=== PATIENT | female | born 1965 | race Caucasian/White ===

== ENCOUNTER → 2021-09-08 | Outpatient (CLI) | payer OTHER, SELFPAY ==
--- NOTE | 2021-09-08 07:23 | BI_ITS ---
MAMMOGRAPHY - BILATERAL SCREENING REASON FOR EXAM: Female, 55 years old. Routine annual screening examination. PERTINENT HISTORY: Non-contributory. TECHNIQUE: Digital bilateral breast loretta (3D mammographic acquisition) in the CC and MLO projections. 2-D mediolateral oblique (MLO) and craniocaudad (CC) views of both breasts were obtained. CAD: Full Field Digital Mammography with Computer Added Detection was performed. COMPARISON: No comparison mammograms available at this time. If any prior films become available, an addendum to this report can be generated. FINDINGS: Breast Composition: There are scattered areas of fibroglandular density. There are no dominant masses or suspicious calcifications. No other significant abnormalities are identified. BI/SCRN MAMM (CAD)W/LORETTA BILAT IMPRESSION: Negative screening mammogram. Yearly followup mammogram recommended. (A) ASSESSMENT CATEGORY: BIRADS Category 1: Negative. A letter regarding these results will be sent to the patient by the facility within 30 days. Approximately 10% of breast cancers are not detected by mammography. A normal mammogram should not delay biopsy of a clinically suspicious abnormality. [id number] Electronically Signed: Bowen Andrews MD at 15:48 EDT ,
== END | disposition home or self-care (01) ==
LOC: OPBI 07:21
PROVIDERS: PCP Internal Medicine; Referring Provider Obstetrics & Gynecology; Visit Provider Obstetrics & Gynecology
DX: Z12.31 Encounter for screening mammogram for malignant neoplasm of breast (principal)
CPT/HCPCS: 77063; 77067

== ENCOUNTER → 2021-09-19 | Outpatient (CLI) | payer OTHER, SELFPAY ==
[2021-09-19 08:16] LABS: Absolute Lymphocyte Count 2.22 X10^3/uL (0.83-4.51); Absolute Neutrophil Count 3.6 X10^3/uL (2.0-7.7); Basophil# 0.06 X10^3/uL; Basophil% 0.9 % (0-1); Eosinophil# 0.19 X10^3/uL; Eosinophils% 2.8 % (0-5); Hematocrit 43.1 % (37-47); Hemoglobin 14.1 g/dL (12.0-15.0); Lymphocyte # 2.22 X10^3/ul (0.83-4.51); Lymphocyte % 33.3 % (19-41); Mean Corp Hgb Conc 32.7 g/dL (32-36); Mean Corpuscular Hgb 30.1 pg (27.0-32.0); Mean Corpuscular Volume 91.9 fL (81-99); Mean Platelet Vol. 10.4 fl (6.2-12.0); Monocyte# 0.61 X10^3/uL; Monocyte% 9.1 % (0-10); NRBC Flagged by Analyzer 0 % (0-5); Neutrophil # 3.56 X10^3/uL (2.7-7.7); Neutrophil % 53.5 % (47-70); Platelet Count 174 K/mm3 (150-450); RBC Distribution Width CV 13.3 % (11.6-14.6); RBC Distribution Width SD 44.9 fl (35.1-43.9); Red Blood Count 4.69 M/mm3 (4.2-5.4); White Blood Count 6.7 K/mm3 (4.4-11.0)
[2021-09-25 20:07] LABS: Alternaria tenuis <0.10 kU/L (Class 0); Ash, White <0.10 kU/L (Class 0); Aspergillus fumigatus <0.10 kU/L (Class 0); Aspirgillus flavus Negative (Neg:<1:1); Aspirgillus fumigatus Negative (Neg:<1:1); Aspirgillus niger Negative (Neg:<1:1); Bermuda Grass <0.10 kU/L (Class 0); Birch <0.10 kU/L (Class 0); Black Walnut <0.10 kU/L (Class 0); Cat Hair / Dander,Stand <0.10 kU/L (Class 0); Cedar, Mountain <0.10 kU/L (Class 0); Cladosporium herbarum <0.10 kU/L (Class 0); Cockroach, American <0.10 kU/L (Class 0); Cottonwood <0.10 kU/L (Class 0); Cytoplasmic Ab (C-ANCA) <1:20 titer (Neg:<1:20); D farinae Mite <0.10 kU/L (Class 0); D pteronyssinus <0.10 kU/L (Class 0); Dog Epithelia <0.10 kU/L (Class 0); Elm, American White <0.10 kU/L (Class 0); Immunoglobulin E 318 IU/mL (6-495); Maple/Box Elder <0.10 kU/L (Class 0); Mulberry, White <0.10 kU/L (Class 0); Oak, White <0.10 kU/L (Class 0); Pecan <0.10 kU/L (Class 0); Penicillium Notatum <0.10 kU/L (Class 0); Pigweed, Rough <0.10 kU/L (Class 0); Ragweed, Short/Common <0.10 kU/L (Class 0); Russian Thistle <0.10 kU/L (Class 0); Sheep Sorrel <0.10 kU/L (Class 0); Sycamore, American <0.10 kU/L (Class 0); Timothy Grass <0.10 kU/L (Class 0)
[2021-09-26 13:26] LABS: Mouse Urine <0.10 kU/L (Class 0)
[2021-09-26 13:27] LABS: Immunoglobulin E 312 IU/mL (6-495); Perinuclear Ab (P-ANCA) <1:20 titer (Neg:<1:20)
== END | disposition home or self-care (01) ==
PROVIDERS: PCP Internal Medicine; Referring Provider Internal Medicine Critical Care Medicine; Visit Provider Internal Medicine Critical Care Medicine
DX: J45.909 Unspecified asthma, uncomplicated (principal)
CPT/HCPCS: 36415; 82785; 85025; 86003; 86256; 86606

== ENCOUNTER → 2021-09-23 | Outpatient (CLI) | payer OTHER, SELFPAY ==
--- NOTE | 2021-09-23 12:23 | PFT ---
INTRODUCTION: The patient is a 55-year-old female that presents for pulmonary function studies secondary to a diagnosis of asthma. Respiratory therapy reported good patient effort. Bronchodilators were used during testing. INTERPRETATION: Forced expiration spirometry demonstrates the presence of a fully reversible moderate large airways obstructive ventilatory defect with significant bronchodilator response. Spirograms are of good quality and plateau normally. Body plethysmography was performed and revealed lung volumes to be within normal limits. Diffusing capacity by single breath CO is also within normal limits. IMPRESSION: Fully reversible moderate large airways obstructive ventilatory impairment with significant bronchodilator response noted.
== END | disposition home or self-care (01) ==
LOC: PSN 09:15
PROVIDERS: PCP Internal Medicine; Referring Provider Internal Medicine Critical Care Medicine; Visit Provider Internal Medicine Critical Care Medicine
DX: J45.909 Unspecified asthma, uncomplicated (principal)
CPT/HCPCS: 94060; 94726; 94729

== ENCOUNTER 2021-10-06 09:04 | Emergency (ER) | payer OTHER, SELFPAY ==
[2021-10-06 09:05] VITALS: BP 127/80; PULSE 61; RESP 15; TEMP 36; O2SAT 95; BMI 20.9
--- NOTE | 2021-10-06 09:10 | EDS_ITS ---
HPI <PAM Maciel - Last Filed: 10/06/21 09:51> History of Present Illness Chief Complaint: Upper Extremity Injury Narrative Narrative: 55-year-old female with history of asthma, SMT, presents to the emergency department after mechanical fall this morning. Patient states that her foot got stuck, she fell to the right striking her right upper extremity. Patient has pain to the shoulder, humeral area. Patient states that she did try to work however the pain was too great so she is here for evaluation. Patient is currently not on any blood thinners, patient denies any head or neck injury. [facility] <PAM Maciel - Last Filed: 10/06/21 09:51> [facility] Medical History (Updated 10/06/21 @ 09:50 by PAM Maciel) Right patella fracture Home Medications fluticasone 500 mcg-salmeterol 50 mcg/dose blistr powdr for inhalation 1 inh INHALATION BID 08/25/21 [History Last Taken Unknown] metoprolol succinate 25 mg tablet,extended release 24 hr 25 mg PO DAILY 08/25/21 [History Last Taken Unknown] montelukast 10 mg tablet 10 mg PO DAILY 08/25/21 [History Last Taken Unknown] oxybutynin chloride 5 mg tablet 5 mg PO QHS PRN #30 tab 08/25/21 [Rx Last Taken Unknown] pregabalin 200 mg capsule 200 mg PO BID 08/25/21 [History Last Taken Unknown] cholecalciferol (vitamin D3) 50 mcg (2,000 unit) capsule 50 mcg PO DAILY 09/15/21 [History Last Taken Unknown] epinephrine 0.3 mg/0.3 mL injection, auto-injector 0.3 mg IM ONCE #2 ea 09/15/21 [Rx Last Taken Unknown] fluticasone propionate 50 mcg/actuation nasal spray,suspension 2 spray INTRANASAL DAILY 09/15/21 [History Last Taken Unknown] mjxkwmnf-rota-uousw acid 80 mcg-herbal no.293 66.7 mg chewable tablet 1 tab PO DAILY 09/15/21 [History Last Taken Unknown] omalizumab 150 mg subcutaneous solution 375 mg SUBCUT Q2W 09/15/21 [History Last Taken Unknown] Allergy/AdvReac Type Severity Reaction Status Date / Time egg Allergy Other Verified 10/06/21 09:50 Family History (Updated 08/25/21 @ 09:26 by Rosina Mccall) Grandmother Throat cancer Mother Hypertension Surgical History (Updated 08/25/21 @ 09:25 by Rosina Mccall) S/P cholecystectomy S/P hysterectomy S/P right knee surgery S/P sinus surgery Social History (Updated 08/25/21 @ 09:29 by Rosina Mccall) Smoking Status: Former smoker alcohol intake: current details: occasionally substance use type: does not use caffeine: Yes what type of physical activity do you participate in: none seatbelt use: always do you feel safe at home: Yes additional social history: - Luis Patient works in [employer] at [employer] <PAM Maciel - Last Filed: 10/06/21 09:51> ROS ED ROS Narrative Constitutional: Negative for fever, chills, weight loss, weakness Eyes: Negative for vision loss, vision change, double vision ENT: Negative for any sore throat, ear pain, congestion Cardiovascular: Negative for any chest pain, tightness, palpitations, racing heartbeat Respiratory: Negative for any cough, sputum production, hemoptysis, shortness of breath, shortness of breath on exertion, orthopnea Gastrointestinal: Negative for any abdominal pain, nausea, vomiting, diarrhea, constipation, blood in stool, blood in vomit : Negative for any urinary frequency, incontinence, dysuria, retention, blood in urine Muscle skeletal: Negative for any muscle joint pain, stiffness, myalgias, arthralgias, neck pain, back pain. Positive for right shoulder, right upper arm pain Neurological: Negative for any headache, dizziness, syncope, numbness or tingling Skin: Negative for any rashes, lumps, itching, abrasions, lacerations Psychiatric: Negative for any depression, anxiety, stress, suicidal ideation, homicidal ideation Hematologic: Negative for any easy bruising, excessive bruising, easy bleeding Allergies: Negative for any eczema, hives, rash EXAM <PAM Maciel - Last Filed: 10/06/21 09:51> Physical Exam Narrative Exam Narrative: Vital signs reviewed. 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 Patient is a +2 radial pulse. Patient does have pain to the medial humerus as well as the right anterior shoulder joint. Negative for any cracking. Patient does have pain with any movement. Neuro: Cranial nerves II through XII intact, no focal neurological deficits. Skin: Clean dry and intact with no rash, purpura, petechiae, vesicles or pustules. Backslash flank: No CVA tenderness, no midline spinal tenderness, no deformity. Psych: Normal mood and affect. No SI, HI or acute psychosis. Const Vital Signs: 10/06/21 09:05 Temperature 96.8 F L Temperature Source Temporal Pulse Rate 61 Respiratory Rate 15 Blood Pressure 127/80 H Blood Pressure Mean 95 Pulse Ox 95 Oxygen Delivery Method Room Air Positive well nourished and well developed General Appearance ED: well developed [facility] <PAM Maciel - Last Filed: 10/06/21 09:51> [facility] Narrative Medical decision making narrative: Patient appears well, patient appears nontoxic, vital signs are stable. Patient presents to the emergency department with right shoulder, right arm pain after mechanical fall today. Patient's physical examination was consistent with muscle skeletal pain, I did receive x- rays of the right shoulder, right humerus, these were negative for any acute osseous abnormality. Patient was given an IM dose of Toradol, patient will return to work, and instructed to return for any worsening symptoms. Patient educated on range of motion exercise as well as to ice and heat. Patient stable for discharge <Dr. Brayden Anderson DO - Last Filed: 10/06/21 10:12> [facility] Narrative Medical decision making narrative: 55-year-old female seen and assessed by nurse practitioner. I did individually examined the patient and take a history. Patient had a mechanical fall with pain to the right shoulder. This does appear to be in the right humeral region. There is no obvious deformity on exam. Patient neurovascularly intact. X-rays of the right shoulder and right humerus on my interpretation show no acute fracture or subluxation. Patient initially took ibuprofen 200 mg prior to coming to the ER. She states she still having some pain and she was given a shot of Toradol. She request to go back to work. Patient counseled on ice, rest, alternate Tylenol ibuprofen for pain. Patient discharged home in stable condition. Impression: 1. Mechanical fall 2. Right shoulder contusion 3. Right arm contusion Lab Data Attestation: I reviewed the patient's lab results. Discharge Plan Triage Chief Complaint: Upper Extremity Injury ED Midlevel Provider: Akil Oshea ED Provider: Brayden Anderson Dx/Rx/DC Orders Clinical Impression: Acute shoulder pain Instructions: ED Arthralgia, ED Shoulder Sprain, ED RICE Prescriptions: No Action pregabalin [Lyrica] 200 mg capsule 200 mg PO BID RF: 0 fluticasone propion-salmeterol [Advair Diskus] 500-50 mcg/dose blister with device 1 inh inhalation BID RF: 0 montelukast [Singulair] 10 mg tablet 10 mg PO DAILY RF: 0 metoprolol succinate 25 mg tablet extended release 24 hr 25 mg PO DAILY RF: 0 oxybutynin chloride 5 mg tablet 5 mg PO QHS PRN (Reason: bladder spasms) Qty: 30 RF: 5 fluticasone propionate 50 mcg/actuation spray,suspension 2 spray intranasal DAILY RF: 0 Xolair 150 mg recon soln 375 mg subcut Q2W RF: 0 Alive Premium Women's 80 mcg- 66.7 mg tablet,chewable 1 tab PO DAILY RF: 0 cholecalciferol (vitamin D3) 50 mcg (2,000 unit) capsule 50 mcg PO DAILY RF: 0 epinephrine [EpiPen] 0.3 mg/0.3 mL auto-injector 0.3 mg IM ONCE Qty: 2 RF: 3 Primary Care Provider: Daiana Romo Referrals: Daiana Romo DO [Primary Care Provider] - Print Language: Mozambican Disposition Disposition: Home, Self Care
--- NOTE | 2021-10-06 09:14 | RAD_ITS ---
STUDY: X-RAY - RIGHT SHOULDER REASON FOR EXAM: Female, 55 years old. Fall TECHNIQUE: 4 view(s) of the shoulder. COMPARISON: None. FINDINGS: Normal glenohumeral articulation. Normal acromioclavicular joint. Normal acromion. Normal humeral head and visualized proximal humerus. The soft tissue structures are unremarkable. Normal visualized pulmonary apex. RAD/Shoulder min 2 Views IMPRESSION: Normal x-ray examination of the shoulder. Electronically Signed: Bowen Andrews MD at 9:43 EDT ,
--- NOTE | 2021-10-06 09:20 | RAD_ITS ---
STUDY: X-RAY - RIGHT HUMERUS REASON FOR EXAM: Female, 55 years old. Fall TECHNIQUE: 3 view(s) of the humerus. COMPARISON: None. FINDINGS: Normal visualized humerus. There is no demonstrated fracture or osseous destructive process. There is no demonstrated soft tissue abnormality. RAD/Humerus min 2 Views IMPRESSION: Normal x-ray examination of the humerus. Electronically Signed: Bowen Andrews MD at 9:42 EDT ,
[2021-10-06] MEDS: Ketorolac 15 MG/ML Vial IM (09:46)
== END 2021-10-06 10:14 | disposition home or self-care (01) ==
PROVIDERS: Emergency Provider Student in an Organized Health Care Education/Training Program; PCP Internal Medicine; Visit Provider Student in an Organized Health Care Education/Training Program
DX: S40.011A Contusion of right shoulder, initial encounter (principal); W01.10XA Fall on same level from slipping, tripping and stumbling with subsequent striking against unspecified object, initial encounter; Z87.891 Personal history of nicotine dependence
CPT/HCPCS: 73030; 73060; 96372; 99282

== ENCOUNTER → 2021-10-20 | Outpatient (CLI) | payer OTHER, SELFPAY ==
[2021-10-21 16:42] LABS: Giardia Lamblia, Stool EIA Negative (Negative)
== END | disposition home or self-care (01) ==
LOC: LABSPEC 08:13
PROVIDERS: PCP Internal Medicine; Referring Provider Internal Medicine; Visit Provider Internal Medicine
DX: R19.7 Diarrhea, unspecified (principal)
CPT/HCPCS: 83630; 87329; 87493; 87506

== ENCOUNTER → 2021-10-27 | Outpatient (CLI) | payer OTHER, SELFPAY | END | disposition home or self-care (01) | LOC: LABSPEC 09:04 | PROVIDERS: PCP Internal Medicine; Referring Provider Nurse Practitioner Acute Care; Visit Provider Nurse Practitioner Acute Care | DX: J45.909 Unspecified asthma, uncomplicated (principal) | CPT/HCPCS: 87070; 87077; 87205 ==

== ENCOUNTER 2021-10-28 20:50 | Emergency (ER) | payer OTHER, SELFPAY ==
[2021-10-28 20:51] VITALS: BP 120/73; PULSE 88; RESP 15; TEMP 36; O2SAT 98; BMI 20.9
--- NOTE | 2021-10-28 21:02 | EX.ED.VIS.EY ---
HPI History of Present Illness Chief Complaint: Eye Problem Informant: patient Onset/Context/Timing Location: Right Eye Onset: Today Context: Gradual Onset Narrative Narrative: Patient presents secondary to discharge from right eye. She was recently seen by pulmonary office was noted to have chest congestion. Sputum culture was sent. When the patient developed URI symptoms she was started on Augmentin. Today she is noted right eye irritation and redness with thick drainage. [facility] Medical History Aortic aneurysm Asthma CMT (Zgykvpc-Dwkgw-Zibvu disease) Right patella fracture Home Medications fluticasone 500 mcg-salmeterol 50 mcg/dose blistr powdr for inhalation 1 inh INHALATION BID 08/25/21 [History Last Taken Unknown] metoprolol succinate 25 mg tablet,extended release 24 hr 25 mg PO DAILY 08/25/21 [History Last Taken Unknown] montelukast 10 mg tablet 10 mg PO DAILY 08/25/21 [History Last Taken Unknown] pregabalin 200 mg capsule 200 mg PO BID 08/25/21 [History Last Taken Unknown] cholecalciferol (vitamin D3) 50 mcg (2,000 unit) capsule 50 mcg PO DAILY 09/15/21 [History Last Taken Unknown] epinephrine 0.3 mg/0.3 mL injection, auto-injector 0.3 mg IM ONCE #2 ea 09/15/21 [Rx Last Taken Unknown] fluticasone propionate 50 mcg/actuation nasal spray,suspension 2 spray INTRANASAL DAILY 09/15/21 [History Last Taken Unknown] qpjktpbc-kwsj-zubnd acid 80 mcg-herbal no.293 66.7 mg chewable tablet 1 tab PO DAILY 09/15/21 [History Last Taken Unknown] omalizumab 150 mg subcutaneous solution 375 mg SUBCUT Q2W 09/15/21 [History Last Taken Unknown] oxybutynin chloride 5 mg tablet 5 mg PO QHS PRN #90 tab 10/12/21 [Rx Last Taken Unknown] amoxicillin 875 mg-potassium clavulanate 125 mg tablet 1 tab PO BID #10 tab 10/28/21 [Rx Last Taken Unknown] Allergy/AdvReac Type Severity Reaction Status Date / Time egg Allergy Other Verified 10/28/21 20:53 Family History Grandmother Throat cancer Mother Hypertension Surgical History S/P cholecystectomy S/P hysterectomy S/P right knee surgery S/P sinus surgery Social History Smoking Status: Former smoker alcohol intake: current details: occasionally substance use type: does not use caffeine: Yes what type of physical activity do you participate in: none seatbelt use: always do you feel safe at home: Yes additional social history: - Luis Patient works in [employer] at [employer] ROS ROS ED Constitutional Constitutional ED: Denies chills or fever(s) Eyes Eyes: Reports other Details: Discharge from right ; Denies change in vision ENT ENT ED: Denies sore throat Cardiovascular Cardiovascular: Denies chest pain Respiratory/Chest Respiratory/Chest: Reports cough, dyspnea and sputum Gastrointestinal Gastrointestinal: Denies abdominal pain, nausea or vomiting Genitourinary Genitourinary ED: Denies dysuria Musculoskeletal Musculoskeletal: Denies back pain or neck pain Integumentary Denies rash Neurologic Neurologic: Denies headache(s) or weakness Allergic/Immunologic Allergic/Immunologic ED: Denies urticaria EXAM Physical Exam Const Vital Signs: 10/28/21 20:51 Temperature 96.8 F L Temperature Source Temporal Pulse Rate 88 Respiratory Rate 15 Blood Pressure 120/73 Blood Pressure Mean 88 Pulse Ox 98 Oxygen Delivery Method Room Air Positive well nourished and well developed General Appearance ED: well developed HEENT atraumatic Eyes Eyes Narrative: Conjunctival injection of the right eye. Thick white to yellow-colored discharge noted. Mild periorbital edema. Extraocular movements fully intact without difficulty. Neck supple Resp normal respiratory effort and clear to auscultation bilaterally Cardio regular rate and regular rhythm GI non-tender Palpation: soft Extremity normal to inspection Neuro oriented x3 Sensorium / Orientation: alert Skin Lesions: no lesions Rashes: no rashes MDM MDM MDM Narrative Medical decision making narrative: Patient has evidence of conjunctivitis. I did discuss with the patient this could be viral or bacterial. She will be treated with gentamicin drops. Return instructions provided. She will continue the Augmentin previously prescribed. Discharge Plan Triage Chief Complaint: Eye Problem ED Provider: Zuleika Cancino Dx/Rx/DC Orders Clinical Impression: Conjunctivitis Instructions: ED Conjunctivitis, Nonspecific Prescriptions: No Action pregabalin [Lyrica] 200 mg capsule 200 mg PO BID RF: 0 fluticasone propion-salmeterol [Advair Diskus] 500-50 mcg/dose blister with device 1 inh inhalation BID RF: 0 montelukast [Singulair] 10 mg tablet 10 mg PO DAILY RF: 0 metoprolol succinate 25 mg tablet extended release 24 hr 25 mg PO DAILY RF: 0 fluticasone propionate 50 mcg/actuation spray,suspension 2 spray intranasal DAILY RF: 0 Xolair 150 mg recon soln 375 mg subcut Q2W RF: 0 Alive Premium Women's 80 mcg- 66.7 mg tablet,chewable 1 tab PO DAILY RF: 0 cholecalciferol (vitamin D3) 50 mcg (2,000 unit) capsule 50 mcg PO DAILY RF: 0 epinephrine [EpiPen] 0.3 mg/0.3 mL auto-injector 0.3 mg IM ONCE Qty: 2 RF: 3 oxybutynin chloride 5 mg tablet 5 mg PO QHS PRN (Reason: bladder spasms) Qty: 90 RF: 4 amoxicillin-pot clavulanate 875-125 mg tablet 1 tab PO BID Qty: 10 RF: 0 Primary Care Provider: Daiana Romo Referrals: Daiana Romo DO [Primary Care Provider] - 1-2 Weeks Activity Restrictions/Additional Instructions: Gentamicin eyedrops-1 drop to right eye 4 times daily until symptoms are resolved for 24 hours. Disposition Disposition: Home, Self Care Discharge Date/Time: 10/28/21 21:11
[2021-10-28] MEDS: Gentamicin Sulfate 1 OPTH.BTL 2 DRP RIGHT EYE (21:07)
== END 2021-10-28 21:11 | disposition home or self-care (01) ==
LOC: ED 21:04
PROVIDERS: Emergency Provider Emergency Medicine; PCP Internal Medicine; Visit Provider Emergency Medicine
DX: H10.9 Unspecified conjunctivitis (principal); J45.909 Unspecified asthma, uncomplicated; Z87.891 Personal history of nicotine dependence
CPT/HCPCS: 99282

== ENCOUNTER → 2021-12-08 | Outpatient (CLI) | payer OTHER, SELFPAY ==
--- NOTE | 2021-12-08 17:32 | CT_ITS ---
EXAM: CT ANGIOGRAPHY CHEST WITHOUT AND WITH INTRAVENOUS CONTRAST CLINICAL INDICATION: thoracic aortic aneurysm TECHNIQUE: Helically acquired angiography images were obtained of the chest without and with intravenous contrast. This CT exam was performed using one or more of the following dose reduction techniques: automated exposure control, adjustment of the mA and/or kV according to patient size, and/or use of iterative reconstruction technique. This report was created using [employer] report generation technology. MIP reconstructed images were created and reviewed. CONTRAST: IV 100mL [id number] COMPARISON: None. FINDINGS: PULMONARY ARTERIES: Unremarkable. Normal in caliber. No evidence of pulmonary embolism. AORTA: The ascending aorta measures 3.8 cm in AP diameter. Normal in caliber. No evidence of dissection. GREAT VESSELS OF AORTIC ARCH: Unremarkable. Normal in caliber. No evidence of dissection. LUNGS AND PLEURAL SPACES: Unremarkable. No mass. No consolidation or edema. No pleural effusion or thickening. No pneumothorax. HEART: Unremarkable. Heart size is normal. No pericardial effusion. No signs of right heart strain, ratio of right ventricle to left ventricle measures less than 1. MEDIASTINUM: Unremarkable. No mediastinal or hilar adenopathy. Esophagus is unremarkable. No hiatal hernia. THYROID: Unremarkable. No thyroid lesions. BONES/JOINTS: Unremarkable. No suspicious lytic or blastic abnormality. LIVER: There is a low-density lesion in the left lobe of the liver which may represent a cyst. CT/CTA Chest W/WO Contrast IMPRESSION: Minimal ectasia ascending aorta measuring 3.8 cm. There is no aneurysm or dissection. No other abnormalities are identified. Electronically Signed: Henrry Orlando MD at 3:09 EDT ,
== END | disposition home or self-care (01) ==
LOC: CT 17:30
PROVIDERS: PCP Internal Medicine; Visit Provider Internal Medicine Cardiovascular Disease
DX: I35.1 Nonrheumatic aortic (valve) insufficiency (principal); I71.6 Thoracoabdominal aortic aneurysm, without rupture; Z82.79 Family history of other congenital malformations, deformations and chromosomal abnormalities
CPT/HCPCS: 71275; Q9967

== ENCOUNTER 2021-12-20 07:30 | Outpatient (RCR) | payer OTHER, SELFPAY ==
--- NOTE | 2021-11-09 15:01 | HP.PTEVAL_ITS ---
Patient's Visit Information BRIONNA LANDIN is a 55 year old F referred to Physical Therapy by Dr. Arden Hoover MD with a diagnosis of Muscle weakness. Date of Evaluation: 11/09/21 Physical Therapist: CINDY Dillard - Visit Plan Frequency: 2x /Week Duration: 2 Months Plan: 2X/ week for 6 weeks for core stability, LE strength (including hips and knees), vestibular inputs while strengthening to help with balance, core strength with HEP a few weeks into PT to be able to strengthen at home in addition to 2X/ week here in the clinic - Subjective Pt gets SOB with talkig. Pt has Charcot Marzena Tooth. Pt has been noticing the last year more weakness than normal. Her weakness would come in waves and then go away. Now she is noticing weakness from her hips down and sometimes it could get pretty severe. She saw a Neurologist and he said he thought it was more of a back issue. She has never been able to stand without pain but within a couple of seconds if standing upright she is in pain starting in legs, back etc. If she is moving then she ok. She can not go long distances either. The CMT has been slow progressing. She moved 8 years ago and had mental and physical stress and felt the downhill from there. She wears B AFO's. She notices weakness on steps. After doing house work she has pain in back, hips and legs. Years ago they did an EMG and does not know the results but it resulted with CMT. - Pain Back pain Pain Intensity (Out of 10): 0 B hip pain Pain Intensity (Out of 10): 0 Lower leg pain Pain Intensity (Out of 10): 4 - Objective Gait: walks with increase veering and decreased heel to toe gait pattern. Core weakness present with resisted hip flexion and needed UE support. L knee ext 22.5 and R knee ext 22.8. L knee flex 7.5 and R knee flex 10.8. L hip flex 10.8 and R 10.5. B hip abd 4-/5. CATSIB: 97/120. Sit to stand with no arms 4/5. no back pain but made legs weak - Balance/Special Test Scores CATSIB Score (Max score 120 seconds): 97 Lower Extremity Functional Score: 27 - Goals Goal 1:: I HEP Goal Time Frame: 6-8 Weeks Goal 2:: Increase CATSIB to 105/120 to decrease fall risk Goal Time Frame: 6-8 Weeks Goal 3:: Increase B hip flex and knee flex strength (At time of the eval: L knee flex 7.5 and R knee flex 10.8. L hip flex 10.8 and R 10.5). Goal Time Frame: 6-8 Weeks Goal 4:: Decrease back and hip pain by 50% with standing in one place still. Goal Time Frame: 6-8 Weeks Goal 5:: Be able to get up and down the camper stairs with more ease. Goal Time Frame: 6-8 Weeks - Rehabilitation Potential Rehabilitation Potential: Good - Anticipated Interventions Patient/Client Instruction: Educate patient on: Condition, Plan of Care For the Purpose of:: To decrease pain, To improve nutrient delivery to tissue, To improve muscle performance and motor function, To improve ability to perform ADL's, To increase tolerance to activity/condition/position, To improve performance and independence with ADL's, To decrease level of supervision to perform tasks, To improve ability of physical actions for home/co mmunity/work/leisure, To improve gait and locomotor functions, To improve endurance, To improve balance, To improve safety with gait Therapeutic Exercise to Include: Strength training, Endurance training, Balance training, Postural training, Gait and locomotor training, Neuromotor development, Active ROM, Dynamic Lumbar Stabilization, Scapular Strength/Stabilization For the Purpose of:: To decrease pain, To increase ROM, To improve nutrient delivery to tissue, To improve muscle performance and motor function, To improve ability to perform ADL's, To increase tolerance to activity/condition/position, To improve performance and independence with ADL's, To decrease level of supervision to perform tasks, To improve ability of physical actions for home/community/work/leisure, To improve gait and locomotor functions, To improve health of tissue, To decrease soft tissue restriction, To increase flexibility/ROM, To improve endurance, To improve balance, To improve safety with gait Functional Training to Include: Gait training For the Purpose of:: To improve gait and locomotor functions, To improve safety with gait Manual Therapy Techniques to Include: Passive ROM For the Purpose of:: To increase ROM, To increase flexibility/ROM Thank you for the opportunity to evaluate your patient. For Medicare and Medicare HMO plans, please review the plan of care and approve it. It will need to be FAXED BACK to us at [phone] for Medicare purposes. For Medicare only, by signing this I certify the plan of care. Please let me know if there are questions or concerns regarding this plan of care. Physician Signatu re: Date:
== END 2021-12-20 19:00 | disposition home or self-care (01) ==
LOC: PT 07:30
PROVIDERS: PCP Internal Medicine; Referring Provider Psychiatry & Neurology Neurology; Visit Provider Psychiatry & Neurology Neurology
DX: M62.81 Muscle weakness (generalized) (principal)
CPT/HCPCS: 97110; 97161

== ENCOUNTER → 2022-01-05 | Outpatient (CLI) | payer OTHER, SELFPAY ==
--- NOTE | 2022-01-05 16:54 | MRI_ITS ---
EXAM: MR LUMBAR SPINE WITHOUT INTRAVENOUS CONTRAST CLINICAL INDICATION: MUSCLE WEAKNESS TECHNIQUE: Multiplanar and multisequence MR images of the lumbar spine without intravenous contrast. This report was created using [employer] report Vringo technology. COMPARISON: None. FINDINGS: VERTEBRAE: Heterogeneous marrow signal within the vertebral bodies suggestive of fatty replacement. SPINAL CORD: Normal. Normal position and signal intensity of the conus medullaris. SACRUM/COCCYX: Expansion of the sacral spinal canal secondary to dural ectasia. SOFT TISSUES: Normal. DISCS/SPINAL CANAL/NEURAL FORAMINA: L1-L2: Normal. Normal disc height and morphology. Normal spinal canal and lateral recesses. Normal neuroforamina. L2-L3: Normal. Normal disc height and morphology. Normal spinal canal and lateral recesses. Normal neuroforamina. L3-L4: Normal. Normal disc height and morphology. Normal spinal canal and lateral recesses. Normal neuroforamina. L4-L5: Normal. Normal disc height and morphology. Normal spinal canal and lateral recesses. Normal neuroforamina. L5-S1: Decreased T2 signal intensity of the intervertebral disc related to desiccation. Mild posterior disc space narrowing and disc protrusion noted without significant impingement on the spinal canal. Vertebral body hypertrophy and facet arthropathy result in mild narrowing of the neural foramina. MRI/Spine Lumbar (Routine) IMPRESSION: 1. Normal conus medullaris and cauda equina. 2. L5-S1 disc degeneration and facet arthropathy results in mild to moderate narrowing of the neural foramina. 3. 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 Electronically Signed: Curtis Hough MD at 9:05 EDT ,
--- NOTE | 2022-01-05 16:54 | MRI_ITS ---
EXAM: MR CERVICAL SPINE WITHOUT INTRAVENOUS CONTRAST CLINICAL INDICATION: MUSCLE WEAKNESS TECHNIQUE: Multiplanar and multisequence MR images of the cervical spine without intravenous contrast were performed. This report was created using [employer] report [employer] technology. COMPARISON: None. FINDINGS: VERTEBRAE: Normal. Normal vertebral bodies and posterior elements. Normal alignment. Normal craniocervical junction and cervicothoracic junction. No spondylolisthesis. There is preservation of the normal cervical lordosis. SPINAL CORD: Unremarkable in signal and morphology. SOFT TISSUES: Normal. No prevertebral soft tissue swelling. LYMPH NODES: Multiple small cervical lymph nodes noted throughout the neck 3 reactive change. DISCS/SPINAL CANAL/NEURAL FORAMINA: C2-C3: Disc space narrowing without disc protrusion. Normal spinal canal. Normal neuroforamina. C3-C4: Disc space narrowing without disc protrusion. Normal spinal canal. Mild narrowing of the right neural foramen related to uncinate joint hypertrophy. C4-C5: Moderate disc space narrowing. Mild central disc protrusion causing narrowing of the left lateral recess and left neural foramen no significant spinal stenosis. C5-C6: Normal. Normal disc height and morphology. Normal spinal canal. Normal neuroforamina. C6-C7: Normal. Normal disc height and morphology. Normal spinal canal. Normal neuroforamina. C7-T1: Normal. Normal disc height and morphology. Normal spinal canal. Normal neuroforamina. MRI/Spine Cervical (Routine) IMPRESSION: Mild spondylosis. Narrowing of the left C4-5 lateral recess and neural foramen related to disc protrusion. Mild narrowing of the right C3-4 neural foramen secondary to uncinate joint hypertrophy. Normal cervical cord. Electronically Signed: Curtis Hough MD at 7:40 EDT ,
== END | disposition home or self-care (01) ==
LOC: MRI 16:51
PROVIDERS: PCP Internal Medicine; Visit Provider Psychiatry & Neurology Neurology
DX: M62.81 Muscle weakness (generalized) (principal)
CPT/HCPCS: 72141; 72148

== ENCOUNTER → 2022-01-11 | Outpatient (CLI) | payer OTHER, SELFPAY ==
--- NOTE | 2022-01-11 07:52 | AAVD_ITS ---
Reason For Study: Thoracic aortic aneurysm Aorta Measurements Aorta Doppler Measurements Proximal aorta measures1.59 x 1.56cm. in cross- Peak systolic flow velocities within the proximal sectional axis. aorta measure 53.7 cm/sec. Proximal aorta measures1.58cm. in longitudinal Peak systolic flow velocities within the mid aorta axis. measure 80.6 cm/sec. Mid aorta measures1.11 x 1.11cm. in cross- Peak systolic flow velocities within the distal sectional axis. aorta measure 73.2 cm/sec. Mid aorta measures1.11cm. in longitudinal axis. Distal aorta measures1.13 x 1.15cm. in cross- sectional axis. Distal aorta measures1.13cm. in longitudinal axis. Left Iliac Artery Left iliac artery measures 0.81 x 0.80 cm. in the cross-sectional axis. Left iliac artery measures 0.78 cm. in the longitudinal axis. Peak systolic velocity in the left iliac artery measures 84.2 cm/sec. Right Iliac Artery Right iliac artery measures 0.77 x 0.78 cm. in the cross-sectional axis. Right iliac artery measures 0.75 cm. in the longitudinal axis. Peak systolic velocity in the right iliac artery measures 89.1 cm/sec. Procedure Aorta IVC Iliac vasculature or bypass grafts 10699. Exam performed in department. VL/Abd Aortic/IVC Duplex scan Interpretation Summary Maximal aortic diameter proximally at 1.59 x 1.56 cm in diameter which is jazz l. Normal aortic flow velocities. Normal left common iliac 0.81 x 0.8 cm with normal flow velocity Normal right common iliac 0.77 x 0.87 cm diameter with normal flow velocity Ordering Physician: Akil Reagan Referring Physician: Daiana Romo Performed By: Dorota Llanos RVT
--- NOTE | 2022-01-11 07:52 | ECHOD_ITS ---
Reason For Study: Murmur Procedure This was a 2D Doppler, Color Flow transthoracic echocardiogram. The exam was of adequate technical quality. Exam performed in department. Left Ventricle Normal LV size. Left ventricular systolic function is normal. The estimated ejection fraction is 65 %. No evidence for diastolic dysfunction. No regional wall motion abnormalities noted. Right Ventricle Normal RV size. Normal systolic function. Atria Normal left atrium. Normal right atrium. No doppler evidence for ASD. Mitral Valve There is no mitral annular calcification. Normal mitral valve. Mild (1+) mitral valve insufficiency. Tricuspid Valve Normal tricuspid valve. Trivial tricuspid valve insufficiency. Unable to estimate RV systolic pressure due to insufficient tricuspid regurgitant envelope. Aortic Valve Trisinus/trileaflet aortic valve. Normal aortic valve. Trivial aortic valve insufficiency. Pulmonic Valve The pulmonic valve is not well visualized. Trivial pulmonic valve insufficiency. Great Vessels Mildly dilated aortic root. Pericardium/Pleural No pericardial effusion. MMode/2D Measurements & Calculations LVIDd: 4.6 cm IVSd: 0.85 cm LVOT diam: 2.0 cm LVIDs: 3.2 cm LVPWd: 0.99 cm LVOT area: 3.1 cm2 RVDd: 3.2 cm FS: 29.0 % Ao root diam: 4.1 cm LAV(MOD-bp): 53.1 ml LA A4 area: 18.3 cm2 LA dimension: 3.5 cm LAV(MOD-bp) Indexed: 27.8 ml/m2 LAV(MOD-sp2): 47.2 ml LAV(MOD-sp4): 45.9 ml RA A4 area: 18.1 cm2 Time Measurements MV dec time: 0.21 sec Doppler Measurements & Calculations MV E max rajesh: 65.1 cm/sec Lat Peak E' Rajesh: 12.7 cm/sec Med Peak E' Rajesh: 10.6 cm/sec MV A max rajesh: 48.0 cm/sec E/E' lat: 5.1 E/E' med: 6.1 MV E/A: 1.4 MV V2 max: 62.7 cm/sec MV P1/2t max rajesh: 62.7 cm/sec Ao V2 max: 137.7 cm/sec MV max P.6 mmHg MV P1/2t: 68.7 msec Ao max P.6 mmHg MV V2 mean: 32.0 cm/sec MV dec slope: 267.5 cm/sec2 Ao V2 mean: 93.9 cm/sec MV mean P.51 mmHg Ao mean P.0 mmHg MV V2 VTI: 24.1 cm MVA(P1/2t): 3.2 cm2 Ao V2 VTI: 32.4 cm MVA(VTI): 3.7 cm2 LLUVIA(I,D): 2.8 cm2 LLUVIA(V,D): 3.0 cm2 AI max rajesh: 458.3 cm/sec LV V1 max: 134.4 cm/sec SV(LVOT): 89.7 ml AI max P.1 mmHg LV V1 max P.2 mmHg LV V1 mean P.8 mmHg AI dec slope: 137.5 cm/sec2 LV V1 mean: 91.3 cm/sec AI P1/2t: 976.1 msec LV V1 VTI: 29.2 cm PA V2 max: 78.7 cm/sec ECHO/Echo Complete Interpretation Summary Left ventricular systolic function is normal. The estimated ejection fraction is 65 %. Mild (1+) mitral valve insufficiency. Trivial tricuspid valve insufficiency. Trivial aortic valve insufficiency. Trivial pulmonic valve insufficiency. Mildly dilated aortic root. Unable to estimate RV systolic pressure due to insufficient tricuspid regurgita nt envelope. No evidence for diastolic dysfunction. Ordering Physician: Akil Reagan Referring Physician: Akil Reagan Performed By: Victor Hugo Crowell RCS
== END | disposition home or self-care (01) ==
LOC: CVS 07:52
PROVIDERS: PCP Internal Medicine; Referring Provider Internal Medicine Cardiovascular Disease; Visit Provider Internal Medicine Cardiovascular Disease
DX: I71.6 Thoracoabdominal aortic aneurysm, without rupture (principal); R01.1 Cardiac murmur, unspecified; I35.1 Nonrheumatic aortic (valve) insufficiency; Z82.79 Family history of other congenital malformations, deformations and chromosomal abnormalities
CPT/HCPCS: 93306; 93978

== ENCOUNTER → 2022-01-25 | Outpatient (CLI) | payer OTHER, SELFPAY ==
--- NOTE | 2022-01-25 14:52 | NEURO ---
NCS and/or EMG Patient Report Ordering Doctor: Arden Hoover DATE OF SERVICE: 01/25/22 Sandie presents for electrodiagnostic testing of the lower limbs. She has a history of Charcot Marzena Tooth, diagnosed in 2002. She has noticed increased weakness in legs and increased lower back pain Electrodiagnostic Findings: Left peroneal motor response could not be obtained. Right peroneal motor response demonstrates prolonged distal latency with reduced amplitude and reduced conduction velocity. Left tibial motor response could not be obtained. Right tibial motor response demonstrates prolonged distal latency with reduced amplitude and reduced conduction velocity. Sural latency is noted bilaterally. Normal superficial peroneal response bilaterally. Needle EMG testing demonstrates motor unit action potentials of increased amplitude and duration bilaterally in the anterior tibialis, peroneus longus and gastrocnemius. Decreased recruitment pattern noted in these muscles as well. Response in the vastus medialis and external hamstrings bilaterally. No denervation noted in the lumbosacral paraspinals. Electrodiagnostic impression: This is an abnormal study in the lower limbs 1. Electrodiagnostic findings are suggestive of polyneuropathy, consistent with Saensoc-Ssnpq-Knayy, with evidence of demyelination. 2. No electrodiagnostic evidence for lumbosacral radiculopathy.
== END | disposition home or self-care (01) ==
LOC: PSN 08:39
PROVIDERS: PCP Internal Medicine; Referring Provider Psychiatry & Neurology Neurology; Visit Provider Psychiatry & Neurology Neurology
DX: G62.81 Critical illness polyneuropathy (principal)
CPT/HCPCS: 95886; 95911

== ENCOUNTER → 2022-03-13 | Outpatient (CLI) | payer OTHER, SELFPAY ==
[2022-03-13 08:59] LABS: CPK Total, Creatine Kinase 116 U/L (26-192); T4 Free Direct 1.01 ng/dL (0.76-1.46)
[2022-03-13 09:45] LABS: Vitamin B12 567 pg/mL (211-911); Vitamin D,25 Hydroxy 61.2 ng/mL
[2022-03-15 11:41] LABS: Aldolase 6.1 U/L (3.3-10.3)
[2022-03-21 17:50] LABS: Methylmalonic Acid Bld 113 nmol/L (0-378)
== END | disposition home or self-care (01) ==
PROVIDERS: PCP Internal Medicine; Referring Provider Psychiatry & Neurology Neurology; Visit Provider Psychiatry & Neurology Neurology
DX: M62.81 Muscle weakness (generalized) (principal)
CPT/HCPCS: 36415; 82085; 82306; 82550; 82607; 82746; 83921; 84439; 84443

== ENCOUNTER → 2022-04-26 | Outpatient (CLI) | payer OTHER, SELFPAY ==
--- NOTE | 2022-04-26 09:40 | LES_PTH ---
PATIENT: BRIONNA LANDIN [facility] U#:[id number] AGE/SX: 56/F ROOM: RE04/26/[address]: Dr. Cristian Watt MD : 1965 BED: DIS: 04/26/2022 SPEC #: [id number] RECD: 04/26/22 11:19 STATUS: JOSE LUIS REFouzia #: [id number] JONATHAN: 04/26/22 09:[address]: Cristian Watt DEPT: SURGICAL PATHOLOGY RECD BY: Humaira Barrera ENTERED: 04/26/22 14:51 SP TYPE: Lesion OTHR DR: Dr. Daiana Romo, DO Tissues: Skin of back, NOS Procedures: Surgery Specimen Level III HEADER OPERATION: Excision of lesion on back PRE-OP DIAGNOSIS: Back lesion TISSUE SUBMITTED: Back lipoma MICROSCOPIC DIAGNOSIS Soft tissue lesion of back, excision: Mature adipose tissue consistent with lipoma. AM:she 04/27/2022 MICROSCOPIC DESCRIPTION Slides are reviewed. GROSS DESCRIPTION Received in fixative is one container labeled with the patient's name and designated lipoma of back. The specimen consists of an ovoid piece of luu-yellow lobulated adipose tissue measuring 5 x 3 x 0.6 cm. The external surface is inked. Sections reveal yellow adipose cut surfaces without areas of hemorrhage, necrosis or cystic degeneration. Ore Fielder sections are submitted in two cassettes. / SJ:rg 04/26/2022 TC:1 CPT: 49601
== END | disposition home or self-care (01) ==
PROVIDERS: PCP Internal Medicine; Visit Provider Surgery
DX: D17.1 Benign lipomatous neoplasm of skin and subcutaneous tissue of trunk (principal)
CPT/HCPCS: 88304; 88305

== ENCOUNTER 2022-05-18 11:00 | Outpatient (RCR) | payer OTHER, SELFPAY ==
--- NOTE | 2022-04-19 12:18 | HP.PTEVAL ---
Patient's Visit Information BRIONNA LANDIN is a 56 year old F referred to Physical Therapy by Dr. Jojo Keen MD with a diagnosis of OVERACTIVE BLADDER, URGE INCONTINENCE AND PROLAPSE. Date of Evaluation: 04/19/22 Physical Therapist: Rebecca Galvez, PT, Cert MDT - Visit Plan Frequency: 1x/Week Duration: 8-12 WKS Plan: MANUAL PF THERAPY FOR STRENGTHENING, LENGTHENING/RELAXATION AND ENDURANCE TRAINING WHEN OK'D BY PATIENT AND CLEARED OF INFECTION BY DR. DUE TO BURNING. URINARY RETENTION AND FREQUENCY EDUCATION. HEALTHY BLADDER HABBIT EDUCATION. TRAINING IN STRENGTH AND COORDINATION OF PELVIC FLOOR MUSCULATURE WITH HIP AND CORE (TRANSVERSE ABDOMINUS) MUSCULATURE. POSTURE CORRECTION/STRENGTHENING. CORE STRENGTHENING. TANI LE ROM, STRETCHING AND STRENGTHENING. TRAINING IN ABDOMINAL CAVITY PRESSURE MGMT WITH ADL'S. - Subjective Work/Leisure: WORKING FOR [employer] IN [employer] 24 HRS A WK. Present symptoms: PATIENTS CHIEF COMPLAINT IS NIGHT TIME URINE LEAKAGE. STATES SHE DOESN'T NOTICE IT SO MUCH DURING THE DAY. RARE LEAKING DURING THE DAY. STATES SHE HAD BULGING IN THE VAGINAL AREA BEFORE HER BLADDER SUSPENSION THEN IT WENT AWAY BUT CAME BACK. STATES SHE THINKS TRYING TO PUSH EXTRA URINE OUT AT THE END HAS WEAKEND THINGS. PATIENT REPORTS RECENT BLADDER TESTING SHOWED NORMAL EMPTYING. ALSO HAVING BURNING AFTER INTERCOURSE SOMETIMES (STATES SHE HAS NOT DISCUSSED THIS WITH DR. KEEN). PATIENT DENIES PELVIC PAIN OTHER THAN THE BURNING DESCRIBED. IS HAVING R LBP AND HAS A HISTORY OF LBP. Present since: ABOUT A YEAR. Pain Scale: R LBP: WORST 5/10, LEAST 0/10. Currently: 0/10. Is it getting better, worse or staying the same: BACK AND INCONTINENCE SX'S ARE STAYING THE SAME. Commenced as a result of: LBP STARTED DUE TO A BEND AND A TWIST ABOUT 4 YEARS AGO. Worse: BACK PAIN IS WORSE IN SITTING AND BETTER LYING FLAT. Disturbed sleep: YES. Previous history/Previous treatment: CHIROPRACTIC, ULTRASOUND, ACCUPUNCTURE, AND HANNA'S WITH PAIN MGMT BUT DID NOT HELP LBP AND NO LONGER IN PAIN MGMT. NO BACK SURGERY. HAS HAD PHYSICAL THERAPY IN THE PAIN FOR HER BACK AND MORE RECENTLY PT HERE AT WHICH SEEMED TO HELP HER ENDURANCE BUT NOT REALLY HER STRENGTH. HAS NOT HAD PT FOR HER PF IN THE PAST. Treatment this episode: STARTED MEDICATION FOR INCONTINENCE 04/03/22 - HAS DECREASED OVER-ACTIVE BLADDER SX'S A LOT. SHE REPORTS THE MEDICATION HAS ALSO HELPED HER NIGHT TIME INCONTINENCE TO SOME DEGREE. Coughing/sneezing/straining: POSITIVE FOR STRESS INCONTINENCE SOMETIMES. Gait: ABNORMAL DUE TO NEUROLOGICAL DISORDER BUT NOT USING ANY ASSISTIVE DEVICES. DOES TAKE A STOOL WITH HER DUE TO NOT BEING ABLE TO STAND FOR MUCH OF ANY LENGTH OF TIME DUE TO BACK AND LEG PAIN. Bowel or Bladder Dysfunction: NO BOWEL INCONTINENCE. SEE BLADDER DYSFUNCTION DISCRIPTIONS ABOVE. Unexplained weight loss: NO. Imaging: LUMBAR MRI JAN 2022: IMPRESSION: 1. Normal conus medullaris and cauda equina. 2. L5-S1 disc degeneration and facet arthropathy results in mild to. moderate narrowing of the neural foramina. 3. 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 Electronically Signed: Curtis Hough MD. at 9:05 EDT. PMH/Recent major surgery: CHARCOT NBA TOOTH DISEASE - NEUROMUSCULAR, ASTHMA, THORACIC aneurysm/ENLARGED AORTIC ROOT. HYSTERECTOMY AND BLADDER SUSPENTION 2005. R PATELLA FX 2009 - ORIF. 2010 - SINUS SURGERY. GALLBLADDER REMOVAL 2015. 2019 UMBILICAL HERNIA REPAIR. - Objective Sitting/Standing Posture: POOR. FH. RSH'S. DECREASED LORDOSIS. NO RELEVENT LATERAL SHIFT. Active Correction of posture: INCREASES LBP. Other Observations: BROUGHT CHAIR CUSION AND STATES SHE CAN NOT SIT WITHOUT IT. PATIENT AMBULATES INDEP'LY INTO PT WITHOUT ANY ASSISTIVE DEVICES LURCHING FROM SIDE TO SIDE. SHE REQUESTED TO LIE DOWN VS SIT DURING SUBJECTIVE PORTION OF EXAM DUE TO BACK PAIN. PATIENT IS WEARING TANI AFO'S. Sensory deficit: TANI LE DECREASED LIGHT TOUCH SENSATION BUT SYMMETRICAL AND MORE DECREASED FROM THE KNEES DOWN AND IN RIGHT FOOT. ROM deficit: TIGHT TANI HIPS ALL PLANES EXCEPT FLEXION. PATIENT DENIED PAIN WITH TESTING EXCEPT AT THE END OF THE AVAILABLE RANGE INTO IR TANI. DECREASED TANI ANKLE ROM R > L. Motor deficit: TANI AFO'S. R ANKLE DORSI 2-/5, L 2+/5. HIPS 4-/5, KNEE'S 4-/5. Lumbar mvmt loss: flex - NIL. ext - NT. R SG - MICHELLE. L SG - MICHELLE. Core strength: POOR. Palpation: PALPABLE TANI PARASPINAL MUSCLE SPASMS. PATIENT IS CURRENTLY HAVING BURNING AND HAS NOT TOLD HER DOCTOR ABOUT IT YET AND HAS NOT HAD A PELVIC EXAM BY HER DOCTOR SO WE ARE HOLDING OFF ON INTERNAL PELVIC EXAM TODAY. PATIENT AGREEABLE. PATIENT COMMUNICATES A GOOD UNDERSTANDING OF HOW TO CONTRACT PELVIC FLOOR AND REPORTS WEAKNESS. FUNCTIONAL SCREEN: Incontinence Impact Questionnaire Score: 2. Urogenital Distress Inventory Score: 12 - Goals Goal 1:: PATIENT WILL SUCCESSFULLY DELAY VOIDING FOR 20 MINUTES OR MORE WHEN URGENCY OCCURS Goal Time Frame: 4-6 Weeks Goal 2:: DECREASE URINARY LEAKAGE AT NIGHT Goal Time Frame: 8-12 Weeks Goal 3:: PATIENT WILL HAVE INCREASED PELVIC FLOOR MUSCLE STRENGTH GRADE TO 5/5 Goal Time Frame: 6-8 Weeks Goal 4:: PATIENT WILL DEMONSTRATE 10 CONSISTENT AND CONSECUTIVE 10 SECOND PELVIC FLOOR MUSCLE CONTRACTIONS TO DEMONSTRATE IMPROVED PELVIC FLOOR ENDURANCE. Goal Time Frame: 8-12 Weeks Goal 5:: DEVELOP HEALTHY FLUID INTAKE HABITS - FLUID INTAKE OF ? BODY WEIGHT IN OUNCES PER DAY WITH 2/3 BEING WATER AND. NORMALIZE VOIDING FREQUENCEY - VOID FREQUENCEY EVERY 3-4 HOURS Goal Time Frame: 6-8 Weeks Goal 6:: PATIENT WILL BE INDEP WITH A HEP/HOME INSTRUCTIONS FOR CONTINUED IMPROVEMENT ONCE FORMAL PHYSICAL THERAPY CONCLUDES. Goal Time Frame: 8-12 Weeks - Anticipated Interventions Patient/Client Instruction: Educate patient on: Condition, Plan of Care, Risk Factors For the Purpose of:: To improve self management Therapeutic Exercise to Include: Strength training, Endurance training, Flexibilty training, Neuromotor development For the Purpose of:: To improve muscle performance and motor function, To increase tolerance to activity/condition/position, To improve ability of physical actions for home/community/work/leisure Manual Therapy Techniques to Include: Soft tissue mobilization For the Purpose of:: To decrease soft tissue restriction Thank you for the opportunity to evaluate your patient. For Medicare and Medicare HMO plans, please review the plan of care and approve it. It will need to be FAXED BACK to us at [phone] for Medicare purposes. For Medicare only, by signing this I certify the plan of care. Please let me know if there are questions or concerns regarding this plan of care. Physician Signature: Date:
--- NOTE | 2022-08-17 11:14 | HP.PT.NRP ---
BRIONNA LANDIN was seen in my office for initial evaluation on 04/19/22. The following Plan of Care was established for this patient: Initial Frequency: 1x/Week Initial Duration: 8-12 WKS Patient/Client Instruction: Educate patient on: Condition, Plan of Care, Risk Factors For the Purpose of:: To improve self management Therapeutic Exercise to Include: Strength training, Endurance training, Flexibilty training, Neuromotor development For the Purpose of:: To improve muscle performance and motor function, To increase tolerance to activity/condition/position, To improve ability of physical actions for home/community/work/leisure Manual Therapy Techniques to Include: Soft tissue mobilization For the Purpose of:: To decrease soft tissue restriction This patient was last seen in our office 05/18/22. Pertinent comments regarding their Physical therapy will appear below: This patient has not returned to Physical Therapy and is appropriate to return to MD for further follow-up as needed. At this point I will be discontinuing this patient from physical therapy. I would be happy to see this patient again in the future if found appropriate by the physician. Thank you! Rebecca Galvez, PT, Cert MDT
== END 2022-05-18 19:00 | disposition home or self-care (01) ==
LOC: PT 11:00
PROVIDERS: PCP Internal Medicine; Referring Provider Urology; Visit Provider Urology
DX: N81.3 Complete uterovaginal prolapse (principal); N32.81 Overactive bladder; A54.9 Gonococcal infection, unspecified
CPT/HCPCS: 97162; 97530

== ENCOUNTER → 2022-09-11 | Outpatient (CLI) | payer OTHER, SELFPAY ==
--- NOTE | 2022-09-11 10:05 | BI_ITS ---
MAMMOGRAPHY - BILATERAL SCREENING REASON FOR EXAM: Female, 56 years old. Routine annual screening examination. PERTINENT HISTORY: Non-contributory. TECHNIQUE: Digital bilateral breast lorteta (3D mammographic acquisition) in the CC and MLO projections. 2-D mediolateral oblique (MLO) and craniocaudad (CC) views of both breasts were obtained. CAD: Full Field Digital Mammography with Computer Added Detection was performed. COMPARISON: Comparison is made with prior study September 08, 2021. FINDINGS: Breast Composition: There are scattered areas of fibroglandular density. There are no dominant masses or suspicious calcifications. Stable small benign-appearing bilateral axillary lymph nodes. No other significant abnormalities are identified. There has been no significant change since the prior study. BI/SCRN MAMM (CAD)W/LORETTA BILAT IMPRESSION: Stable bilateral screening mammogram. Yearly follow-up mammogram recommended. (A) ASSESSMENT CATEGORY: BIRADS Category 2: Benign. A letter regarding these results will be sent to the patient by the facility within 30 days. Approximately 10% of breast cancers are not detected by mammography. A normal mammogram should not delay biopsy of a clinically suspicious abnormality. [id number] Electronically Signed: Bowen Andrews MD at 10:58 EDT ,
== END | disposition home or self-care (01) ==
LOC: OPBI 10:03
PROVIDERS: PCP Internal Medicine; Referring Provider Obstetrics & Gynecology; Visit Provider Obstetrics & Gynecology
DX: Z12.31 Encounter for screening mammogram for malignant neoplasm of breast (principal)
CPT/HCPCS: 77063; 77067

== ENCOUNTER → 2022-09-19 | Outpatient (CLI) | payer OTHER, SELFPAY ==
[2022-09-19 10:38] LABS: Absolute Lymphocyte Count 1.97 X10^3/uL (0.83-4.51); Absolute Neutrophil Count 2.9 X10^3/uL (2.0-7.7); Basophil# 0.05 X10^3/uL; Basophil% 0.9 % (0-1); Eosinophil# 0.21 X10^3/uL; Eosinophils% 3.7 % (0-5); Hematocrit 42.9 % (37-47); Hemoglobin 13.9 g/dL (12.0-15.0); Lymphocyte # 1.97 X10^3/ul (0.83-4.51); Lymphocyte % 34.7 % (19-41); Mean Corp Hgb Conc 32.4 g/dL (32-36); Mean Corpuscular Hgb 29.6 pg (27.0-32.0); Mean Corpuscular Volume 91.5 fL (81-99); Mean Platelet Vol. 10.1 fl (6.2-12.0); Monocyte# 0.55 X10^3/uL; Monocyte% 9.7 % (0-10); NRBC Flagged by Analyzer 0 % (0-5); Neutrophil # 2.89 X10^3/uL (2.7-7.7); Neutrophil % 50.8 % (47-70); Platelet Count 186 K/mm3 (150-450); RBC Distribution Width CV 13.1 % (11.6-14.6); RBC Distribution Width SD 43.8 fl (35.1-43.9); Red Blood Count 4.69 M/mm3 (4.2-5.4); White Blood Count 5.7 K/mm3 (4.4-11.0)
[2022-09-19 11:11] LABS: ALB/GLOB Ratio 0.9 RATIO (0.9-2.4); AST(SGOT) 21 U/L (15-37); Alanine Aminotransfer ALT/SGPT 25 U/L (13-56); Albumin, Serum 3.4 g/dL (3.2-5.0); Alkaline Phosphatase 142 U/L (45-117); Anion Gap 5 (5-15); BUN 25 mg/dL (7-18); BUN/Creat Ratio 32.9 RATIO (10-20); Chloride 111 mmol/L (98-107); Cholesterol 146 mg/dL (200); Creatinine, Serum 0.76 mg/dL (0.55-1.02); EST Glomerular Filtration Rate 83 mL/min (>60); Est Glom Filt Rate - Afr Amer 101 mL/min (>60); Globulin 3.7 g/dL (2.2-4.2); Glucose 86 mg/dL (74-106); High Density Lipoprotein 56 mg/dL; Protein, Total 7.1 g/dL (6.4-8.2); Sodium Level 143 mmol/L (136-145); Triglycerides 26 mg/dL; Very Low Density Lipoprotein 5 mg/dL (5-40)
== END | disposition home or self-care (01) ==
LOC: MTLAB 07:50
PROVIDERS: PCP Internal Medicine; Referring Provider Internal Medicine; Visit Provider Internal Medicine
DX: Z00.00 Encounter for general adult medical examination without abnormal findings (principal); E55.9 Vitamin D deficiency, unspecified
CPT/HCPCS: 36415; 80053; 80061; 82306; 85025

== ENCOUNTER → 2022-10-05 | Outpatient (CLI) | payer OTHER, SELFPAY ==
--- NOTE | 2022-10-05 11:17 | RAD_ITS ---
INDICATION: PAIN EXAMINATION/TECHNIQUE: X-RAY - XR Hips Bilateral with Pelvis when performed; 2 Views COMPARISON: None. FINDINGS: PELVIC BONES: No displaced fracture, destructive or sclerotic lesions. Note that overlapping bowel shadows may however obscure fine detail. Sacroiliac joints are unremarkable. No widening of the pubic symphysis. HIPS: Mild bilateral hip joint space narrowing. No fracture, subluxation or dislocation. SOFT TISSUES: No soft tissue swelling or gas. RAD/Hips B/L min 2 views w/ Pelvis IMPRESSION: Mild osteoarthritis of the hips. Electronically Signed: Robb Ruiz MD, AURA at 18:43 EDT ,
== END | disposition home or self-care (01) ==
LOC: MTRAD 11:15
PROVIDERS: PCP Internal Medicine; Referring Provider Internal Medicine; Visit Provider Internal Medicine
DX: M25.552 Pain in left hip (principal)
CPT/HCPCS: 73521

== ENCOUNTER 2022-12-07 13:30 | Outpatient (RCR) | payer OTHER, SELFPAY ==
--- NOTE | 2022-10-24 16:34 | HP.PTEVAL ---
Patient's Visit Information BRIONNA LANDIN is a 56 year old F referred to Physical Therapy by Dr. Daiana Romo DO with a diagnosis of B hip OA. Date of Evaluation: 10/23/22 Physical Therapist: Jr Carrasquillo DPT - Visit Plan Frequency: 2x /Week Duration: 6 Weeks Plan: Start with 2 visits in aquatic PT with focus on glute medius strengthening, IT band stretching and hip flexor strengthening. Add in core stability as well. She will progress this I on her own after 2 visits of instruction. Progress to land exercises with focus in stretching and glute strengthening. - Subjective Pt. is here today for her initial evaluation with diagnosis of B hip OA. Pt. reports R is worse than L. L hip pain is not as bad right. Pt. reports also having some sciatic symptoms, but this has reduced. Pt. reports last week having increased issues as was not able to tolerate house work either. Pt. goes to the pool and does some light exercise x 2days per week as well as stretching daily. Her routine works mostly on her LEs, but some included her hips and back. Pt. denies N/T in either LE. Pt. reports most of her pain is at her anterior/lateral R hip. Pt. pointed to her TFL/hip flexor region. Pt. has a history CMT resulting in use of AFOs and BLEs. Pt. is hopeful to reduce her R hip pain in order to get back to all reactional activities without limitations. - Pain R lateral hip Pain Intensity (Out of 10): 4 Pain Intensity Range: 1, 8 Comment: last Sunday it was a 7-8/10. - Objective POSTURE: Pt. has slight flexed posture. Pt. has equal wt. shifting between BLEs. PALPATION: Pt. has tenderness at anterior hip, including R hip flexor and TFL. Not much soreness at R greater trochanter. Minimal piriformis pain. NEURO: Pt. has normal sensation in BLEs and decreased DTR of bilateral patella and B achillies. Pt. has difficulty with PF and DF as well. ROM: Pt. has decent ROM of B hips. NO increase in symptoms FABBER or FADDIR motions. Pt. has some tightness with R hip extension and HS R worse than L. Pt. MMT: RLE: knee: ext 5-/5, flexion 4/5; hip: Flexion 4/5 increase NW, abd 4/5 increase NW, EXT: 4/5. LLE: knee: ext 5-/5, flexion 4/5; hip: flexion 4+/5, abd 4+/5, ext 4+/5. Core strength- poor. GAIT: Pt. ambulates with out AD. She does wear AFOs on BLEs. Pt. ambulates with slight increase in contralateral hip drop during R stance phase. Slight difficulty with R push up during preswing. STAIRS: fairly: normal but difficult. - Special Tests R Hip Scour: Negative R Hip MICAH - Intraarticular Pathology: Negative R Hip FADDIR - Labrum: Negative R Hip Trendelenberg - Glut Medius: Positive R Hip Kane - IT Band: Positive - Balance/Special Test Scores Lower Extremity Functional Score: 16 - Goals Goal 1:: LTG: Pt. to be I with HEP for both land and aquatic exercises for her RLE strengthening/stretching. Goal Time Frame: 4-6 Weeks Goal 2:: LTG: Pt. to ambulate unlimited distances without increase in R hip pain. Goal Time Frame: 4-6 Weeks Goal 3:: LTG: Pt. to have increased IT band and hip flexor length to normal as seen in negative kane's and Ramon testing. Goal Time Frame: 4-6 Weeks Goal 4:: LTG: pt. to have increased R glute strength to 55 throughout. Goal Time Frame: 4-6 Weeks - Rehabilitation Potential Physical Therapy Diagnosis: Pt. has signs and symptoms consistent with R hip pain. Her L hip is doing much better at this point in time. Pt. reports pain at anterior/lateral aspect superior to greater trochanter in the TFL range. She is tender to palpation of B TFL and hip flexor in the R side. No groin pain described and no pain with an hip joint provocation. She is tight at her hip flexor and IT band as well as marked glute max/med weakness. Pt .would benefit from PT to address her above limitations progressing back to all recreational activities without limitations. Rehabilitation Potential: Good - Anticipated Interventions Patient/Client Instruction: Educate patient on: Condition, Plan of Care, Risk Factors, Benefits of Fitness Program For the Purpose of:: To improve health and function, To foster healthy habits, To improve decision making, To facilitate caregiver knowledge, To improve self management, To prevent re-injury, To improve ability to perform tasks related to life management Therapeutic Exercise to Include: Strength training, Power training, Flexibilty training, Gait and locomotor training, In an aquatic setting, Passive ROM, Active ROM For the Purpose of:: To decrease pain, To increase ROM, To improve nutrient delivery to tissue, To increase oxygenation perfusion, To improve ability to perform ADL's, To increase flexibility/ROM Thank you for the opportunity to evaluate your patient. For Medicare and Medicare HMO plans, please review the plan of care and approve it. It will need to be FAXED BACK to us at [phone] for Medicare purposes. For Medicare only, by signing this I certify the plan of care. Please let me know if there are questions or concerns regarding this plan of care. Physician Signature: Date:
--- NOTE | 2022-12-08 08:36 | HP.PTDCSUM ---
Discharge Summary D/C summary: It has been my pleasure to treat BRIONNA LANDIN referred by Dr. Daiana Romo DO, with the diagnosis of B hip OA for a total of 7 visit(s). Discharge Date: 12/07/22 Please see the following information for a summary of their discharge status. Subjective Subjective: Pt. reports no issues today. Pt. pleased. No pain currently. Pt. reports being 60% better overall. Pt. reports being compliant and I with all HEP. No pain in hip currently. Pain R lateral hip: Pain Intensity (Out of 10): 0 Overall Improvement % Improvement: 60 Objective Objective/Function: Pt. is overall doing much better. Pt. is going to complete all of her exercises on her own now. Pt. has no pain with palpation of her R hip flexor currently. Pt. is I with HEP for LE strengthening. Pt. is tolerating exercises much better. Pt. educated on attempting manage loading pending on tolerance. Pt. reports understanding. I also encouraged her to increase a walking routine to increase endurance and strength. Pt. consents. I encouraged brionna to continue with working glute strengthening and hip flexor stretching. Pt. consents and is okay with DC from PT this date. Goals Goal 1:: LTG: Pt. to be I with HEP for both land and aquatic exercises for her RLE strengthening/stretching. Goal Progress: Goal Met Goal 2:: LTG: Pt. to ambulate unlimited distances without increase in R hip pain. Goal Progress: Progressing Goal 3:: LTG: Pt. to have increased IT band and hip flexor length to normal as seen in negative kane's and Ramon testing. Goal Progress: Progressing Goal 4:: LTG: pt. to have increased R glute strength to 5/5 throughout. Goal Progress: Progressing Plan Plan: Pt. to be DC from PT this date. D/C Information Discharge Comments: Pt. was treated for her R hip pain. Pt. was treated with hip flexor stretching and glute medius/max strengthening. Pt. is independent her HEP and consents to completing on her own at this point in time. d/c sentence: If there are questions or concerns regarding this patient's physical therapy, please feel free to call me at [phone]. Thank you for the referral of this patient. Sincerely, Jr L Sipos, DPT Balance/Gait/Functional tests Balance/Special Test Scores Lower Extremity Functional Score: 31
== END 2022-12-07 19:00 | disposition home or self-care (01) ==
LOC: PT 13:30
PROVIDERS: PCP Internal Medicine; Referring Provider Internal Medicine; Visit Provider Internal Medicine
DX: M16.0 Bilateral primary osteoarthritis of hip (principal)
CPT/HCPCS: 97110; 97113; 97161

== ENCOUNTER → 2022-12-29 | Outpatient (CLI) | payer OTHER, SELFPAY | END | disposition home or self-care (01) | PROVIDERS: PCP Internal Medicine; Referring Provider Psychiatry & Neurology Neurology; Visit Provider Psychiatry & Neurology Neurology | DX: Q87.40 Marfan syndrome, unspecified (principal) | CPT/HCPCS: 36415 ==

== ENCOUNTER → 2023-04-17 | Outpatient (CLI) | payer OTHER, SELFPAY ==
--- NOTE | 2023-04-17 17:46 | CT_ITS ---
INDICATION: TAA EXAMINATION: CT Chest W/ Contrast Injection TECHNIQUE: Helically acquired images were obtained of the chest following administration of IV contrast. A radiation dose optimization technique was used for this scan. 3D postprocessing images including MIPS were reviewed. IV Contrast dosage and agent: IV 100mL Isovue-370 COMPARISON: 12/08/2021. FINDINGS: Lungs: Scattered subsegmental atelectasis. Mediastinum: The heart is mildly enlarged. No mediastinal, hilar or axillary adenopathy. Mild aortic arch and coronary artery calcifications. Slight increase in size of now 4 cm ascending thoracic aortic aneurysm. No obvious filling defect seen within the visualized pulmonary arteries. Pleura: Unremarkable Bones/Soft tissues: Mild scattered degenerative changes of the visualized spine. Upper abdomen: Scattered hepatic and renal cysts. CT/Chest WITH Contrast IMPRESSION: Slight increase in size of now 4 cm ascending thoracic aortic aneurysm. Electronically Signed: Jer Correa MD at 22:52 EST ,
[2023-04-17 18:17] LABS: CREATININE FINGERSTICK 1.1 mg/dL (0.55-1.02)
== END | disposition home or self-care (01) ==
LOC: CT 17:43
PROVIDERS: PCP Internal Medicine; Visit Provider Physician Assistant Medical
DX: I71.60 Thoracoabdominal aortic aneurysm, without rupture, unspecified (principal); I77.89 Other specified disorders of arteries and arterioles
CPT/HCPCS: 71260; Q9967

== ENCOUNTER → 2023-09-18 | Outpatient (CLI) | payer OTHER, SELFPAY | END | disposition home or self-care (01) | LOC: LABSPEC 15:28 | PROVIDERS: PCP Internal Medicine; Referring Provider Obstetrics & Gynecology; Visit Provider Obstetrics & Gynecology | DX: R32 Unspecified urinary incontinence (principal) | CPT/HCPCS: 87086 ==

== ENCOUNTER → 2023-09-27 | Outpatient (CLI) | payer OTHER, SELFPAY ==
[2023-09-27 09:56] LABS: Absolute Neutrophil Count 3.2 X10^3/uL (2.0-7.7); Basophil# 0.06 X10^3/uL; Basophil% 1.1 % (0-1); Eosinophil# 0.26 X10^3/uL; Eosinophils% 4.6 % (0-5); Hemoglobin 14.1 g/dL (12.0-15.0); Mean Corpuscular Hgb 29.1 pg (27.0-32.0); Mean Corpuscular Volume 90.9 fL (81-99); Mean Platelet Vol. 10.5 fl (6.2-12.0); Monocyte# 0.58 X10^3/uL; Monocyte% 10.2 % (0-10); NRBC Flagged by Analyzer 0 % (0-5); Neutrophil # 3.19 X10^3/uL (2.7-7.7); Neutrophil % 55.7 % (47-70); Platelet Count 178 K/mm3 (150-450); RBC Distribution Width CV 13.5 % (11.6-14.6); RBC Distribution Width SD 45.4 fl (35.1-43.9); Red Blood Count 4.84 M/mm3 (4.2-5.4); White Blood Count 5.7 K/mm3 (4.4-11.0)
[2023-09-27 10:36] LABS: ALB/GLOB Ratio 1.1 RATIO (0.9-2.4); AST(SGOT) 21 U/L (15-37); Alanine Aminotransfer ALT/SGPT 20 U/L (13-56); Albumin, Serum 3.5 g/dL (3.2-5.0); Alkaline Phosphatase 99 U/L (45-117); Anion Gap 4 (5-15); BUN 17 mg/dL (7-18); BUN/Creat Ratio 22.6 RATIO (10-20); Calcium,Total 9.4 mg/dL (8.5-10.1); Chloride 111 mmol/L (98-107); Cholesterol 162 mg/dL (200); Creatinine, Serum 0.75 mg/dL (0.55-1.02); EST Glomerular Filtration Rate 84 mL/min (>60); Est Glom Filt Rate - Afr Amer 102 mL/min (>60); Globulin 3.3 g/dL (2.2-4.2); Glucose 89 mg/dL (74-106); High Density Lipoprotein 64 mg/dL; Potassium 3.8 mmol/L (3.5-5.1); Protein, Total 6.8 g/dL (6.4-8.2); Sodium Level 141 mmol/L (136-145); Triglycerides 42 mg/dL; Very Low Density Lipoprotein 8 mg/dL (5-40)
== END | disposition home or self-care (01) ==
LOC: MTLAB 07:40
PROVIDERS: PCP Internal Medicine; Referring Provider Internal Medicine; Visit Provider Internal Medicine
DX: K21.9 Gastro-esophageal reflux disease without esophagitis (principal); G60.0 Hereditary motor and sensory neuropathy; J45.20 Mild intermittent asthma, uncomplicated; E55.9 Vitamin D deficiency, unspecified
CPT/HCPCS: 36415; 80053; 80061; 82306; 85025

== ENCOUNTER 2023-10-04 12:43 | Emergency (ER) | payer OTHER, SELFPAY ==
[2023-10-04 12:44] VITALS: BP 165/127; PULSE 69; RESP 18; TEMP 37.1; O2SAT 98; BMI 21.4
--- NOTE | 2023-10-04 13:00 | EKG12_ITS ---
Test Reason : SOB Blood Pressure : / mmHG Vent. Rate : 060 BPM Atrial Rate : 060 BPM P-R Int : 164 ms QRS Dur : 094 ms QT Int : 430 ms P-R-T Axes : 046 -16 004 degrees QTc Int : 430 ms Normal sinus rhythm Nonspecific ST abnormality Borderline Confirmed by Xiang James ([id number]), newspaper or periodical editor LOGAN JOHNSTON ([id number]) on 10/08/2023 10:16:57 AM Referred By: Confirmed By:Xiang James
--- NOTE | 2023-10-04 13:03 | CT_ITS ---
STUDY: CTA CHEST REASON FOR EXAM: Female, 57 years old. Dyspnea, h/o aneurysm RADIATION DOSAGE (If Supplied By Facility): CTDIvol = ( 5.92 ) mGy, DLP = ( 227.07 ) mGycm TECHNIQUE: The examination was performed with the intravenous administration of IV 100mL Isovue-370. Post-processing of the angiographic images was performed, with multiplanar reformation and 3D reconstruction. Individualized dose optimization techniques were used for this CT. COMPARISON: Comparison is made with prior study dated December 08, 2021. FINDINGS: Normal enhancement of the main pulmonary artery and right and left pulmonary arteries. Normal enhancement of the bilateral peripheral pulmonary arteries. There is no demonstrated pulmonary embolism. There is aneurysmal dilatation of the ascending aorta. The transverse diameter of the ascending aorta measures 41.1 mm''s. There is no demonstrated aortic dissection. There are calcifications of the coronary arteries. Normal mediastinum. Normal hilar regions. Normal visualized trachea and bronchi. The lungs are well expanded. Mild increased markings at the lung bases suggestive of atelectasis. Normal pleura. Normal chest wall structures. Normal osseous structures. The patient is status post cholecystectomy. Stable 2.5 cm x 3.6 cm cyst in the left lobe of the liver. A 1 cm cyst is seen in the medial aspect of the right lobe of the liver. There is a 1.4 cm cyst in the upper pole of the left kidney. CT/CTA Chest W/WO Contrast IMPRESSION: Minimal dilatation at the root of the ascending thoracic aorta measuring 41.1 mm. No evidence of pulmonary embolus. Hepatic cysts. Left renal cyst. Electronically Signed: Bowen Andrews MD at 14:25 EDT ,
--- NOTE | 2023-10-04 13:04 | NURSING ---
NO OLD EKG
--- NOTE | 2023-10-04 13:06 | EX.ED.DYSGE1 ---
HPI <ZOEY Agosto - Last Filed: 10/04/23 15:20> History of Present Illness Chief Complaint: Shortness of Breath Narrative Narrative: 57-year-old female with past medical history of asthma, thoracic ascending aortic aneurysm presents with shortness of breath. She states over the last 2 weeks she has had left-sided sinus pain and nasal passages feel blocked. She saw her primary care doctor and has been on doxycycline for 3 days. She called their office today to report it was not helping and told him she had developed shortness of breath this morning so they recommended she come into the ED. She states this morning she almonds and developed chest pain she describes as indigestion and feels short of breath. She took Tums and a prescription antacid but it did not help. The indigestion is starting to settle now that she has arrived at the ED. She has a history of thoracic ascending aortic aneurysm and states it increased in size at her last scan in March 2023 and she is scheduled to have a repeat CT scan with the [facility] in 2 weeks. Her sister and niece have Marfan syndrome but the patient tested is inconclusive for this. She denies other cardiac history. She has asthma and allergies and uses Advair, Singulair, Flonase, and recently [id number]-[id number] Sudafed. She is a former smoker. [facility] <ZOEY Agosto - Last Filed: 10/04/23 15:20> [facility] Medical History Aortic aneurysm Asthma CMT (Jvyjjfp-Ewctc-Qdkei disease) Family history of Marfan syndrome GERD (gastroesophageal reflux disease) Right patella fracture Thoracoabdominal aortic aneurysm (TAAA) without rupture Home Medications ?Medication ?Instructions ?Recorded ?Last Taken ?Type pregabalin 200 mg capsule (Lyrica) 200 mg PO BID 08/25/21 Unknown History elugzeqi-njqi-kbphd acid 80 1 tab PO DAILY 09/15/21 Unknown History mcg-herbal no.293 66.7 mg chewable tablet (Alive Premium Women's) ascorbate calcium (vitamin C) 500 500 mg PO DAILY 04/05/22 Unknown History mg tablet pregabalin 100 mg capsule (Lyrica) 100 mg PO DAILY 08/31/22 Unknown History metoprolol succinate 25 mg 25 mg PO DAILY #90 tabs 12/12/22 Unknown Rx tablet,extended release 24 hr montelukast 10 mg tablet 10 mg PO DAILY #90 tabs 12/12/22 Unknown Rx (Singulair) magnesium citrate 100 mg capsule 200 mg PO DAILY Constipation 04/24/23 Unknown History epinephrine 0.3 mg/0.3 mL 0.3 mg (0.3 mL) IM ONCE #2 ea 04/30/23 Unknown Rx injection, auto-injector (EpiPen) omalizumab 150 mg subcutaneous 300 mg subcut Q2W #2 ea 06/08/23 Unknown Rx solution (Xolair) omalizumab 75 mg/0.5 mL 75 mg (0.5 mL) subcut ONCE #0.5 mL 06/08/23 Unknown Rx subcutaneous syringe (Xolair) fluticasone 500 mcg-salmeterol 50 1 inh inhalation BID #3 device 06/14/23 Unknown Rx mcg/dose blistr powdr for inhalation (Advair Diskus) fluticasone propionate 50 2 spray intranasal DAILY PRN nasal 08/06/23 Unknown Rx mcg/actuation nasal congestion #3 ea spray,suspension amoxicillin 875 mg-potassium 1 tab PO BID 10 days #20 tabs 10/04/23 Unknown Rx clavulanate 125 mg tablet Allergy/AdvReac Type Severity Reaction Status Date / Time egg Allergy Headache, Verified 10/04/23 12:43 increased sinus drainage Family History Grandmother Throat cancer Mother Hypertension Sister Marfan syndrome Surgical History History of cholecystectomy History of hysterectomy History of right knee surgery History of sinus surgery History of umbilical hernia repair Social History (Updated 09/18/23 @ 13:25 by Rosina Mccall) Smoking Status: Former smoker alcohol intake: current details: occasionally substance use type: does not use caffeine: Yes what type of physical activity do you participate in: bicycling frequency: 3-4 times per week seatbelt use: always do you feel safe at home: Yes additional social history: - Luis Patient works in Training Advisor at [employer] ROS <ZOEY Agosto - Last Filed: 10/04/23 15:20> ROS ED ROS Narrative Constitutional: Negative for fever, chills, malaise. CVS: Positive for chest discomfort. No palpitations, syncope. Respiratory: Positive for shortness of breath. GI: Negative for abdominal pain, nausea, vomiting, melena, hematochezia. EXAM <ZOEY Agosto - Last Filed: 10/04/23 15:20> Physical Exam Narrative Exam Narrative: CONST: Patient sitting in no acute distress. EYES: Normal inspection. NECK: Normal inspection. RESP: No respiratory distress, CTAB. CVS: Regular rate and rhythm, no murmur, no gallop. ABD: Soft and nontender, no guarding or rebound, nondistended. SKIN: Color normal, no rash, warm, dry, intact. EXTREMITIES: Normal appearance, no pedal edema. NEURO: Alert and answering questions appropriately. PSYCH: Normal affect. Const Vital Signs: 10/04/23 12:43 10/04/23 12:44 10/04/23 13:56 Temperature 98.7 F Temperature Source Temporal Pulse Rate 69 60 Respiratory Rate 18 14 Respiratory Effort Normal Non-Labored Respiratory Depth Normal Respiratory Pattern Normal Blood Pressure 165/127 H 115/86 H Blood Pressure Mean 139 95 Pulse Ox 98 98 Oxygen Delivery Method Room Air Room Air Room Air 10/04/23 15:00 10/04/23 15:43 Temperature 98.4 F Temperature Source Pulse Rate 69 62 Respiratory Rate 14 18 Respiratory Effort Respiratory Depth Respiratory Pattern Blood Pressure 135/80 H 135/80 H Blood Pressure Mean 98 98 Pulse Ox 95 98 Oxygen Delivery Method <Dr. Brayden Anderson DO - Last Filed: 10/04/23 16:14> Physical Exam Const Vital Signs: 10/04/23 12:43 10/04/23 12:44 10/04/23 13:56 Temperature 98.7 F Temperature Source Temporal Pulse Rate 69 60 Respiratory Rate 18 14 Respiratory Effort Normal Non-Labored Respiratory Depth Normal Respiratory Pattern Normal Blood Pressure 165/127 H 115/86 H Blood Pressure Mean 139 95 Pulse Ox 98 98 Oxygen Delivery Method Room Air Room Air Room Air 10/04/23 15:00 10/04/23 15:43 Temperature 98.4 F Temperature Source Pulse Rate 69 62 Respiratory Rate 14 18 Respiratory Effort Respiratory Depth Respiratory Pattern Blood Pressure 135/80 H 135/80 H Blood Pressure Mean 98 98 Pulse Ox 95 98 Oxygen Delivery Method MDM <ZOEY Agosto - Last Filed: 10/04/23 15:20> [facility] Narrative Medical decision making narrative: Patient presents with chest discomfort and shortness of breath that started this morning. She is also had 2 weeks of left sinus pain and has been taking doxycycline x 3 days. She appears well and nontoxic. She was initially hypertensive with otherwise normal vital signs. BP rechecked and is 115/86 and overall her exam is benign. CBC, BMP unremarkable. EKG is sinus rhythm with no acute ischemic changes and serial troponins are stable at 3. Due to her history of thoracic ascending aortic aneurysm and the fact that she is due for repeat scan this month I elected to order a CTA to rule this out as a contributing factor to her symptoms. The thoracic aorta aneurysm is 4.1 cm which is stable from 4 cm six months ago. There is no PE or other acute process. Patient's chest discomfort indigestion has resolved and she is comfortable going home. I recommended follow-up with her PCP and customer relations assistant or to return if symptoms worsen. She was discharged in stable condition. Lab Data Attestation: I reviewed the patient's lab results. Labs: Laboratory Results - last 24 hr 10/04/23 10/04/23 13:22 14:28 WBC 7.5 RBC 4.88 Hgb 14.1 Hct 43.6 MCV 89.3 MCH 28.9 MCHC 32.3 RDW Std Deviation 43.6 RDW Coeff of Gayathri 13.4 Plt Count 183 MPV 10.4 Immature Gran % (Auto) 0.300 Neut % (Auto) 66.6 Lymph % (Auto) 19.0 [place]ffie % (Auto) 8.6 Eos % (Auto) 4.6 Baso % (Auto) 0.9 Absolute Neuts (auto) 5.0 Absolute Lymphs (auto) 1.42 Nucleated RBC % 0 Sodium 136 Potassium 3.8 Chloride 105 Carbon Dioxide 28.0 Anion Gap 3 L BUN 19 H Creatinine 0.63 Estim Creat Clear Calc 110.12 Est GFR (MDRD) Af Amer 125 Est GFR (MDRD) Non-Af 103 BUN/Creatinine Ratio 30.3 H Glucose 83 Calcium 9.4 Troponin I High Sens 3 3 Radiography Diagnostic Testing: Clinical Impression(s) from Imaging Studies Chest CTA 10/04/23 13:03 IMPRESSION: Minimal dilatation at the root of the ascending thoracic aorta measuring 41.1 mm. No evidence of pulmonary embolus. Hepatic cysts. Left renal cyst. Electronically Signed: Bowen Andrews MD at 14:25 EDT , EKG Initial EKG: Attestation: I personally reviewed and interpreted this EKG as follows: Interpretation: Sinus Rhythm and No Acute Injury Pattern Comments: Normal sinus rhythm at [address] changes, no STEMI <Dr. Brayden Anderson, DO - Last Filed: 10/04/23 16:14> [facility] MDM Narrative Medical decision making narrative: Patient presents with chest discomfort and shortness of breath that started this morning. She is also had 2 weeks of left sinus pain and has been taking doxycycline x 3 days. She appears well and nontoxic. She was initially hypertensive with otherwise normal vital signs. BP rechecked and is 115/86 and overall her exam is benign. CBC, BMP unremarkable. EKG is sinus rhythm with no acute ischemic changes and serial troponins are stable at 3. Due to her history of thoracic ascending aortic aneurysm and the fact that she is due for repeat scan this month I elected to order a CTA to rule this out as a contributing factor to her symptoms. The thoracic aorta aneurysm is 4.1 cm which is stable from 4 cm six months ago. There is no PE or other acute process. Patient's chest discomfort indigestion has resolved and she is comfortable going home. I recommended follow-up with her PCP and customer relations assistant or to return if symptoms worsen. She was discharged in stable condition. This patient was seen with a PA/INVOICE CHECKER Individually assessed they patient including history and physical. I have reviewed everything on the chart that is available and agree with the documentation provided by the PA/INVOICE CHECKER including discussion about the assessment, treatment plan, discussion, and return precautions. Patient presenting initially for sinus pain was on doxycycline and and now stating that she is short of breath. She does relate she has a history of asthma and seasonal allergies which have been flaring up. She states that she has been doing nasal saline rinses and taking Flonase as well as Emma. She states her pain is still ongoing and states she has shortness of breath that reportedly chest pain which is worse with inspiration was sent to the ER for evaluation. Cardiac workup was pursued. Lab work was all normal including 2 troponins of both 3. CTA of the chest was performed due to the patient's history of aneurysm and this does not show any acute changes. EKG on my interpretation shows a sinus rhythm at 60 beats per outside ischemic change. After discussion we counseled patient we will switch her antibiotics to Augmentin and discontinue the doxycycline. Patient discharged stable condition. Impression: 1. Chest pain 2. Dyspnea 3. History of aortic aneurysm Lab Data Labs: Laboratory Results - last 24 hr 10/04/23 10/04/23 13:22 14:28 WBC 7.5 RBC 4.88 Hgb 14.1 Hct 43.6 MCV 89.3 MCH 28.9 MCHC 32.3 RDW Std Deviation 43.6 RDW Coeff of Gayathri 13.4 Plt Count 183 MPV 10.4 Immature Gran % (Auto) 0.300 Neut % (Auto) 66.6 Lymph % (Auto) 19.0 Mcduffie % (Auto) 8.6 Eos % (Auto) 4.6 Baso % (Auto) 0.9 Absolute Neuts (auto) 5.0 Absolute Lymphs (auto) 1.42 Nucleated RBC % 0 Sodium 136 Potassium 3.8 Chloride 105 Carbon Dioxide 28.0 Anion Gap 3 L BUN 19 H Creatinine 0.63 Estim Creat Clear Calc 110.12 Est GFR (MDRD) Af Amer 125 Est GFR (MDRD) Non-Af 103 BUN/Creatinine Ratio 30.3 H Glucose 83 Calcium 9.4 Troponin I High Sens 3 3 Radiography Diagnostic Testing: Clinical Impression(s) from Imaging Studies Chest CTA 10/04/23 13:03 IMPRESSION: Minimal dilatation at the root of the ascending thoracic aorta measuring 41.1 mm. No evidence of pulmonary embolus. Hepatic cysts. Left renal cyst. Electronically Signed: Bowen Andrews MD at 14:25 EDT , Discharge Plan Triage Chief Complaint: Shortness of Breath ED Midlevel Provider: Tatyana Morales ED Provider: Brayden Anderson Dx/Rx/DC Orders Clinical Impression: Chest pain, atypical, Acute dyspnea Instructions: ED Chest Pain, Uncertain Cause, ED Dyspnea Prescriptions: New amoxicillin-pot clavulanate 875-125 mg tablet 1 tab PO BID 10 Days Qty: 20 0RF No Action pregabalin [Lyrica] 200 mg capsule 200 mg PO BID Alive Premium Women's 80 mcg- 66.7 mg tablet,chewable 1 tab PO DAILY magnesium citrate 100 mg capsule 200 mg PO DAILY ascorbate calcium (vitamin C) 500 mg tablet 500 mg PO DAILY pregabalin [Lyrica] 100 mg capsule 100 mg PO DAILY montelukast [Singulair] 10 mg tablet 10 mg PO DAILY Qty: 90 3RF metoprolol succinate 25 mg tablet extended release 24 hr 25 mg PO DAILY Qty: 90 3RF epinephrine [EpiPen] 0.3 mg/0.3 mL auto-injector 0.3 mg IM ONCE Qty: 2 3RF Rx Instructions: as a single dose; may repeat once Xolair 150 mg recon soln 300 mg subcut Q2W Qty: 2 12RF Rx Instructions: requires multiple injection sites; do not exceed 150 mg per injection site Xolair 75 mg/0.5 mL syringe 75 mg subcut ONCE Qty: 0.5 12RF fluticasone propion-salmeterol [Advair Diskus] 500-50 mcg/dose blister with device 1 inh inhalation BID Qty: 3 3RF fluticasone propionate 50 mcg/actuation spray,suspension 2 spray intranasal DAILY PRN (Reason: nasal congestion) Qty: 3 3RF Rx Instructions: administer into each nostril Primary Care Provider: Daiana Romo Referrals: Daiana Romo DO [Primary Care Provider] - Activity Restrictions/Additional Instructions: Screening test today ruled out dangerous causes of chest pain or shortness of breath. Your thoracic aortic ascending aneurysm is 4.1 cm. It was 4 cm in March 2023 so it has not significantly changed in size. I recommend following up with your primary care doctor or customer relations assistant if symptoms continue or return to the emergency room if they worsen or change significantly. Print Language: Welsh Disposition Disposition: Home, Self Care Discharge Date/Time: 10/04/23 15:51
[2023-10-04 13:36] LABS: Absolute Lymphocyte Count 1.42 X10^3/uL (0.83-4.51); Basophil# 0.07 X10^3/uL; Basophil% 0.9 % (0-1); Eosinophil# 0.34 X10^3/uL; Eosinophils% 4.6 % (0-5); Hematocrit 43.6 % (37-47); Hemoglobin 14.1 g/dL (12.0-15.0); Lymphocyte # 1.42 X10^3/ul (0.83-4.51); Mean Corp Hgb Conc 32.3 g/dL (32-36); Mean Corpuscular Hgb 28.9 pg (27.0-32.0); Mean Corpuscular Volume 89.3 fL (81-99); Mean Platelet Vol. 10.4 fl (6.2-12.0); Monocyte# 0.64 X10^3/uL; Monocyte% 8.6 % (0-10); NRBC Flagged by Analyzer 0 % (0-5); Neutrophil # 4.98 X10^3/uL (2.7-7.7); Neutrophil % 66.6 % (47-70); Platelet Count 183 K/mm3 (150-450); RBC Distribution Width CV 13.4 % (11.6-14.6); RBC Distribution Width SD 43.6 fl (35.1-43.9); Red Blood Count 4.88 M/mm3 (4.2-5.4); White Blood Count 7.5 K/mm3 (4.4-11.0)
[2023-10-04 13:51] LABS: Anion Gap 3 (5-15); BUN 19 mg/dL (7-18); BUN/Creat Ratio 30.3 RATIO (10-20); Calcium,Total 9.4 mg/dL (8.5-10.1); Chloride 105 mmol/L (98-107); Creatinine, Serum 0.63 mg/dL (0.55-1.02); EST Glomerular Filtration Rate 103 mL/min (>60); Est Glom Filt Rate - Afr Amer 125 mL/min (>60); Estimated Creatinine Clearance 110.12 ml/min; Glucose 83 mg/dL (74-106); Potassium 3.8 mmol/L (3.5-5.1); Sodium Level 136 mmol/L (136-145); Troponin-I HS 3 pg/mL (3.0-54.0)
[2023-10-04 13:56] VITALS: BP 115/86; PULSE 60; RESP 14; O2SAT 98
[2023-10-04 14:51] LABS: Troponin-I HS 3 pg/mL (3.0-54.0)
--- NOTE | 2023-10-04 14:59 | ED.VIS.DYS ---
HPI History of Present Illness Chief Complaint: Shortness of Breath Narrative Narrative: 57-year-old female with past medical history of asthma, thoracic ascending aortic aneurysm presents with shortness of breath. She states over the last 2 weeks she has had left-sided sinus pain and nasal passages feel blocked. She saw her primary care doctor and has been on doxycycline for 3 days. She called their office today to report it was not helping and told him she had developed shortness of breath this morning so they recommended she come into the ED. She states this morning she almonds and developed chest pain she describes as indigestion and feels short of breath. She took Tums and a prescription antacid but it did not help. The indigestion is starting to settle now that she has arrived at the ED. She has a history of thoracic ascending aortic aneurysm and states it increased in size at her last scan in March 2023 and she is scheduled to have a repeat CT scan with the [facility] in 2 weeks. Her sister and niece have Marfan syndrome but the patient tested is inconclusive for this. She denies other cardiac history. She has asthma and allergies and uses Advair, Singulair, Flonase, and recently [id number]-[id number]-hpcnjxh Sudafed. She is a former smoker. [facility] Medical History Aortic aneurysm Asthma CMT (Fxjhukq-Nlxdq-Svbfv disease) Family history of Marfan syndrome GERD (gastroesophageal reflux disease) Right patella fracture Thoracoabdominal aortic aneurysm (TAAA) without rupture Home Medications ?Medication ?Instructions ?Recorded ?Last Taken ?Type pregabalin 200 mg capsule (Lyrica) 200 mg PO BID 08/25/21 Unknown History qjhkpfgh-ojoa-lavmr acid 80 1 tab PO DAILY 09/15/21 Unknown History mcg-herbal no.293 66.7 mg chewable tablet (Alive Premium Women's) ascorbate calcium (vitamin C) 500 500 mg PO DAILY 04/05/22 Unknown History mg tablet pregabalin 100 mg capsule (Lyrica) 100 mg PO DAILY 08/31/22 Unknown History metoprolol succinate 25 mg 25 mg PO DAILY #90 tabs 12/12/22 Unknown Rx tablet,extended release 24 hr montelukast 10 mg tablet 10 mg PO DAILY #90 tabs 12/12/22 Unknown Rx (Singulair) magnesium citrate 100 mg capsule 200 mg PO DAILY Constipation 04/24/23 Unknown History epinephrine 0.3 mg/0.3 mL 0.3 mg (0.3 mL) IM ONCE #2 ea 04/30/23 Unknown Rx injection, auto-injector (EpiPen) omalizumab 150 mg subcutaneous 300 mg subcut Q2W #2 ea 06/08/23 Unknown Rx solution (Xolair) omalizumab 75 mg/0.5 mL 75 mg (0.5 mL) subcut ONCE #0.5 mL 06/08/23 Unknown Rx subcutaneous syringe (Xolair) fluticasone 500 mcg-salmeterol 50 1 inh inhalation BID #3 device 06/14/23 Unknown Rx mcg/dose blistr powdr for inhalation (Advair Diskus) fluticasone propionate 50 2 spray intranasal DAILY PRN nasal 08/06/23 Unknown Rx mcg/actuation nasal congestion #3 ea spray,suspension Allergy/AdvReac Type Severity Reaction Status Date / Time egg Allergy Headache, Verified 10/04/23 12:43 increased sinus drainage Family History Grandmother Throat cancer Mother Hypertension Sister Marfan syndrome Surgical History History of cholecystectomy History of hysterectomy History of right knee surgery History of sinus surgery History of umbilical hernia repair Social History (Updated 09/18/23 @ 13:25 by Rosina Mccall) Smoking Status: Former smoker alcohol intake: current details: occasionally substance use type: does not use caffeine: Yes what type of physical activity do you participate in: bicycling frequency: 3-4 times per week seatbelt use: always do you feel safe at home: Yes additional social history: - Luis 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 She is also had 2 weeks of left sinus pain and has been taking doxycycline x 3 days. She appears well and nontoxic. She was initially hypertensive with otherwise normal vital signs. BP rechecked and is 115/86 and overall her exam is benign. CBC, BMP unremarkable. EKG is sinus rhythm with no acute ischemic changes and serial troponins are stable at 3. Due to her history of thoracic ascending aortic aneurysm and the fact that she is due for repeat scan this month I elected to order a CTA to rule this out as a contributing factor to her symptoms. The thoracic aorta aneurysm is 4.1 cm which is stable from 4 cm six months ago. There is no PE or other acute process. Patient's chest discomfort indigestion has resolved and she is comfortable going home. I recommended follow-up with her PCP and search optimization analyst or to return if symptoms worsen. She was discharged in stable condition. Lab Data Attestation: I reviewed the patient's lab results. Labs: Laboratory Results - last 24 hr 10/04/23 10/04/23 13:22 14:28 WBC 7.5 RBC 4.88 Hgb 14.1 Hct 43.6 MCV 89.3 MCH 28.9 MCHC 32.3 RDW Std Deviation 43.6 RDW Coeff of Gayathri 13.4 Plt Count 183 MPV 10.4 Immature Gran % (Auto) 0.300 Neut % (Auto) 66.6 Lymph % (Auto) 19.0 [place] % (Auto) 8.6 Eos % (Auto) 4.6 Baso % (Auto) 0.9 Absolute Neuts (auto) 5.0 Absolute Lymphs (auto) 1.42 Nucleated RBC % 0 Sodium 136 Potassium 3.8 Chloride 105 Carbon Dioxide 28.0 Anion Gap 3 L BUN 19 H Creatinine 0.63 Estim Creat Clear Calc 110.12 Est GFR (MDRD) Af Amer 125 Est GFR (MDRD) Non-Af 103 BUN/Creatinine Ratio 30.3 H Glucose 83 Calcium 9.4 Troponin I High Sens 3 3 Radiography Diagnostic Testing: Clinical Impression(s) from Imaging Studies Chest CTA 10/04/23 13:03 IMPRESSION: Minimal dilatation at the root of the ascending thoracic aorta measuring 41.1 mm. No evidence of pulmonary embolus. Hepatic cysts. Left renal cyst. Electronically Signed: Bowen Andrews MD at 14:25 EDT , EKG Initial EKG: Attestation: I personally reviewed and interpreted this EKG as follows: Interpretation: Sinus Rhythm and No Acute Injury Pattern Comments: Normal sinus rhythm at [address] abnormality, no acute changes Discharge Plan Triage Chief Complaint: Shortness of Breath ED Midlevel Provider: Tatyana Morales ED Provider: Brayden Anderson Dx/Rx/DC Orders Clinical Impression: Chest pain, atypical, Acute dyspnea Instructions: ED Chest Pain, Uncertain Cause, ED Dyspnea Prescriptions: No Action pregabalin [Lyrica] 200 mg capsule 200 mg PO BID Alive Premium Women's 80 mcg- 66.7 mg tablet,chewable 1 tab PO DAILY magnesium citrate 100 mg capsule 200 mg PO DAILY ascorbate calcium (vitamin C) 500 mg tablet 500 mg PO DAILY pregabalin [Lyrica] 100 mg capsule 100 mg PO DAILY montelukast [Singulair] 10 mg tablet 10 mg PO DAILY Qty: 90 3RF metoprolol succinate 25 mg tablet extended release 24 hr 25 mg PO DAILY Qty: 90 3RF epinephrine [EpiPen] 0.3 mg/0.3 mL auto-injector 0.3 mg IM ONCE Qty: 2 3RF Rx Instructions: as a single dose; may repeat once Xolair 150 mg recon soln 300 mg subcut Q2W Qty: 2 12RF Rx Instructions: requires multiple injection sites; do not exceed 150 mg per injection site Xolair 75 mg/0.5 mL syringe 75 mg subcut ONCE Qty: 0.5 12RF fluticasone propion-salmeterol [Advair Diskus] 500-50 mcg/dose blister with device 1 inh inhalation BID Qty: 3 3RF fluticasone propionate 50 mcg/actuation spray,suspension 2 spray intranasal DAILY PRN (Reason: nasal congestion) Qty: 3 3RF Rx Instructions: administer into each nostril Primary Care Provider: Daiana Romo Referrals: Daiana Romo DO [Primary Care Provider] - Activity Restrictions/Additional Instructions: Screening test today ruled out dangerous causes of chest pain or shortness of breath. Your thoracic aortic ascending aneurysm is 4.1 cm. It was 4 cm in March 2023 so it has not significantly changed in size. I recommend following up with your primary care doctor or search optimization analyst if symptoms continue or return to the emergency room if they worsen or change significantly. Print Language: Maltese Disposition Disposition: Home, Self Care
[2023-10-04 15:00] VITALS: BP 135/80; PULSE 69; RESP 14; O2SAT 95
[2023-10-04] MEDS: Ibuprofen 200 MG Tablet 400 MG PO (15:42)
[2023-10-04 15:43] VITALS: BP 135/80; PULSE 62; RESP 18; TEMP 36.9; O2SAT 98
== END 2023-10-04 15:51 | disposition home or self-care (01) ==
PROVIDERS: Physician Assistant; Emergency Provider Student in an Organized Health Care Education/Training Program; PCP Internal Medicine; Visit Provider Student in an Organized Health Care Education/Training Program
DX: R07.89 Other chest pain (principal); Z87.891 Personal history of nicotine dependence; J34.89 Other specified disorders of nose and nasal sinuses; I77.810 Thoracic aortic ectasia; J45.909 Unspecified asthma, uncomplicated; K21.9 Gastro-esophageal reflux disease without esophagitis; R06.09 Other forms of dyspnea
CPT/HCPCS: 71275; 80048; 84484; 85025; 93005; 99282; Q9967

== ENCOUNTER → 2023-10-18 | Outpatient (CLI) | payer OTHER, SELFPAY ==
--- NOTE | 2023-10-18 11:57 | BI_ITS ---
MAMMOGRAPHY - BILATERAL SCREENING REASON FOR EXAM: Female, 57 years old. Routine annual screening examination. PERTINENT HISTORY: Non-contributory. TECHNIQUE: Digital bilateral breast loretta (3D mammographic acquisition) in the CC and MLO projections. 2-D mediolateral oblique (MLO) and craniocaudad (CC) views of both breasts were obtained. CAD: Full Field Digital Mammography with Computer Added Detection was performed. COMPARISON: Comparison is made with prior study dated September 11, 2022 and September 08, 2021. FINDINGS: Breast Composition: There are scattered areas of fibroglandular density. There are no dominant masses or suspicious calcifications. Stable small benign-appearing bilateral axillary lymph nodes. No other significant abnormalities are identified. There has been no significant change since the prior study. BI/SCRN MAMM (CAD)W/LORETTA BILAT IMPRESSION: Stable bilateral screening mammogram. Yearly follow-up mammogram recommended. (A) ASSESSMENT CATEGORY: BIRADS Category 2: Benign. A letter regarding these results will be sent to the patient by the facility within 30 days. Approximately 10% of breast cancers are not detected by mammography. A normal mammogram should not delay biopsy of a clinically suspicious abnormality. [id number] Electronically Signed: Bowen Andrews MD at 13:15 EDT ,
== END | disposition home or self-care (01) ==
LOC: CT 12:00
PROVIDERS: PCP Internal Medicine; Referring Provider Obstetrics & Gynecology; Visit Provider Obstetrics & Gynecology
DX: Z12.31 Encounter for screening mammogram for malignant neoplasm of breast (principal)
CPT/HCPCS: 77063; 77067

== ENCOUNTER → 2023-11-13 | Outpatient (CLI) | payer OTHER, SELFPAY ==
--- NOTE | 2023-11-13 12:49 | ART_ITS ---
Reason For Study: claudication Procedure A bilateral lower extremity continuous wave Doppler with analog waveform analysis and ankle brachial indexes. Left Segmental Pressures Left brachial= 133mmHg. Left posterior tibial artery = 160mmHg. Left dorsalis pedis artery = 151mmHg. The left dorsalis pedis waveforms are triphasic. The left posterior tibial artery waveforms are triphasic. Right Segmental Pressures Right brachial= 138mmHg. Right posterior tibial artery = 144mmHg. Right dorsalis pedis artery = 152mmHg. The right dorsalis pedis waveforms are triphasic. The right posterior tibial artery waveforms are triphasic. Indices The right ankle brachial index by the dorsalis pedis is 1.1. The right ankle brachial index by the posterior tibial artery is 1.04. The left ankle brachial index by the dorsalis pedis is 1.09. The left ankle brachial index by the posterior tibial artery is 1.16. VL/Ankle Brachial Index Interpretation Summary Triphasic Doppler waveforms are noted at ankle level bilaterally. Pulse-volume recordings appear satisfactory at ankle level bilaterally. Resting ankle-brachial indices are nor mal bilaterally. There is no evidence of significant arterial occlusive disease in the lower ext remities bilaterally. Ordering Physician: Estelita Romo Referring Physician: ESTELITA ROMO DO Performed By: Veto Kruse RVT and Student
--- NOTE | 2023-11-13 12:49 | ADU_ITS ---
Reason For Study: claudication Right Velocities Left Velocities Ext. Iliac Artery, dist = 106.7 cm./sec. Ext Iliac Artery, dist = 142.5 cm./sec. Common Femoral Artery, mid = 89.5 cm./sec. Common Femoral Artery, mid = 71.1 cm./sec. Supf Femoral Artery, prox = 95.7 cm./sec. Supf. Femoral Artery, prox = 105.8 cm./sec. Supf Femoral Artery, mid = 116.7 cm./sec. Supf. Femoral Artery, mid = 100.3 cm./sec. Supf Femoral Artery, dist. = 53.8 cm./sec. Supf. Femoral Artery, dist = 72.4 cm./sec. Profunda Femoral Artery = 50.5 cm./sec. Profunda Femoral Artery = 53.1 cm./sec. Popliteal Artery, mid = 47.0 cm./sec. Popliteal Artery, mid = 53.7 cm./sec. Ant. Tibial Artery, prox = 55.9 cm./sec. Ant.Tibial Artery, prox = 42.4 cm./sec. Ant. Tibial Artery, mid = 53.7 cm./sec. Ant Tibial Artery, mid = 41.5 cm./sec. Ant. Tibial Artery, dist = 69.1 cm./sec. Ant. Tibial Artery, distal = 23.3 cm./sec. Post. Tibial Artery, prox = 54.0 cm./sec. Post. Tibial Artery, prox = 96.6 cm./sec. Post. Tibial Artery, mid = 82.3 cm./sec. Post Tibial Artery, mid = 89.3 cm./sec. Post. Tibial Artery, dist = 54.8 cm./sec. Post Tibial Artery, dist. = 89.3 cm./sec. Peroneal Artery, prox = 48.3 cm./sec. Peroneal Artery, prox = 85.7 cm./sec. Peroneal Artery, mid = 71.3 cm./sec. Peroneal Artery, mid = 96.6 cm./sec. Peroneal Artery,dist = 58.1 cm./sec. Peroneal Artery,dist. = 85.7 cm./sec. Procedure The exam was diagnostic. Exam performed in department. VL/US Art Duplex Bilat Lower Ext Interpretation Summary Duplex ultrasound examination of the lower extremity arteries demonstrates norm al, pulsatile arterial flow at all levels bilaterally, with no evidence of hemodynamically si gnificant arterial stenosis or occlusion. Ordering Physician: Daiana Romo Referring Physician: Daiana Romo Performed By: Veto Kruse RVT and Student
== END | disposition home or self-care (01) ==
PROVIDERS: Psychiatry & Neurology Neurology; PCP Internal Medicine; Referring Provider Internal Medicine; Visit Provider Internal Medicine
DX: R41.89 Other symptoms and signs involving cognitive functions and awareness (principal); I73.9 Peripheral vascular disease, unspecified
CPT/HCPCS: 36415; 93922; 93925

== ENCOUNTER → 2024-09-23 | Outpatient (CLI) | payer OTHER, SELFPAY ==
--- NOTE | 2024-09-23 12:38 | CT_ITS ---
EXAM: CT Chest With Intravenous Contrast CLINICAL INDICATION: TAA TECHNIQUE: Axial computed tomography images of the chest with intravenous contrast. This CT exam was performed using one or more of the following dose reduction techniques: automated exposure control, adjustment of the mA and/or kV according to patient size, and/or use of iterative reconstruction technique. COMPARISON: CT Chest dated 10/04/2023 FINDINGS: LUNGS AND PLEURAL SPACES: Lung emphysema/COPD with right apical scarring. No suspicious pulmonary nodules. No consolidation. No pneumothorax. No significant effusion. HEART: Unremarkable. No cardiomegaly. No significant pericardial effusion. No significant coronary artery calcifications. BONES/JOINTS: Unremarkable. No acute fracture. No dislocation. SOFT TISSUES: Unremarkable. VASCULATURE: The ascending thoracic aorta is ectatic measuring 4.2 cm in maximum diameter. Scattered calcified atherosclerotic disease of aorta. No thoracic aortic aneurysm. LYMPH NODES: Unremarkable. No enlarged lymph nodes. LIVER: Fatty infiltration of the liver. Hepatic cysts. KIDNEYS AND URETERS: Left renal cyst. CT/Chest WITH Contrast IMPRESSION: 1. The ascending thoracic aorta is ectatic measuring 4.2 cm in maximum diamete r. 2. Lung emphysema/COPD with right apical scarring. No suspicious pulmonary no dules. 3. Continue low-dose CT scan of the chest in 12 months is recommended. Reading Location: [id number]
[2024-09-23 15:53] LABS: Absolute Lymphocyte Count 2.31 X10^3/uL (0.83-4.51); Absolute Neutrophil Count 4.9 X10^3/uL (2.0-7.7); Basophil# 0.07 X10^3/uL; Basophil% 0.9 % (0-1); Eosinophil# 0.07 X10^3/uL; Eosinophils% 0.9 % (0-5); Hematocrit 40.8 % (37-47); Hemoglobin 13.5 g/dL (12.0-15.0); Lymphocyte # 2.31 X10^3/ul (0.83-4.51); Lymphocyte % 28.9 % (19-41); Mean Corp Hgb Conc 33.1 g/dL (32-36); Mean Corpuscular Hgb 30.3 pg (27.0-32.0); Mean Corpuscular Volume 91.5 fL (81-99); Mean Platelet Vol. 10.5 fl (6.2-12.0); Monocyte# 0.67 X10^3/uL; Monocyte% 8.4 % (0-10); NRBC Flagged by Analyzer 0 % (0-5); Neutrophil # 4.85 X10^3/uL (2.7-7.7); Neutrophil % 60.8 % (47-70); Platelet Count 161 K/mm3 (150-450); RBC Distribution Width CV 12.9 % (11.6-14.6); RBC Distribution Width SD 43.1 fl (35.1-43.9); Red Blood Count 4.46 M/mm3 (4.2-5.4)
[2024-09-23 17:19] LABS: ALB/GLOB Ratio 1.7 RATIO (0.9-2.4); AST(SGOT) 26 U/L (<=31); Alanine Aminotransfer ALT/SGPT 18 U/L (<=34); Alkaline Phosphatase 88 U/L (35-104); Anion Gap 10 (5-15); BUN 22 mg/dL (4-19); BUN/Creat Ratio 30.6 RATIO (10-20); Calcium,Total 8.9 mg/dL (7.6-11.0); Carbon Dioxide 21.4 mmol/L (21.0-32.0); Chloride 106 mmol/L (98-108); Cholesterol 142 mg/dL (<=200); Creatinine, Serum 0.71 mg/dL (0.70-1.20); EST Glomerular Filtration Rate 98 (>60); Globulin 2.4 g/dL (2.2-4.2); Glucose 84 mg/dL (70-99); High Density Lipoprotein 56 mg/dL; Low Density Lipoprotein Calc. 73 mg/dL; Protein, Total 6.3 g/dL (5.9-8.4); Sodium Level 138 mmol/L (133-145); Triglycerides 63 mg/dL; Very Low Density Lipoprotein 13 mg/dL (5-40); Vitamin D,25 Hydroxy 33.1 ng/mL (30-100); cholesterol:hdl ratio screen 2.52
== END | disposition home or self-care (01) ==
PROVIDERS: PCP Internal Medicine; Referring Provider Physician Assistant Medical; Visit Provider Physician Assistant Medical
DX: J45.50 Severe persistent asthma, uncomplicated (principal); N18.31 Chronic kidney disease, stage 3a; E55.9 Vitamin D deficiency, unspecified; I71.60 Thoracoabdominal aortic aneurysm, without rupture, unspecified; I35.1 Nonrheumatic aortic (valve) insufficiency; Z82.79 Family history of other congenital malformations, deformations and chromosomal abnormalities
CPT/HCPCS: 36415; 71260; 80053; 80061; 82306; 85025; 94060; 94726; 94729; Q9967

== ENCOUNTER → 2024-10-20 | Outpatient (CLI) | payer OTHER, SELFPAY ==
--- NOTE | 2024-10-20 12:47 | BI_ITS ---
EXAM: SCRN MAMM (CAD)W/LORETTA BILAT DATE: 10/20/2024 CLINICAL HISTORY: F, Age 58 y/o , ANNUAL SCREENING BREAST CANCER RISK ASSESSMENT: Has not been calculated. TECHNIQUE: Bilateral screening digital breast tomosynthesis with 2D and 3D images. Computer aided detection. COMPARISON: Prior exam(s) dated 10/18/2023 and 09/11/2022. FINDINGS: TISSUE DENSITY: The breast tissue is composed of scattered area of fibroglandular density. Bilateral Breast Mammographic Findings: There are no suspicious masses, suspicious cluster of microcalcifications, architectural distortion or secondary signs of malignancy identified in either breast. Partially obscured stable isodense masses are seen in both breasts. Benign-appearing round microcalcifications are seen in both breasts. BI/SCRN MAMM (CAD)W/LORETTA BILAT IMPRESSION: OVERALL FINAL ASSESSMENT: BIRADS 2 BENIGN FINDING RECOMMENDATION: Routine annual follow-up in 1 Year A letter with findings and recommendations will be mailed to the patient. Reading Location: [id number]
== END | disposition home or self-care (01) ==
LOC: OPBI 12:46
PROVIDERS: PCP Internal Medicine; Referring Provider Obstetrics & Gynecology; Visit Provider Obstetrics & Gynecology
DX: Z12.31 Encounter for screening mammogram for malignant neoplasm of breast (principal)
CPT/HCPCS: 77063; 77067

== ENCOUNTER → 2024-10-21 | Outpatient (CLI) | payer OTHER, SELFPAY | END | disposition home or self-care (01) | PROVIDERS: PCP Internal Medicine; Referring Provider Internal Medicine Critical Care Medicine; Visit Provider Internal Medicine Critical Care Medicine | DX: J45.50 Severe persistent asthma, uncomplicated (principal) | CPT/HCPCS: 36415; 82785; 86003 ==

== ENCOUNTER → 2024-11-14 | Outpatient (CLI) | payer OTHER, SELFPAY ==
--- NOTE | 2024-11-14 08:46 | AAVD_ITS ---
Reason For Study Reason For Study: TAAA Aorta Measurements Aorta Doppler Measurements Proximal aorta measures2.27 x 2.41cm. in cross-sectional Peak systolic flow velocities within the proximal aorta axis. measure 66.9 cm/sec. Proximal aorta measures2.22cm. in longitudinal axis. Peak systolic flow velocities within the mid aorta measure Mid aorta measures1.82 x 1.67cm. in cross-sectional axis. 47.2 cm/sec. Mid aorta measures1.64cm. in longitudinal axis. Peak systolic flow velocities within the distal aorta Distal aorta measures1.25 x 1.25cm. in cross-sectional axis.measure 81.2 cm/sec. Distal aorta measures1.19cm. in longitudinal axis. Left Iliac Artery Left iliac artery measures 0.92 x 0.86 cm. in the cross-sectional axis. Left iliac artery measures 0.89 cm. in the longitudinal axis. Peak systolic velocity in the left iliac artery measures 71.3 cm/sec. Right Iliac Artery Right iliac artery measures 0.90 x 0.88 cm. in the cross-sectional axis. Right iliac artery measures 0.91 cm. in the longitudinal axis. Peak systolic velocity in the right iliac artery measures 69.1 cm/sec. VL/Abd Aortic/IVC Duplex scan Interpretation Summary Aorta patent, normal caliber Bilateral iliac arteries patent, normal caliber Ordering Physician: Stefani Castillo Referring Physician: Daiana Romo Performed By: Ciara Anthony, YASIR, RVT
--- NOTE | 2024-11-14 08:46 | ECHOD_ITS ---
Reason For Study Reason For Study: TAA Procedure This was a 2D Doppler, Color Flow transthoracic echocardiogram. Exam performed in department. Left Ventricle Normal size and thickness. The LV ejection fraction is 65 %. No evidence for diastolic dysfunction. Right Ventricle Normal right ventricle. Atria The left and right atria are normal. Mitral Valve Mild-Moderate (1-2+) mitral valve insufficiency. Tricuspid Valve Trivial tricuspid valve insufficiency. Normal pulmonary artery pressure. Aortic Valve Trisinus/trileaflet aortic valve. Moderate (2+) aortic valve insufficiency. Pulmonic Valve Mild (1+) pulmonic valve insufficiency. Great Vessels Mildly dilated aortic root. Pericardium/Pleural No pericardial effusion. MMode/2D Measurements & Calculations LVIDd: 4.9 cm IVSd: 0.75 cm Ao root diam: 3.9 cm LVIDs: 3.2 cm LVPWd: 0.89 cm RVDd: 3.3 cm FS: 35.6 % LAV(MOD-bp): 45.1 ml LVAd ap4: 27.4 cm2 SV(MOD-sp4): 55.6 ml LAV(MOD-bp) Indexed: 23.4 ml/m2 LVLd ap4: 7.4 cm SI(MOD-sp4): 28.9 ml/m2 LAV(MOD-sp2): 45.1 ml EDV(MOD-sp4): 84.1 ml LAV(MOD-sp4): 44.5 ml EDV(sp4-el): 85.4 ml LVAs ap4: 14.4 cm2 LVLs ap4: 6.3 cm ESV(MOD-sp4): 28.5 ml ESV(sp4-el): 27.8 ml EF(MOD-sp4): 66.1 % EF(sp4-el): 67.5 % SV(sp4-el): 57.7 ml LA A4 area: 17.3 cm2 LA dimension(2D): 3.3 cm RA A4 area: 15.7 cm2 TAPSE: 2.1 cm Time Measurements MV dec time: 0.21 sec Doppler Measurements & Calculations MV E max rajesh: 63.0 cm/sec Lat Peak E' Rajesh: 11.5 cm/sec Med Peak E' Rajesh: 9.9 cm/sec MV A max rajesh: 50.5 cm/sec E/E' lat: 5.5 E/E' med: 6.4 MV E/A: 1.2 Ao V2 max: 138.5 cm/sec AI max rajesh: 497.1 cm/sec LV V1 max: 114.0 cm/sec Ao max P.7 mmHg AI max P.8 mmHg LV V1 max P.2 mmHg AI dec slope: 201.8 cm/sec2 AI P1/2t: 721.5 msec PA V2 max: 77.8 cm/sec TR max rajesh: 217.1 cm/sec TR max P.8 mmHg ECHO/Echo Complete Interpretation Summary The LV ejection fraction is 65 %. No evidence for diastolic dysfunction. Mild-Moderate (1-2+) mitral valve insufficiency. Moderate (2+) aortic valve insufficiency. Possible small Lambl's excrescence. Mild (1+) pulmonic valve insufficiency. Mildly dilated aortic root. Ordering Physician: Stefani Castillo Referring Physician: ESTELITA GRIMES Performed By: Leida Khoury RDCS
== END | disposition home or self-care (01) ==
LOC: CVS 08:44
PROVIDERS: PCP Internal Medicine; Referring Provider Internal Medicine Cardiovascular Disease; Visit Provider Internal Medicine Cardiovascular Disease
DX: I71.20 Thoracic aortic aneurysm, without rupture, unspecified (principal); I71.60 Thoracoabdominal aortic aneurysm, without rupture, unspecified; I34.0 Nonrheumatic mitral (valve) insufficiency
CPT/HCPCS: 93306; 93978

== ENCOUNTER → 2024-12-11 | Outpatient (CLI) | payer OTHER, SELFPAY ==
--- NOTE | 2024-12-11 14:09 | CT_ITS ---
PROCEDURE: CTA CHEST W/WO CONTRAST 12/11/2024 REASON FOR EXAM: TAA TECHNIQUE: CTA CHEST W/WO CONTRAST Multiplanar Sagittal and Coronal images were obtained. CONTRAST: Isovue 370 VOLUME: 95 mL One or more dose reduction techniques were used (e.g., Automated exposure control, adjustment of the mA and/or kV according to patient size, use of iterative reconstruction technique). RADIATION DOSE SUMMARY: CTDlvol: 18 mGy DLP: 242 mGycm COMPARISON: 09/27/2024 FINDINGS: 1.5 cm right thyroid lobe lesion, recommend thyroid ultrasound to further characterize. Thoracic spine scoliosis and degeneration. Normal esophagus. Normal heart size. No aortic dissection. Mildly tortuous thoracic aorta. Dilated ascending aorta, maximum cross-section 4.1 x 4.1 cm. Previously measured up to 4.2 cm. A few calcified plaque. No pulmonary embolism. No acute chest wall findings. Status post cholecystectomy. Multiple liver hypodensities favoring cysts. No acute upper abdominal findings. Central airways are patent. Under aerated lungs. Mild emphysema. No consolidation, effusion, pneumothorax, or suspicious lung nodule. CT/CTA Chest W/WO Contrast IMPRESSION: Stable dilatation of the ascending aorta. No acute chest findings. Reading Location: [place] [id number]
== END | disposition home or self-care (01) ==
LOC: CT 14:07
PROVIDERS: PCP Internal Medicine; Referring Provider Physician Assistant Medical; Visit Provider Physician Assistant Medical
DX: I71.20 Thoracic aortic aneurysm, without rupture, unspecified (principal)
CPT/HCPCS: 71275; Q9967

== ENCOUNTER → 2024-12-29 | Outpatient (CLI) | payer OTHER, SELFPAY ==
--- NOTE | 2024-12-29 14:02 | US_ITS ---
PROCEDURE: THYROID 12/29/2024 REASON FOR EXAM: NONTOXIC THYROID NODULE TECHNIQUE: THYROID COMPARISON: None FINDINGS: Right thyroid lobe size: 4.2 cm x 1.7 cm 1.5 cm Left thyroid lobe size: 4.5 cm x 1.4 cm x 1 cm Isthmus: 0.1 cm Background parenchymal echotexture is homogeneous. Nodules: . Lobe: Right, Location: Midpole, Size: 2 cm x 1.4 cm x 1.1 cm, Stability: N/A Composition: Mixed cystic and solid (+1) Echogenicity: Hypoechoic (+2) Margin: Smooth (+0) Shape: Wider than tall (+0) Echogenic Foci: None (+0) TI-RADS: 3 . Lobe: Left, Location: Midpole, Size: 0.4 cm x 0.5 cm x 0.3 cm, Stability: N/A Composition: Mixed cystic and solid (+1) Echogenicity: Hypoechoic (+2) Margin: Smooth (+0) Shape: Wider than tall (+0) Echogenic Foci: None (+0) TI-RADS: 3 US/Thyroid IMPRESSION: Dominant complex nodule in the right lobe of the thyroid as described. Biopsy recommended. RECOMMENDATION: Based on most suspicious nodule. Nodule size = largest diameter Only evaluate nodule if =>5 mm. Growth > 20% in 2 dimensions = worsening. Follow up to 4 nodules. Recommend biopsy for no more than 2 nodules. Reading Location: [place] [id number]
--- NOTE | 2024-12-29 14:02 | US_ITS ---
PROCEDURE: THYROID 12/29/2024 REASON FOR EXAM: NONTOXIC THYROID NODULE TECHNIQUE: THYROID COMPARISON: None FINDINGS: Right thyroid lobe size: 4.2 cm x 1.7 cm 1.5 cm Left thyroid lobe size: 4.5 cm x 1.4 cm x 1 cm Isthmus: 0.1 cm Background parenchymal echotexture is homogeneous. Nodules: . Lobe: Right, Location: Midpole, Size: 2 cm x 1.4 cm x 1.1 cm, Stability: N/A Composition: Mixed cystic and solid (+1) Echogenicity: Hypoechoic (+2) Margin: Smooth (+0) Shape: Wider than tall (+0) Echogenic Foci: None (+0) TI-RADS: 3 . Lobe: Left, Location: Midpole, Size: 0.4 cm x 0.5 cm x 0.3 cm, Stability: N/A Composition: Mixed cystic and solid (+1) Echogenicity: Hypoechoic (+2) Margin: Smooth (+0) Shape: Wider than tall (+0) Echogenic Foci: None (+0) TI-RADS: 3 US/Thyroid IMPRESSION: Dominant complex nodule in the right lobe of the thyroid as described. Biopsy recommended. RECOMMENDATION: Based on most suspicious nodule. Nodule size = largest diameter Only evaluate nodule if =>5 mm. Growth > 20% in 2 dimensions = worsening. Follow up to 4 nodules. Recommend biopsy for no more than 2 nodules. Reading Location: [place] [id number]
== END | disposition home or self-care (01) ==
LOC: US 13:58
PROVIDERS: PCP Internal Medicine; Referring Provider Internal Medicine; Visit Provider Internal Medicine
DX: E04.1 Nontoxic single thyroid nodule (principal)
CPT/HCPCS: 76536

== ENCOUNTER 2025-04-11 02:23 | Emergency (ER) | payer OTHER, SELFPAY ==
[2025-04-11 02:25] VITALS: BP 140/100; PULSE 77; RESP 16; TEMP 36.2; O2SAT 97; BMI 21.8
[2025-04-11 03:13] LABS: Hematocrit 42.0 % (37-47); Hemoglobin 13.8 g/dL (12.0-15.0); Immature Granulocytes Count 0.030 X10^3/uL (0.0-0.0); Mean Corp Hgb Conc 32.9 g/dL (32-36); Mean Corpuscular Volume 90.9 fL (81-99); Mean Platelet Vol. 10.3 fl (6.2-12.0); NRBC Flagged by Analyzer 0 % (0-5); Platelet Count 199 K/mm3 (150-450); RBC Distribution Width CV 12.6 % (11.6-14.6); RBC Distribution Width SD 41.5 fl (35.1-43.9); Red Blood Count 4.62 M/mm3 (4.2-5.4); White Blood Count 7.8 K/mm3 (4.4-11.0)
[2025-04-11] MEDS: 0.9% Normal Saline (1000mL) 1,000 ML 999 ML IV (03:20)
[2025-04-11 03:39] LABS: AST(SGOT) 25 U/L (<=31); Alanine Aminotransfer ALT/SGPT 24 U/L (<=34); Albumin, Serum 4.3 g/dL (3.4-4.8); Alkaline Phosphatase 88 U/L (35-104); Anion Gap 12 (5-15); BUN 21 mg/dL (4-19); BUN/Creat Ratio 27.7 RATIO (10-20); Bilirubin, Direct 0.15 mg/dL (0.00-0.30); Calcium,Total 10.0 mg/dL (7.6-11.0); Carbon Dioxide 24.6 mmol/L (21.0-32.0); Chloride 106 mmol/L (98-108); Estimated Creatinine Clearance 93.17 ml/min (50-250); Globulin 2.9 g/dL (2.2-4.2); Glucose 99 mg/dL (70-99); Lipase 15 U/L (13-75); Magnesium 2.2 mg/dL (1.5-2.2); Potassium 3.4 mmol/L (3.3-5.1)
--- OUTSIDE RECORDS SUMMARY | 2025-04-11 03:43 | XMS RPT_ITS | CCD ---
Author Organization [facility] Care Team Providers Care Boat Deckhand Name Role Phone Dr. Zuleika Smyth Attending Provider [phone] Care Physician, No Primary Primary Care Provider Unavailable Dr. Daiana Grimes Referring Provider Care Physician, No Primary Referring Provider Un available Dr. Jacob Coulter Attending Provider [phone] Daiana Grimes Primary Care Provider Dr. Jacob Coulter Referring Provider Dr. Jacob Coulter Other Provider Richardson HEALTH SPECIALIST, HEALTH SPECIALIST-C Emily Attending Provider [phone] Richardson HEALTH SPECIALIST, HEALTH SPECIALIST-C Emily Referring Provider [phone] Dr. Akil Reagan Attending Provider Dr. Pk Kelly Attending Provider [phone] Daiana Grimes Primary Care Provider Dr. Jacob Coulter Attending Provider Care Physician, No Primary Referring Provider Un available Dr. Akil Reagan Referring Provider Dr. Daiana Grimes Primary Care Provider Dr. Daiana Grimes Primary Care Provider Dr. Daiana Grimes Referring Provider Dr. Jacob Coulter Attending Provider Dr. Daiana Grimes Primary Care Provider Dr. Pk Kelly Attending Provider [phone] Akil Reagan Referring Provider Dr. Akil Reagan Attending Provider Dr. Daiana Grimes Referring Provider Dr. Jacob Coulter Attending Provider Dr. Cristian Watt Attending Provider Referred, Self Referring Provider Unavailable Dr. Daiana Grimes Primary Care Provider Dr. Daiana Grimes Primary Care Provider Dr. Daiana Grimes Referring Provider Dr. Cristian Watt Attending Provider Dr. Daiana Girmes Primary Care Provider Dr. Daiana Grimes Referring Provider Dr. Zuleika Smyth Attending Provider ESTHER LAUREANO Primary Care Unavailabl e SANDY MADRID Attending Unavailable Sridevi SUAZO, Esther Jacob Primary Care Provider Dr. Daiana Grimes Primary Care Provider Dr. Daiana Grimes Referring Provider ZOEY Salvador Attending Provider KEARA RICHARDS Attending Unavailable Dr. Daiana Grimes Primary Care Provider Dr. Daiana Grimes Referring Provider Dr. Zuleika Smyth Attending Provider Daiana Grimes DO Primary Care Provider SELF Referring Unavailable DAIANA GRIMES Primary Care Unavailable EVELYN HU Referring Unavailable DAIANA GRIMES Primary Care Unavailable Dr. Daiana Grimes DO Primary Care Provider Sussy Salvador Attending Provider Sussy Salvador Referring Provider Dr. Daiana Grimes DO Referring Provider Fred Heller DO, Dr. Zuleika Attending Provider Jonathan SUAZO, Dr. Ko Attending Provider Fred Heller DO, Dr. To Referring Provider Yfn NATHAN, Dr. James Attending Provider Yfn NATHAN, Dr. James Referring Provider Yfn NATHAN, Dr. James Attending Provider Jonathan SUAZO, Dr. Ko Referring Provider Livia SUAZO, Dr. Og Attending Provider Osmani SUAZO, Dr. Uribe Attending Provider Osmani SUAZO, Dr. Uribe Attending Provider Demetrius NATHAN, Dr. Ahmadi Attending Provider Zuleika Smyth Referring Unavailabl e Zuleika Smyth Attending Unavailabl e Demetrius, Daiana Primary Care Unavailable Vadim Coulterk Referring Unavailable Jacob Coulter Attending Unavailable Demetrius, Daiana Primary Care Unavailable Demetrius, Daiana Referring Unavailable Demetrius, Daiana Attending Unavailable Demetrius, Daiana Primary Care Unavailable Demetrius, Daiana Primary Care Unavailable Sussy Salvador Attending Unavail able Sussy Salvador Referring Unavail able Demetrius, Daiana Referring Unavailable Jacob Coulter Attending Unavailable Demetrius, Daiana Primary Care Unavailable Jonathan, Stefani Referring Unavailable Earle Bhakta Attending Unavailable Demetrius, Daiana Primary Care Unavailable Jacob Coulter Attending Unavailable Sussy Salvador Referring Unavail able Demetrius, Daiana Primary Care Unavailable Jonathan Stefani Attending Unavailable Demetrius, Daiana Primary Care Unavailable Demetrius, Daiana Referring Unavailable Demetrius, Daiana Primary Care Unavailable Sussy Salvador Attending Unavail able Demetrius, Daiana Referring Unavailable Emily Bai NP Attending Unavailable Demetrius, Daiana Primary Care Unavailable Demetrius, Daiana Referring Unavailable VandZuleika Jones Attending Unavailabl e Demetrius, Daiana Primary Care Unavailable Demetrius, Daiana Referring Unavailable Jonathan Stefani Attending Unavailable Demetrius, Daiana Primary Care Unavailable Demetrius, Daiana Primary Care Unavailable Demetrius, Daiaan Referring Unavailable Daiana Grimes Attending Unavailable Daiana Grimes Primary Care Unavailable Sussy Salvador Referring Unavail able Sussy Salvador Attending Unavail able Stefani Castillo Referring Unavailable Stefani Castillo Attending Unavailable Daiana Grimes Primary Care Unavailable ADAM CARSON Attending Unavailable ISRAEL PASTOR Referring UnavailDAIANA Anderson Primary Care Unavailable ISRAEL PASTOR Attending Unavailabl e DAIANA GRIMES L Primary Care Unavailable Allergies Allergy Classification Reported Allergen(s) Allergy Type Date of Onset Reaction(s) Facility (20 sources) egg extract; Translations: [EGG] Drug Allergy 2 Other, Headache, increased sinus drainage [facility] (13 sources) tamsulosin; Translations: [TAMSULOSIN] Drug Allergy 9 Rash [facility]ository (1 source) egg extract Drug Allergy 5 [facility] Repository Medications Current Medications Medication Drug Class(es) Dates Sig (Normalized) Sig (Original) albuterol 0.83 mg/ml inhalation solution (18 sources) beta2-Adrenergic Agonist Start: 02-06-2017 take 2.5 mg by inhalation every four hours as needed albuterol (PROVENTIL) 2.5 mg /3 mL (0.083 %) nebulizer solution Use 3 mL via nebulizer every 4 hours as needed for Wheezing/Shortnes s of Breath. Inhale over 5-15 minutes 360 Vial 3 02/06/2017 Active ALBUTEROL SULFAT E (VENTOLIN INHALATION) Inhale as instructed. Active ALBUTEROL SULFAT E (VENTOLIN INHALATION) Inhale as instructed. 0 Active Comment on above: Inhale as instructed . Use 3 mL via nebuliz er every 4 hours as needed for Wheezing/Shortness of Breath. Inhale over 5-15 minutes ascorbic acid 1000 mg oral tablet (17 sources) Vitamin C Start: 03-25-2024 take 1 g by mouth once daily Ascorbic Acid (Vitamin C) 1,000 mg tablet Active 1 g PO daily March 25, 2024 1:00am take 1 tablet by mouth once emmy y Ascorbic Acid (VITAMIN C) 100 mg tablet Take 100 mg by mouth once daily. Active Comment on above: Take 100 mg by mouth once daily. Estradiol (Imvexxy Starter Pack) 4 mcg insert, dose pack (8 sources) Start: 09-26-2024 Estradiol (Imvexxy Starter Pack) 4 mcg insert, dose pack Active 0 VAGINAL .COMPLEX 18 0 September 26, 2024 12:00am insert 1 - 4 mcg insert vaginally once daily for 2 weeks; then 1 - 4 mcg insert vaginally twice WEEKLY (every 3-4 days/same days each week) vaginal Start: 09-26-2024 Estradiol (Imv exxy Starter Pack) 4 mcg insert, dose pack Active 0 VAGINAL .COMPLEX September 26, 2024 12:00am insert 1 - 4 mcg insert vaginally once daily for 2 weeks; then 1 - 4 mcg insert vaginally twice WEEKLY (every 3-4 days/same days each week) vaginal Fluticasone Propion-Salmeterol (20 sources) Corticosteroid, beta2-Adrenergic Agonist Start: 07-21-2024 Fluticasone Propion-Salmeterol (Advair Diskus) 500-50 mcg/dose blister with device Active 1 NMA INHALATION TWICE A DAY 3 July 21, 2024 1:32pm Start: 07-21-2024 Fluticasone Pr opion-Salmeterol (Advair Diskus) 500-50 mcg/dose blister with device Active 1 NMA INHALATION TWICE A DAY July 21, 2024 1:32pm Start: 06-14-2023 End: 07-21-2024 Fluticasone Propion-Salmeter ol (Advair Diskus) 500-50 mcg/dose blister with device Discontinued 1 NMA INHALATION TWICE A DAY 3 June 14, 2023 11:37am July 21, 2024 1:32pm Start: 06-14-2023 End: 07-21-2024 Fluticasone Propion-Salmeter ol (Advair Diskus) 500-50 mcg/dose blister with device Discontinued 1 NMA INHALATION TWICE A DAY June 14, 2023 11:37am July 21, 2024 1:32pm Start: 06-14-2023 Fluticasone Pr opion-Salmeterol (Advair Diskus) 500-50 mcg/dose blister with device Active 1 INH INHALATION TWICE A DAY June 14, 2023 11:37am Start: 06-13-2023 End: 06-14-2023 Fluticasone Propion-Salmeter ol (Advair Diskus) 500-50 mcg/dose blister with device Discontinued 1 NMA INHALATION TWICE A DAY 1 June 13, 2023 10:30am June 14, 2023 11:37am Start: 06-13-2023 End: 06-14-2023 Fluticasone Propion-Salmeter ol (Advair Diskus) 500-50 mcg/dose blister with device Discontinued 1 NMA INHALATION TWICE A DAY June 13, 2023 10:30am June 14, 2023 11:37am Start: 06-13-2023 End: 06-14-2023 Fluticasone Propion-Salmeter ol (Advair Diskus) 500-50 mcg/dose blister with device Discontinued 1 INH INHALATION TWICE A DAY June 13, 2023 10:30am June 14, 2023 11:37am Start: 02-08-2023 End: 06-13-2023 Fluticasone Propion-Salmeter ol (Advair Diskus) 500-50 mcg/dose blister with device Discontinued 1 NMA INHALATION TWICE A DAY 1 February 08, 2023 2:59pm June 13, 2023 10:30am Start: 02-08-2023 End: 06-13-2023 Fluticasone Propion-Salmeter ol (Advair Diskus) 500-50 mcg/dose blister with device Discontinued 1 NMA INHALATION TWICE A DAY February 08, 2023 2:59pm June 13, 2023 10:30am Start: 02-08-2023 End: 06-13-2023 Fluticasone Propion-Salmeter ol (Advair Diskus) 500-50 mcg/dose blister with device Discontinued 1 INH INHALATION TWICE A DAY February 08, 2023 2:59pm June 13, 2023 10:30am Start: 02-08-2023 Fluticasone Pr opion-Salmeterol (Advair Diskus) 500-50 mcg/dose blister with device Active 1 INH INHALATION TWICE A DAY February 08, 2023 1:59pm Start: 02-08-2023 End: 02-08-2023 Fluticasone Propion-Salmeter ol (Advair Diskus) 500-50 mcg/dose blister with device Discontinued 1 NMA INHALATION TWICE A DAY 1 February 08, 2023 12:12pm February 08, 2023 3:00pm Start: 02-08-2023 End: 02-08-2023 Fluticasone Propion-Salmeter ol (Advair Diskus) 500-50 mcg/dose blister with device Discontinued 1 NMA INHALATION TWICE A DAY February 08, 2023 12:12pm February 08, 2023 3:00pm Start: 02-08-2023 End: 02-08-2023 Fluticasone Propion-Salmeter ol (Advair Diskus) 500-50 mcg/dose blister with device Discontinued 1 INH INHALATION TWICE A DAY February 08, 2023 12:12pm February 08, 2023 3:00pm Start: 02-08-2023 End: 02-08-2023 Fluticasone Propion-Salmeter ol (Advair Diskus) 500-50 mcg/dose blister with device Discontinued 1 INH INHALATION TWICE A DAY February 08, 2023 11:12am February 08, 2023 2:00pm Start: 10-11-2022 End: 02-08-2023 Fluticasone Propion-Salmeter ol (Advair Diskus) 500-50 mcg/dose blister with device Discontinued 1 NMA INHALATION TWICE A DAY 05 25October 11, 2022 10:51am February 08, 2023 12:12pm Start: 10-11-2022 End: 02-08-2023 Fluticasone Propion-Salmeter ol (Advair Diskus) 500-50 mcg/dose blister with device Discontinued 1 NMA INHALATION TWICE A DAY October 11, 2022 10:51am February 08, 2023 12:12pm Start: 10-11-2022 End: 02-08-2023 Fluticasone Propion-Salmeter ol (Advair Diskus) 500-50 mcg/dose blister with device Discontinued 1 INH INHALATION TWICE A DAY October 11, 2022 10:51am February 08, 2023 12:12pm Start: 10-11-2022 End: 02-08-2023 Fluticasone Propion-Salmeter ol (Advair Diskus) 500-50 mcg/dose blister with device Discontinued 1 INH INHALATION TWICE A DAY October 11, 2022 9:51am February 08, 2023 11:12am Start: 10-11-2022 Fluticasone Pr opion-Salmeterol (Advair Diskus) 500-50 mcg/dose blister with device Active 1 INH INHALATION TWICE A DAY October 11, 2022 10:51am Start: 04-17-2022 End: 10-11-2022 Fluticasone Propion-Salmeter ol (Advair Diskus) 500-50 mcg/dose blister with device Discontinued 1 NMA INHALATION TWICE A DAY 05 25April 17, 2022 11:42am October 11, 2022 10:51am Start: 04-17-2022 End: 10-11-2022 Fluticasone Propion-Salmeter ol (Advair Diskus) 500-50 mcg/dose blister with device Discontinued 1 NMA INHALATION TWICE A DAY April 17, 2022 11:42am October 11, 2022 10:51am Start: 04-17-2022 End: 10-11-2022 Fluticasone Propion-Salmeter ol (Advair Diskus) 500-50 mcg/dose blister with device Discontinued 1 INH INHALATION TWICE A DAY April 17, 2022 10:42am October 11, 2022 9:51am Start: 04-17-2022 End: 10-11-2022 Fluticasone Propion-Salmeter ol (Advair Diskus) 500-50 mcg/dose blister with device Discontinued 1 INH INHALATION TWICE A DAY April 17, 2022 11:42am October 11, 2022 10:51am Start: 04-17-2022 Fluticasone Pr opion-Salmeterol (Advair Diskus) 500-50 mcg/dose blister with device Active 1 INH INHALATION TWICE A DAY April 17, 2022 11:42am Start: 04-17-2022 Fluticasone Pr opion-Salmeterol (Advair Diskus) 500-50 mcg/dose blister with device Active 1 INH INHALATION TWICE A DAY April 17, 2022 10:42am Start: 08-25-2021 Fluticasone Pr opion-Salmeterol (Advair Diskus) 500-50 mcg/dose blister with device Active 1 INH INHALATION TWICE A DAY August 25, 2021 9:22am Start: 08-25-2021 End: 04-17-2022 Fluticasone Propion-Salmeter ol (Advair Diskus) 500-50 mcg/dose blister with device Discontinued 1 NMA INHALATION TWICE A DAY August 25, 2021 12:00am April 17, 2022 11:44am Start: 08-25-2021 End: 04-17-2022 Fluticasone Propion-Salmeter ol (Advair Diskus) 500-50 mcg/dose blister with device Discontinued 1 INH INHALATION TWICE A DAY August 25, 2021 12:00am April 17, 2022 11:44am Start: 08-25-2021 End: 04-17-2022 Fluticasone Propion-Salmeter ol (Advair Diskus) 500-50 mcg/dose blister with device Discontinued 1 INH INHALATION TWICE A DAY August 24, 2021 11:00pm April 17, 2022 10:44am Start: 08-25-2021 Fluticasone Pr opion-Salmeterol (Advair Diskus) 500-50 mcg/dose blister with device Active 1 INH INHALATION TWICE A DAY August 25, 2021 12:00am Start: 02-06-2017 take 1 puff(s) by [facility] twice daily fluticasone-salmeterol (ADVAIR DISKUS) 250-50 mcg/dose dsdv Inhale 1 Puff as instructed twice daily. Rinse and gargle mouth with water after each use. 3 Inhaler 3 02/06/2017 Active Comment on above: Inhale 1 Puff as ins tructed twice daily. Rinse and gargle mouth with water after each use. magnesium citrate 200 mg oral tablet (9 sources) Start: 04-24-2023 take 200 mg by mouth once daily Magnesium Citrate Active 200 MG PO DAILY April 24, 2023 1:00am Start: 04-24-2023 End: 09-26-2024 take 2 capsules by mouth once daily Magnesium Citrate 100 mg capsule Discontinued 200 mg PO DAILY April 24, 2023 1:00am September 26, 2024 1:35pm Constipation mometasone furoate 0.05 mg/actuat metered dose nasal spray (9 sources) Corticosteroid Start: 04-29-2012 take 2 spray(s) nasal route once daily mometasone (NASONEX) 50 mcg/actuation nasal spray Use 2 Sprays in each nostril once daily. 1 Bottle 6 04/29/2012 Active Comment on above: Use 2 Sprays in each nostril once daily. Hpprdulh-Ani-Kzc ic Acid-Ljz500 (Alive Premium Women's) 80 mcg- 66.7 mg tablet,chewable (20 sources) Start: 09-15-2021 take 1 tablet by mouth once daily Uvcxwgts-Olc-Aycay Acid-Uyy291 (Alive Premium Women's) 80 mcg- 66.7 mg tablet,chewable Active 1 TABLET PO DAILY September 15, 2021 7:43am Start: 09-15-2021 take 1 tablet by mouth once Mu utpksj-Mop-Abmpt Acid-Dfo065 (Alive Premium Women's) 80 mcg- 66.7 mg tablet,chewable Active TABLET PO September 15, 2021 7:43am Start: 09-15-2021 End: 03-25-2024 take 1 tablet by mouth once daily Lslwxgnt-Vhp-Lpxym Acid-Dxb196 (Alive Premium Women's) 80 mcg- 66.7 mg tablet,chewable Discontinued 1 {tbl} PO DAILY September 15, 2021 12:00am March 25, 2024 12:12pm Start: 09-15-2021 take 1 tablet by angie th once daily Vnbuilnr-Tfw-Tesmn Acid-Rqn704 (Alive Premium Women's) 80 mcg- 66.7 mg tablet,chewable Active 1 TABLET PO DAILY September 14, 2021 11:00pm Start: 09-15-2021 take 1 tablet by angie th once daily Crpbnfrw-Zfq-Cojfp Acid-Nem252 (Alive Premium Women's) 80 mcg- 66.7 mg tablet,chewable Active 1 TABLET PO DAILY September 15, 2021 12:00am mv-mn/folic acid/vit K/herb2 89 (ALIVE ONCE DAILY WOMEN 50 PLUS ORAL) (9 sources) mv-mn/folic acid /vit K/qclg849 (ALIVE ONCE DAILY WOMEN 50 PLUS ORAL) Take by mouth. Active mv-mn/folic acid /vit K/wcmm425 (ALIVE ONCE DAILY WOMEN 50 PLUS ORAL) Take by mouth. 0 Active Comment on above: Take by mouth. nitrofurantoin, macrocrystals 25 mg / nitrofurantoin, monohydrate 75 mg oral capsule (1 source) Nitrofuran Antibacterial Start: 12-10-19 End: 12-17-19 take 1 capsule by mouth twice daily nitrofurantoin monohydrate and macrocrystal (MACROBID) 100 mg capsule Take 1 capsule by mouth twice daily for 7 days. 14 capsule 0 12/09/2022 12/16/2022 Active Comment on above: Take 1 capsule by [facility] twice daily for 7 days. 0.5 ml omalizumab 150 mg/ml prefilled syringe (20 sources) Anti-IgE Start: 03-25-20 24 Omalizumab (Xolair) 75 mg/0.5 mL syringe Active 75 mg SC every 2 weeks March 25, 2024 12:12pm Start: 04-03-2022 End: 03-25-2024 Omalizumab (Xolair) 75 mg/0. 5 mL syringe Discontinued 75 mg SC ONCE 0.5 June 08, 2023 4:18pm March 25, 2024 12:13pm Start: 09-15-2021 End: 06-08-2023 Omalizumab (Xolair) 150 mg r econ soln Discontinued 300 mg SC every 2 weeks 1 June 05, 2022 3:54pm June 08, 2023 4:19pm requires multiple injection sites; do not exceed 150 mg per injection site omalizumab (XOLA IR) 150 mg/mL syringe Inject 375 mg subcutaneously. Active Comment on above: Inject 375 mg subcut aneously. polyethylene glycol 3350 69442 mg powder for oral solution (8 sources) Osmotic Laxative Start: 09-27-19 25 Polyethylene Glycol 3350 (Miralax) 17 gram/dose powder Active 4 g PO ONCE September 26, 2024 12:00am Syringe, Disposable, 3 mL syrg (9 sources) Start: 09-25-19 18 Syringe, Disposable, 3 mL syrg USE DIRECTED 100 Syringe 10 09/24/2017 Active Comment on above: USE DIRECTED 24 hr venlafaxine 75 mg extended release oral capsule (15 sources) Serotonin and Norepinephrine Reuptake Inhibitor Start: 10-02-19 take 1 capsule by mouth once daily Venlafaxine 75 mg capsule,extended release 24hr Active 75 mg PO daily October 01, 2024 12:00am Start: 04-25-2024 End: 10-01-2024 take 1 capsule by mouth once daily Venlafaxine 37.5 mg capsule,extended release 24hr Discontinued 37.5 mg PO daily April 25, 2024 1:00am October 01, 2024 1:00pm vit C/zinc citrate/elderberr y (SAMBUCUS ELDERBERRY ORAL) (9 sources) vit C/zinc citra te/elderberry (SAMBUCUS ELDERBERRY ORAL) Take 2 teaspoonsful by mouth. Active vit C/zinc citra te/elderberry (SAMBUCUS ELDERBERRY ORAL) Take 2 teaspoonsful by mouth. 0 Active Comment on above: Take 2 teaspoonsful by mouth. water 1000 mg/ml injectable solution (9 sources) Start: 06-22-2017 STERILE WATER FOR INJECTION injection USE DIRECTED WITH XOLAIR 10 mL 11 06/22/2017 Active Comment on above: USE DIRECTED WITH XOLAIR Completed/Discontinued Medications Medication Drug Class(es) Dates Sig (Normalized) Sig (Original) amoxicillin 500 mg oral capsule (7 sources) Penicillin-class Antibacterial Start: 02-06-2017 End: 05-02-2024 take 1 capsule by mouth three times daily amoxicillin (POLYMOX, AMOXIL) 500 mg capsule Take 1 capsule by mouth three times daily. 15 capsule 02/06/2017 05/02/2024 Discontinued Comment on above: Take 1 capsule by [facility] three times daily. amoxicillin 875 mg / clavulanate 125 mg oral tablet (20 sources) Penicillin-class Antibacterial Start: 10-04-2023 End: 03-25-2024 Amoxicillin-Pot Clavulanate 875-125 mg tablet Discontinued 1 {tbl} PO TWICE A DAY 20 October 04, 2023 12:00am March 25, 2024 12:10pm Start: 10-28-2021 End: 12-01-2021 Amoxicillin-Pot Clavulanate 875-125 mg tablet Discontinued 1 {tbl} PO TWICE A DAY October 28, 2021 12:00am December 01, 2021 3:56pm Start: 10-28-2021 End: 12-01-2021 take 1 tablet by mouth twice daily Amoxicillin-Pot Clavulanate Discontinued 1 TABLET PO TWICE A DAY October 28, 2021 12:00am December 01, 2021 3:56pm Ascorbic Acid-Elderberry Fru it (Airborne (Elderberry)) 100-50 mg tablet,chewable (17 sources) Start: 04-05-2022 End: 03-21-2023 Ascorbic Acid-Elderberry Fru it (Airborne (Elderberry)) 100-50 mg tablet,chewable Discontinued 1 {tbl} PO DAILY April 05, 2022 1:00am March 21, 2023 11:41am Start: 04-05-2022 End: 03-21-2023 take 1 tablet by mouth once daily Ascorbic Acid-Elderberry Fruit (Airborne (Elderberry)) 100-50 mg tablet,chewable Discontinued 1 TABLET PO DAILY April 05, 2022 1:00am March 21, 2023 11:41am Start: 04-05-2022 End: 03-21-2023 take 1 tablet by mouth once daily Ascorbic Acid-Elderberry Fruit (Airborne (Elderberry)) 100-50 mg tablet,chewable Discontinued 1 TABLET PO DAILY April 05, 2022 12:00am March 21, 2023 10:41am Start: 04-05-2022 take 1 tablet by angie th once daily Ascorbic Acid-Elderberry Fruit (Airborne (Elderberry)) 100-50 mg tablet,chewable Active 1 TABLET PO DAILY April 05, 2022 1:00am Start: 04-05-2022 take 1 tablet by angie th once daily Ascorbic Acid-Elderberry Fruit (Airborne (Elderberry)) 100-50 mg tablet,chewable Active 1 TABLET PO DAILY April 05, 2022 12:00am Baclofen (7 sources) gamma-Aminobutyric Acid-ergic Agonist End: 05-02-2024 BACLOFEN ORAL Take by mouth. 05/02/2024 Discontinued BACLOFEN ORAL Ta ke by mouth. Active BACLOFEN ORAL Ta ke by mouth. 0 Active Comment on above: Take by mouth. calcium ascorbate 500 mg oral tablet (17 sources) Start: 04-05-20 End: 03-25-20 take 1 tablet by mouth once daily Ascorbate Calcium (Vitamin C) 500 mg tablet Discontinued 500 mg PO DAILY April 05, 2022 1:00am March 25, 2024 12:11pm cetirizine hydrochloride 10 mg oral tablet (17 sources) Histamine-1 Receptor Antagonist Start: 04-05-20 End: 09-01-19 take 1 tablet by mouth once daily as needed Cetirizine (Zyrtec) 10 mg tablet Discontinued 10 mg PO DAILY as needed April 05, 2022 1:00am August 31, 2022 2:20pm cholecalciferol 0.05 mg oral capsule (20 sources) Vitamin D Start: 09-16-19 End: 03-21-20 take 1 capsule by mouth once daily Cholecalciferol (Vitamin D3) 50 mcg (2,000 unit) capsule Discontinued 50 ug PO DAILY September 15, 2021 12:00am March 21, 2023 11:41am cholecalciferol (VITAMIN D-3) 5,000 unit tab Take 2,000 Units by mouth once daily. Active Comment on above: Take 2,000 Units by mouth once daily. [id number] 0.3 ml EPINEPHrine 1 mg/ml auto-injector (20 sources) alpha-Adrenergic Agonist, beta-Adrenergic Agonist, Catecholamine Start: 09-15-2021 End: 02-12-2024 Epinephrine (Epipen) 0.3 mg/0.3 mL auto-injector Discontinued 0.3 mg IM ONCE 2 3 April 30, 2023 8:54am February 12, 2024 4:45pm as a single dose; may repeat once 84 hr estradiol 0.02764 mg/hr transdermal system (7 sources) Estrogen End: 05-02-2024 estradiol (VIVELLE) 0.075 mg/24 hr Apply 1 Patch as directed. 05/02/2024 Discontinued Comment on above: Apply 1 Patch as dir ected. fluticasone propionate 0.05 mg/actuat metered dose nasal spray (20 sources) Corticosteroid Start: 09-15-2021 End: 10-21-2024 Fluticasone Propionate 50 mcg/actuation spray,suspension Discontinued 2 NMA INTRANASAL DAILY as needed for nasal congestion 3 3 August 06, 2023 2:20pm October 21, 2024 11:06am administer into each nostril Start: 09-15-2021 End: 08-06-2023 take 1 spray(s) nasal route once daily Fluticasone Propionate Active 2 SPRAY INTRANASAL DAILY 3 August 06, 2023 2:20pm administer into each nostril gabapentin 100 mg oral capsule (7 sources) Anti-epileptic Agent End: 05-02-2024 take 1 capsule by mouth twice daily gabapentin 100 mg capsule Take 100 mg by mouth twice daily. 05/02/2024 Discontinued Comment on above: Take 100 mg by mouth twice daily. 24 hr metoprolol succinate 25 mg extended release oral tablet (20 sources) beta-Adrenergic Lori Start: 08-25-2021 End: 11-13-2023 take 1 tablet by mouth once daily Metoprolol Succinate 25 mg tablet extended release 24 hr Discontinued 25 mg PO DAILY 90 December 12, 2022 3:32pm November 13, 2023 12:44pm take 1 tablet by mouth once emmy y metoprolol tartrate, short acting, (LOPRESSOR) 25 mg tablet Take 25 mg by mouth once daily. Active Comment on above: Take 25 mg by mouth once daily. 24 hr mirabegron 25 mg extended release oral tablet (20 sources) beta3-Adrenergic Agonist Start: 3 End: 4 take 1 tablet by mouth once daily Mirabegron (Myrbetriq) 25 mg tablet extended release 24 hr Discontinued 25 mg PO DAILY 30 July 09, 2023 1:00am September 18, 2023 1:24pm Comment on above: Take 25 mg by mouth once daily. montelukast 10 mg oral tablet (20 sources) Leukotriene Receptor Antagonist Start: 2 End: 5 take 1 tablet by mouth once daily Montelukast (Singulair) 10 mg tablet Discontinued 10 mg PO DAILY 90 November 13, 2023 1:54pm October 21, 2024 11:06am Comment on above: Take 10 mg by mouth daily at bedtime. Nirmatrelvir-Ritonav ir (Paxlovid) 300 mg (150 mg x 2)-100 mg tablets,dose pack (9 sources) Start: 4 End: 4 Nirmatrelvir-Ritonavi r (Paxlovid) 300 mg (150 mg x 2)-100 mg tablets,dose pack Discontinued 0 PO .COMPLEX 30 0 May 29, 2023 1:00am September 18, 2023 1:24pm take TWO 150 mg tablets of nirmatrelvir with ONE 100 mg tablet of ritonavir twice daily for 5 days PO Start: 05-29-2023 End: 09-18-2023 Nirmatrelvir-Ritonavir (Paxl ovid) 300 mg (150 mg x 2)-100 mg tablets,dose pack Discontinued 0 PO .COMPLEX May 29, 2023 1:00am September 18, 2023 1:24pm take TWO 150 mg tablets of nirmatrelvir with ONE 100 mg tablet of ritonavir twice daily for 5 days PO oxybutynin chloride 5 mg oral tablet (20 sources) Cholinergic Muscarinic Antagonist Start: 08-25-2021 End: 03-02-2022 take 1 tablet by mouth every eight hours Oxybutynin Chloride 5 mg tablet Discontinued 5 mg PO Q8H 30 December 07, 2021 12:00pm March 02, 2022 7:36am pantoprazole 40 mg delayed release oral tablet (17 sources) Proton Pump Inhibitor Start: 04-05-2022 End: 03-21-2023 take 1 tablet by mouth once daily Pantoprazole (Protonix) 40 mg tablet,delayed release (DR/EC) Discontinued 40 mg PO DAILY April 05, 2022 1:00am March 21, 2023 11:41am predniSONE 20 mg oral tablet (16 sources) Start: 07-23-2023 End: 09-18-2023 take 3 tablets by mouth once daily at mealtime Prednisone 20 mg tablet Discontinued 60 mg PO daily July 23, 2023 1:00am September 18, 2023 1:24pm administer with food or milk Start: 07-23-2023 End: 09-18-2023 take 60 mg by mouth once daily at mealtime Prednisone Discontinued 60 MG PO daily July 23, 2023 1:00am September 18, 2023 1:24pm administer with food or milk Start: 02-06-2017 End: 05-02-2024 take 4 tablets by mouth once daily, then take 3 tablets by mouth once daily, then take 2 tablets by mouth once daily, then take 1 tablet by mouth once daily predniSONE (DELTASONE) 10 mg tablet 4 tablets po daily for 2 days then 3 tablets po daily for 2 days then 2 tablets po daily for 2 days then 1 tablet po daily for 2 days 20 tablet 02/06/2017 05/02/2024 Discontinued Comment on above: 4 tablets po daily f or 2 days then 3 tablets po daily for 2 days then 2 tablets po daily for 2 days then 1 tablet po daily for 2 days pregabalin 100 mg oral capsule (20 sources) Start: 08-31-2022 End: 09-26-2024 take 1 capsule by mouth once daily Pregabalin (Lyrica) 100 mg capsule Discontinued 100 mg PO DAILY August 31, 2022 12:00am September 26, 2024 1:35pm Start: 08-25-2021 take 1 capsule by mo [facility] twice daily Pregabalin (LYRICA) 200 mg capsule TAKE ONE CAPSULE BY MOUTH 2 TIMES A DAY 180 capsule 1 11/02/2021 Active Comment on above: TAKE ONE CAPSULE BY MOUTH 2 TIMES A DAY Take 100 mg by mouth once daily. solifenacin succinate 10 mg oral tablet (15 sources) Cholinergic Muscarinic Antagonist Start: 3 End: 3 take 1 tablet by mouth once daily Solifenacin (Vesicare) 10 mg tablet Discontinued 10 mg PO DAILY 19 05July 27, 2022 1:00am August 31, 2022 2:21pm Vibegron (20 sources) Start: 3 End: 4 take 1 tablet by mouth once daily Vibegron (Gemtesa) 75 mg tablet Discontinued 75 mg PO DAILY January 09, 2023 3:42pm July 09, 2023 1:02pm Start: 01-09-2023 End: 07-09-2023 take 1 tablet by mouth once daily Vibegron (Gemtesa) 75 mg tablet Discontinued 75 mg PO DAILY January 09, 2023 3:42pm July 09, 2023 1:02pm Start: 01-09-2023 End: 07-09-2023 take 1 tablet by mouth once daily Vibegron (Gemtesa) 75 mg tablet Discontinued 75 MG PO DAILY January 09, 2023 3:42pm July 09, 2023 1:02pm Start: 01-09-2023 take 1 tablet by [facility] once daily Vibegron (Gemtesa) 75 mg tablet Active 75 MG PO DAILY January 09, 2023 2:42pm Start: 12-07-2022 End: 01-09-2023 take 1 tablet by mouth once daily Vibegron (Gemtesa) 75 mg tablet Discontinued 75 mg PO DAILY 19 05December 07, 2022 12:00am January 09, 2023 3:42pm Start: 12-07-2022 End: 01-09-2023 take 1 tablet by mouth once daily Vibegron (Gemtesa) 75 mg tablet Discontinued 75 mg PO DAILY December 07, 2022 12:00am January 09, 2023 3:42pm Start: 12-07-2022 End: 01-09-2023 take 1 tablet by mouth once daily Vibegron (Gemtesa) 75 mg tablet Discontinued 75 MG PO DAILY December 07, 2022 12:00am January 09, 2023 3:42pm Start: 12-07-2022 End: 01-09-2023 take 1 tablet by mouth once daily Vibegron (Gemtesa) 75 mg tablet Discontinued 75 MG PO DAILY December 06, 2022 11:00pm January 09, 2023 2:42pm Start: 12-07-2022 take 1 tablet by angie th once daily Vibegron (Gemtesa) 75 mg tablet Active 75 MG PO DAILY December 07, 2022 12:00am Start: 04-05-2022 End: 08-31-2022 take 1 tablet by mouth once daily Vibegron (Gemtesa) 75 mg tablet Discontinued 75 mg PO DAILY April 05, 2022 1:00am August 31, 2022 2:21pm Start: 04-05-2022 End: 08-31-2022 take 1 tablet by mouth once daily Vibegron (Gemtesa) 75 mg tablet Discontinued 75 MG PO DAILY April 05, 2022 12:00am August 31, 2022 1:21pm Start: 04-05-2022 End: 08-31-2022 take 1 tablet by mouth once daily Vibegron (Gemtesa) 75 mg tablet Discontinued 75 MG PO DAILY April 05, 2022 1:00am August 31, 2022 2:21pm Start: 04-05-2022 take 1 tablet by angie th once daily Vibegron (Gemtesa) 75 mg tablet Active 75 MG PO DAILY April 05, 2022 1:00am Start: 04-05-2022 take 1 tablet by angie th once daily Vibegron (Gemtesa) 75 mg tablet Active 75 MG PO DAILY April 05, 2022 12:00am Problems Active Problems Problem Classification Problem Date Documented Da te Episodic/Chronic Abdominal pain (1 source) Generalized abdominal pain; Translations: [Generalized abdominal pain] Onset: 3 Episodic Allergic reactions (20 sources) Allergic condition; Translations: [Allergy, unspecified, initial encounter] Episodic Aortic; peripheral; and visceral artery aneurysms (20 sources) Aortic aneurysm; Translations: [Aortic aneurysm of unspecified site, without rupture] Onset: 4 Chronic Asthma (20 sources) Asthma; Translations: [Unspecified asthma, uncomplicated] Onset: 5 Chronic Comment on above: On Xolair biweekly Chronic kidney disease (1 source) Chronic kidney disease; Translations: [Chronic kidney disease, stage 3a] Onset: 5 Esophageal disorders (20 sources) Gastroesophageal reflux disease; Translations: [Gastro-esophageal reflux disease without esophagitis] 11-15-2021 Chronic Genitourinary symptoms and ill-defined conditions (10 sources) Incontinence; Translations: [Unspecified urinary incontinence] 09-18-2023 Chronic Heart valve disorders (20 sources) Aortic valve regurgitation; Translations: [Nonrheumatic aortic (valve) insufficiency] Onset: 4 Chronic Inflammation; infection of eye (except that caused by tuberculosis or sexually transmitteddisease) (20 sources) Conjunctivitis; Translations: [Unspecified conjunctivitis] 11-05-2021 Episodic Nonspecific chest pain (8 sources) Atypical chest pain; Translations: [Other chest pain] 10-12-2023 Episodic Nutritional deficiencies (1 source) Vitamin D deficiency, unspecified; Translations: [Vitamin D deficiency, unspecified] Onset: 5 Chronic Osteoarthritis (1 source) Osteoarthritis of right hip joint; Translations: [Unilateral primary osteoarthritis, right hip] 12-14-2022 Chronic Other and unspecified benign neoplasm (17 sources) Lipoma of lower back; Translations: [Benign lipomatous neoplasm of skin and subcutaneous tissue of trunk] 04-05-2022 Episodic Other and unspecified benign neoplasm (5 sources) Benign lipomatous neoplasm of skin and subcutaneous tissue of trunk; Translations: [Lipoma of other skin and subcutaneous tissue] Episodic Other circulatory disease (17 sources) Enlarged aortic root; Translations: [Other specified disorders of arteries and arterioles] 04-05-2022 Chronic Other connective tissue disease (1 source) Pain in right foot; Translations: [Pain in right foot] 04-29-2024 Episodic Other connective tissue disease (1 source) Pain in left foot; Translations: [Pain in left foot] 04-29-2024 Episodic Other connective tissue disease (14 sources) Marfanoid physique; Translations: [Unspecified symptoms and signs involving the musculoskeletal system] 10-01-2024 Episodic Other gastrointestinal disorders (1 source) Slow transit constipation; Translations: [Slow transit constipation] Onset: 3 Episodic Other lower respiratory disease (8 sources) Dyspnea; Translations: [Dyspnea, unspecified] 10-12-2023 Episodic Other nervous system disorders (20 sources) Hereditary motor and sensory neuropathy; Translations: [Hereditary motor and sensory neuropathy] 11-15-2021 Chronic Other nervous system disorders (3 sources) Hereditary motor and sensory neuropathy; Translations: [Hereditary motor and sensory neuropathy] Onset: 3 Chronic Other nervous system disorders (1 source) Other chronic pain; Translations: [Chronic low back pain, unspecified back pain laterality, unspecified whether sciatica present] Onset: 4 Chronic Other nervous system disorders (1 source) Other symptoms and signs involving cognitive functions and awareness; Translations: [Other symptoms and signs involving cognitive functions and awareness] Onset: 4 Episodic Other non-traumatic joint disorders (20 sources) Shoulder pain; Translations: [Pain in unspecified shoulder] 10-14-2021 Episodic Other screening for suspected conditions (not mental disorders or infectious disease) (1 source) Encounter for screening mammogram for malignant neoplasm of breast; Translations: [Encounter for screening mammogram for malignant neoplasm of breast] Onset: 5 Episodic Peripheral and visceral atherosclerosis (2 sources) Peripheral vascular disease, unspecified; Translations: [Peripheral vascular disease, unspecified (CMS/HCC)] Onset: 3 Chronic Residual codes; unclassified (20 sources) Family history of Marfan syndrome; Translations: [Family history of other congenital malformations, deformations and chromosomal abnormalities] 11-15-2021 Episodic Spondylosis; intervertebral disc disorders; other back problems (20 sources) Lumbago; Translations: [Pain in right lumbar region of back] Episodic Thyroid disorders (1 source) Nontoxic single thyroid nodule; Translations: [Nontoxic single thyroid nodule] Onset: 5 Chronic Unclassified (1 source) Thoracic aortic aneurysm, without rupture, unspecified; Translations: [Thoracic aortic aneurysm, without rupture, unspecified] Onset: 5 Unclassified (1 source) Chronic low back pain, unspecified back pain laterality, unspecified whether sciatica present; Translations: [Chronic low back pain, unspecified back pain laterality, unspecified whether sciatica present] Onset: 4 Past or Other Problems Problem Classification Problem Date Documented Da te Episodic/Chronic Other connective tissue disease (1 source) Pain in right foot; Translations: [Pain in right foot] Onset: 04-29-2024 Episodic Other connective tissue disease (1 source) Pain in left foot; Translations: [Pain in left foot] Onset: 04-29-2024 Episodic Residual codes; unclassified (7 sources) Family history of other congenital malformations, deformations and chromosomal abnormalities; Translations: [Family history of congenital anomalies] Onset: 03-25-2024 Episodic Results Test Name Value Interpretation Reference Range Facility [facility] 01-07-2025 [facility] Telephone (AGENDOG) BRIONNA ROBLES ([id number]) 1965 F [facility] Date Time Provider Department 01/07/25 ENDO AGENDOG During your visit today, we recorded the following information about you: Katia Salguero PSS 01/07/2025 2:53 PM Signed Faxed Referral I spoke to patient and she prefers [place] I gave her Endo main # to vladimir,and she voiced understanding. Referred by: Daiana Grimes DX: thyroid nodules Referred to: Looking for [place] area.Referral uploaded to chart JAVAN Aguirre Allergies As of Date: 01/07/2025 Noted Allergy Reaction TAMSULOSIN 12/16/2008 2 - Rash Date Reviewed: 05/02/2024 Reviewed by: Sussy Cantor LPN - Fully Assessed Reason for Visit: Appointment [186] Cmt: HEALTH SPECIALIST Prescriptions as of 01/07/2025 - omalizumab (XOLAIR) 150 mg/mL syringe Inject 375 mg subcutaneously. - cholecalciferol (VITAMIN D-3) 5,000 unit tab Take 2,000 Units by mouth once daily. - vit C/zinc citrate/elderberry (SAMBUCUS ELDERBERRY ORAL) Take 2 teaspoonsful by mouth. - mv-mn/folic acid/vit K/naxv500 (ALIVE ONCE DAILY WOMEN 50 PLUS ORAL) Take by mouth. - pregabalin (LYRICA) 100 mg capsule Take 100 mg by mouth once daily. - metoprolol tartrate, short acting, (LOPRESSOR) 25 mg tablet Take 25 mg by mouth once daily. - montelukast (SINGULAIR) 10 mg tablet Take 10 mg by mouth daily at bedtime. - Pregabalin (LYRICA) 200 mg capsule TAKE ONE CAPSULE BY MOUTH 2 TIMES A DAY - Syringe, Disposable, 3 mL syrg USE DIRECTED - BD DISPOSABLE NEEDLES 18 gauge x 1 ndle USE DIRECTED - STERILE WATER FOR INJECTION injection USE DIRECTED WITH XOLAIR - BD DISPOSABLE NEEDLES 25 gauge x 5/8 ndle USE DIRECTED - fluticasone-salmeterol (ADVAIR DISKUS) 250-50 mcg/dose dsdv Inhale 1 Puff as instructed twice daily. Rinse and gargle mouth with water after each use. - albuterol (PROVENTIL) 2.5 mg /3 mL (0.083 %) nebulizer solution Use 3 mL via nebulizer every 4 hours as needed for Wheezing/Shortness of Breath. Inhale over 5-15 minutes - Ascorbic Acid (VITAMIN C) 100 mg tablet Take 100 mg by mouth once daily. - ALBUTEROL SULFATE (VENTOLIN INHALATION) Inhale as instructed. - mometasone (NASONEX) 50 mcg/actuation nasal spray Use 2 Sprays in each nostril once daily. Problem List As Of Date: 01/07/2025 (None) Encounter Status:Closed by KATIA SALGUERO on 01/07/25 Normal [facility] Thyroidon 12-29-2024 Thyroid [facility] Imaging Services [address] [place], [place] [address] Thyroid MR#: [id number] Acct: [id number] Name: BRIONNA ROBLES Rep #: [id number] : 1965 F 59 From: Bowen dias MD PCP: Dr. Daiana Grimes, Status: REG CLI Study: Thyroid Date of Exam: 12/29/24 Exam# [id number] Ordering Dr: Daiana Grimes DO PROCEDURE: THYROID 12/29/2024 REASON FOR EXAM: NONTOXIC THYROID NODULE TECHNIQUE: THYROID COMPARISON: None FINDINGS: Right thyroid lobe size: 4.2 cm x 1.7 cm 1.5 cm Left thyroid lobe size: 4.5 cm x 1.4 cm x 1 cm Isthmus: 0.1 cm Background parenchymal echotexture is homogeneous. Nodules: . Lobe: Right, Location: Midpole, Size: 2 cm x 1.4 cm x 1.1 cm, Stability: N/A Composition: Mixed cystic and solid (+1) Echogenicity: Hypoechoic (+2) Margin: Smooth (+0) Shape: Wider than tall (+0) Echogenic Foci: None (+0) TI-RADS: 3 . Lobe: Left, Location: Midpole, Size: 0.4 cm x 0.5 cm x 0.3 cm, Stability: N/A Composition: Mixed cystic and solid (+1) Echogenicity: Hypoechoic (+2) Margin: Smooth (+0) Shape: Wider than tall (+0) Echogenic Foci: None (+0) TI-RADS: 3 US/Thyroid IMPRESSION: Dominant complex nodule in the right lobe of the thyroid as described. Biopsy recommended. RECOMMENDATION: Based on most suspicious nodule. Nodule size = largest diameter Only evaluate nodule if =>5 mm. Growth > 20% in 2 dimensions = worsening. Follow up to 4 nodules. Recommend biopsy for no more than 2 nodules. Reading Location: [facility] CC: Dr. Daiana Grimes DO Bag Printer: Signed Normal [facility] CTA Chest W/WO Contraston CTA Chest W/WO Contrast [facility] Imaging Services [address] [place], [place] [address] CTA Chest W/WO Contrast MR#: [id number] Acct: [id number] Name: BRIONNA ROBLES Rep #: [id number] : 1965 F 58 From: Arthur Wang MD PCP: Dr. Daiana Grimes DO Status: REG CLI Study: CTA Chest W/WO Contrast Date of Exam: 12/11/24 Exam# [id number] Ordering Dr: Sussy Roach PROCEDURE: CTA CHEST W/WO CONTRAST 12/11/2024 REASON FOR EXAM: TAA TECHNIQUE: CTA CHEST W/WO CONTRAST Multiplanar Sagittal and Coronal images were obtained. CONTRAST: Isovue 370 VOLUME: 95 mL One or more dose reduction techniques were used (e.g., Automated exposure control, adjustment of the mA and/or kV according to patient size, use of iterative reconstruction technique). RADIATION DOSE SUMMARY: CTDlvol: 18 mGy DLP: 242 mGycm COMPARISON: 09/27/2024 FINDINGS: 1.5 cm right thyroid lobe lesion, recommend thyroid ultrasound to further characterize. Thoracic spine scoliosis and degeneration. Normal esophagus. Normal heart size. No aortic dissection. Mildly tortuous thoracic aorta. Dilated ascending aorta, maximum cross-section 4.1 x 4.1 cm. Previously measured up to 4.2 cm. A few calcified plaque. No pulmonary embolism. No acute chest wall findings. Status post cholecystectomy. Multiple liver hypodensities favoring cysts. No acute upper abdominal findings. Central airways are patent. Under aerated lungs. Mild emphysema. No consolidation, effusion, pneumothorax, or suspicious lung nodule. CT/CTA Chest W/WO Contrast IMPRESSION: Stable dilatation of the ascending aorta. No acute chest findings. Reading Location: [facility] CC: Dr. Daiana Grimes DO; ZOEY Cooper Bag Printer: Signed Normal [facility] Abdominal aortic duplex scan reportOrdered By: Earle Bhakta on 11-17-2024 US.doppler Thoracic and abdominal aorta [facility] [place] [address] Abd Aortic/IVC Duplex scan 11/14/24 0853 MR#: [id number] Acct: [id number] Name: BRIONNA ROBLES Rep #:[id number] : 1965 58 From: Earle Castro Attending Dr: Dr. Stefani Castillo MD Status: REG CLI Ordering Dr: Stefani Castillo MD Date: Location: [facility] Sex: F C Admitted: Reason For Study Reason For Study: TAAA Aorta Measurements Aorta Doppler Measurements Proximal aorta measures2.27 x 2.41cm. in cross-sectional Peak systolic flow velocities within the proximal aorta axis. measure 66.9 cm/sec. Proximal aorta measures2.22cm. in longitudinal axis. Peak systolic flow velocities within the mid aorta measure Mid aorta measures1.82 x 1.67cm. in cross-sectional axis. 47.2 cm/sec. Mid aorta measures1.64cm. in longitudinal axis. Peak systolic flow velocities within the distal aorta Distal aorta measures1.25 x 1.25cm. in cross-sectional axis.measure 81.2 cm/sec. Distal aorta measures1.19cm. in longitudinal axis. Left Iliac Artery Left iliac artery measures 0.92 x 0.86 cm. in the cross-sectional axis. Left iliac artery measures 0.89 cm. in the longitudinal axis. Peak systolic velocity in the left iliac artery measures 71.3cm/sec. Right Iliac Artery Right iliac artery measures 0.90 x 0.88 cm. in the cross-sectional axis. Right iliac artery measures 0.91 cm. in the longitudinal axis. Peak systolic velocity in the right iliac artery measures 69.1 cm/sec. VL/Abd Aortic/IVC Duplex scan Interpretation Summary Aorta patent, normal caliber Bilateral iliac arteries patent, normal caliber Ordering Physician: Stefani Castillo Referring Physician: Daiana Grimes Performed By: Ciara Anthony, RDCS, RVT 11/17/24 1323 Date _ Earle Bhakta MD CC: Dr. Stefani Castillo MD; Dr. Daiana Grimes, DO ~ Date Dictated: 11/14/24852 Date Transcribed: 11/17/241322 Bag Printer: Signed [facility] Work Phone: Abd Aortic/IVC Duplex scanon 11-14-2024 Abd Aortic/IVC Duplex scan [facility] [address] [place] [address] Abd Aortic/IVC Duplex scan 11/14/24852 MR#: [id number] Acct: [id number] Name: BRIONNA ROBLES Rep #: [id number] : 1965 58 From: Earle Bhakta MD Attending Dr: Dr. Stefani Castillo MD Status: REG CLI Ordering Dr: Stefani Castillo MD Date: 11/14/24 Location: [facility] Sex: F C Admitted: Reason For Study Reason For Study: TAAA Aorta Measurements Aorta Doppler Measurements Proximal aorta measures2.27 x 2.41cm. in cross-sectional Peak systolic flow velocities within the proximal aorta axis. measure 66.9 cm/sec. Proximal aorta measures2.22cm. in longitudinal axis. Peak systolic flow velocities within the mid aorta measure Mid aorta measures1.82 x 1.67cm. in cross-sectional axis. 47.2 cm/sec. Mid aorta measures1.64cm. in longitudinal axis. Peak systolic flow velocities within the distal aorta Distal aorta measures1.25 x 1.25cm. in cross-sectional axis.measure 81.2 cm/sec. Distal aorta measures1.19cm. in longitudinal axis. Left Iliac Artery Left iliac artery measures 0.92 x 0.86 cm. in the cross-sectional axis. Left iliac artery measures 0.89 cm. in the longitudinal axis. Peak systolic velocity in the left iliac artery measures 71.3 cm/sec. Right Iliac Artery Right iliac artery measures 0.90 x 0.88 cm. in the cross-sectional axis. Right iliac artery measures 0.91 cm. in the longitudinal axis. Peak systolic velocity in the right iliac artery measures 69.1 cm/sec. VL/Abd Aortic/IVC Duplex scan Interpretation Summary Aorta patent, normal caliber Bilateral iliac arteries patent, normal caliber Ordering Physician: Stefani Castillo Referring Physician: Daiana Grimes Performed By: Ciara Anthony, RDCS, RVT 11/17/24 1323 Date Earle Bhakta MD CC: Dr. Stefani Castillo MD; Dr. Daiana Grimes DO Date Dictated: 11/14/24 0853 Date Transcribed: 11/17/24 132 Bag Printer: Signed Normal [facility] Echo Completeon 11-14-2024 Echo Complete [facility] Cardiovascular Services [address] [place] [address] Echo Complete 11/14/24 0951 MR#: [id number] Acct: [id number] Name: BRIONNA ROBLES Rep #: [id number] : 1965 58 From: Stefani Castillo MD Attending Dr: Dr. Stefani Castillo MD Status: REG CLI Ordering Dr: Stefani Castillo MD Date: 11/14/24 Location: [facility] Sex: F C Admitted: Reason For Study Reason For Study: TAA Procedure This was a 2D Doppler, Color Flow transthoracic echocardiogram. Exam performed in department. Left Ventricle Normal size and thickness. The LV ejection fraction is 65 %. No evidence for diastolic dysfunction. Right Ventricle Normal right ventricle. Atria The left and right atria are normal. Mitral Valve Mild-Moderate (1-2+) mitral valve insufficiency. Tricuspid Valve Trivial tricuspid valve insufficiency. Normal pulmonary artery pressure. Aortic Valve Trisinus/trileaflet aortic valve. Moderate (2+) aortic valve insufficiency. Pulmonic Valve Mild (1+) pulmonic valve insufficiency. Great Vessels Mildly dilated aortic root. Pericardium/Pleural No pericardial effusion. MMode/2D Measurements Calculations LVIDd: 4.9 cm IVSd: 0.75 cm Ao root diam: 3.9 cm LVIDs: 3.2 cm LVPWd: 0.89 cm RVDd: 3.3 cm FS: 35.6 % LAV(MOD-bp): 45.1 ml LVAd ap4: 27.4 cm2 SV(MOD-sp4): 55.6 ml LAV(MOD-bp) Indexed: 23.4 ml/m2 LVLd ap4: 7.4 cm SI(MOD-sp4): 28.9 ml/m2 LAV(MOD-sp2): 45.1 ml EDV(MOD-sp4): 84.1 ml LAV(MOD-sp4): 44.5 ml EDV(sp4-el): 85.4 ml LVAs ap4: 14.4 cm2 LVLs ap4: 6.3 cm ESV(MOD-sp4): 28.5 ml ESV(sp4-el): 27.8 ml EF(MOD-sp4): 66.1 % EF(sp4-el): 67.5 % SV(sp4-el): 57.7 ml LA A4 area: 17.3 cm2 LA dimension(2D): 3.3 cm RA A4 area: 15.7 cm2 TAPSE: 2.1 cm Time Measurements MV dec time: 0.21 sec Doppler Measurements Calculations MV E max mimi: 63.0 cm/sec Lat Peak E' Mimi: 11.5 cm/sec Med Peak E' Mimi: 9.9 cm/sec MV A max mimi: 50.5 cm/sec E/E' lat: 5.5 E/E' med: 6.4 MV E/A: 1.2 Ao V2 max: 138.5 cm/sec AI max mimi: 497.1 cm/sec LV V1 max: 114.0 cm/sec Ao max P.7 mmHg AI max P.8 mmHg LV V1 max P.2 mmHg AI dec slope: 201.8 cm/sec2 AI P1/2t: 721.5 msec PA V2 max: 77.8 cm/sec TR max mimi: 217.1 cm/sec TR max P.8 mmHg ECHO/Echo Complete Interpretation Summary The LV ejection fraction is 65 %. No evidence for diastolic dysfunction. Mild-Moderate (1-2+) mitral valve insufficiency. Moderate (2+) aortic valve insufficiency. Possible small Lambl's excrescence. Mild (1+) pulmonic valve insufficiency. Mildly dilated aortic root. Ordering Physician: Stefani Castillo Referring Physician: DAIANA GRIMES Performed By: Leida Khoury RDCS 11/14/24 1340 Date Stefani Castillo MD CC: Dr. Stefani Castillo MD; Dr. Daiana Grimes DO Date Dictated: 11/14/24 0951 Date Transcribed: 11/14/24 134 Bag Printer: Signed Normal [facility] Echocardiogram study reportO rdered By: Stefani Castillo on 11-14-2024 Study report [facility] [address] [place] [address] Echo Complete 11/14/24950 MR#: [id number] Acct: [id number] Name: BRIONNA ROBLES Rep #:[id number] : 1965 58 From: Stefani Castillo MD Attending Dr: Dr. Stefani Castillo MD Status: REG CLI Ordering Dr: Stefani Castillo MD Date: [facility] [facility] Sex: F C Admitted: Reason For Study Reason For Study: TAA Procedure This was a 2D Doppler, Color Flow transthoracic echocardiogram. Exam performed in department. Left Ventricle Normal size and thickness. The LV ejection fraction is 65 %. No evidence for diastolic dysfunction. Right Ventricle Normal right ventricle. Atria The left and right atria are normal. Mitral Valve Mild-Moderate (1-2+) mitral valve insufficiency. Tricuspid Valve Trivial tricuspid valve insufficiency. Normal pulmonary artery pressure. Aortic Valve Trisinus/trileaflet aortic valve. Moderate (2+) aortic valve insufficiency. Pulmonic Valve Mild (1+) pulmonic valve insufficiency. Great Vessels Mildly dilated aortic root. Pericardium/Pleural No pericardial effusion. MMode/2D Measurements & Calculations LVIDd: 4.9 cm IVSd: 0.75 cm Ao root diam: 3.9 cm LVIDs: 3.2 cm LVPWd: 0.89 cm RVDd: 3.3 cm FS: 35.6 % LAV(MOD-bp): 45.1 ml LVAd ap4: 27.4 cm2 SV(MOD-sp4): 55.6 ml LAV(MOD-bp) Indexed: 23.4 ml/m2 LVLd ap4: 7.4 cm SI(MOD-sp4): 28.9 ml/m2 LAV(MOD-sp2): 45.1 ml EDV(MOD-sp4): 84.1 ml LAV(MOD-sp4): 44.5 ml EDV(sp4-el): 85.4 ml LVAs ap4: 14.4 cm2 LVLs ap4: 6.3 cm ESV(MOD-sp4): 28.5 ml ESV(sp4-el): 27.8 ml EF(MOD-sp4): 66.1 % EF(sp4-el): 67.5 % __ SV(sp4-el): 57.7 ml LA A4 area: 17.3 cm2 LA dimension(2D): 3.3 cm RA A4 area: 15.7 cm2 TAPSE: 2.1 cm Time Measurements MV dec time: 0.21 sec Doppler Measurements & Calculations MV E max mimi: 63.0 cm/sec Lat Peak E' Mimi: 11.5 cm/sec Med Peak E' Mimi: 9.9 cm/sec MV A max mimi: 50.5 cm/sec E/E' lat: 5.5 E/E' med: 6.4 MV E/A: 1.2 Ao V2 max: 138.5 cm/sec AI max mimi: 497.1 cm/sec LV V1 max: 114.0 cm/sec Ao max P.7 mmHg AI max P.8 mmHg LV V1 max P.2 mmHg AI dec slope: 201.8 cm/sec2 AI P1/2t: 721.5 msec PA V2 max: 77.8 cm/sec TR max mimi: 217.1 cm/sec TR max P.8 mmHg ECHO/Echo Complete Interpretation Summary The LV ejection fraction is 65 %. No evidence for diastolic dysfunction. Mild-Moderate (1-2+) mitral valve insufficiency. Moderate (2+) aortic valve insufficiency. Possible small Lambl's excrescence. Mild (1+) pulmonic valve insufficiency. Mildly dilated aortic root. Ordering Physician: Stefani Castillo Referring Physician: DAIANA GRIMES Performed By: Leida Khoury RDCS 11/14/24 1340 Date _ Stefani Castillo MD CC: Dr. Stefani Castillo MD; Dr. Daiana Grimes, ~ Date Dictated: 11/14/2451 Date Transcribed: 11/14/24 1340 Bag Printer: Signed [facility] Work Phone: Allergen Resp. Area [phone] ALTERNARIA TEN <0.10 Normal Class 0 [facility] Comment on above: Order Comment: Reaso n for Exam: Asthma Performed By: #### L 5500.0700 #### [facility] [address] [facility] [address] ASYA, WHITE <0.10 Normal Class 0 [facility] Comment on above: Order Comment: Reaso n for Exam: Asthma Performed By: #### L 5500.0700 #### [facility] [address] [facility] [address] ASPERGILLUS FUM <0.10 Normal Class 0 [facility] Comment on above: Order Comment: Reaso n for Exam: Asthma Performed By: #### L 5500.0700 #### [facility] [address] [place] [address] BERMUDA GRASS <0.10 Normal Class 0 [facility] Comment on above: Order Comment: Reaso n for Exam: Asthma Performed By: #### L 5500.0700 #### [facility] [address] [facility] [address] BIRCH <0.10 Normal Class 0 [facility] Comment on above: Order Comment: Reaso n for Exam: Asthma Performed By: #### L 5500.0700 #### [facility] [address] [facility] [address] BLACK WALNUT <0.10 Normal Class 0 [facility] Comment on above: Order Comment: Reaso n for Exam: Asthma Performed By: #### L 5500.0700 #### [facility] [address] [facility] [address] CAT HAIR/DANDER <0.10 Normal Class 0 [facility] Comment on above: Order Comment: Reaso n for Exam: Asthma Performed By: #### L 5500.0700 #### [facility] [address] [facility] [address] CLADOSPOR HERB <0.10 Normal Class 0 [facility] Comment on above: Order Comment: Reaso n for Exam: Asthma Performed By: #### L 5499.0700 #### [facility] [address] [facility] [address] COCKROACH,AMER <0.10 Normal Class 0 [facility] Comment on above: Order Comment: Reaso n for Exam: Asthma Performed By: #### L 5499.0700 #### [facility] [address] [place] [address] COMMENT Comment Normal . [facility] Comment on above: Order Comment: Reaso n for Exam: Asthma Result Comment: Kalie osei of Specific IgE Class Description of Class ----- < 0.10 0 Negative 0.10 - 0.31 0/I Equivocal/Low 0.32 - 0.55 I Low 0.56 - 1.40 II Moderate 1.41 - 3.90 III High 3.91 - 19.00 IV Very High 19.01 - 100.00 V Very High >100.00 Very High Performed By: #### L 5499.0700 #### [facility] [address] [place] [address] COTTONWOOD <0.10 Normal Class 0 [facility] Comment on above: Order Comment: Reaso n for Exam: Asthma Performed By: #### L 5499.0700 #### [facility] [address] [facility] [address] D FARINAE MITE <0.10 Normal Class 0 [facility] Comment on above: Order Comment: Reaso n for Exam: Asthma Performed By: #### L 0.0700 #### [facility] [address] [place], [address] D PTERONYSSINUS <0.10 Normal Class 0 [facility] Comment on above: Order Comment: Reaso n for Exam: Asthma Performed By: #### L 5499.0700 #### [facility] [address] [place], [address] DOG EPITHELIA <0.10 Normal Class 0 [facility] Comment on above: Order Comment: Reaso n for Exam: Asthma Performed By: #### L 0.0700 #### [facility] [address] [place], [address] ELM,AMER WHITE <0.10 Normal Class 0 [facility] Comment on above: Order Comment: Reaso n for Exam: Asthma Performed By: #### L 5499.0700 #### [facility] [address] [place], [address] IMMUNOGLOB E 182 IU/mL Normal 6-495 [facility] Comment on above: Order Comment: Reaso n for Exam: Asthma Performed By: #### L 5499.0700 #### [facility] [address] [place], [address] MAPLE/BOX ELDER <0.10 Normal Class 0 [facility] Comment on above: Order Comment: Reaso n for Exam: Asthma Performed By: #### L 0.0700 #### [facility] [address] [place], [address] MOUNTAIN CEDAR <0.10 Normal Class 0 [facility] Comment on above: Order Comment: Reaso n for Exam: Asthma Performed By: #### L 0.0700 #### [facility] [address] [place], [address] Mouse Urine <0.10 Normal Class 0 [facility] Comment on above: Order Comment: Reaso n for Exam: Asthma Performed By: #### L 0.0700 #### [facility] [address] [place], [address] MULBERRY,WHITE <0.10 Normal Class 0 [facility] Comment on above: Order Comment: Reaso n for Exam: Asthma Performed By: #### L 5500.0700 #### [facility] [address] [place], [address] OAK, WHITE <0.10 Normal Class 0 [facility] Comment on above: Order Comment: Reaso n for Exam: Asthma Performed By: #### L 5500.0700 #### [facility] [address] [place], [address] PECAN <0.10 Normal Class 0 [facility] Comment on above: Order Comment: Reaso n for Exam: Asthma Performed By: #### L 0.0700 #### [facility] [address] [place], [address] PEN NOTATUM <0.10 Normal Class 0 [facility] Comment on above: Order Comment: Reaso n for Exam: Asthma Performed By: #### L 0.0700 #### [facility] [address] [place], [address] PIGWEED, ROUGH <0.10 Normal Class 0 [facility] Comment on above: Order Comment: Reaso n for Exam: Asthma Performed By: #### L 5500.0700 #### [facility] [address] [place], [address] RAGWEED SH/COM <0.10 Normal Class 0 [facility] Comment on above: Order Comment: Reaso n for Exam: Asthma Performed By: #### L 5500.0700 #### [facility] [address] [place], [address] GEORGIAN THISTLE <0.10 Normal Class 0 [facility] Comment on above: Order Comment: Reaso n for Exam: Asthma Performed By: #### L 5500.0700 #### [facility] [address] [place], [place], [address] SHEEP SORREL <0.10 Normal Class 0 [facility] Comment on above: Order Comment: Reaso n for Exam: Asthma Result Comment: Perf ormed at: [facility] [id number] Densitometer Reader: Jake Brooks MD, Phone: [phone] Performed By: #### L 5500.0700 #### [facility] [address] [facility] [id number] SYCAMORE, AMER <0.10 Normal Class 0 [facility] Comment on above: Order Comment: Reaso n for Exam: Asthma Performed By: #### L 5500.0700 #### [facility] [address] [facility] [address] ELENI GRASS <0.10 Normal Class 0 [facility] Comment on above: Order Comment: Reaso n for Exam: Asthma Performed By: #### L 5500.0700 #### [facility] [address] [place], [place], [address] IgEOrdered By: Jacob el 10-21-2024 IgE 182 IU/mL 6-495 [facility] No Panel InformationOrdered By: Jacob Coulter on 10-21-2024 RAST Comment Comment . [facility] Comment on above: Levels of Specific I gE Class Description of Class ----- < 0.10 0 Negative 0.10 - 0.31 0/I Equivocal/Low 0.32 - 0.55 I Low 0.56 - 1.40 II Moderate 1.41 - 3.90 III High 3.91 - 19.00 IV Very High 19.01 - 100.00 V Very High >100.00 Very High Pulmonary Visit Reporton Pulmonary Visit Report [facility] [place] [address] [place] [address] OFFICE VISIT Date of Service: 10/21/24 MR#: [id number] Acct: [id number] Name: BRIONNA ROBLES Rep #: [id number] : 1965 Provider: Dr. Jacob Coulter, Age/Sex: 58/F [facility] Status: Signed Assessment and Plan Assessment and Plan (1) Asthma: Status: Chronic Qualifiers: Asthma complication type: unspecified Asthma persistence: persistent Asthma severity: severe Qualified Code(s): J45.50 - Severe persistent asthma, uncomplicated Comment: On Xolair biweekly Plan: The patient has a longstanding history of asthma, which has been under control with the use of Advair Diskus, Singulair and as needed albuterol. In addition, the patient has been maintained on Xolair since 2012. Given that the patient remains symptomatically controlled, I do not see an indication to change any of the aforementioned medications. The patient was advised to contact our office with any worsening in her breathing quality and/for increasing reliance on her short acting beta agonist. Orders: Orders Allergen Resp. Area 5 Today J45.50 - Severe persistent asthma, uncomplicated Medications: Refilled fluticasone propionate 50 mcg/actuation administer into each nostril 2 sprays intranasal DAILY PRN 3 ea 3RF nasal congestion montelukast (Singulair) 10 mg PO DAILY 90 tabs 3RF HPI HPI Comments Details: The patient is a 58-year-old female who presents to the clinic today for a routine scheduled follow- up office visit. If you recall, the patient initially presented to our office in August 2021 for the evaluation of asthma. She did report that her asthma diagnosis was adult onset. She has been on a stable inhaler regimen with high-dose Advair discus, as needed albuterol and Singulair. In addition, she has been maintained on Xolair since 2012. She does not currently keep any animals as pets in her home environment. The patient does have an approximate 25-vyfc-yofp smoking history, having quit completely in 2016. In addition to her personal smoking history, the patient's father did smoke as well while she was growing up. Pulmonary function studies completed in September 2021 demonstrated a fully reversible moderate large airways obstructive ventilatory impairment with significant bronchodilator response. RAST profile from September 2021 was unremarkable. IgE was noted to be 318 with a negative ANCA. Aspergillus antibodies were negative. Repeat pulmonary function studies from September 2024 only demonstrated an isolated mild reduction in diffusing capacity. Today, the patient reports relative stability in her breathing quality. She has remained compliant with the use of Advair and Singulair. She continues to utilize Xolair. She has not experienced any recent exacerbations. She has been suffering from some seasonal allergies and has periodically utilized her nebulizer. She has been compliant with the use of Flonase. She denies any fevers, chills or night sweats. Intake Vital Signs 04/25/24 08:52 10/21/24 08:14 Height 6 ft 6 ft Weight: 158 lb BMI 21.4 BP 121/72 H Blood Pressure Location Rt brachial Position Sitting Respiration 20 H Pulse 57 L Pulse Source Monitor Temp 97.2 F L Temperature Source Temporal Artery Pulse Oximetry (%) 97 Oxygen Delivery Method room air Intake Visit Reasons: 6 M FU Station Tender Required: No DME Vendor: n/a Accompanied by: Self Is patient in pain?: No Allergies egg Allergy (Verified 10/21/24 10:51) Headache, increased sinus drainage Medications ???Medication ???Instructions ???Recorded ???Confirmed ???Type pregabalin 200 mg capsule (Lyrica) 200 mg PO BID 08/25/21 10/21/24 History omalizumab 150 mg subcutaneous 300 mg subcut Q2W #2 ea 06/08/23 0 10/21/24 Rx solution (Xolair) metoprolol succinate 25 mg 25 mg PO DAILY #90 tabs 11/13/23 0 10/21/24 Rx tablet,extended release 24 hr epinephrine 0.3 mg/0.3 mL 0.3 mg (0.3 mL) IM ONCE #2 ea 01/2010/21/24 Rx injection, auto-injector (EpiPen) ascorbic acid (vitamin C) 1,000 mg 1 g PO QDAY 03/25/24 10/21/24 Hi story tablet omalizumab 75 mg/0.5 mL 75 mg subcut Q2W 03/25/24 10/21/24 History subcutaneous syringe (Xolair) fluticasone 500 mcg-salmeterol 50 1 inh inhalation BID #3 device 10/21/24 Rx mcg/dose blistr powdr for inhalation (Advair Diskus) estradiol 4 mcg vaginal insert, in See Rx Instructions vaginal 02/1210/21/24 Rx a starter dose pack (Imvexxy .COMPLEX #18 ea Starter Pack) polyethylene glycol 3350 17 4 g PO ONCE 09/26/24 10/21/24 Hist ory gram/dose oral powder (Miralax) venlafaxine 75 mg capsule,extended 75 mg PO QDAY 10/01/24 10/21/24 History release 24 hr fluticasone propio (more content not included)... Normal [facility] Serum Paraguayan sycamore IgE antibody assay (units/volume)Ordered By: Jacob Coulter on 10-21-2024 Paraguayan Mac[place] IgE Qn (S) <0.10 kU/L Class 0 [facility] Serum Aspergillus fumigatus IgE antibody assay (units/volume)Ordered By: Jacob Coulter on 10-21-2024 A. fumigatus IgE Qn (S) <0.10 kU/L Class 0 [facility] Serum Bermuda grass IgE anti body assay (units/volume)Ordered By: Jacob Coulter on 10-21-2024 Bermuda grass IgE Qn (S) <0.10 kU/L Class 0 [facility] Serum Cladosporium herbarum IgE antibody assay (units/volume)Ordered By: Jacob Coulter on 10-21-2024 C. herbarum IgE Qn (S) <0.10 kU/L Class 0 [facility] Serum Dermatophagoides ptero nyssinus specific IgE antibody assay (units/volume)Ordered By: Jacob Coulter on 10-21-2024 house dust mite IgE Qn (S) <0.10 kU/L Class 0 [facility] Serum Fraxinus americana IgE antibody assay (units/volume)Ordered By: Jacob Coulter on 10-21-2024 White Asya IgE Qn (S) <0.10 kU/L Class 0 [facility] Serum Rumex acetosella IgE a ntibody assay (units/volume)Ordered By: Jacob Coulter on 10-21-2024 Sheep [place] IgE Qn (S) <0.10 kU/L Class 0 [facility] Comment on above: Performed at: [address] [id number] Director: Jake Brooks MD, Phone: [phone] Serum Gabonese thistle specif ic IgE antibody assayOrdered By: Jacob Coulter on 10-21-2024 Saltwort IgE Qn (S) <0.10 kU/L Class 0 [facility] Serum black walnut IgE antib aleksandr assay (units/volume)Ordered By: Jacob Coulter on 10-21-2024 Black Sherrill IgE Qn (S) <0.10 kU/L Class 0 [facility] Serum cottonwood IgE antibod y assay (units/volume)Ordered By: Jacob Coulter on 10-21-2024 Marathon IgE Qn (S) <0.10 kU/L Class 0 [facility] Serum dog epithelium IgE ant ibody assay (units/volume)Ordered By: Jacob Coulter on 10-21-2024 Dog epithelium IgE Qn (S) <0.10 kU/L Class 0 [facility] Serum mountain cedar specifi c IgE antibody assayOrdered By: Jacob Coulter on 10-21-2024 Mountain Juniper IgE Qn (S) <0.10 kU/L Class 0 [facility] Serum eleni IgE antibody a ssay (units/volume)Ordered By: Jacob Coulter on 10-21-2024 Eleni IgE Qn (S) <0.10 kU/L Class 0 [facility] Serum white elm IgE antibody assay (units/volume)Ordered By: Jacob Coulter on 10-21-2024 White Elm IgE Qn (S) <0.10 kU/L Class [address] [facility] Serum white mulberry IgE ant ibody assay (units/volume)Ordered By: Jacob Coulter on 10-21-2024 White mulberry IgE Qn (S) <0.10 kU/L Class 0 [facility] Breast imaging reportOrdered By: Maura Werner on 10-20-2024 Study report [facility] Imaging Services [address] [place] [address] SCRN MAMM (CAD)W/LORETTA BILAT MR#: [id number] Acct: [id number] Name: BRIONNA ROBLES Rep #: [id number] : 1965 F 58 From: Bertin Werner DO PCP: Dr. Daiana Grimes DO Status: REG C LI Study:SCRN MAMM (CAD)W/LORETTA BILAT Date of Exa m: 10/20/24 Exam# [id number] Ordering Dr: Zuleika Lara DO EXAM: SCRN MAMM (CAD)W/LORETTA BILAT DATE: 10/20/2024 CLINICAL HISTORY: F, Age 58 y/o , ANNUAL SCREENING BREAST CANCER RISK ASSESSMENT: Has not been calculated. TECHNIQUE: Bilateral screening digital breast tomosynthesis with 2D and 3D images. Computeraided detection. COMPARISON: Prior exam(s) dated 10/18/2023 and 09/11/2022. FINDINGS: TISSUE DENSITY: The breast tissue is composed of scattered area of fibroglandular density. Bilateral Breast Mammographic Findings: There are no suspicious masses, suspicious cluster of microcalcifications, architectural distortion or secondary signs of malignancy identified in either breast. Partially obscured stable isodense masses are seen in both breasts. Benign-appearing round microcalcifications are seen in both breasts. BI/SCRN MAMM (CAD)W/LORETTA BILAT IMPRESSION: OVERALL FINAL ASSESSMENT: BIRADS 2 BENIGN FINDING RECOMMENDATION: Routine annual follow-up in 1 Year A letter with findings and recommendations will be mailed to the patient. Reading Location: [facility] CC: Dr. Zuleika Smyth DO; Dr. Daiana Grimes DO ~ Bag Printer: Signed [facility] SCRN MAMM (CAD)W/LORETTA BILATo n 10-20-2024 SCRN MAMM (CAD)W/LORETTA BILAT [facility] Imaging Services [address] [place] [address] SCRN MAMM (CAD)W/LORETTA BILAT MR#: [id number] Acct: [id number] Name: BRIONNA ROBLES Rep #: [id number] : 1965 F 58 From: Maura Campbell PCP: Dr. Daiana Grimes DO Status: [facility] CLI Study: SCRN MAMM (CAD)W/LORETTA BILAT Date of Exam: 07/15 Exam# [id number] Ordering Dr: Zuleika Smyth DO EXAM: SCRN MAMM (CAD)W/LORETTA BILAT DATE: 10/20/2024 CLINICAL HISTORY: F, Age 58 y/o , ANNUAL SCREENING BREAST CANCER RISK ASSESSMENT: Has not been calculated. TECHNIQUE: Bilateral screening digital breast tomosynthesis with 2D and 3D images. Computer aided detection. COMPARISON: Prior exam(s) dated 10/18/2023 and 09/11/2022. FINDINGS: TISSUE DENSITY: The breast tissue is composed of scattered area of fibroglandular density. Bilateral Breast Mammographic Findings: There are no suspicious masses, suspicious cluster of microcalcifications, architectural distortion or secondary signs of malignancy identified in either breast. Partially obscured stable isodense masses are seen in both breasts. Benign-appearing round microcalcifications are seen in both breasts. BI/SCRN MAMM (CAD)W/LORETTA BILAT IMPRESSION: OVERALL FINAL ASSESSMENT: BIRADS 2 BENIGN FINDING RECOMMENDATION: Routine annual follow-up in 1 Year A letter with findings and recommendations will be mailed to the patient. Reading Location: [id number] CC: Dr. Zuleika Smyth DO; Dr. Daiana Grimes DO Bag Printer: Signed Normal [facility] Cardiology Visit Reporton Cardiology Visit Report [facility] [address] [place], [place] [address] OFFICE VISIT Date of Service: 10/01/24 MR#: [id number] Acct: [id number] Name: BRIONNA ROBLES Rep #: [id number] : 1965 Provider: Dr. Stefani Castillo MD Age/Sex: 58/F [facility] Status: Signed HPI HPI History of Present Illness Details: This lady with history of thoracic aortic dilatation is here for follow-up visit. Denies any complaints today. No chest pains. No shortness of breath. No palpitations. No orthopnea. No PND. No ankle edema. Per patient, she has a family history of Marfan's syndrome in her sister. She herself was checked for the FBN1 mutation. Per her it was deemed inconclusive. Intake Vital Signs 04/25/24 08:52 10/01/24 11:31 Height 6 ft 6 ft Weight: 157 lb BMI 21.2 BP 119/70 Blood Pressure Location Lt brachial Position Sitting Respiration 16 Pulse 60 Pulse Source Monitor Intake Visit Reasons: 6 M FU Station Tender Required: No Accompanied by: Self Is patient in pain?: No Allergies egg Allergy (Verified 10/01/24 12:59) Headache, increased sinus drainage Medications ???Medication ???Instructions ???Recorded ???Confirmed ???Type pregabalin 200 mg capsule (Lyrica) 200 mg PO BID 08/25/21 10/01/24 History omalizumab 150 mg subcutaneous 300 mg subcut Q2W #2 ea 06/08/23 0 10/01/24 Rx solution (Xolair) fluticasone propionate 50 2 spray intranasal DAILY PRN nasal 08/06/23 10/01/24 Rx mcg/actuation nasal congestion #3 ea spray,suspension metoprolol succinate 25 mg 25 mg PO DAILY #90 tabs 11/13/23 0 10/01/24 Rx tablet,extended release 24 hr montelukast 10 mg tablet 10 mg PO DAILY #90 tabs 11/13/23 0 10/01/24 Rx (Singulair) epinephrine 0.3 mg/0.3 mL 0.3 mg (0.3 mL) IM ONCE #2 ea 01/2010/01/24 Rx injection, auto-injector (EpiPen) ascorbic acid (vitamin C) 1,000 mg 1 g PO QDAY 03/25/24 10/01/24 Hi story tablet omalizumab 75 mg/0.5 mL 75 mg subcut Q2W 03/25/24 09/26/24 History subcutaneous syringe (Xolair) fluticasone 500 mcg-salmeterol 50 1 inh inhalation BID #3 device 10/01/24 Rx mcg/dose blistr powdr for inhalation (Advair Diskus) estradiol 4 mcg vaginal insert, in See Rx Instructions vaginal 02/1210/01/24 Rx a starter dose pack (Imvexxy .COMPLEX #18 ea Starter Pack) polyethylene glycol 3350 17 4 g PO ONCE 09/26/24 10/01/24 Hist ory gram/dose oral powder (Miralax) venlafaxine 75 mg capsule,extended 75 mg PO QDAY 10/01/24 10/01/24 History release 24 hr Ejection fraction %: 65 PFSH Medical History Thoracoabdominal aortic aneurysm (TAAA) without rupture Family history of Marfan syndrome GERD (gastroesophageal reflux disease) Right patella fracture Aortic aneurysm CMT (Jzgrgxi-Esvbb-Rbnbw disease) Asthma Surgical History History of umbilical hernia repair History of sinus surgery History of right knee surgery History of hysterectomy History of cholecystectomy Family History Grandmother Throat cancer Mother Hypertension Sister Marfan syndrome Social History Smoking Status: Former smoker alcohol intake: current details: occasionally substance use type: does not use caffeine: Yes what type of physical activity do you participate in: none seatbelt use: always do you feel safe at home: Yes additional social history: - Luis Patient on disability ROS Const Const: Positive for weakness (attributes to CMT); Negative for fatigue, headache(s) or weight gain Eyes Eyes: Negative for change in vision ENT ENT: Positive for balance problems; Negative for headache(s), dizziness or Nosebleed/epistaxis Cardio Chest Pain: No Palpitations: Yes feels like its: pounding (stress related) Edema: None Muscle aches with walking: Bilateral (attributes to CMT) Resp Respiratory: Positive for SOB with activity (Occ, attributes to asthma); Negative for SOB at rest or SOB orthopnea SOB lying down GI GI: Negative nausea, vomiting or heartburn Musc Musc: Positive for muscle aches/ myalgia (attributes to CMT), muscle weakness (attributes to CMT), joint pain (Occ) and balance problems Skin Skin: Negative redness, non-healing lesions, rash, unusual bruising, skin ulcer, wounds, jaundice or other Neuro Neuro: Positive for weakness (attributes to CMT); Negative for dizziness, lightheadedness, near syncope, syncope or headache(s) Ricardo Hematologic/Lymphatic: Positive for easy bruising Endo Endo: Negative for fatigue Allergy Allergy/Immunology: Negative for rash Cardi (more content not included)... Normal [facility] Guest Laundry Attendant Office Visit Reporton 09-26-2024 Guest Laundry Attendant Office Visit Report [facility], [address] [place] [address] OFFICE VISIT Date of Service: 09/26/24 MR#: [id number] Acct: [id number] Name: BRIONNA ROBLES Rep #: [id number] : 1965 Provider: Dr. Zuleika Linton, Age/Sex: 58/F Location: [facility] [place] Status: Signed Intake Vital Signs 03/25/24 11:14 04/25/24 08:52 09/26/24 13:28 09/26/24 13:31 Height 6 ft 6 ft 6 ft 6 ft Weight: 152 lb 154 lb BMI 20.6 20.9 BP 111/72 142/81 H Blood Pressure Location Rt brachial Position Sitting Respiration 18 Pulse 60 Pulse Source Monitor Temp 96.4 F L Temperature Source Temporal Artery Pulse Oximetry (%) 96 Oxygen Delivery Method room air Intake Visit Reasons: Annual (DIE FINISHER) Station Tender Required: No Is patient in pain?: No Allergies egg Allergy (Verified 09/26/24 13:28) Headache, increased sinus drainage Medications ???Medication ???Instructions ???Recorded ???Confirmed ???Type pregabalin 200 mg capsule (Lyrica) 200 mg PO BID 08/25/21 09/26/24 History omalizumab 150 mg subcutaneous 300 mg subcut Q2W #2 ea 06/08/23 0 09/26/24 Rx solution (Xolair) fluticasone propionate 50 2 spray intranasal DAILY PRN nasal 08/06/23 09/26/24 Rx mcg/actuation nasal congestion #3 ea spray,suspension metoprolol succinate 25 mg 25 mg PO DAILY #90 tabs 11/13/23 0 09/26/24 Rx tablet,extended release 24 hr montelukast 10 mg tablet 10 mg PO DAILY #90 tabs 11/13/23 0 09/26/24 Rx (Singulair) epinephrine 0.3 mg/0.3 mL 0.3 mg (0.3 mL) IM ONCE #2 ea 01/2009/26/24 Rx injection, auto-injector (EpiPen) ascorbic acid (vitamin C) 1,000 mg 1 g PO QDAY 03/25/24 09/26/24 Hi story tablet omalizumab 75 mg/0.5 mL 75 mg subcut Q2W 03/25/24 09/26/24 History subcutaneous syringe (Xolair) venlafaxine 37.5 mg 37.5 mg PO QDAY 04/25/24 09/26/24 History capsule,extended release 24 hr fluticasone 500 mcg-salmeterol 50 1 inh inhalation BID #3 device 09/26/24 Rx mcg/dose blistr powdr for inhalation (Advair Diskus) estradiol 4 mcg vaginal insert, in See Rx Instructions vaginal 02/1209/26/24 Rx a starter dose pack (Imvexxy .COMPLEX #18 ea Starter Pack) polyethylene glycol 3350 17 4 g PO ONCE 09/26/24 09/26/24 Hist ory gram/dose oral powder (Miralax) Post menopausal: No Patient : No : No PFSH Medical History Thoracoabdominal aortic aneurysm (TAAA) without rupture Family history of Marfan syndrome GERD (gastroesophageal reflux disease) Right patella fracture Aortic aneurysm CMT (Qquwnlo-Wgbej-Zlvvp disease) Asthma Surgical History History of umbilical hernia repair History of sinus surgery History of right knee surgery History of hysterectomy History of cholecystectomy Family History Grandmother Throat cancer Mother Hypertension Sister Marfan syndrome Social History (Updated 09/26/24 @ 13:37 by Rosina Mccall) Smoking Status: Former smoker alcohol intake: current details: occasionally substance use type: does not use caffeine: Yes what type of physical activity do you participate in: none seatbelt use: always do you feel safe at home: Yes additional social history: - Luis Patient on disability History 2 Elective abortions Hx Para 1 Spontaneous abortions Hx # Term Pregnancies Ectopic pregnancies Hx # Pregnancies Multiple births # of living children Past Pregnancies Del. Date Name GA/Weeks Outcome Route Bth Weight Gen Labor Lgth Anesthesia Del Locatn Provider FOB Unknown Katerin HPI Encounter for routine gynecological examination Details: BRIONNA ROBLES is a 58 year old who presents for annual exam. Last PAP: prior to hyst, normal History of abnormal PAP: no Last mammogram: 10/18/23 History of abnormal mammogram: no Colon cancer screening: followed by pcp Other preventative health care screenings: followed by pcp wants to discuss orgasm difficulties. tried clitoral stimulators daughter had 17 week twin loss today. Female Reproductive History Questions: metorrhagia: No, sexually active: Yes, dyspareunia: No and PCB: No Menopausal Symptoms: No hot flashes, No night sweats, No weight change, No mood changes, No difficulty concentrating, No sleep problems and No change in libido ROS Const Constitutional: Reports as per HPI; Denies fatigue, increased appetite, poor appetite, night sweats, weight gain or weight loss Cardio Card: Denies chest pain Resp Resp: Denies cough or dyspnea GI GI: Reports as per HPI; Denies abdominal pain, bloa (more content not included)... Normal [facility] Absolute lymphocyte countOrd ered By: Daiana Grimes on 09-23-2024 Lymphocytes Auto (Unsp spec) [#/Vol] 2.31 10*3/uL 0.83-4.51 [facility] Absolute neutrophil countOrd ered By: Daiana Grimes on 09-23-2024 Neutrophils (Bld) [#/Vol] 4.9 10*3/uL 2.0-7.7 [facility] Anion gap in Serum or Plasma Ordered By: Daiana Grimes on 09-23-2024 Anion gap [Moles/Vol] 10 mmol/L 5-15 [facility] Automated lymphocyte count a s percentage of total leukocytesOrdered By: Daiana Grimes on 09-23-2024 Lymphocytes/100 WBC Auto (Unsp spec) 28.9 % 19-41 [facility] BUN/creatinine ratioOrdered By: Daiana Grimes on 09-23-2024 Urea nitrogen/Creatinine [Mass ratio] 30.6 mg/mg High 10-20 [facility] Basophil percentageOrdered B y: Daiana Grimes on 09-23-2024 Basophils/100 WBC (Bld) 0.9 % 0-1 [facility] Bilirubin, totalOrdered By: Daiana Grimes on 09-23-2024 Bilirubin [Mass/Vol] 0.30 mg/dL 0.00-1.30 [facility] CBC W/Diff, Automatedon Absolute Lymph 2.31 X10 3/uL Normal 0.83-4.51 [facility] Comment on above: Performed By: #### L 100.0100, L500.4100, L506.1001, L500.4050 #### [facility] [address] [place], [address] Absolute Neut 4.9 X10 3/uL Normal 2.0-7.7 [facility] Comment on above: Performed By: #### L 100.0100, L500.4100, L506.1001, L500.4050 #### [facility] [address] [place], [address] Basophils/100 WBC (Bld) 0.9 % Normal 0-1 [facility] Comment on above: Performed By: #### L 100.0100, L500.4100, L506.1001, L500.4050 #### [facility] [address] [place], [address] Eosinophils/100 WBC (Bld) 0.9 % Normal 0-5 [facility] Comment on above: Performed By: #### L 100.0100, L500.4100, L506.1001, L500.4050 #### [facility] [address] [place], [address] Erythrocyte distribution width (RBC) [Ratio] 12.9 % Normal 11.6-14.6 [facility] Comment on above: Performed By: #### L 100.0100, L500.4100, L506.1001, L500.4050 #### [facility] [address] [place], [address] Hematocrit (Bld) [Volume fraction] 40.8 % Normal 37-47 [facility] Comment on above: Performed By: #### L 100.0100, L500.4100, L506.1001, L500.4050 #### [facility] [address] [place], [address] Hemoglobin (Bld) [Mass/Vol] 13.5 g/dL Normal 12.0-15.0 [facility] Comment on above: Performed By: #### L 100.0100, L500.4100, L506.1001, L500.4050 #### [facility] [address] [place], [address] IG% 0.100 Normal 0.0-0.9 [facility] Comment on above: Result Comment: IG% - Immature Granulocytes (promyelocytes, myelocytes and metamyelocytes) > 1% indicates that a LEFT SHIFT is Present. Performed By: #### L 100.0100, L500.4100, L506.1001, L500.4050 #### [facility] [address] [place], [address] Lymphocytes/100 WBC (Bld) 28.9 % Normal 19-41 [facility] Comment on above: Performed By: #### L 100.0100, L500.4100, L506.1001, L500.4050 #### [facility] [address] [place], [address] MCH (RBC) [Entitic mass] 30.3 pg Normal 27.0-32.0 [facility] Comment on above: Performed By: #### L 100.0100, L500.4100, L506.1001, L500.4050 #### [facility] [address] [place], [address] MCHC (RBC) [Mass/Vol] 33.1 g/dL Normal 32-36 [facility] Comment on above: Performed By: #### L 100.0100, L500.4100, L506.1001, L500.4050 #### [facility] [address] [place], [address] MCV (RBC) [Entitic vol] 91.5 fL Normal 81-99 [facility] Comment on above: Performed By: #### L 100.0100, L500.4100, L506.1001, L500.4050 #### [facility] [address] [place], [address] Monocytes/100 WBC (Bld) 8.4 % Normal 0-10 [facility] Comment on above: Performed By: #### L 100.0100, L500.4100, L506.1001, L500.4050 #### [facility] [address] [place], [address] Neutrophils/100 WBC (Bld) 60.8 % Normal 47-70 [facility] Comment on above: Performed By: #### L 100.0100, L500.4100, L506.1001, L500.4050 #### [facility] [address] [place], [address] Nucleated RBC (Bld) [#/Vol] 0 10*3/uL Normal 0-5 [facility] Comment on above: Performed By: #### L 100.0100, L500.4100, L506.1001, L500.4050 #### [facility] [address] [place], [address] Platelet mean volume (Bld) [Entitic vol] 10.5 fL Normal 6.2-12.0 [facility] Comment on above: Performed By: #### L 100.0100, L500.4100, L506.1001, L500.4050 #### [facility] [address] [place], [address] Platelets (Bld) [#/Vol] 161 10*3/uL Normal 150-450 [facility] Comment on above: Performed By: #### L 100.0100, L500.4100, L506.1001, L500.4050 #### [facility] [address] [place], [address] RBC (Bld) [#/Vol] 4.46 10*6/uL Normal 4.2-5.4 [facility] Comment on above: Performed By: #### L 100.0100, L500.4100, L506.1001, L500.4050 #### [facility] [address] [place], [address] RDW SD 43.1 fl Normal 35.1-43.9 [facility] Comment on above: Performed By: #### L 100.0100, L500.4100, L506.1001, L500.4050 #### [facility] [address] [place], [address] WBC (Bld) [#/Vol] 8.0 10*3/uL Normal 4.4-11.0 [facility] Comment on above: Performed By: #### L 100.0100, L500.4100, L506.1001, L500.4050 #### [facility] [address] [place], [address] Calculated very low density lipoprotein (VLDL) cholesterol measurementOrdered By: Daiana Grimes on 09-23-2024 Calculated very low density lipoprotein (VLDL) cholesterol measurement 13 mg/dL 5-40 [facility] Carbon dioxide, total [Moles /volume] in Central venous bloodOrdered By: Daiana Grimes on 09-23-2024 CO2 [Moles/Vol] 21.4 mmol/L 21.0-32.0 [facility] Chest WITH Contraston 2024 Chest WITH Contrast [facility] [address] [place] [address] Chest WITH Contrast MR#: [id number] Acct: [id number] Name: BRIONNA ROBLES Rep #: [id number] : 1965 F 58 From: Robb Roland MD PCP: Dr. Daiana Grimes, DO Status: REG CLI Study: Chest WITH Contrast Date of Exam: 09/23/24 Exam# [id number] Ordering Dr: Sussy Roach PA EXAM: CT Chest With Intravenous Contrast CLINICAL INDICATION: TAA TECHNIQUE: Axial computed tomography images of the chest with intravenous contrast. This CT exam was performed using one or more of the following dose reduction techniques: automated exposure control, adjustment of the mA and/or kV according to patient size, and/or use of iterative reconstruction technique. COMPARISON: CT Chest dated 10/04/2023 FINDINGS: LUNGS AND PLEURAL SPACES: Lung emphysema/COPD with right apical scarring. No suspicious pulmonary nodules. No consolidation. No pneumothorax. No significant effusion. HEART: Unremarkable. No cardiomegaly. No significant pericardial effusion. No significant coronary artery calcifications. BONES/JOINTS: Unremarkable. No acute fracture. No dislocation. SOFT TISSUES: Unremarkable. VASCULATURE: The ascending thoracic aorta is ectatic measuring 4.2 cm in maximum diameter. Scattered calcified atherosclerotic disease of aorta. No thoracic aortic aneurysm. LYMPH NODES: Unremarkable. No enlarged lymph nodes. LIVER: Fatty infiltration of the liver. Hepatic cysts. KIDNEYS AND URETERS: Left renal cyst. CT/Chest WITH Contrast IMPRESSION: 1. The ascending thoracic aorta is ectatic measuring 4.2 cm in maximum diameter. 2. Lung emphysema/COPD with right apical scarring. No suspicious pulmonary nodules. 3. Continue low-dose CT scan of the chest in 12 months is recommended. Reading Location: [facility] CC: Dr. Daiana Grimes, DO; ZOEY Cooper Bag Printer: Signed Normal [facility] Chloride assayOrdered By: Jason Grimes on 09-23-2024 Chloride [Moles/Vol] 106 mmol/L 98-108 [facility] Comprehensive Metabolic Prof ilon 09-23-2024 Albumin [Mass/Vol] 4.0 g/dL Normal 3.5-5.0 [facility] Comment on above: Performed By: #### L 100.0100, L500.4100, L506.1001, L500.4050 #### [facility] [address] [place], [address] Albumin/Globulin [Mass ratio] 1.7 {ratio} Normal 0.9-2.4 [facility] Comment on above: Performed By: #### L 100.0100, L500.4100, L506.1001, L500.4050 #### [facility] [address] [place], [address] ALK PHOS 88 U/L Normal 35-104 [facility] Comment on above: Performed By: #### L 100.0100, L500.4100, L506.1001, L500.4050 #### [facility] [address] [place], [address] ALT [Catalytic activity/Vol] 18 U/L Normal <=34 [facility] Comment on above: Performed By: #### L 100.0100, L500.4100, L506.1001, L500.4050 #### [facility] [address] [place], [address] AST [Catalytic activity/Vol] 26 U/L Normal <=31 [facility] Comment on above: Performed By: #### L 100.0100, L500.4100, L506.1001, L500.4050 #### [facility] [address] [place], [address] Bilirubin [Mass/Vol] 0.30 mg/dL Normal 0.00-1.30 [facility] Comment on above: Performed By: #### L 100.0100, L500.4100, L506.1001, L500.4050 #### [facility] [address] [place], [address] BUN/CRE 30.6 RATIO High 10-20 [facility] Comment on above: Performed By: #### L 100.0100, L500.4100, L506.1001, L500.4050 #### [facility] [address] [place], [address] Calcium [Mass/Vol] 8.9 mg/dL Normal 7.6-11.0 [facility] Comment on above: Performed By: #### L 100.0100, L500.4100, L506.1001, L500.4050 #### [facility] [address] [place], [address] Chloride [Moles/Vol] 106 mmol/L Normal 98-108 [facility] Comment on above: Performed By: #### L 100.0100, L500.4100, L506.1001, L500.4050 #### [facility] [address] [place], [address] CO2 [Moles/Vol] 21.4 mmol/L Normal 21.0-32.0 [facility] Comment on above: Performed By: #### L 100.0100, L500.4100, L506.1001, L500.4050 #### [facility] [address] [place], [address] Creatinine [Mass/Vol] 0.71 mg/dL Normal 0.70-1.20 [facility] Comment on above: Performed By: #### L 100.0100, L500.4100, L506.1001, L500.4050 #### [facility] [address] [place], [address] GAP 10 Normal 5-15 [facility] Comment on above: Performed By: #### L 100.0100, L500.4100, L506.1001, L500.4050 #### [facility] [address] [place], [address] GFR/1.73 sq M.predicted among non-blacks MDRD (S/P/Bld) [Vol rate/Area] 98 mL/min/{1.73_m2} Normal >60 [facility] Comment on above: Result Comment: mL/m in/1.73m2 CKD-EPI Creatinine Equation (2020) Performed By: #### L 100.0100, L500.4100, L506.1001, L500.4050 #### [facility] [address] [place], [address] Globulin (S) [Mass/Vol] 2.4 g/dL Normal 2.2-4.2 [facility] Comment on above: Performed By: #### L 100.0100, L500.4100, L506.1001, L500.4050 #### [facility] [address] [place], [address] Glucose [Mass/Vol] 84 mg/dL Normal 70-99 [facility] Comment on above: Performed By: #### L 100.0100, L500.4100, L506.1001, L500.4050 #### [facility] [address] [place], [address] Potassium [Moles/Vol] 4.0 mmol/L Normal 3.3-5.1 [facility] Comment on above: Performed By: #### L 100.0100, L500.4100, L506.1001, L500.4050 #### [facility] [address] [place], [address] Sodium [Moles/Vol] 138 mmol/L Normal 133-145 [facility] Comment on above: Performed By: #### L 100.0100, L500.4100, L506.1001, L500.4050 #### [facility] [address] [place], [address] T PROT 6.3 g/dL Normal 5.9-8.4 [facility] Comment on above: Performed By: #### L 100.0100, L500.4100, L506.1001, L500.4050 #### [facility] [address] [place], [address] Urea nitrogen [Mass/Vol] 22 mg/dL High 4-19 [facility] Comment on above: Performed By: #### L 100.0100, L500.4100, L506.1001, L500.4050 #### [facility] [address] [place], [address] Eosinophil percentageOrdered By: Daiana Grimes on 09-23-2024 Eosinophils/100 WBC (Bld) 0.9 % 0-5 [facility] Erythrocyte distribution wid th ratioOrdered By: Daiana Grimes on 09-23-2024 Erythrocyte distribution width (RBC) [Ratio] 12.9 % 11.6-14.6 [facility] Erythrocyte distribution wid th standard deviationOrdered By: Daiana Grimes on 09-23-2024 Erythrocyte distribution width (RBC) [Ratio] 43.1 fl 35.1-43.9 [facility] Glomerular filtration rate ( GFR) estimation/1.73 sq m using serum, plasma, or whole bOrdered By: Daiana Grimes on 09-23-2024 GFR/1.73 sq M.predicted among non-blacks MDRD (S/P/Bld) [Vol rate/Area] 98 mL/min/{1.73_m2} >60 [facility] Comment on above: mL/min/1.73m2 CKD-EP I Creatinine Equation (2020) Hematocrit Auto (Bld) [Volum e fraction]Ordered By: Daiana Grimes on 09-23-2024 Hematocrit (Bld) [Volume fraction] 40.8 % 37-47 [facility] Hemoglobin measurementOrdere d By: Daiana Grimes on 09-23-2024 Hemoglobin (Bld) [Mass/Vol] 13.5 g/dL 12.0-15.0 [facility] Immature granulocytes/100 WB C Auto (Bld)Ordered By: Daiana Grimes on 09-23-2024 Immature granulocytes/100 WBC (Bld) 0.100 % 0.0-0.9 [facility] Comment on above: IG% - Immature Granu locytes (promyelocytes, myelocytes and metamyelocytes) > 1% indicates that a LEFT SHIFT is Present. LDL calc ser/plasOrdered By: Daiana Grimes on 09-23-2024 Cholesterol in LDL [Mass/Vol] 73 mg/dL [facility] Comment on above: Tvdrejjqwz=718-079 m g/dL & Higher Cnqo=510 mg/dL or greater Laboratory - Chemistry and C hemistry - challengeOrdered By: Daiana Grimes on 09-23-2024 AST [Catalytic activity/Vol] 26 U/L <32 [facility] Lipid Profileon 09-23-2024 CHOL:HDL 2.52 Normal [facility] Comment on above: Performed By: #### L 100.0100, L500.4100, L506.1001, L500.4050 #### [facility] [address] [place], [place], [address] Cholesterol [Mass/Vol] 142 mg/dL Normal <=200 [facility] Comment on above: Result Comment: Chol esterol level, Desirable <200 mg/dL Borderline high cholesterol 200-239 mg/dL High cholesterol >=240 mg/dL Recommendations of the NCEP Adult Treatment Panel for the following risk-cutoff thresholds for the [place] population. Performed By: #### L 100.0100, L500.4100, L506.1001, L500.4050 #### [facility] [address] [place], [place], [address] Cholesterol in HDL [Mass/Vol] 56 mg/dL Normal [facility] Comment on above: Result Comment: Cinthia onal Cholesterol Education Program (NCEP) guidelines: <40 mg/dL: Low HDL-cholesterol (major risk factor for CHD) >= 60 mg/dL: High HDL-cholesterol (negative risk factor for CHD) HDL-cholesterol is affected by a number of factors, e.g. smoking, exercise, hormones, sex and age. Performed By: #### L 100.0100, L500.4100, L506.1001, L500.4050 #### [facility] [address] [place], [address] Cholesterol in LDL [Mass/Vol] 73 mg/dL Normal [facility] Comment on above: Result Comment: Bord fnjntq=062-107 mg/dL Higher Cnyi=726 mg/dL or greater Performed By: #### L 100.0100, L500.4100, L506.1001, L500.4050 #### [facility] [address] [place], [address] Cholesterol in VLDL [Mass/Vol] 13 mg/dL Normal 5-40 [facility] Comment on above: Performed By: #### L 100.0100, L500.4100, L506.1001, L500.4050 #### [facility] [address] [place], [address] Triglyceride [Mass/Vol] 63 mg/dL Normal [facility] Comment on above: Result Comment: The drugs N-Acetylcysteine and Metamizole may falsely depress this assay. Normal range: <150 mg/dL Borderline High: 150-199 mg/dL High: 200-499 mg/dL Very High: >500 mg/dL Performed By: #### L 100.0100, L500.4100, L506.1001, L500.4050 #### [facility] [address] [place], [address] MCV (mean corpuscular volume ) determinationOrdered By: Daiana Grimes on 09-23-2024 MCV (RBC) [Entitic vol] 91.5 fL 81-99 [facility] Mean corpuscular hemoglobin (MCH) determinationOrdered By: Daiana Grimes on 09-23-2024 MCH (RBC) [Entitic mass] 30.3 pg 27.0-32.0 [facility] Mean corpuscular hemoglobin concentration (MCHC) determinationOrdered By: Daiana Grimes on 09-23-2024 MCHC (RBC) [Mass/Vol] 33.1 g/dL 32-36 [facility] Mean platelet volume determi nationOrdered By: Daiana Grimes on 09-23-2024 Platelet mean volume (Bld) [Entitic vol] 10.5 fL 6.2-12.0 [facility] Monocyte percentageOrdered B y: Daiana Grimes on 09-23-2024 Monocytes/100 WBC (Bld) 8.4 % 0-10 [facility] Neutrophil percentageOrdered By: Daiana Grimes on 09-23-2024 Neutrophils/100 WBC (Bld) 60.8 % 47-70 [facility] Nucleated red blood cell per centageOrdered By: Daiana Grimes on 09-23-2024 Nucleated RBC/100 WBC (Bld) [Ratio] 0 % 0-5 [facility] [facility] Platelet countOrdered By: Jason Grimes on 09-23-2024 Platelets (Bld) [#/Vol] 161 10*3/uL 150-450 [facility] Potassium measurement (mass/ volume)Ordered By: Daiana Grimes on 09-23-2024 Potassium (Unsp spec) [Mass/Vol] 4.0 mmol/L 3.3-5.1 [facility] RBC Auto (Bld) [#/Vol]Ordere d By: Daiana Grimes on 09-23-2024 RBC (Bld) [#/Vol] 4.46 10*6/uL 4.2-5.4 [facility] Screening total cholesterol/ high density lipoprotein (HDL) cholesterol ratioOrdered By: Daiana Grimes on 09-23-2024 Cholesterol.total/Chol esterol in HDL [Mass ratio] 2.52 {ratio} [facility] Serum creatinine measurement (mass/volume)Ordered By: Daiana Grimes on 09-23-2024 Creatinine [Mass/Vol] 0.71 mg/dL 0.70-1.20 [facility] Serum globulin measurementOr dered By: Daiana Grimes on 09-23-2024 Globulin (S) [Mass/Vol] 2.4 g/dL 2.2-4.2 [facility] Serum glucose measurement (m ass/volume)Ordered By: Daiana Grimes on 09-23-2024 Glucose [Mass/Vol] 84 mg/dL 70-99 [facility] Serum or plasma alanine garcia otransferase (ALT) measurementOrdered By: Daiana Grimes on 09-23-2024 ALT [Catalytic activity/Vol] 18 U/L <35 [facility] Serum or plasma albumin fartun urement (mass/volume)Ordered By: Daiana Grimes on 09-23-2024 Albumin [Mass/Vol] 4.0 g/dL 3.5-5.0 [facility] Serum or plasma albumin/glob ulin mass ratioOrdered By: Daiana Grimes on 09-23-2024 Albumin/Globulin [Mass ratio] 1.7 {ratio} 0.9-2.4 [facility] Serum or plasma alkaline margaux sphatase measurementOrdered By: Daiana Grimes on 09-23-2024 ALP [Catalytic activity/Vol] 88 U/L 35-104 [facility] Serum or plasma calcium fartun urement (mass/volume)Ordered By: Daiana Grimes on 09-23-2024 Calcium [Mass/Vol] 8.9 mg/dL 7.6-11.0 [facility] Serum or plasma cholesterol in HDL measurement (mass/volume)Ordered By: Daiana Grimes on 09-23-2024 Cholesterol in HDL [Mass/Vol] 56 mg/dL >40 [facility] Comment on above: National Cholesterol Education Program (NCEP) guidelines:<40 mg/dL: Low HDL-cholesterol (major risk factor for CHD)>= 60 mg/dL: High HDL-cholesterol (negative risk factor for CHD)HDL-cholesterol is affected by a number of factors, e.g. smoking, exercise, hormones, sex and age. Serum or plasma cholesterol measurement (mass/volume)Ordered By: Daiana Grimes on 09-23-2024 Cholesterol [Mass/Vol] 142 mg/dL <201 [facility] Comment on above: Cholesterol level, D esirable <200 mg/dLBorderline high cholesterol 200-239 mg/dLHigh cholesterol >=240 mg/dLRecommendations of the NCEP Adult Treatment Panel for the following risk-cutoff thresholds for the [place] population. Serum or plasma urea nitroge n measurement (mass/volume)Ordered By: Daiana Grimes on 09-23-2024 Urea nitrogen [Mass/Vol] 22 mg/dL High 4-19 [facility] Sodium levelOrdered By: Hetal Grimes on 09-23-2024 Sodium [Moles/Vol] 138 mmol/L 133-145 [facility] Total proteinOrdered By: Joss Grimes on 09-23-2024 Protein [Mass/Vol] 6.3 g/dL 5.9-8.4 [facility] Triglycerides measurementOrd ered By: Daiana Grimes on 09-23-2024 Triglyceride [Mass/Vol] 63 mg/dL <199 [facility] Comment on above: The drugs N-Acetylcy steine and Metamizole may falsely depress this assay. Normal range: <150 mg/dLBorderline High: 150-199 mg/dLHigh: 200-499 mg/dLVery High: >500 mg/dL Vitamin D,25 Hydroxyon 09-23 Vitamin D 25-OH 33.1 ng/mL Normal 30-100 [facility] Comment on above: Result Comment: Dominique min D Status Deficiency: <20 ng/mL (50nmol/L) Insufficiency: 20-30 ng/mL (50-75 nmol/L) Sufficiency: 30-100 ng/mL (75-250 nmol/L) Toxicity: >100 ng/mL (>250 nmol/L) Performed By: #### L 100.0100, L500.4100, L506.1001, L500.4050 #### [facility] [address] [place], [address] White blood cell (WBC) count Ordered By: Daiana Grimes on 09-23-2024 WBC (Bld) [#/Vol] 8.0 10*3/uL 4.4-11.0 [facility] CNPNon 05-06-2024 CNPN Telephone (AGPOB1) BRIONNA ROBLES ([id number]) 1965 F [facility] Date Time Provider Department 05/06/24 ADAM CARSON During your visit today, we recorded the following information about you: Yissel Sheehan 05/06/2024 11:10 AM Signed PC to [phone],left msg asking if she will still be going for aqua therapy, or if this will be land therapy, also asked for fax number of PT facility. Yissel Sheehan May 06, 2024 11:10 AM Yissel Sheehan 05/06/2024 11:46 AM Signed PC to patient who wants to go for land therapy instead of aqua therapy, at [facility] [phone]. Call patient when order is in the chart. Assuming patient's request is ok with Dr. Carson. Creating a new order for PT for Dr. Carson's review. Patient will see how PT goes before deciding if she wants to begin pain management. Yissel Sheehan May 06, 2024 11:44 AM Yissel Sheehan 05/06/2024 2:03 PM Signed Afshin hernandezder faxed to [facility]. PC to patient and informed her. Yissel Sheehan May 06, 2024 2:03 PM Yissel Sheehan 06/11/2024 3:05 PM Signed Per , patient's insurance does not cover the facility to whom the order was faxed. Patient requested the order be mailed to her. Placing order for regular PT placed in outgoing mail. 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 - cholecalciferol (VITAMIN D-3) 5,000 unit tab Take 2,000 Units by mouth once daily. - vit C/zinc citrate/elderberry (SAMBUCUS ELDERBERRY ORAL) Take 2 teaspoonsful by mouth. - mv-mn/folic acid/vit K/pbrl352 (ALIVE ONCE DAILY WOMEN 50 PLUS ORAL) Take by mouth. - pregabalin (LYRICA) 100 mg capsule Take 100 mg by mouth once daily. - metoprolol tartrate, short acting, (LOPRESSOR) 25 mg tablet Take 25 mg by mouth once daily. - montelukast (SINGULAIR) 10 mg tablet Take 10 mg by mouth daily at bedtime. - Pregabalin (LYRICA) 200 mg capsule TAKE ONE CAPSULE BY MOUTH 2 TIMES A DAY - Syringe, Disposable, 3 mL syrg USE DIRECTED - BD DISPOSABLE NEEDLES 18 gauge x 1 ndle USE DIRECTED - STERILE WATER FOR INJECTION injection USE DIRECTED WITH XOLAIR - BD DISPOSABLE NEEDLES 25 gauge x 5/8 ndle USE DIRECTED - fluticasone-salmeterol (ADVAIR DISKUS) 250-50 mcg/dose dsdv Inhale 1 Puff as instructed twice daily. Rinse and gargle mouth with water after each use. - albuterol (PROVENTIL) 2.5 mg /3 mL (0.083 %) nebulizer solution Use 3 mL via nebulizer every 4 hours as needed for Wheezing/Shortness of Breath. Inhale over 5-15 minutes - Ascorbic Acid (VITAMIN C) 100 mg tablet Take 100 mg by mouth once daily. - ALBUTEROL SULFATE (VENTOLIN INHALATION) Inhale as instructed. - mometasone (NASONEX) 50 mcg/actuation nasal spray Use 2 Sprays in each nostril once daily. Problem List As Of Date: 05/06/2024 (None) Encounter Status:Closed by YISSEL SHEEHAN on 05/06/24 [facility] CNOVon 05-02-2024 [facility] Office Visit (AGHWW1 ) BRIONNA ROBLES ([id number]) 1965 F [facility] Date Time Provider Department 05/02/24 2:30 PM ADAM CARSON AGHWW1 During your visit today, we recorded the following information about you: Respiration Weight Height 16/minute 67.1 kg 1.829 m Adam Carson, DO 05/02/2024 4:10 PM Signed HPI: Brionnaalexander Robles is a 58 year old female who presents today with low back pain. Papin for 20 years. 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 Pain in feet and back. Usually better when sitting and rest. Pain has been consistent since 2019 when last had MRI. Has to take stool with her when might have to weight in line. Standing on padded surface helps slightly. Leaning on shopping cart doesn't provide much relief. Forced to use electric cart when going to the store. Does acupuncture for CMT pain which helps but doesn't help the back pain when standing. Pain when standing starts seconds after standing. Works with chiropractor monthly which helps. Has worked with pain management in the past without great success. Has seen a neurologist at who did not believe her back pain was associated with her CMT nor did neurologist think that the cysts in the sacrum were a big problem. Also did not think that the CMT was responsible for her chronic constipation. PAST MEDICAL HISTORY Diagnosis Date Yxlrpmu-Rrqlh-Hvumh disease PAST SURGICAL HISTORY Procedure Laterality Date PAST SURGICAL HISTORY OF repair right patella VAGINAL HYSTERECTOMY UTERUS 250 GM/< Hysterectomy, vaginal Social History Tobacco Use Smoking status: Former Current packs/day: 0.00 Types: Cigarettes Quit date: 11/19/2019 Years since quittin.4 Smokeless tobacco: Never Substance Use Topics Alcohol use: Yes Comment: social Drug use: Never Current Outpatient Medications Medication Sig omalizumab (XOLAIR) 150 mg/mL syringe Inject 375 mg subcutaneously. cholecalciferol (VITAMIN D-3) 5,000 unit tab Take 2,000 Units by mouth once daily. vit C/zinc citrate/elderberry (SAMBUCUS ELDERBERRY ORAL) Take 2 teaspoonsful by mouth. mv-mn/folic acid/vit [id number] (ALIVE ONCE DAILY WOMEN 50 PLUS ORAL) Take by mouth. pregabalin (LYRICA) 100 mg capsule Take 100 mg by mouth once daily. metoprolol tartrate, short acting, (LOPRESSOR) 25 mg tablet Take 25 mg by mouth once daily. montelukast (SINGULAIR) 10 mg tablet Take 10 mg by mouth daily at bedtime. Syringe, Disposable, 3 mL syrg USE DIRECTED BD DISPOSABLE NEEDLES 18 gauge x 1 ndle USE DIRECTED STERILE WATER FOR INJECTION injection USE DIRECTED WITH XOLAIR BD DISPOSABLE NEEDLES 25 gauge x 5/8 ndle USE DIRECTED fluticasone-salmeterol (ADVAIR DISKUS) 250-50 mcg/dose dsdv Inhale 1 Puff as instructed twice daily. Rinse and gargle mouth with water after each use. albuterol (PROVENTIL) 2.5 mg /3 mL (0.083 %) nebulizer solution Use 3 mL via nebulizer every 4 hours as needed for Wheezing/Shortness of Breath. Inhale over 5-15 minutes Ascorbic Acid (VITAMIN C) 100 mg tablet Take 100 mg by mouth once daily. ALBUTEROL SULFATE (VENTOLIN INHALATION) Inhale as instructed. mometasone (NASONEX) 50 mcg/actuation nasal spray Use 2 Sprays in each nostril once daily. mirabegron (MYRBETRIQ) 25 mg Tb24 Take 25 mg by mouth once daily. Pregabalin (LYRICA) 200 mg capsule TAKE ONE CAPSULE BY MOUTH 2 TIMES A DAY amoxicillin (POLYMOX, AMOXIL) 500 mg capsule Take 1 capsule by mouth three times daily. (Patient not taking: Reported on 12/14/2022) predniSONE (DELTASONE) 10 mg tablet 4 tablets po daily for 2 days then 3 tablets po daily for 2 days then 2 tablets po daily for 2 days then 1 tablet po daily for 2 days (Patient not taking: Reported on 12/14/2022) gabapentin 100 mg capsule Take 100 mg by mouth twice daily. BACLOFEN ORAL Take by mouth. (Patient not taking: Reported on 12/14/2022) estradiol (VIVELLE) 0.075 mg/24 hr Apply 1 Patch as directed. (Patient not taking: Reported on 12/14/2022) No current facility-administered medications for this visit. ALLERGIES Allergen Reactions Tamsulosin Rash Resp 16 Ht 6' 0 (1.83m) Wt 148 lb (67.1kg) BMI 20.07 kg/(m2). EXAM: Examination of the lumbar spine reveals no tenderness to palpation. There is no major back pain with straight leg raise or slump testing. Globalized weakness but intact strength with active hip flexion and abduction. Tolerates hip rotational movements well. Minimal tenderness over the greater trochanters. Analysis of gait reveals a slower stride with core weakness/instability. Does not walk flexed over. Assumed foot drop but did not have her take off her foot drop braces today. Normal sensation, reflexes, and pulses ASSESSMENT: (M54.50, G89.29) Chronic low back pain, unspecified back pain laterality, unspecified whether sciatica present (primary encounter diagnosis) (G60.0) CMT (Bwyyuep-Aqsun-Hykwm (more content not included)... Normal [facility] XR Lumbar spine 2 Viewson AP and lateral views of lumbar spine were taken. No acute fracture or compression deformity. Preservation of disc spacing. Good preservation of lordosis. No major scoliosis. [facility] RADIOLOGY [facility] Radiology Study observation (narrative) [facility] CNOVon 04-29-2024 CNOV Office Visit (AGHWG1 ) BRIONNA ROBLES ([id number]) 1965 F [facility] Date Time Provider Department 04/29/24 10:30 AM [facility] During your visit today, we recorded the following information about you: Respiration Weight Height 17/minute 67.1 kg 1.829 m Johana Celis MA 05/09/2024 8:19 AM Signed REVIEW OF SYSTEMS: GENERAL: Well developed, well nourished. No acute distress PAIN: Negative for pain, history of chronic pain or current treatment for chronic pain conditions CARDIOVASCULAR: Negative for chest pain, leg swelling and palpations. MSK: Negative for joint swelling SKIN: Negative for lesions, rash, itching, metal sensitivity NEURO: Negative for seizure, trauma, numbness/tingling of extremities. and Numbness/tingling of extremties ENDOCRINE: Negative for diabetic associated symptoms HEMATOLOGY: Negative for excessive bleeding, clots, bleeding disorders. [place] Toro Jordan Paul, DPM 05/09/2024 8:19 AM Signed Chief Complaint: hammertoe pain HPI: This 58 year old female with PMH indicated below presents complaining of hammertoe pain 1-5 b/l. Patient states she has CMT, diagnosed 20 years ago, and has been dealing with this pain for many years. Has used toe covers and sleeves which increased her pain. She has stopped wearing them at night and pain went away but baseline CMT pain remains. Has b/l AFO from [employer] made by michael that she states has been helping CMT symptoms. Admits to nerve pain for which other providers have prescribed Lyrica. Admits to lower back pain for which she's had MRIs and workup by neurology without any answers per her. Admits to neuropathy diagnosed from a neurologist. Denies any other pedal complaints. PCP: Daiana Grimes DO: PAST MEDICAL HISTORY Diagnosis Date Mofknxc-Eedet-Sraju disease : Current Outpatient Medications Medication Sig omalizumab (XOLAIR) 150 mg/mL syringe Inject 375 mg subcutaneously. cholecalciferol (VITAMIN D-3) 5,000 unit tab Take 2,000 Units by mouth once daily. vit C/zinc citrate/elderberry (SAMBUCUS ELDERBERRY ORAL) Take 2 teaspoonsful by mouth. mv-mn/folic acid/vit [id number] (ALIVE ONCE DAILY WOMEN 50 PLUS ORAL) Take by mouth. pregabalin (LYRICA) 100 mg capsule Take 100 mg by mouth once daily. metoprolol tartrate, short acting, (LOPRESSOR) 25 mg tablet Take 25 mg by mouth once daily. montelukast (SINGULAIR) 10 mg tablet Take 10 mg by mouth daily at bedtime. Syringe, Disposable, 3 mL syrg USE DIRECTED BD DISPOSABLE NEEDLES 18 gauge x 1 ndle USE DIRECTED STERILE WATER FOR INJECTION injection USE DIRECTED WITH XOLAIR BD DISPOSABLE NEEDLES 25 gauge x 5/8 ndle USE DIRECTED fluticasone-salmeterol (ADVAIR DISKUS) 250-50 mcg/dose dsdv Inhale 1 Puff as instructed twice daily. Rinse and gargle mouth with water after each use. Ascorbic Acid (VITAMIN C) 100 mg tablet Take 100 mg by mouth once daily. mirabegron (MYRBETRIQ) 25 mg Tb24 Take 25 mg by mouth once daily. Pregabalin (LYRICA) 200 mg capsule TAKE ONE CAPSULE BY MOUTH 2 TIMES A DAY amoxicillin (POLYMOX, AMOXIL) 500 mg capsule Take 1 capsule by mouth three times daily. (Patient not taking: Reported on 12/14/2022) albuterol (PROVENTIL) 2.5 mg /3 mL (0.083 %) nebulizer solution Use 3 mL via nebulizer every 4 hours as needed for Wheezing/Shortness of Breath. Inhale over 5-15 minutes (Patient not taking: Reported on 12/14/2022) predniSONE (DELTASONE) 10 mg tablet 4 tablets po daily for 2 days then 3 tablets po daily for 2 days then 2 tablets po daily for 2 days then 1 tablet po daily for 2 days (Patient not taking: Reported on 12/14/2022) gabapentin 100 mg capsule Take 100 mg by mouth twice daily. BACLOFEN ORAL Take by mouth. (Patient not taking: Reported on 12/14/2022) estradiol (VIVELLE) 0.075 mg/24 hr Apply 1 Patch as directed. (Patient not taking: Reported on 12/14/2022) ALBUTEROL SULFATE (VENTOLIN INHALATION) Inhale as instructed. (Patient not taking: Reported on 12/14/2022) mometasone (NASONEX) 50 mcg/actuation nasal spray Use 2 Sprays in each nostril once daily. (Patient not taking: Reported on 12/14/2022) No current facility-administered medications for this visit. : ALLERGIES Allergen Reactions Tamsulosin Rash : PAST SURGICAL HISTORY Procedure Laterality Date PAST SURGICAL HISTORY OF repair right patella VAGINAL HYSTERECTOMY UTERUS 250 GM/< Hysterectomy, vaginal History reviewed. No pertinent family history.: Social History Tobacco Use Smoking status: Former Current packs/day: 0.00 Types: Cigarettes Quit date: 11/19/2019 Years since quittin.4 Smokeless tobacco: Never Substance Use Topics Alcohol use: Yes Comment: social Drug use: Never REVIEW OF SYSTEMS As per MA note MSK: + as noted in HPI. Physical Exam: Patient is alert and oriented x 3 in NADPatient is a 58 year old female who appea (more content not included)... Normal [facility] No Panel Informationon 04-29 Digital contractures noted 2-5 b/l with flexion at PIPJ and extension at MPJ. Flexion contracture at IPJ of hallux b/l. Diffuse joint space narrowing at midfoot and 1st MPJ b/l. All cortices are intact. No acute fxs or dislocations noted. No bony cyst or tumors noted. [facility] RADIOLOGY [facility] XR Foot - left AP and Latera l and obliqueon 04-29-2024 Radiology Study observation (narrative) [facility] XR Foot - right AP and Later al and obliqueon 04-29-2024 Radiology Study observation (narrative) [facility] Pulmonary Visit Reporton Pulmonary Visit Report [facility] Pulmonary Medicine of [address] [place] [address] OFFICE VISIT Date of Service: 04/25/24 MR#: [id number] Acct: [id number] Name: BRIONNA ROBLES Rep #: [id number] 1 : 1965 Provider: PAM Bai Age/Sex: 58/F [facility] [facility] [place] [place] Status: Signed Assessment and Plan Assessment and Plan (1) Asthma: Status: Chronic Qualifiers: Asthma severity: severe Asthma persistence: persistent Asthma complication type: unspecified Qualified Code(s): J45.50 - Severe persistent asthma, uncomplicated Comment: On Xolair biweekly Plan: Stable, no signs of exacerbation of asthma today. She has had 1 exacerbation in the past 12 months requiring prednisone. No change in maintenance medications, including Xolair biweekly. I did discuss with the patient that since that she has been prescribed Xolair there are new Biologics that act on other pathways. The patient reports that she does have nasal polyps, therefore she may benefit from an alternative biologic to treat her asthma that would also subsequently benefit treating her nasal polyps as well. Plan to repeat a pulmonary function test prior to the patient's return to the office. If the pulmonary function test indicates disease progression, may consider changing the patient's biologic. Contact the office with any signs of new or worsening symptoms. Follow-up in [address] Coulter. (2) Allergies: Status: Chronic Qualifiers: Encounter type: subsequent encounter Qualified Code(s): T78.40XD - Allergy, unspecified, subsequent encounter Plan: Fairly well-controlled with the use of Singulair. She has not recently been on her Flonase. I did suggest that postnasal drip could be contributing to her hoarse sounding voice. She conveys understanding. She will utilize the Flonase 1 spray each nostril daily for 2 or 3 days and then take a 2 or 3-day break. Historically, she has noticed increase in epistaxis when taking Flonase daily. She is agreeable with this plan. Orders: Orders PFT Complete: DLCO, Spirometry b/a bronchodilators, lung volumes 5 Months J45.50 - Severe persistent asthma, uncomplicated Plan Details Follow Up: 10/19/24 (DMB) HPI HPI Comments Details: This patient presents to the office today for annual follow-up of her asthma. She is ambulatory and currently on room air. She has not recently been seen in the ED or urgent care for any respiratory illness. She has not recently required any antibiotics or prednisone for any breathing problems. She has needed one prednisone burst in the past 12 months, that was ordered by this practice. She is compliant with the use of Advair twice daily. She does report rinsing her mouth out after each use. She denies any medication side effects such as sore throat or thrush. She is having hoarseness and phlegm caught in her throat. She also reports postnasal drip, however she has not been able to utilize Flonase as when she uses it daily she experiences frequent nosebleeds. She is also compliant with Singulair daily. She is currently on Xolair biweekly injections, performed at home. Currently she has occasional shortness of breath on exertion. She denies any cough, sputum production or hemoptysis. She denies any wheezing, chest tightness, chest pain or palpitations. She also denies any fever, chills or body aches. Intake Vital Signs 04/24/23 07:48 10/04/23 12:44 03/25/24 11:14 04/25/24 08:52 Height 6 ft 6 ft 6 ft 6 ft Weight: 151 lb 152 lb BMI 20.5 20.6 BP 133/80 H 111/72 Blood Pressure Location Lt brachial Rt brachial Position Sitting Sitting Respiration 18 18 Pulse 54 L 60 Pulse Source NIBP Monitor Temp 96.4 F L Temperature Source Temporal Artery Pulse Oximetry (%) 96 Oxygen Delivery Method room air Intake Visit Reasons: 1 Y FU Chief Complaint: Lipoma on back Station Tender Required: No DME Vendor: n/a Accompanied by: Self Is patient in pain?: No Allergies egg Allergy (Verified 04/25/24 13:44) Headache, increased sinus drainage Medications ???Medication ???Instructions ???Recorded ???Confirmed ???Type pregabalin 200 mg capsule (Lyrica) 200 mg PO BID 08/25/21 04/25/24 History pregabalin 100 mg capsule (Lyrica) 100 mg PO DAILY 08/31/22 04/25/24 History magnesium citrate 100 mg capsule 200 mg PO DAILY Constipation 04/24/23 04/25/24 History omalizumab 150 mg subcutaneous 300 mg subcut Q2W #2 ea 06/08/23 04/25/24 Rx solution (Xolair) fluticasone 500 mcg-salmeterol 50 1 inh inhalation BID #3 device 06/14/23 04/25/24 Rx mcg/dose blistr powdr for inhalation (Advair Diskus) fluticasone propionate 50 2 spray intranasal DAILY PRN nasal 08/06/23 04/25/24 Rx mcg/actuation nasal congestion #3 ea spray,suspension metoprolol succinate 25 mg 25 mg (more content not included)... Normal [facility] Cardiology Visit Reporton Cardiology Visit Report [facility] [address] [place], [place] [address] OFFICE VISIT Date of Service: 03/25/24 MR#: [id number] Acct: [id number] Name: BRIONNA ROBLES Rep #: [id number] : 1965 Provider: ZOEY Cordova Age/Sex: 58/F [place] [facility] [place] Status: Signed HPI HPI History of Present Illness Details: Brionna Robles is a 58 year old female that presents here today for a cardiovascular follow up. She has a history of aortic valve insufficiency, thoracoabdominal aortic aneurysm, and a family history of Marfan syndrome. The patient states that both her and her daughter have been evaluated for Marfan syndrome in the past and have been deemed negative. She states her sister has Marfan syndrome and has undergone some form of cardiothoracic surgery at [facility] in the past. From a cardiac standpoint, patient is doing well. She is under a lot of stress and is having pain which she contributes to her CMT. She dos have palpitations, these are not new. She does not have any chest discomfort/heaviness/tightn ess. She does not have any worsening symptoms of shortness of breath. She does not have any orthopnea. She denies PND. She does not have any symptoms of congestive heart failure. She does not have any lightheadedness or dizziness. She does not have any near-syncope or syncope. She does not have any lower extremity edema. She does not have any symptoms of claudication. Intake Vital Signs 03/21/23 11:37 10/04/23 12:44 03/25/24 11:14 Height 6 ft 6 ft 6 ft Weight: 151 lb BMI 20.5 BP 133/80 H Blood Pressure Location Lt brachial Position Sitting Respiration 18 Pulse 54 L Pulse Source NIBP Intake Visit Reasons: 1 Y FU/PREV PFM Station Tender Required: No Accompanied by: Self Is patient in pain?: Yes (r/t CMT per pt, being treated) Pain scale (1-10): 8 Allergies egg Allergy (Verified 03/25/24 11:09) Headache, increased sinus drainage Medications ???Medication ???Instructions ???Recorded ???Confirmed ???Type pregabalin 200 mg capsule (Lyrica) 200 mg PO BID 08/25/21 03/25/24 History pregabalin 100 mg capsule (Lyrica) 100 mg PO DAILY 08/31/22 03/25/24 History magnesium citrate 100 mg capsule 200 mg PO DAILY Constipation 04/24/23 03/25/24 History omalizumab 150 mg subcutaneous 300 mg subcut Q2W #2 ea 06/08/23 03/25/24 Rx solution (Xolair) fluticasone 500 mcg-salmeterol 50 1 inh inhalation BID #3 device 06/14/23 03/25/24 Rx mcg/dose blistr powdr for inhalation (Advair Diskus) fluticasone propionate 50 2 spray intranasal DAILY PRN nasal 08/06/23 03/25/24 Rx mcg/actuation nasal congestion #3 ea spray,suspension metoprolol succinate 25 mg 25 mg PO DAILY #90 tabs 11/13/23 03/25/24 Rx tablet,extended release 24 hr montelukast 10 mg tablet 10 mg PO DAILY #90 tabs 11/13/23 03/25/24 Rx (Singulair) epinephrine 0.3 mg/0.3 mL 0.3 mg (0.3 mL) IM ONCE #2 ea 02/12/24 03/25/24 Rx injection, auto-injector (EpiPen) ascorbic acid (vitamin C) 1,000 mg 1 g PO QDAY 03/25/24 03/25/24 History tablet omalizumab 75 mg/0.5 mL 75 mg subcut Q2W 03/25/24 03/25/24 History subcutaneous syringe (Xolair) Have you fallen in the past year?: No [facility] Medical History Thoracoabdominal aortic aneurysm (TAAA) without rupture Family history of Marfan syndrome GERD (gastroesophageal reflux disease) Right patella fracture Aortic aneurysm CMT (Adwcuyc-Xojuf-Mrite disease) Asthma Surgical History History of umbilical hernia repair History of sinus surgery History of right knee surgery History of hysterectomy History of cholecystectomy Family History Grandmother Throat cancer Mother Hypertension Sister Marfan syndrome Social History Smoking Status: Former smoker alcohol intake: current details: occasionally substance use type: does not use caffeine: Yes what type of physical activity do you participate in: bicycling frequency: 3-4 times per week seatbelt use: always do you feel safe at home: Yes additional social history: - Luis Patient works in Diagnostics at [employer] ROS Const Const: Positive for fatigue and weakness; Negative for headache(s) Eyes Eyes: Negative for change in vision ENT ENT: Negative for headache(s) or dizziness Cardio Chest Pain: No Palpitations: Yes Edema: None Muscle aches with walking: None Resp Respiratory: Negative for SOB with activity (does have asthma), SOB at rest or SOB orthopnea SOB lying down GI GI: Negative black,tarry stools : Negative for hematuria Musc Musc: Po (more content not included)... Normal [facility] MR Brain WO and W contrast I Von 02-23-2024 IMPRESSION: No evidence of an intracranial acute process or mass. 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 Bag Printer: MARCOS Transcribe Date/Time: Feb 23 2024 2:06P Dictated by : DANISH WOODS MD This examination was interpreted and the report reviewed and electronically signed by: DANISH WOODS MD on Feb 23 2024 2:09PM [facility] RAD[facility]OLOG[facility] * * *Final Report* * * DATE OF EXAM: Feb 23 2024 11:10AM [facility] 0295 - MRI BRAIN WO/W IVCON / PROCEDURE REASON: IMPAIRED COGNITION * * * * Physician Interpretation * * * * EXAMINATION: MRI BRAIN WO/W IVCON CLINICAL HISTORY: IMPAIRED COGNITION TECHNIQUE: Routine brain MRI protocol without and with contrast including diffusion images. MQ: MRBWOW_2 Contrast: 14 mL Dotarem IV COMPARISON: None. RESULT: Acute Change: There is no evidence of restricted diffusion to suggest an acute infarct. Hemorrhage: No evidence of prior parenchymal hemorrhage on the gradient echo images. Mass Lesion/ Mass Effect: No evidence of an intracranial mass or extra-axial fluid collection. No abnormal parenchymal or leptomeningeal enhancement is noted following contrast administration. No significant mass effect. Chronic Change: The white matter is within normal limits of signal intensity for age. Parenchyma: No significant volume loss for age. Ventricles: Normal caliber and morphology. Skull Base: Hypothalamic and pituitary region are grossly normal. Craniocervical junction is normal. No significant marrow replacement process. Vasculature: Major intracranial arterial structures, and dural venous sinuses show typical flow void, suggesting patency by spin echo criteria. Other: Left maxillary sinus polypoid lesion extending posteriorly into the nasal cavity suggesting antrochoanal polyp. Suggest correlation with clinical exam findings. There has been prior sinus surgery. Scattered polypoid mucosal thickening in the ethmoid air cells and right maxillary sinus. Fluid in the sphenoid sinuses. [facility] RADIOLOGY Provider, Lui Cronin - 02/23/2024 * * *Final Report* * * DATE OF EXAM: Feb 23 2024 11:10AM [facility] 0295 - MRI BRAIN WO/W IVCON / PROCEDURE REASON: IMPAIRED COGNITION * * * * Physician Interpretation * * * * EXAMINATION: MRI BRAIN WO/W IVCON CLINICAL HISTORY: IMPAIRED COGNITION TECHNIQUE: Routine brain MRI protocol without and with contrast including diffusion images. MQ: MRBWOW_2 Contrast: 14 mL Dotarem IV COMPARISON: None. RESULT: Acute Change: There is no evidence of restricted diffusion to suggest an acute infarct. Hemorrhage: No evidence of prior parenchymal hemorrhage on the gradient echo images. Mass Lesion/ Mass Effect: No evidence of an intracranial mass or extra-axial fluid collection. No abnormal parenchymal or leptomeningeal enhancement is noted following contrast administration. No significant mass effect. Chronic Change: The white matter is within normal limits of signal intensity for age. Parenchyma: No significant volume loss for age. Ventricles: Normal caliber and morphology. Skull Base: Hypothalamic and pituitary region are grossly normal. Craniocervical junction is normal. No significant marrow replacement process. Vasculature: Major intracranial arterial structures, and dural venous sinuses show typical flow void, suggesting patency by spin echo criteria. Other: Left maxillary sinus polypoid lesion extending posteriorly into the nasal cavity suggesting antrochoanal polyp. Suggest correlation with clinical exam findings. There has been prior sinus surgery. Scattered polypoid mucosal thickening in the ethmoid air cells and right maxillary sinus. Fluid in the sphenoid sinuses. IMPRESSION IMPRESSION: No evidence of an intracranial acute process or mass. 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 Bag Printer: MARCOS Transcribe Date/Time: Feb 23 2024 2:06P Dictated by : DANISH WOODS MD This examination was interpreted and the report reviewed and electronically signed by: DANISH WOODS MD on Feb 23 2024 2:09PM EST [facility] Radiology Study observation (narrative) [facility] MR Brain WO and W contrast I VOrdered By: [facility] Provider on 02-23-2024 [facility] MRI BRAIN WO/W IVCONon 02-22 MRI BRAIN WO/W IVCON * * *Final Report* * * DATE OF EXAM: Feb 23 2024 11:10AM [facility] 0295 - MRI BRAIN WO/W IVCON / PROCEDURE REASON: IMPAIRED COGNITION * * * * Physician Interpretation * * * * EXAMINATION: MRI BRAIN WO/W IVCON CLINICAL HISTORY: IMPAIRED COGNITION TECHNIQUE: Routine brain MRI protocol without and with contrast including diffusion images. MQ: MRBWOW_2 Contrast: 14 mL Dotarem IV COMPARISON: None. RESULT: Acute Change: There is no evidence of restricted diffusion to suggest an acute infarct. Hemorrhage: No evidence of prior parenchymal hemorrhage on the gradient echo images. Mass Lesion/ Mass Effect: No evidence of an intracranial mass or extra-axial fluid collection. No abnormal parenchymal or leptomeningeal enhancement is noted following contrast administration. No significant mass effect. Chronic Change: The white matter is within normal limits of signal intensity for age. Parenchyma: No significant volume loss for age. Ventricles: Normal caliber and morphology. Skull Base: Hypothalamic and pituitary region are grossly normal. Craniocervical junction is normal. No significant marrow replacement process. Vasculature: Major intracranial arterial structures, and dural venous sinuses show typical flow void, suggesting patency by spin echo criteria. Other: Left maxillary sinus polypoid lesion extending posteriorly into the nasal cavity suggesting antrochoanal polyp. Suggest correlation with clinical exam findings. There has been prior sinus surgery. Scattered polypoid mucosal thickening in the ethmoid air cells and right maxillary sinus. Fluid in the sphenoid sinuses. IMPRESSION: No evidence of an intracranial acute process or mass. 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 Bag Printer: PSCB Transcribe Date/Time: Feb 23 2024 2:06P Dictated by : DANISH WOODS MD This examination was interpreted and the report reviewed and electronically signed by: DANISH WOODS MD on Feb 23 2024 2:09PM EST [id number] [facility] 02-15-2024 CNPN Telephone (AGPOB1) BRIONNA ROBLES ([id number]) 1965 [facility] Date Time Provider Department 02/15/24 AG ORTH AGPOB1 During your visit today, we recorded the following information about you: Nellie Ribera 02/15/2024 3:28 PM Signed ----- Message from Chel Stanford sent at 02/15/2024 2:58 PM EDT ----- Regarding: Orthopedics / Open Foot: Ingrown Toenail / Scheduling Question Contact: Orthopedics / Open Foot: Ingrown Toenail / Scheduling Question Patient has been identified by name and Date of (Y/N): y Patient: Brionna Robles Date of : 1965 Previous Provider Seen: Dr Quach Body Part(s) Identified: b/l feet Diagnosis/Reason For Visit: patient has appt w/ Dr Pastor 02/28/24 for foot pain. Wanted to see him for ingrown toenails as well. Advised patient that Dr Pastor does not see for ingrown toenails and she would need to schedule separate appointment. She was hoping to schedule that appt for the same day, and further advised her that I cannot schedule two ortho appts on the same day. Patient said she needs to travel a great distance and if there was any way someone could look at her nails when she's there to see Dr Rodriguez, she would be most grateful Reason for the call/escalation: see above If reason for call/escalation is discharge from ED/ER or Hospital, which facility was the patient seen at: n/a Was an appointment scheduled (Y/N): y Person calling if other than patient: n/a Return call to if other than patient: n/a Best contact number: [phone] Thank you, Chel Salas February 15, 2024 3:00 PM Nellie Ribera 02/15/2024 4:54 PM Signed I spoke with the patient and scheduled an appointment. Nellie Ribera Allergies As of Date: 02/15/2024 Noted Allergy Reaction TAMSULOSIN 12/16/2008 2 - Rash Date Reviewed: 12/14/2022 Reviewed by: Akil Quach MD - Fully Assessed Prescriptions as of 02/15/2024 - omalizumab (XOLAIR) 150 mg/mL syringe Inject 375 mg subcutaneously. - cholecalciferol (VITAMIN D-3) 5,000 unit tab Take 2,000 Units by mouth once daily. - vit C/zinc citrate/elderberry (SAMBUCUS ELDERBERRY ORAL) Take 2 teaspoonsful by mouth. - mv-mn/folic acid/vit [id number] (ALIVE ONCE DAILY WOMEN 50 PLUS ORAL) Take by mouth. - pregabalin (LYRICA) 100 mg capsule Take 100 mg by mouth once daily. - metoprolol tartrate, short acting, (LOPRESSOR) 25 mg tablet Take 25 mg by mouth once daily. - mirabegron (MYRBETRIQ) 25 mg Tb24 Take 25 mg by mouth once daily. - montelukast (SINGULAIR) 10 mg tablet Take 10 mg by mouth daily at bedtime. - Pregabalin (LYRICA) 200 mg capsule TAKE ONE CAPSULE BY MOUTH 2 TIMES A DAY - Syringe, Disposable, 3 mL syrg USE DIRECTED - BD DISPOSABLE NEEDLES 18 gauge x 1 ndle USE DIRECTED - STERILE WATER FOR INJECTION injection USE DIRECTED WITH XOLAIR - BD DISPOSABLE NEEDLES 25 gauge x 5/8 ndle USE DIRECTED - amoxicillin (POLYMOX, AMOXIL) 500 mg capsule Take 1 capsule by mouth three times daily. - fluticasone-salmeterol (ADVAIR DISKUS) 250-50 mcg/dose dsdv Inhale 1 Puff as instructed twice daily. Rinse and gargle mouth with water after each use. - albuterol (PROVENTIL) 2.5 mg /3 mL (0.083 %) nebulizer solution Use 3 mL via nebulizer every 4 hours as needed for Wheezing/Shortness of Breath. Inhale over 5-15 minutes - predniSONE (DELTASONE) 10 mg tablet 4 tablets po daily for 2 days then 3 tablets po daily for 2 days then 2 tablets po daily for 2 days then 1 tablet po daily for 2 days - gabapentin 100 mg capsule Take 100 mg by mouth twice daily. - BACLOFEN ORAL Take by mouth. - estradiol (VIVELLE) 0.075 mg/24 hr Apply 1 Patch as directed. - Ascorbic Acid (VITAMIN C) 100 mg tablet Take 100 mg by mouth once daily. - ALBUTEROL SULFATE (VENTOLIN INHALATION) Inhale as instructed. - mometasone (NASONEX) 50 mcg/actuation nasal spray Use 2 Sprays in each nostril once daily. Problem List As Of Date: 02/15/2024 (None) Encounter Status:Closed by NELLIE RIBERA on 02/15/24 Normal [facility] XR Foot - left AP and Latera l and obliqueon 01-16-2024 IMPRESSION: No acute osseous abnormality. Osteopenia and multiple hammertoe deformities Bag Printer: PSCB Transcribe Date/Time: Jan 16 2024 4:23A Dictated by : EVY AH MD This examination was interpreted and the report reviewed and electronically signed by: EVY HA MD on Jan 16 2024 4:25AM EST [facility] RADIOLOGY * * *Final Report* * * DATE OF EXAM: Jan 11 2024 1:30PM [id number] - XR FOOT 3V AP/LAT/OBL LT / PROCEDURE REASON: PAIN * * * * Physician Interpretation * * * * XR FOOT 3V AP/LAT/OBL LT Ordering Physician: DAIANA GRIMES LEFT FOOT 3 VIEWS Clinical Statement: Pain FINDINGS: The bones are osteopenic. No acute fractures. Multiple hammertoe deformities. No periarticular calcifications or erosive arthropathy. [facility] RADIOLOG[facility] Provider, Claudia Bill Cronin - 01/16/2024 * * *Final Report* * * DATE OF EXAM: Jan 11 2024 1:30PM [id number] - XR FOOT 3V AP/LAT/OBL LT / PROCEDURE REASON: PAIN * * * * Physician Interpretation * * * * XR FOOT 3V AP/LAT/OBL LT Ordering Physician: DAIANA GRIMES LEFT FOOT 3 VIEWS Clinical Statement: Pain FINDINGS: The bones are osteopenic. No acute fractures. Multiple hammertoe deformities. No periarticular calcifications or erosive arthropathy. IMPRESSION IMPRESSION: No acute osseous abnormality. Osteopenia and multiple hammertoe deformities Bag Printer: MARCOS Transcribe Date/Time: Jan 16 2024 4:23A Dictated by : EVY HA MD This examination was interpreted and the report reviewed and electronically signed by: EVY HA MD on Jan 16 2024 4:25AM EST [facility] XR Foot - left AP and Latera l and obliqueOrdered By: Ccf Provider on 01-16-2024 [facility] XR FOOT 3V AP/LAT/OBL LTon 0 01-11-2024 XR FOOT 3V AP/LAT/OBL LT * * *Final Report* * * DATE OF EXAM: Jan 11 2024 1:30PM [id number] - XR FOOT 3V AP/LAT/OBL LT / PROCEDURE REASON: PAIN * * * * Physician Interpretation * * * * XR FOOT 3V AP/LAT/OBL LT Ordering Physician: DAIANA GRIMES LEFT FOOT 3 VIEWS Clinical Statement: Pain FINDINGS: The bones are osteopenic. No acute fractures. Multiple hammertoe deformities. No periarticular calcifications or erosive arthropathy. IMPRESSION: No acute osseous abnormality. Osteopenia and multiple hammertoe deformities Bag Printer: [facility] CENTERFranky Transcribe Date/Time: Jan 16 2024 4:23A Dictated by : EVY HA MD This examination was interpreted and the report reviewed and electronically signed by: EVY HA MD on Jan 16 2024 4:25AM EST [id number] [facility] XR Foot - left AP and Latera l and obliqueon 01-11-2024 Radiology Study observation (narrative) [facility] Absolute lymphocyte countOrd ered By: Daiana Grimes on 09-27-2023 Lymphocytes Auto (Unsp spec) [#/Vol] 1.60 10*3/uL 0.83-4.51 [facility] Automated lymphocyte count a s percentage of total leukocytesOrdered By: Daiana Grimes on 09-27-2023 Lymphocytes/100 WBC Auto (Unsp spec) 28.0 % 19-41 [facility] Basophil percentageOrdered B y: Daiana Grimes on 09-27-2023 Basophils/100 WBC (Bld) 1.1 % 0-1 [facility] Bilirubin [Mass/Vol] 0.30 mg/dL 0.20-1.00 [facility] Comment on above: For patients on eltr ombopag therapy, use of Dimension [place] TBIL is not recommended. Chloride [Moles/Vol] 111 mmol/L 98-107 [facility] Cholesterol [Mass/Vol] 162 mg/dL <200 [facility] Comment on above: <200 mg/dL Desirable 200-240 mg/dL Borderline >240 mg/dL High Risk Eosinophils/100 WBC (Bld) 4.6 % 0-5 [facility] Glucose [Mass/Vol] 89 mg/dL 74-106 [facility] Hemoglobin (Bld) [Mass/Vol] 14.1 g/dL 12.0-15.0 [facility] Monocytes/100 WBC (Bld) 10.2 % 0-10 [facility] Neutrophils (Bld) [#/Vol] 3.2 10*3/uL 2.0-7.7 [facility] Neutrophils/100 WBC (Bld) 55.7 % 47-70 [facility] Potassium [Moles/Vol] 3.8 mmol/L 3.5-5.1 [facility] Protein [Mass/Vol] 6.8 g/dL 6.4-8.2 [facility] Sodium [Moles/Vol] 141 mmol/L 136-145 [facility] Triglyceride [Mass/Vol] 42 mg/dL <199 [facility] Comment on above: The drugs N-Acetylcy steine and Metamizole may falsely depress this assay.Serum Triglycerides Reference Interval Normal <150 mg/dL Borderline high 150 - 199 mg/dL High 200 - 499 mg/dL Very High > or = 500 mg/dL WBC (Bld) [#/Vol] 5.7 10*3/uL 4.4-11.0 [facility] Determination of erythrocyte mean corpuscular volume (MCV)Ordered By: Daiana Grimes on 09-27-2023 MCV (RBC) [Entitic vol] 90.9 fL 81-99 [facility] Erythrocyte distribution wid th ratioOrdered By: Daiana Grimes on 09-27-2023 Erythrocyte distribution width (RBC) [Ratio] 13.5 % 11.6-14.6 [facility] Erythrocyte distribution wid th standard deviationOrdered By: Daiana Grimes on 09-27-2023 Erythrocyte distribution width (RBC) [Entitic vol] 45.4 fL 35.1-43.9 [facility] Hematocrit Auto (Bld) [Volum e fraction]Ordered By: Daiana Grimes on 09-27-2023 Hematocrit (Bld) [Volume fraction] 44.0 % 37-47 [facility] Immature granulocytes/100 WB C Auto (Bld)Ordered By: Daiana Grimes on 09-27-2023 Immature granulocytes/100 WBC (Bld) 0.400 % 0.0-0.9 [facility] Comment on above: IG% - Immature Granu locytes (promyelocytes, myelocytes and metamyelocytes) > 1% indicates that a LEFT SHIFT is Present. Laboratory - Chemistry and C hemistry - challengeOrdered By: Daiana Grimes on 09-27-2023 Albumin/Globulin [Mass ratio] 1.1 {ratio} 0.9-2.4 [facility] ALP [Catalytic activity/Vol] 99 U/L 45-117 [facility] ALT [Catalytic activity/Vol] 20 U/L 13-56 [facility] Cholesterol in HDL [Mass/Vol] 64 mg/dL >40 [facility] Comment on above: The drugs N-Acetylcy steine and Metamizole may falsely depress this assay. Reference Range HDL <40 mg/dL Low HDL Cholesterol HDL >or= 60 mg/dL High HDL Cholesterol Cholesterol in LDL [Mass/Vol] 90 mg/dL 0-130 [facility] CO2 [Moles/Vol] 26.0 mmol/L 21.0-32.0 [facility] Globulin (S) [Mass/Vol] 3.3 g/dL 2.2-4.2 [facility] Urea nitrogen/Creatinine [Mass ratio] 22.6 mg/mg 10-20 [facility] Laboratory - Hematology and Cell countsOrdered By: Daiana Grimes on 09-27-2023 MCH (RBC) [Entitic mass] 29.1 pg 27.0-32.0 [facility] MCHC (RBC) [Mass/Vol] 32.0 g/dL 32-36 [facility] Nucleated RBC/100 WBC (Bld) [Ratio] 0 % 0-5 [facility] Platelet mean volume (Bld) [Entitic vol] 10.5 fL 6.2-12.0 [facility] Platelets (Bld) [#/Vol] 178 10*3/uL 150-450 [facility] No Panel InformationOrdered By: Daiana Grimes on 09-27-2023 Estimated GFR (MDRD) Amer 102 mL/min >60 [facility] Comment on above: GFR Calc Estimated GFR (MDRD) Non-Af Amer 84 mL/min >60 [facility] Comment on above: Non- GFR Calc Vitamin D 25-Hydroxy 38.0 ng/mL [facility] Comment on above: Vitamin D 25(OH) Sta tus Range Deficiency <20 ng/mL (50nmol/L) Insufficiency 20 - 30 ng/mL (50 - 75 nmol/L) Sufficiency 30 - 100 ng/mL (75 - 250 nmol/L) Toxicity >100 ng/mL (>250 nmol/L) VLDL Cholesterol 8 mg/dL 5-40 [facility] RBC Auto (Bld) [#/Vol]Ordere d By: Daiana Grimes on 09-27-2023 RBC (Bld) [#/Vol] 4.84 10*6/uL 4.2-5.4 [facility] Serum or plasma calcium fartun urement (mass/volume)Ordered By: Daiana Grimes on 09-27-2023 Calcium [Mass/Vol] 9.4 mg/dL 8.5-10.1 [facility] Serum or plasma creatinine m easurement (mass/volume)Ordered By: Daiana Grimes on 09-27-2023 Creatinine [Mass/Vol] 0.75 mg/dL 0.55-1.02 [facility] Comment on above: The validity of the calculated GFR & GFRAA in patients over 70 years has not been determined. Clinical correlation is essential. Serum or plasma urea nitroge n measurement (mass/volume)Ordered By: Daiana Grimes on 09-27-2023 Urea nitrogen [Mass/Vol] 17 mg/dL 7-18 [facility] Thin prep Papanicolaou smear with manual screeningOrdered By: Daiana Grimes on 09-27-2023 Thin prep Papanicolaou smear with manual screening 3.5 g/dL 3.2-5.0 [facility] Thin prep Papanicolaou smear with manual screening 21 U/L 15-37 [facility] Thin prep Papanicolaou smear with manual screening 4 5-15 [facility] Culture, urineOrdered By: Marcus Heller on 09-18-2023 Bacteria identified Cx Nom (U) Culture exhibits no growth. [facility] Laboratory - Chemistry and C hemistry - challengeon 09-18-2023 Bilirubin Ql (U) Negative [facility] Glucose Ql (U) Negative [facility] Ketones Ql (U) Negative [facility] pH (U) 5.0 [pH] [facility] Specific gravity (U) [Rel density] 1.005 [facility] Urobilinogen (U) [Mass/Vol] 0.5366787 mg/dL [facility] Laboratory - Specimen inform ationon 09-18-2023 Clarity (U) Clear [facility] Color (U) Yellow [facility] Laboratory - Urinalysison Nitrite Ql (U) Negative [facility] Protein Ql (U) Negative [facility] No Panel Informationon 09-17 Urine Leukocytes Negatve [facility] Basophil percentageOrdered B y: Sussy Roach on 04-17-2023 Creatinine [Mass/Vol] 1.1 mg/dL 0.55-1.02 [facility] Laboratory - Chemistry and C hemistry - challengeOrdered By: Sussy Roach on 04-17-2023 GFR/1.73 sq M.predicted among non-blacks MDRD (S/P/Bld) [Vol rate/Area] 55.0000 mL/min/{1.73_m2} >60 [facility] No Panel InformationOrdered By: Evelyn Hu on 12-29-2022 Miscellaneous Test See comment [facility] Comment on above: Scanned image report available [facility] EMR [facility] HNO ID: [id number] Author: Molly Lyons RT(R) Service: Radiology Author Type: Hand Clerical Verifier Type: Allied Health Filed: 12/09/2022 7:15 PM Note Text: Radiology Service Progress Note PATIENT NAME: Brionna Robles DATE OF SERVICE: December 09, 2022 TIME: 7:01 PM PATIENT IDENTITY VERIFICATION COMPLETED USING TWO (2) IDENTIFIERS: Name and Date of confirmed by patient verbally and Name and Date of confirmed by identification band. FALL SCREENING: Has the patient had 2 falls in the last year or 1 fall with injury or currently using an Ambulatory Assistive Device (Walker, Cane, Wheelchair, Crutches, etc.)? No PATIENT GENDER DATA: Female. status: : No status: NO. PATIENT RELEVANT IMPLANT DATA REVIEWED: Not Applicable RADIOLOGY DEPARTMENT: CT; Exam(s) Completed: Abdomen/Pelvis PERIPHERAL IV DATA: Not applicable SIGNED BY: RT Nasreen(R) December 09, 2022 7:[address] [facility] CBCDIFon 12-09-2022 Abs Baso 0.05 k/uL Normal 0-0.2 [facility] Comment on above: Performed By: #### C BCDIF, CMP, TROPI #### [facility] [address] [place] [address] Abs Kingsbury 0.71 k/uL Normal 0-0.8 [facility] Comment on above: Performed By: #### C BCDIF, CMP, TROPI #### [facility] [address] [place] [address] Abs Neut 4.62 k/uL Normal 1.8-7.7 [facility] Comment on above: Performed By: #### C BCDIF, CMP, TROPI #### [facility] [address] [place] [address] Basophils/100 WBC (Bld) 0.6 % Normal 0-1 [facility] Comment on above: Performed By: #### C BCDIF, CMP, TROPI #### [facility] [address] [place] [address] Eosinophils (Bld) [#/Vol] 0.10 10*3/uL Normal 0-0.4 [facility] Comment on above: Performed By: #### C BCDIF, CMP, TROPI #### [facility] [address] [place] [address] Eosinophils/100 WBC (Bld) 1.3 % Normal 0-4 [facility] Comment on above: Performed By: #### C BCDIF, CMP, TROPI #### [facility] [address] [place] [place] [address] Erythrocyte distribution width (RBC) [Ratio] 12.5 % Normal 11.5-14.5 [facility] Comment on above: Performed By: #### C BCDIF, CMP, TROPI #### [facility] [address] [place] [place] [address] Hematocrit (Bld) [Volume fraction] 42.5 % Normal 36.0-46.0 [facility] Comment on above: Performed By: #### C BCDIF, CMP, TROPI #### [facility] [address] [place] [address] Hemoglobin (Bld) [Mass/Vol] 14.3 g/dL Normal 12.0-16.0 [facility] Comment on above: Performed By: #### C BCDIF, CMP, TROPI #### [facility] [address] [place] [address] Immature Gran 0.30 % Normal 0-1.9 [facility] Comment on above: Performed By: #### C BCDIF, CMP, TROPI #### [facility] [address] [place] [address] Lymphocytes (Bld) [#/Vol] 2.44 10*3/uL Normal 1.0-4.0 [facility] Comment on above: Performed By: #### C BCDIF, CMP, TROPI #### [facility] [address] [place] [address] Lymphocytes/100 WBC (Bld) 30.7 % Normal 22-44 [facility] Comment on above: Performed By: #### C BCDIF, CMP, TROPI #### [facility] [address] [place] [address] MCH 29.9 pG Normal 26-34 [facility] Comment on above: Performed By: #### C BCDIF, CMP, TROPI #### [facility] [address] [place] [address] MCHC (RBC) [Mass/Vol] 33.6 g/dL Normal 31-37 [facility] Comment on above: Performed By: #### C BCDIF, CMP, TROPI #### [facility] [address] [place] [address] MCV (RBC) [Entitic vol] 88.9 fL Normal 80-100 [facility] Comment on above: Performed By: #### C BCDIF, CMP, TROPI #### [facility] [address] [place] [address] Monocytes/100 WBC (Bld) 8.9 % Normal 4-12 [facility] Comment on above: Performed By: #### C BCDIF, CMP, TROPI #### [facility] [address] [place] [address] Neutrophils/100 WBC (Bld) 58.2 % Normal 40-70 [facility] Comment on above: Performed By: #### C BCDIF, CMP, TROPI #### [facility] [address] [place] [address] NRBCs 0 /100 WBC Normal 0-0.9 [facility] Comment on above: Performed By: #### C BCDIF, CMP, TROPI #### [facility] [address] [place] [address] Platelets (Bld) [#/Vol] 175 10*3/uL Normal 150-450 [facility] Comment on above: Performed By: #### C BCDIF, CMP, TROPI #### [facility] [address] [place], [place] [id number] RBC (Bld) [#/Vol] 4.78 10*6/uL Normal 4.00-5.20 [facility] Comment on above: Performed By: #### C BCDIF, CMP, TROPI #### [facility] [address] [place], [place] [id number] WBC (Bld) [#/Vol] 7.94 10*3/uL Normal 4.5-11.0 [facility] Comment on above: Performed By: #### C BCDIF, CMP, TROPI #### [facility] [address] [place], [place] [id number] CT ABD/PEL WO IVCONon 2022 CT ABD/PEL WO IVCON * * *Final Report* * * DATE OF EXAM: Dec 09 2022 7:15PM ASC 0531 - CT ABD/PEL WO IVCON / PROCEDURE REASON: Abdominal pain, acute, nonlocalized * * * * Physician Interpretation * * * * EXAMINATION: CT ABDOMEN AND PELVIS WITHOUT IV CONTRAST CLINICAL HISTORY: Abdominal pain TECHNIQUE: Non-IV contrast imaging of the abdomen and pelvis was performed using standard technique, scanning from just above the dome of the diaphragm to the symphysis pubis. Unenhanced imaging is limited for the evaluation of some intra-abdominal and pelvic pathology. MQ: CTAPWO_3 Contrast: IV: None : ml of CT Radiation dose: Integrated Dose-length product (DLP) for this visit = 465 mGy*cm. CT Dose Reduction Employed: Automated exposure control(AEC) and iterative recon COMPARISON: CT pelvis 10/01/2018, CT chest 11/22/2016 RESULT: Abdomen / Pelvis: Limitations: Lack of intravenous contrast limits evaluation Liver: Hepatic cysts measuring up to 5 cm in the left hepatic lobe. Biliary: Cholecystectomy. Spleen: No splenomegaly. Pancreas: Unremarkable. Adrenals: No mass. Kidneys: No calculus or hydronephrosis. Fluid density lesion measuring 1.4 cm x 1.5 cm in the upper pole of the left kidney with questionable soft tissue along the periphery. GI Tract: No bowel dilation. Normal appendix. Moderate stool burden. Lymph Nodes: No lymphadenopathy. Mesentery/peritoneum: No ascites. Retroperitoneum: No mass. Vasculature: Arterial atherosclerotic disease without aneurysm. Pelvis: Uterus is surgically absent. No ascites. Bones/Soft Tissues: No acute abnormality. Redemonstration of sacral cysts posterior to S2 and S3 expanding the neural foramen. Lower thorax: Unremarkable. Meat Soaker (topogram) images: No additional findings. IMPRESSION: 1. No acute CT findings in the abdomen or pelvis. 2. Probable 1.5 cm cyst in the upper pole of the left kidney however there appears to be soft tissue thickening along the periphery. Recommend further evaluation with nonemergent CT or MRI renal protocol. ACTIONABLE RESULT: FOLLOW-UP Acuity: Actionable Findings: Kidneys/Ureters/Bladder Routing Code: GU_1 Recommendation: Unlisted Recommendation (see report) Time Frame: Additional evaluation as described in the impression COMMUNICATION: Results will be communicated with the ordering provider via DreamNotes staff message or phone message by [facility] within 2 business days of report finalization. ========= Algorithms for management of incidental imaging findings can be found on the [facility] Intranet Sharepoint site at: [email or web address] %[email or web address]%20Findi ngs%20at%[email or web address]/Forms/Al [email or web address] Bag Printer: MARCOS Transcribe Date/Time: Dec 09 2022 9:11P Dictated by : EMMA MABRY MD This examination was interpreted and the report reviewed and electronically signed by: EMMA MABRY MD on Dec 09 2022 9:25PM EST [id number] ACTIONABLE Invalid Interpretation Code [facility] Comp Metabolic Panelon 12-09 Albumin [Mass/Vol] 4.4 g/dL Normal 3.5-5.0 [facility] Comment on above: Performed By: #### C BCDIF, CMP, TROPI #### [facility] [address] [place] [address] Alkaline Phos 133 U/L High 38-125 [facility] Comment on above: Performed By: #### C BCDIF, CMP, TROPI #### [facility] [address] [place] [address] ALT [Catalytic activity/Vol] 25 U/L Normal 0-34 [facility] Comment on above: Performed By: #### C BCDIF, CMP, TROPI #### [facility] [address] [place] [address] Anion gap [Moles/Vol] 9 mmol/L Normal 0-15 [facility] Comment on above: Performed By: #### C BCDIF, CMP, TROPI #### [facility] [address] [place] [address] AST [Catalytic activity/Vol] 30 U/L Normal 17-59 [facility] Comment on above: Performed By: #### C BCDIF, CMP, TROPI #### [facility] [address] [facility] [place] [address] Bilirubin [Mass/Vol] 0.4 mg/dL Normal 0.2-1.3 [facility] Comment on above: Performed By: #### C BCDIF, CMP, TROPI #### [facility] [address] [facility] [place] [address] Calcium [Mass/Vol] 9.7 mg/dL Normal 8.4-10.2 [facility] Comment on above: Performed By: #### C BCDIF, CMP, TROPI #### [facility] [address] [facility] [place] [address] Chloride [Moles/Vol] 107 mmol/L Normal 98-107 [facility] Comment on above: Performed By: #### C BCDIF, CMP, TROPI #### [facility] [address] [place] [address] CO2 [Moles/Vol] 29 mmol/L Normal 22-30 [facility] Comment on above: Performed By: #### C BCDIF, CMP, TROPI #### [facility] [address] [facility] [place] [address] Creatinine [Mass/Vol] 0.76 mg/dL Normal 0.52-1.04 [facility] Comment on above: Performed By: #### C BCDIF, CMP, TROPI #### [facility] [address] [place] [address] eGFR Amer >60 Normal >60 [facility] Comment on above: Result Comment: MDRD calculation used for eGFR results. Performed By: #### C BCDIF, CMP, TROPI #### [facility] [address] [place] [address] eGFR non Am >60 Normal >60 [facility] Comment on above: Performed By: #### C BCDIF, CMP, TROPI #### [facility] [address] [place] [address] Glucose [Mass/Vol] 92 mg/dL Normal 74-106 [facility] Comment on above: Performed By: #### C BCDIF, CMP, TROPI #### [facility] [address] [place] [address] Potassium [Moles/Vol] 3.9 mmol/L Normal 3.5-5.1 [facility] Comment on above: Performed By: #### C BCDIF, CMP, TROPI #### [facility] [address] [place] [address] Protein [Mass/Vol] 7.4 g/dL Normal 6.2-8.2 [facility] Comment on above: Performed By: #### C BCDIF, CMP, TROPI #### [facility] [address] [place] [address] Sodium [Moles/Vol] 141 mmol/L Normal 137-145 [facility] Comment on above: Performed By: #### C BCDIF, CMP, TROPI #### [facility] [address] [place] [address] Urea nitrogen [Mass/Vol] 18 mg/dL High 7- [facility] Comment on above: Performed By: #### C BCDIF, CMP, TROPI #### [facility] [address] [place] [address] ECG COMPLETEon 12-09-2022 ECG COMPLETE NAME : BRIONNA ROBLES PID : [id number] : 1965 Gender : Female Race : ORD : [id number] Procedure Date : Dec 09 2022 19:24:33 Edit Date : Dec 11 2022 08:06:42 Diagnosis:Normal sinus rhythm Nonspecific ST abnormality Abnormal ECG No previous ECGs available Confirmed by Orion Pan M.D. ([id number]) on 12/11/2022 8:06:36 AM Ventricular Rate : 68 BPM Atrial Rate : 68 BPM P-R Interval : 168 ms QRS Duration : 94 ms Q-T Interval : 406 ms QTC Calculation(Bezet) : 431 ms P Morton : 51 degrees R Morton : -26 degrees T Morton : 1 degrees Test Reason : Location :[id number] Overread By : Orion Pan M.D. Editted By : Orion Pan M.D. Referred By : , Acquired by : [id number], [facility] ED NOTEon 12-09-2022 ED NOTE HNO ID: [id number] Author: Humberto Simpson RN Service: ? Author Type: Registered Nurse Type: ED Notes Filed: 12/09/2022 8:40 PM Note Text: Pt asking about taking home medication Lyrica. Dr. Madrid gives verbal order to hold medication at this time. Pt notified. [facility] ED NOTE HNO ID: [id number] Author: Humberto Simpson RN Service: ? Author Type: Registered Nurse Type: ED Notes Filed: 12/09/2022 7:30 PM Note Text: Pt provided with urine cup and notified of need for urine sample [facility] ED PROV NOTEon 12-09-2022 ED PROV NOTE HNO ID: [id number] Author: Sandy Madrid Jr., MD Service: ? Author Type: Physician Type: ED Provider Notes Filed: 12/09/2022 9:58 PM Note Text: ED Provider Note Patient Name: Brionna Robles : 1965 SERVICE DATE: 12/09/22 History Patient presents with: Constipation: Arrived with constipation-saw PCP few weeks ago for same-states has not had BM in a month other than small bm's-today is having bloating, and abdominal pain-has been taking Miralax This patient is a 56-year-old female who presents to the ED with abdominal pain. The patient states she has been constipated since November 18. She has taken multiple meds for same. The patient states she had a small bowel movement today. She denies nausea and vomiting. There is no fever on admission. She has a past history of asthma and an abdominal aortic aneurysm and Bjeonwh-Xfyvb-Dlakz syndrome. The patient had a CT of the abdomen pelvis 1 year ago and the size of the aneurysm was 3.8 cm at that time. 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 Social History Tobacco Use Smoking status: Every Day Packs/day: 0.30 Types: Cigarettes Smokeless tobacco: Not on file Substance and Sexual Activity Alcohol use: Yes Comment: social Drug use: Not on file Sexual activity: Not on file ALLERGIES No Known Allergies Review of Systems Constitutional: Negative. HENT: Negative. Eyes: Negative. Respiratory: Negative. Cardiovascular: Negative. Gastrointestinal: Positive for abdominal distention and abdominal pain. Negative for vomiting. Genitourinary: Negative. Musculoskeletal: Negative. Skin: Negative. Neurological: Negative. Psychiatric/Behavioral: Negative. Physical Exam Vitals [12/09/22 1823] BP Pulse Temp Temp src Resp SpO2 Weight Height 145/67 79 36.3 ?C (97.3 ?F) Temporal 18 97 % 72.6 kg (160 lb) -- Physical Exam Vitals and nursing note reviewed. Constitutional: Appearance: She is well-developed. HENT: Head: Normocephalic and atraumatic. Right Ear: External ear normal. Left Ear: External ear normal. Nose: Nose normal. Eyes: Conjunctiva/sclera: Conjunctivae normal. Pupils: Pupils are equal, round, and reactive to light. Cardiovascular: Rate and Rhythm: Normal rate and regular rhythm. Heart sounds: Normal heart sounds. Pulmonary: Effort: Pulmonary effort is normal. Breath sounds: Normal breath sounds. Abdominal: General: Bowel sounds are normal. There is distension. Palpations: Abdomen is soft. Tenderness: There is no abdominal tenderness. Musculoskeletal: General: Normal range of motion. Cervical back: Normal range of motion and neck supple. Skin: General: Skin is warm and dry. Neurological: Mental Status: She is alert and oriented to person, place, and time. Psychiatric: Mood and Affect: Mood normal. Behavior: Behavior normal. Diagnostic Testing ED Labs Ordered and Reviewed - No data to display Procedures ED Course / Clinical Impression Clinical Impressions as of 12/09/222145 Generalized abdominal pain Slow transit constipation MDM / Disposition / Plan MEDICAL DECISION MAKING Number and Complexity of Problems the patient presents with abdominal pain and constipation. The complexity is moderate Differential Diagnosis: Includes small bowel obstruction, large bowel obstruction, constipation MDM Data External documents reviewed . My EKG interpretation: EKG-normal sinus rhythm with nonspecific T wave changes. My CT interpretation: CT of the abdomen and pelvis reveals a 1.4 x 1.5 cm mass on the upper pole of the left kidney. There is no evidence of an abdominal aortic aneurysm. There is an atherosclerotic abdominal aorta. No evidence of obstruction. My X-ray interpretation: The chest x-ray was negative. My Ultrasound interpretation: Not applicable Tests considered but not ordered Decision rules/scores evaluated: Discussed with: Treatment and Disposition ED Course: The patient presents to the ED with constipation. The onset was off-and-on for the past month. The patient states she had a small bowel movement today. She complains of abdominal bloating however denies nausea and vomiting. She has a history of an abdominal aortic aneurysm which measured 3.8 cm [address] of the abdomen and pelvis reveals a 1.4 x 1.5 cm mass of the upper pole left kidney. There is no evidence of an abdominal aortic aneurysm. There is aortic sclerosis. The urinalysis revealed a UTI. I discussed the results with the patient. She verbalized understanding. The patient was discharged with a dose of magnesium citrate and a 7-day course of Macrobid. The patient will follow-up (more content not included)... Normal [facility] Troponin Ion 12-09-2022 Troponin I.cardiac [Mass/Vol] ng/mL Normal [facility] Comment on above: Result Comment: Troponin I Interpretation <0.012-0.034 Negative 0.035-0.119 [place] Zone: Risk Stratification >0.119 Consistent with AMI Biotin (Vitamin B7) is known to potentially cause an interfering NEGATIVE bias with this assay. If this result does not correlate clinically with your patient's presentation, it is suggested that Biotin use be discontinued for 2 days prior to re-testing. Performed By: #### C BCDIF, CMP, TROPI #### [facility] [address] [place] [address] Urinalysison 12-09-2022 Bilirubin Ql (U) Negative Normal Negative [facility] Comment on above: Performed By: #### U A #### [facility] [address] [place] [address] Clarity (U) Clear Normal Clear [facility] Comment on above: Performed By: #### U A #### [facility] [address] [place] [address] Color (U) Blue Critically abnormal Yellow [facility] Comment on above: Performed By: #### U A #### [facility] [address] [place] [address] Epithelial cells LM Ql (Urine sed) Few Normal [facility] Comment on above: Result Comment: Squa mous Epithelial Cells Performed By: #### U A #### [facility] [address] [place] [address] Glucose Ql (U) Negative Normal Negative [facility] Comment on above: Performed By: #### U A #### [facility] [address] [place] [address] Hemoglobin/Blood Negative Normal Negative [facility] Comment on above: Performed By: #### U A #### [facility] [address] [place] [address] Ketone Negative Normal Negative [facility] Comment on above: Performed By: #### U A #### [facility] [address] [place] [address] Leukest Small Critically abnormal Negative [facility] Comment on above: Performed By: #### U A #### [facility] [address] [place] [address] Nitrite Ql (U) Negative Normal Negative [facility] Comment on above: Performed By: #### U A #### [facility] [address] [place] [address] pH (U) 6.0 [pH] Normal 5-7 [facility] Comment on above: Performed By: #### U A #### [facility] [address] [place] [address] Protein Ql (U) Negative Normal Negative [facility] Comment on above: Performed By: #### U A #### [facility] [address] [place] [address] Urine Spec [place] 1.004 Low 1.005-1.[address] [facility] Comment on above: Performed By: #### U A #### [facility] [address] [place] [address] Urobilinogen (U) [Mass/Vol] mg/dL Normal 0.0-1.0 [facility] Comment on above: Performed By: #### U A #### [facility] [address] [place] [address] WBC 6-10 Critically abnormal 0-5 [facility] Comment on above: Performed By: #### U A #### [facility] [address] [place] [address] XR CHEST 1V FRONTAL PORTon 0 12-09-2022 XR CHEST 1V FRONTAL PORT * * *Final Report* * * DATE OF EXAM: Dec 09 2022 7:05PM ASX [id number] - XR CHEST 1V FRONTAL PORT / PROCEDURE REASON: Abdominal pain, acute, nonlocalized * * * * Physician Interpretation * * * * EXAMINATION: CHEST RADIOGRAPH (PORTABLE SINGLE VIEW AP) Exam Date/Time: 12/09/2022 7:05 PM CLINICAL HISTORY: Abdominal pain, acute, nonlocalized MQ: XCPR_5 Comparison: 04/01/2012. RESULT: Lines, tubes, and devices: None. Lungs and pleura: The lungs remain unremarkable with no evidence of infiltrates. The pleural margins appear normal. Cardiomediastinal silhouette: Stable cardiomediastinal silhouette. Other: The visualized bony thorax appears unremarkable. IMPRESSION: Stable exam with no evidence of acute disease. Bag Printer: PSCB Transcribe Date/Time: Dec 09 2022 7:34P Dictated by : MARAL BOBBY MD This examination was interpreted and the report reviewed and electronically signed by: MARAL BOBBY MD on Dec 09 2022 7:35PM EST [id number] Normal [facility] Absolute lymphocyte countOrd ered By: Dr. Grimes on 09-19-2022 Lymphocytes Auto (Unsp spec) [#/Vol] 1.97 10*3/uL 0.83-4.51 [facility] Basophil percentageOrdered B y: Dr. Grimes on 09-19-2022 Basophils/100 WBC (Bld) 0.9 % 0-1 [facility] Bilirubin [Mass/Vol] 0.50 mg/dL 0.20-1.00 [facility] Comment on above: For patients on eltr ombopag therapy, use of Dimension [place] TBIL is not recommended. Chloride [Moles/Vol] 111 mmol/L 98-107 [facility] Cholesterol [Mass/Vol] 146 mg/dL <200 [facility] Comment on above: <200 mg/dL Desirable 200-240 mg/dL Borderline >240 mg/dL High Risk Eosinophils/100 WBC (Bld) 3.7 % 0-5 [facility] Glucose [Mass/Vol] 86 mg/dL 74-106 [facility] Neutrophils (Bld) [#/Vol] 2.9 10*3/uL 2.0-7.7 [facility] Neutrophils/100 WBC (Bld) 50.8 % 47-70 [facility] Potassium [Moles/Vol] 4.0 mmol/L 3.5-5.1 [facility] Protein [Mass/Vol] 7.1 g/dL 6.4-8.2 [facility] Sodium [Moles/Vol] 143 mmol/L 136-145 [facility] Triglyceride [Mass/Vol] 26 mg/dL <199 [facility] Comment on above: The drugs N-Acetylcy steine and Metamizole may falsely depress this assay.Serum Triglycerides Reference Interval Normal <150 mg/dL Borderline high 150 - 199 mg/dL High 200 - 499 mg/dL Very High > or = 500 mg/dL WBC (Bld) [#/Vol] 5.7 10*3/uL 4.4-11.0 [facility] Blood erythrocytes count (nu mber/volume)Ordered By: Dr. Grimes on 09-19-2022 RBC (Bld) [#/Vol] 4.69 10*6/uL 4.2-5.4 [facility] Blood hemoglobin measurement (mass/volume)Ordered By: Dr. Grimes on 09-19-2022 Hemoglobin (Bld) [Mass/Vol] 13.9 g/dL 12.0-15.0 [facility] Blood lymphocytes/100 leukoc ytesOrdered By: Dr. Grimes on 09-19-2022 Lymphocytes/100 WBC (Bld) 34.7 % 19-41 [facility] Blood monocytes/100 leukocyt esOrdered By: Dr. Grimes on 09-19-2022 Monocytes/100 WBC (Bld) 9.7 % 0-10 [facility] Blood platelet mean volumeOr dered By: Dr. Grimes on 09-19-2022 Platelet mean volume (Bld) [Entitic vol] 10.1 fL 6.2-12.0 [facility] Determination of erythrocyte mean corpuscular volume (MCV)Ordered By: Dr. Grimes on 09-19-2022 MCV (RBC) [Entitic vol] 91.5 fL 81-99 [facility] Hematocrit Auto (Bld) [Volum e fraction]Ordered By: Dr. Grimes on 09-19-2022 Hematocrit (Bld) [Volume fraction] 42.9 % 37-47 [facility] Laboratory - Chemistry and C hemistry - challengeOrdered By: Dr. Grimes on 09-19-2022 ALP [Catalytic activity/Vol] 142 U/L 45-117 [facility] ALT [Catalytic activity/Vol] 25 U/L 13-56 [facility] CO2 [Moles/Vol] 27.0 mmol/L 21.0-32.0 [facility] Globulin (S) [Mass/Vol] 3.7 g/dL 2.2-4.2 [facility] Urea nitrogen/Creatinine [Mass ratio] 32.9 mg/mg 10-20 [facility] Laboratory - Hematology and Cell countsOrdered By: Dr. Grimes on 09-19-2022 Erythrocyte distribution width (RBC) [Entitic vol] 43.8 fL 35.1-43.9 [facility] Erythrocyte distribution width (RBC) [Ratio] 13.1 % 11.6-14.6 [facility] Immature granulocytes/100 WBC (Bld) 0.200 % 0.0-0.9 [facility] Comment on above: IG% - Immature Granu locytes (promyelocytes, myelocytes and metamyelocytes) > 1% indicates that a LEFT SHIFT is Present. MCH (RBC) [Entitic mass] 29.6 pg 27.0-32.0 [facility] Nucleated RBC/100 WBC (Bld) [Ratio] 0 % 0-5 [facility] MCHC Auto (RBC) [Mass/Vol]Or dered By: Dr. Grimes on 09-19-2022 MCHC (RBC) [Mass/Vol] 32.4 g/dL 32-36 [facility] No Panel InformationOrdered By: Dr. Grimes on 09-19-2022 Estimated GFR (MDRD) Amer 101 mL/min >60 [facility] Comment on above: GFR Calc Estimated GFR (MDRD) Non-Af Amer 83 mL/min >60 [facility] Comment on above: Non- GFR Calc Vitamin D 25-Hydroxy 49.0 ng/mL [facility] Comment on above: Vitamin D 25(OH) Sta tus Range Deficiency <20 ng/mL (50nmol/L) Insufficiency 20 - 30 ng/mL (50 - 75 nmol/L) Sufficiency 30 - 100 ng/mL (75 - 250 nmol/L) Toxicity >100 ng/mL (>250 nmol/L) Platelets bldOrdered By: Dr. Grimes on 09-19-2022 Platelets (Bld) [#/Vol] 186 10*3/uL 150-450 [facility] Serum or plasma albumin fartun urement (mass/volume)Ordered By: Dr. Grimes on 09-19-2022 Albumin [Mass/Vol] 3.4 g/dL 3.2-5.0 [facility] Serum or plasma albumin/glob ulin mass ratioOrdered By: Dr. Grimes on 09-19-2022 Albumin/Globulin [Mass ratio] 0.9 {ratio} 0.9-2.4 [facility] Serum or plasma calcium fartun urement (mass/volume)Ordered By: Dr. Grimes on 09-19-2022 Calcium [Mass/Vol] 9.0 mg/dL 8.5-10.1 [facility] Serum or plasma cholesterol in HDL measurement (mass/volume)Ordered By: Dr. Grimes on 09-19-2022 Cholesterol in HDL [Mass/Vol] 56 mg/dL >40 [facility] Comment on above: The drugs N-Acetylcy steine and Metamizole may falsely depress this assay. Reference Range HDL <40 mg/dL Low HDL Cholesterol HDL >or= 60 mg/dL High HDL Cholesterol Serum or plasma cholesterol in VLDL measurement (mass/volume)Ordered By: Dr. Grimes on 09-19-2022 Cholesterol in VLDL [Mass/Vol] 5 mg/dL 5-40 [facility] Serum or plasma creatinine m easurement (mass/volume)Ordered By: Dr. Grimes on 09-19-2022 Creatinine [Mass/Vol] 0.76 mg/dL 0.55-1.02 [facility] Comment on above: The validity of the calculated GFR & GFRAA in patients over 70 years has not been determined. Clinical correlation is essential. Serum or plasma low density lipoprotein (LDL) cholesterol measurement (mass/volume)Ordered By: Dr. Grimes on 09-19-2022 Cholesterol in LDL [Mass/Vol] 85 mg/dL 0-130 [facility] Serum or plasma urea nitroge n measurement (mass/volume)Ordered By: Dr. Grimes on 09-19-2022 Urea nitrogen [Mass/Vol] 25 mg/dL 7-18 [facility] Thin prep Papanicolaou smear with manual screeningOrdered By: Dr. Grimes on 09-19-2022 Thin prep Papanicolaou smear with manual screening 21 U/L 15-37 [facility] Thin prep Papanicolaou smear with manual screening 5 5-15 [facility] Aldolase ser/plason 03-13-20 Aldolase [Catalytic activity/Vol] 6.1 mU/mL 3.3-10.3 [facility] Work Phone: Comment on above: Performed at: [facility] [employer] [address] [id number] Director: Manjit Gray PhD, Phone: [phone] Laboratory - Chemistry and C hemistry - challengeon 03-13-2022 CK [Catalytic activity/Vol] 116 U/L 26-192 [facility] Work Phone: Cobalamin (Vitamin B12) [Mass/Vol] 567 pg/mL 211-911 [facility] Work Phone: Free T4 [Mass/Vol] 1.01 ng/dL 0.76-1.46 [facility] Work Phone: No Panel Informationon 03-13 Miscellaneous Test See comment [facility] Work Phone: Comment on above: TEST RESULT LIMITSAC hR Abs with Reflex to MuSK AChR Binding Abs, Serum 0.04 nmol/L 0.00-0.24 Negative: 0.00 - 0.24 Borderline: 0.25 - 0.40 Positive: >0.40MuSK Abs, Serum MuSK Abs, Serum <1.0 U/mL Reference Range: Negative: <1.0 Positive: 1.0 or higherThis test was developed and its performance characteristicsdetermined by [employer]. It has not been cleared or approvedby the Food and Drug Administration. TESTING PERFORMED AT [facility]. ORIGINAL REPORT ON FILE IN LAB CONTAINS ADDITIONAL TEST SITE INFORMATION. Thyroid Stimulating Hormone (TSH) 1.60 uIU/mL 0.358-3.74 [facility] Work Phone: Vitamin D 25-Hydroxy 61.2 ng/mL [facility] Work Phone: Comment on above: Vitamin D 25(OH) Sta tus Range Deficiency <20 ng/mL (50nmol/L) Insufficiency 20 - 30 ng/mL (50 - 75 nmol/L) Sufficiency 30 - 100 ng/mL (75 - 250 nmol/L) Toxicity >100 ng/mL (>250 nmol/L) Serum or plasma folate measu rement (mass/volume)on 03-13-2022 Folate [Mass/Vol] 12.00 ng/mL 3.1-55.4 [facility] Work Phone: Serum or plasma methylmalona te measurement (moles/volume)on 03-13-2022 Methylmalonate [Moles/Vol] 113 nmol/L 0-378 [facility] Work Phone: Comment on above: Performed at: [employer] [address] [id number] Director: Jake Brooks MD, Phone: [phone] Bronchoalveolar lavage cultu re with Gram stainon 10-27-2021 Respiratory Culture Haemophilus influenzae [facility] Work Phone: Gram stain for investigation of transfusion reactionon 10-27-2021 Microscopic observation Gram stain Nom (Unsp spec) [facility] Work Phone: Giardia lamblia ag stool EIA on 10-20-2021 G. lamblia Ag IA Ql (Stl) Negative Negative [facility] Work Phone: Comment on above: Performed at: [facility] [address] [id number] Director: Manjit Gray PhD, Phone: [phone] No Panel Informationon 10-20 Enteric Bacteriology [facility] Work Phone: [phone] Absolute lymphocyte counton 09-20-2021 Lymphocytes Auto (Unsp spec) [#/Vol] 2.26 10*3/uL 0.83-4.51 [facility] Work Phone: Absolute reticulocyte counto n 09-20-2021 Reticulocytes (Bld) [#/Vol] 0.00 10*3/uL 0-5 [facility] Work Phone: Basophil percentageon 2021 Basophil percentage 3.8 mg/dL 2.5-4.9 [facility] Work Phone: [phone] Bilirubin [Mass/Vol] 0.60 mg/dL 0.20-1.00 [facility] Work Phone: [phone] Comment on above: For patients on eltr ombopag therapy, use of Dimension [place] TBIL is not recommended. Chloride [Moles/Vol] 105 mmol/L 98-107 [facility] Work Phone: [phone] Cholesterol [Mass/Vol] 149 mg/dL <200 [facility] Work Phone: Comment on above: <200 mg/dL Desirable 200-240 mg/dL Borderline >240 mg/dL High Risk Glucose [Mass/Vol] 88 mg/dL 74-106 [facility] Work Phone: [phone] Neutrophils (Bld) [#/Vol] 3.4 10*3/uL 2.0-7.7 [facility] Work Phone: Potassium [Moles/Vol] 3.8 mmol/L 3.5-5.1 [facility] Work Phone: Protein [Mass/Vol] 7.0 g/dL 6.4-8.2 [facility] Work Phone: Sodium [Moles/Vol] 139 mmol/L 136-145 [facility] Work Phone: Triglyceride [Mass/Vol] 49 mg/dL <199 [facility] Work Phone: Comment on above: The drugs N-Acetylcy steine and Metamizole may falsely depress this assay.Serum Triglycerides Reference Interval Normal <150 mg/dL Borderline high 150 - 199 mg/dL High 200 - 499 mg/dL Very High > or = 500 mg/dL WBC (Bld) [#/Vol] 6.6 10*3/uL 4.4-11.0 [facility] Work Phone: Bilirubin Test strip Ql (U)o n 09-20-2021 Bilirubin Ql (U) Negative Negative [facility] Work Phone: Blood erythrocytes count (nu mber/volume)on 09-20-2021 RBC (Bld) [#/Vol] 4.72 10*6/uL 4.2-5.4 [facility] Work Phone: Blood hemoglobin measurement (mass/volume)on 09-20-2021 Hemoglobin (Bld) [Mass/Vol] 14.1 g/dL 12.0-15.0 [facility] Work Phone: Blood platelet mean volumeon 09-20-2021 Platelet mean volume (Bld) [Entitic vol] 10.0 fL 6.2-12.0 [facility] Work Phone: Determination of erythrocyte mean corpuscular volume (MCV)on 09-20-2021 MCV (RBC) [Entitic vol] 91.7 fL 81-99 [facility] Work Phone: Direct bilirubinon 2 Bilirubin.direct [Mass/Vol] 0.16 mg/dL 0.00-0.30 [facility] Work Phone: Hematocrit Auto (Bld) [Volum e fraction]on 09-20-2021 Hematocrit (Bld) [Volume fraction] 43.3 % 37-47 [facility] Work Phone: Ketones Test strip Ql (U)on 09-20-2021 Ketones Ql (U) Negative Negative [facility] Work Phone: Laboratory - Chemistry and C hemistry - challengeon 09-20-2021 ALP [Catalytic activity/Vol] 90 U/L 45-117 [facility] Work Phone: ALT [Catalytic activity/Vol] 30 U/L 13-56 [facility] Work Phone: [phone] Cholesterol.total/Chol esterol in HDL [Mass ratio] 2.30 {ratio} [facility] Work Phone: [phone] CO2 [Moles/Vol] 29.0 mmol/L 21.0-32.0 [facility] Work Phone: [phone] Globulin (S) [Mass/Vol] 3.3 g/dL 2.2-4.2 [facility] Work Phone: Urea nitrogen/Creatinine [Mass ratio] 24.7 mg/mg 10-20 [facility] Work Phone: Laboratory - Hematology and Cell countson 09-20-2021 Erythrocyte distribution width (RBC) [Entitic vol] 43.8 fL 35.1-43.9 [facility] Work Phone: [phone] Erythrocyte distribution width (RBC) [Ratio] 13.2 % 11.6-14.6 [facility] Work Phone: [phone] MCH (RBC) [Entitic mass] 29.9 pg 27.0-32.0 [facility] Work Phone: [phone] Nucleated RBC/100 WBC (Bld) [Ratio] 0 % 0-5 [facility] Work Phone: MCHC Auto (RBC) [Mass/Vol]on 09-20-2021 MCHC (RBC) [Mass/Vol] 32.6 g/dL 32-36 [facility] Work Phone: Nitrite Test strip Ql (U)on 09-20-2021 Nitrite Ql (U) Negative Negative [facility] Work Phone: No Panel Informationon 09-20 Estimated GFR (MDRD) Amer 113 mL/min >60 [facility] Work Phone: Comment on above: GFR Calc Estimated GFR (MDRD) Non-Af Amer 94 mL/min >60 [facility] Work Phone: Comment on above: Non- GFR Calc Vitamin D 25-Hydroxy 39.7 ng/mL [facility] Work Phone: Comment on above: Vitamin D 25(OH) Sta tus Range Deficiency <20 ng/mL (50nmol/L) Insufficiency 20 - 30 ng/mL (50 - 75 nmol/L) Sufficiency 30 - 100 ng/mL (75 - 250 nmol/L) Toxicity >100 ng/mL (>250 nmol/L) Platelets bldon 09-20-2021 Platelets (Bld) [#/Vol] 184 10*3/uL 150-450 [facility] Work Phone: Protein Test strip Ql (U)on 09-20-2021 Protein Ql (U) Negative Negative [facility] Work Phone: Segmented neutrophils/100 WB C Auto (Bld)on 09-20-2021 Segmented neutrophils/100 WBC (Bld) 51.6 % 47-70 [facility] Work Phone: Serum or plasma albumin fartun urement (mass/volume)on 09-20-2021 Albumin [Mass/Vol] 3.7 g/dL 3.2-5.0 [facility] Work Phone: Serum or plasma albumin/glob ulin mass ratioon 09-20-2021 Albumin/Globulin [Mass ratio] 1.1 {ratio} 0.9-2.4 [facility] Work Phone: Serum or plasma calcium fartun urement (mass/volume)on 09-20-2021 Calcium [Mass/Vol] 9.1 mg/dL 8.5-10.1 [facility] Work Phone: Serum or plasma cholesterol in HDL measurement (mass/volume)on 09-20-2021 Cholesterol in HDL [Mass/Vol] 65 mg/dL >40 [facility] Work Phone: Comment on above: The drugs N-Acetylcy steine and Metamizole may falsely depress this assay. Reference Range HDL <40 mg/dL Low HDL Cholesterol HDL >or= 60 mg/dL High HDL Cholesterol Serum or plasma cholesterol in VLDL measurement (mass/volume)on 09-20-2021 Cholesterol in VLDL [Mass/Vol] 10 mg/dL 5-40 [facility] Work Phone: Serum or plasma creatinine m easurement (mass/volume)on 09-20-2021 Creatinine [Mass/Vol] 0.69 mg/dL 0.55-1.02 [facility] Work Phone: Comment on above: The validity of the calculated GFR & GFRAA in patients over 70 years has not been determined. Clinical correlation is essential. Serum or plasma low density lipoprotein (LDL) cholesterol measurement (mass/volume)on 09-20-2021 Cholesterol in LDL [Mass/Vol] 74 mg/dL 0-130 [facility] Work Phone: Serum or plasma urea nitroge n measurement (mass/volume)on 09-20-2021 Urea nitrogen [Mass/Vol] 17 mg/dL 7-18 [facility] Work Phone: Serum or plasma uric acid me asurement (mass/volume)on 09-20-2021 Urate [Mass/Vol] 4.8 mg/dL 2.6-6.0 [facility] Work Phone: Comment on above: The drugs N-Acetylcy steine and Metamizole may falsely depress this assay. Thin prep Papanicolaou smear with manual screeningon 09-20-2021 Thin prep Papanicolaou smear with manual screening 23 U/L 15-37 [facility] Work Phone: Thin prep Papanicolaou smear with manual screening 5 5-15 [facility] Work Phone: Thin prep Papanicolaou smear with manual screening 208 U/L 84-246 [facility] Work Phone: Urine blood detectionon - RBC Ql (U) Negative Negative [facility] Work Phone: Urine clarityon 09-20-2021 Clarity (U) Clear Clear [facility] Work Phone: Urine color determinationon 09-20-2021 Color (U) Yellow Yellow [facility] Work Phone: Urine glucose detectionon Glucose Ql (U) Normal mg/dl Normal [facility] Work Phone: Urine leukocyte esterase det ection by dipstickon 09-20-2021 Leukocyte esterase Test strip Ql (U) Negative Negative [facility] Work Phone: [phone] Urine pHon 09-20-2021 pH (U) 6.5 [pH] 5.0 - 8.0 [facility] Work Phone: Urine specific gravity measu rementon 09-20-2021 Specific gravity (U) [Rel density] 1.010 1.002-1.03 0 [facility] Work Phone: Urobilinogen Auto test strip Ql (U)on 09-20-2021 Urobilinogen Ql (U) Normal mg/dl Normal [facility] Work Phone: Absolute lymphocyte counton 09-19-2021 Lymphocytes Auto (Unsp spec) [#/Vol] 2.22 10*3/uL 0.83-4.51 [facility] Work Phone: Alternaria alternata IgE ser umon 09-19-2021 A. alternata IgE Qn (S) <0.10 kU/L Class 0 [facility] Work Phone: Atypical perinuclear antineu trophil cytoplasmic antibodies measurementon 09-19-2021 Neutrophil cytoplasmic Ab.perinuclear.atypica l IF (S) [Titer] <1:20 titer Neg:<1:20 [facility] Work Phone: Comment on above: The atypical pANCA p attern has been observed in asignificant percentage of patients with ulcerative colitis,primary sclerosing cholangitis and autoimmune hepatitis. Basophil percentageon 2021 Basophils/100 WBC (Bld) 0.9 % 0-1 [facility] Work Phone: Eosinophils/100 WBC (Bld) 2.8 % 0-5 [facility] Work Phone: Neutrophils (Bld) [#/Vol] 3.6 10*3/uL 2.0-7.7 [facility] Work Phone: Neutrophils/100 WBC (Bld) 53.5 % 47-70 [facility] Work Phone: WBC (Bld) [#/Vol] 6.7 10*3/uL 4.4-11.0 [facility] Work Phone: Blood erythrocytes count (nu mber/volume)on 09-19-2021 RBC (Bld) [#/Vol] 4.69 10*6/uL 4.2-5.4 [facility] Work Phone: Blood hemoglobin measurement (mass/volume)on 09-19-2021 Hemoglobin (Bld) [Mass/Vol] 14.1 g/dL 12.0-15.0 [facility] Work Phone: Blood lymphocytes/100 leukoc yteson 09-19-2021 Lymphocytes/100 WBC (Bld) 33.3 % 19-41 [facility] Work Phone: Blood monocytes/100 leukocyt eson 09-19-2021 Monocytes/100 WBC (Bld) 9.1 % 0-10 [facility] Work Phone: Blood platelet mean volumeon 09-19-2021 Platelet mean volume (Bld) [Entitic vol] 10.4 fL 6.2-12.0 [facility] Work Phone: [phone] Determination of erythrocyte mean corpuscular volume (MCV)on 09-19-2021 MCV (RBC) [Entitic vol] 91.9 fL 81-99 [facility] Work Phone: Hematocrit Auto (Bld) [Volum e fraction]on 09-19-2021 Hematocrit (Bld) [Volume fraction] 43.1 % 37-47 [facility] Work Phone: [phone] Laboratory - Hematology and Cell countson 09-19-2021 Erythrocyte distribution width (RBC) [Entitic vol] 44.9 fL 35.1-43.9 [facility] Work Phone: Erythrocyte distribution width (RBC) [Ratio] 13.3 % 11.6-14.6 [facility] Work Phone: Immature granulocytes/100 WBC (Bld) 0.400 % 0.0-0.9 [facility] Work Phone: Comment on above: IG% - Immature Granu locytes (promyelocytes, myelocytes and metamyelocytes) > 1% indicates that a LEFT SHIFT is Present. MCH (RBC) [Entitic mass] 30.1 pg 27.0-32.0 [facility] Work Phone: Nucleated RBC/100 WBC (Bld) [Ratio] 0 % 0-5 [facility] Work Phone: MCHC Auto (RBC) [Mass/Vol]on 09-19-2021 MCHC (RBC) [Mass/Vol] 32.7 g/dL 32-36 [facility] Work Phone: No Panel Informationon 09-19 Cat Hair Allergen <0.10 kU/L Class 0 [facility] Work Phone: Common Ragweed (Short) Allergen <0.10 kU/L Class 0 [facility] Work Phone: Immunoglobulin E 312 IU/mL 6-495 [facility] Work Phone: Comment on above: Performed at: [employer] [address] [id number] Director: Manjit Gray PhD, Phone: [phone] at: [facility] [id number] Director: Jake Brooks MD, Phone: [phone] Maple ([place]) Allergen IgE Ab <0.10 kU/L Class 0 [facility] Work Phone: Mouse Urine Allergen IgE Antibody <0.10 kU/L Class 0 [facility] Work Phone: Comment on above: Performed at: [employer] [id number] [place], [place] [id number] Director: Jake Brooks MD, Phone: [phone] RAST Comment Comment . [facility] Work Phone: Comment on above: Levels of Specific I gE Class Description of Class ----- < 0.10 0 Negative 0.10 - 0.31 0/I Equivocal/Low 0.32 - 0.55 I Low 0.56 - 1.40 II Moderate 1.41 - 3.90 III High 3.91 - 19.00 IV Very High 19.01 - 100.00 V Very High >100.00 Very High Tyler Tree Allergen <0.10 kU/L Class 0 [facility] Work Phone: Platelets bldon 09-19-2021 Platelets (Bld) [#/Vol] 174 10*3/uL 150-450 [facility] Work Phone: Rough pigweed specific IgE a ntibody assayon 09-19-2021 Rough Pigweed IgE Qn (S) <0.10 kU/L Class 0 [facility] Work Phone: Serum Paraguayan sycamore IgE antibody assay (units/volume)on 09-19-2021 Paraguayan [place] IgE Qn (S) <0.10 kU/L Class 0 [facility] Work Phone: Serum Aspergillus flavus ant ibody detection by immunodiffusionon 09-19-2021 A. flavus Ab Immune diff Ql (S) Negative Neg:<1:1 [facility] Work Phone: Serum Aspergillus fumigatus IgE antibody assay (units/volume)on 09-19-2021 A. fumigatus IgE Qn (S) <0.10 kU/L Class 0 [facility] Work Phone: Serum Aspergillus fumigatus antibody detection by immunodiffusionon 09-19-2021 A. fumigatus Ab Immune diff Ql (S) Negative Neg:<1:1 [facility] Work Phone: Serum Aspergillus niger anti body detection by immunodiffusionon 09-19-2021 A. niger Ab Immune diff Ql (S) Negative Neg:<1:1 [facility] Work Phone: Serum Bermuda grass IgE anti body assay (units/volume)on 09-19-2021 Bermuda grass IgE Qn (S) <0.10 kU/L Class 0 [facility] Work Phone: Serum Cladosporium herbarum IgE antibody assay (units/volume)on 09-19-2021 C. herbarum IgE Qn (S) <0.10 kU/L Class 0 [facility] Work Phone: Serum Dermatophagoides farin ae specific IgE antibody assay (units/volume)on 09-19-2021 Paraguayan house dust mite IgE Qn (S) <0.10 kU/L Class 0 [facility] Work Phone: Serum house dust mi te IgE antibody assay (units/volume)on 09-19-2021 house dust mite IgE Qn (S) <0.10 kU/L Class 0 [facility] Work Phone: Serum Penicillium notatum Ig E antibody assay (units/volume)on 09-19-2021 P. notatum IgE Qn (S) <0.10 kU/L Class 0 [facility] Work Phone: Serum Periplaneta americana IgE antibody assay (units/volume)on 09-19-2021 Par[place]ayan Cockroach IgE Qn (S) <0.10 kU/L Class 0 [facility] Work Phone: Serum Gabonese thistle specif ic IgE antibody assayon 09-19-2021 Saltwort IgE Qn (S) <0.10 kU/L Class 0 [facility] Work Phone: Serum birch specific IgE ant ibody assayon 09-19-2021 Silver Birch IgE Qn (S) <0.10 kU/L Class 0 [facility] Work Phone: Serum black walnut IgE antib aleksandr assay (units/volume)on 09-19-2021 Black Sherrill IgE Qn (S) <0.10 kU/L Class 0 [facility] Work Phone: Serum classic neutrophil cyt oplasmic antibody assay (units/volume)on 09-19-2021 Neutrophil cytoplasmic Ab.classic Qn (S) <1:20 titer Neg:<1:20 [facility] Work Phone: Serum cottonwood IgE antibod y assay (units/volume)on 09-19-2021 Marathon IgE Qn (S) <0.10 kU/L Class 0 [facility] Work Phone: Serum dog epithelium IgE ant ibody assay (units/volume)on 09-19-2021 Dog epithelium IgE Qn (S) <0.10 kU/L Class 0 [facility] Work Phone: Serum mountain cedar specifi c IgE antibody assayon 09-19-2021 Mountain Juniper IgE Qn (S) <0.10 kU/L Class 0 [facility] Work Phone: Serum pecan or hickory nut I gE antibody assay (units/volume)on 09-19-2021 Pecan or Dubois Nut IgE Qn (S) <0.10 kU/L Class 0 [facility] Work Phone: Serum perinuclear neutrophil cytoplasmic antibody titer by immunofluorescenceon 09-19-2021 Neutrophil cytoplasmic Ab.perinuclear IF (S) [Titer] <1:20 titer Neg:<1:20 [facility] Work Phone: Comment on above: The presence of posi tive fluorescence exhibiting P-ANCA orC-ANCA patterns alone is not specific for the diagnosis ofWegener's Granulomatosis (WG) or microscopic polyangiitis.Decisions about treatment should not be based solely onANCA IFA results. The [employer] Consensusrecommends follow up testing of positive sera with both MN-3 and MPO-ANCA enzyme immunoassays. As many as 5% serumsamples are positive only by EIA. Ref. AM J Clin [id number];111:[id number]. Serum sheep sorrel IgE antib aleksandr assay (units/volume)on 09-19-2021 Sheep [place] IgE Qn (S) <0.10 kU/L Class 0 [facility] Work Phone: Serum eleni IgE antibody a ssay (units/volume)on 09-19-2021 Eleni IgE Qn (S) <0.10 kU/L Class 0 [facility] Work Phone: Serum white asya IgE antibody assay (units/volume)on 09-19-2021 White Asya IgE Qn (S) <0.10 kU/L Class 0 [facility] Work Phone: Serum white elm IgE antibody assay (units/volume)on 09-19-2021 White Elm IgE Qn (S) <0.10 kU/L Class 0 [facility] Work Phone: Serum white mulberry IgE ant ibody assay (units/volume)on 09-19-2021 White mulberry IgE Qn (S) <0.10 kU/L Class 0 [facility] Work Phone: LORETTA MAMMO BILAT (DIAG)on LORETTA MAMMO BILAT (DIAG) BILATERAL DIGITAL DIAGNOSTIC MAMMOGRAM TOMOSYNTHESIS WITH CAD: 12/29/2020 Ordering Physician: Daiana Grimes D.O. CLINICAL: Abnormal mammogram. Comparison is made to exams dated: 06/23/2020 mammogram, 02/07/2020 mammogram, and 01/06/2019 mammogram - [facility]. The tissue of both breasts is heterogeneously dense. This may lower the sensitivity of mammography. Digital Breast Tomosynthesis was performed. Current study was also evaluated with a Computer Aided Detection (CAD) system. There are benign calcifications both breasts. There also are benign densities right breast. There is a 5 mm oval equal density nodule with a circumscribed margin in the right breast central to the nipple in the retroareolar region. This is demonstrated by prior ultrasound. This is less prominent and decreased in size. No other significant masses, calcifications, or other findings are seen in either breast. IMPRESSION: BENIGN The 5 mm oval equal density nodule in the right breast most likely is a cyst and is benign. There is no mammographic evidence of malignancy. A 1 year screening mammogram is recommended. The false-negative rate of mammography is approximately 10%. Management of a palpable abnormality must be based upon clinical grounds. Sharifa Upton M.D. tlv/penrad:12/29/2020 15:28:26 Jet Handler: Brianne Rollins RT(Joaquin)(Jazmyne), [facility] letter sent: Mammography Normal BI-RADS: 2 Benign Reported By: SHARIFA UPTON M.D. Signed By: SHARIFA UPTON M.D. [facility] US BREAST TARGETED RIGHTon 0 12-29-2020 US BREAST TARGETED RIGHT ULTRASOUND OF RIGHT BREAST: 12/29/2020 Ordering Physician: Daiana Grimes D.O. CLINICAL: ABNORMAL MAMMOGRAM RT BREAST. Comparison is made to exams dated: 12/29/2020 mammogram, 06/23/2020 ultrasound, 06/23/2020 mammogram, and 02/07/2020 mammogram - [facility]. Doppler ultrasound of the right breast was performed on the areas of interest. Dimas scale images of the real-time examination were reviewed. There is a benign 5 mm oval nodule with a circumscribed margin in the right breast central to the nipple in the retroareolar region. This oval nodule is hypoechoic and homogeneously echogenic. This abnormality is decreased in size and less prominent and correlates with mammography and ultrasound findings. Color flow imaging demonstrates that there is no increase in vascularity. IMPRESSION: BENIGN There is no sonographic evidence of malignancy. The 5 mm oval nodule in the right breast is consistent with a complicated cyst and is benign. A 1 year screening mammogram is recommended. Sharifa Upton M.D. tlv/penrad:12/29/2020 15:30:52 Jet Handler: Demetrius Davis, [facility] letter sent: Ultrasound Normal Ultrasound BI-RADS: 2 Benign Reported By: SHARIFA UPTON M.D. Signed By: SHARIFA UPTON M.D. [facility] CBC W/DIFFon 11-19-2020 BASO ABS 0.10 K/CU MM Normal 0-0.2 [facility] Comment on above: Performed By: #### L 200.81548 ####[facility] [id number] [place], [place] [address]Ta# [phone] Basophils/100 WBC (Bld) 1.3 % Normal 0-2 [facility] Comment on above: Performed By: #### L 200.17766 ####[address] [address]Hp# [phone] EOS ABS 0.20 K/CU MM Normal 0-0.5 [facility] Comment on above: Performed By: #### L 200.92885 ####[place] [id number]# [phone] Eosinophils/100 WBC (Bld) 2.9 % Normal 0-5 [facility] Comment on above: Performed By: #### L 200.28023 ####[place] [address]Ph# [phone] Erythrocyte distribution width (RBC) [Ratio] 13.0 % Normal 11-14.5 [facility] Comment on above: Performed By: #### L 200.43109 ####[address] [address]Nl# [phone] Hematocrit (Bld) [Volume fraction] 44.2 % Normal 35.0-47.0 [facility] Comment on above: Performed By: #### L 200.11052 ####[facility] [id number] [place] [address]Uj# [phone] Hemoglobin (Bld) [Mass/Vol] 14.2 g/dL Normal 11.5-15.5 [facility] Comment on above: Performed By: #### L 200.18561 ####[facility] [id number] [place] [address]Qq# [phone] IMMATR GRAN ABS 0.00 K/CU MM Normal Less than 2 [facility] Comment on above: Performed By: #### L 200.82075 ####[facility] [id number] [place], [place] [address]Xz# [phone] IMMATURE GRAN % 0.1 % Normal Less than 2 [facility] Comment on above: Performed By: #### L 200.18045 ####[facility] [id number] [place], [place] [address]Ti# [phone] LYMPH ABS 2.40 K/CU MM Normal 0.9-4.4 [facility] Comment on above: Performed By: #### L 200.39323 ####[facility] [id number] [place], [place] [address]Is# [phone] Lymphocytes/100 WBC (Bld) 35.0 % Normal 20-40 [facility] Comment on above: Performed By: #### L 200.58737 ####[address] [address]Vt# [phone] MCHC (RBC) [Mass/Vol] 32.1 g/dL Normal 32.0-36.0 [facility] Comment on above: Performed By: #### L 200.77544 ####[facility] [id number] [place], [place] [address]Ph# [phone] MCV (RBC) [Entitic vol] 93.4 fL Normal 80.0-99.0 [facility] Comment on above: Performed By: #### L 200.99033 ####[facility] [id number] [place] [address]Os# [phone] MONO ABS 0.80 K/CU MM Normal 0.1-1.1 [facility] Comment on above: Performed By: #### L 200.36755 ####[facility] [id number] [place] [address]Ms# [phone] Monocytes/100 WBC (Bld) 11.3 % High 2-10 [facility] Comment on above: Performed By: #### L 200.04061 ####[facility] [id number] [place], [place] [address]Ph# [phone] NEUTROPHIL ABS 3.40 K/CU MM Normal 2.0-8.3 [facility] Comment on above: Performed By: #### L 200.72539 ####[facility] [id number] [place], [place] [address]Dw# [phone] Neutrophils/100 WBC (Bld) 49.4 % Normal 45-75 [facility] Comment on above: Performed By: #### L 200.10233 ####[facility] [id number] [place], [place] [address]Sm# [phone] Nucleated RBC/100 WBC (Bld) [Ratio] 0.0 % Normal Less than 1 [facility] Comment on above: Performed By: #### L 200.62026 ####[facility] [id number] [place], [place] [address]Mx# [phone] Platelet mean volume (Bld) [Entitic vol] 10.9 fL Normal 9.4-12.4 [facility] Comment on above: Performed By: #### L 200.21297 ####[facility] [id number] [place], [place] [address]Qk# [phone] PLT 183 K/CU MM Normal 150-450 [facility] Comment on above: Performed By: #### L 200.86977 ####[facility] [id number] [place], [place] [address]Ul# [phone] RBC 4.73 M/CU MM Normal 3.90-5.30 [facility] Comment on above: Performed By: #### L 200.78680 ####[facility] [id number] [place], [place] [address]Qv# [phone] WBC 6.8 K/CUMM Normal 4.5-11.0 [facility] Comment on above: Performed By: #### L 200.78098 ####[facility] [id number] [place], [place] [address]Bz# [phone] LIPIDon 11-19-2020 CHOL 153 MG/dL Normal 0-199 [facility] Comment on above: Performed By: #### L 550.14623, L500.56891 #### [facility] [address] [place] [address] Cholesterol in HDL [Mass/Vol] 58 mg/dL Normal GREATER THAN 40 [facility] Comment on above: Result Comment: Jaimie ents receiving Metamizole prior to venipuncture, may have falsely depressed results. Performed By: #### L 550.92269, L500.05781 #### [facility] [address] [place] [address] Cholesterol in LDL [Mass/Vol] 86 mg/dL Normal [facility] Comment on above: Result Comment: ___C HOLESTEROL/HDL RATIO RISK___ CHD RISK = Total CHOL LDL HDL (CHOL/HDL) Recommended <200 <130 >40 <3.4 Borderline 200-239 130-159 3.4-4.99 High >240 >160 >5.0 Performed By: #### L 550.17090, L500.92796 #### [facility] [address] [place] [address] Triglyceride [Mass/Vol] 42 mg/dL Normal 30-149 [facility] Comment on above: Result Comment: Jaimie ents receiving either N-Acetylcysteine (NAC) or Metamizole prior to venipuncture, may have falsely depressed results. Performed By: #### L 550.60078, L500.36822 #### [facility] [place] [address] UA COMPLETEon 11-19-2020 Color (U) Straw Normal [facility] Comment on above: Performed By: #### L 600.81423 ####[facility] [id number] [place] [address]Od# [phone] Glucose (U) [Mass/Vol] Negative Normal NORMAL Me [facility] Comment on above: Performed By: #### L 600.97585 ####[facility] [id number] [place] [address]Xl# [phone] UA APPEARANCE Clear Normal CLEAR [facility] Comment on above: Performed By: #### L 600.58447 ####[facility] [id number] [place] [address]Ok# [phone] UA BILIRUBIN Negative Normal NEGATIVE [facility] Comment on above: Performed By: #### L 600.75247 ####[facility] [id number] [place] [address]Li# [phone] UA BLOOD Negative Normal NEGATIVE [facility] Comment on above: Performed By: #### L 600.77470 ####[facility] [id number] [place] [address]Ig# [phone] UA KETONE Negative Normal NEGATIVE [facility] Comment on above: Performed By: #### L 600.05939 ####[facility] [id number] [place] [address]Ng# [phone] UA LK ESTERASE Negative Normal NEGATIVE [facility] Comment on above: Performed By: #### L 600.10656 ####[facility] [id number] [place], [place] [address]Tl# [phone] UA NITRITE Negative Normal NEGATIVE [facility] Comment on above: Performed By: #### L 600.98042 ####[facility] [id number] [place], [place] [address]Ej# [phone] UA PH 7.0 Normal 5-6 [facility] Comment on above: Performed By: #### L 600.94210 ####[facility] [id number] [place], [place] [address]Dy# [phone] UA PROTEIN Negative Normal NEGATIVE [facility] Comment on above: Performed By: #### L 600.36200 ####[facility] [id number] [place], [place] [address]Pt# [phone] UA SPEC GRAV 1.006 Normal 1.005-1.03 0 [facility] Comment on above: Performed By: #### L 600.46623 ####[facility] [id number] [place], [place] [address]Cj# [phone] UA UROBILINOGEN Negative Normal NORMAL [facility] Comment on above: Performed By: #### L 600.74523 ####[facility] [id number] [place], [place] [address]Qx# [phone] [id number] 11-19-2020 [id number]-[id number] 25.0 NG/ML Low 30.0-100.0 [facility] Comment on above: Result Comment: Defi ciency Less than 20 ng/mL Insufficiency 20 - Less than 30 ng/mL Sufficiency 30 - 100 ng/mL Performed By: #### L 550.35865, L500.83829 #### [facility] [address] [place] [address] GLUon 10-15-2020 Glucose [Mass/Vol] 91 mg/dL Normal 70-100 [facility] Comment on above: Result Comment: 70-1 00- Normal Fasting; 100-125 Impaired Fasting; greater than 126 on more than one result- Diabetes. ADA guidelines. Results may be falsely elevated after the administration of Sulfapyridine. Results may be falsely depressed after the administration of Sulfasalazine. Performed By: #### L 500.83846, L500.70420 #### [facility] [address] [place] [address] LIPIDon 10-15-2020 CHOL 150 MG/dL Normal 0-199 [facility] Comment on above: Performed By: #### L 500.51740, L500.24350 #### [facility] [place] [address] Cholesterol in HDL [Mass/Vol] 55 mg/dL Normal GREATER THAN 40 [facility] Comment on above: Result Comment: Jaimie ents receiving Metamizole prior to venipuncture, may have falsely depressed results. Performed By: #### L 500.31216, L500.30425 #### [facility] [place] [address] Cholesterol in LDL [Mass/Vol] 87 mg/dL Normal [facility] Comment on above: Result Comment: ___C HOLESTEROL/HDL RATIO RISK___ CHD RISK = Total CHOL LDL HDL (CHOL/HDL) Recommended <200 <130 >40 <3.4 Borderline 200-239 130-159 3.4-4.99 High >240 >160 >5.0 Performed By: #### L 500.55300, L500.59229 #### [facility] [place] [address] Triglyceride [Mass/Vol] 41 mg/dL Normal 30-149 [facility] Comment on above: Result Comment: Jaimie ents receiving either N-Acetylcysteine (NAC) or Metamizole prior to venipuncture, may have falsely depressed results. Performed By: #### L 500.98230, L500.87476 #### [facility] [place] [address] IGEon 08-13-2020 IGE 338 IU/mL Normal 6-495 [facility] Comment on above: Result Comment: Perf ormed At: [facility] [address] [id number] Todd Joseph [place] [id number] Performed By: #### L 750.69370 ####[facility] [id number] [place] [address]Jp# [phone] LORETTA MAMMO UNI RT (DIAG)on 0 06-23-2020 [place] MAMMO UNI RT (DIAG) UNILATERAL RIGHT DIGITAL DIAGNOSTIC MAMMOGRAM TOMOSYNTHESIS WITH CAD: 06/23/2020 Ordering Physician: Daiana Grimes D.O. CLINICAL: Right breast lump. Comparison is made to exams dated: 02/07/2020 mammogram, 01/06/2019 mammogram, 06/28/2018 mammogram, and 11/29/2017 mammogram - [facility]. The tissue of the right breast is heterogeneously dense. This may lower the sensitivity of mammography. Digital Breast Tomosynthesis was performed. Current study was also evaluated with a Computer Aided Detection (CAD) system. There is a 7 mm oval equal density nodule with a circumscribed margin in the right breast central to the nipple in the retroareolar region. This is less prominent and decreased in size and correlates as palpated. No other significant masses or calcifications are seen in the breast. IMPRESSION: INCOMPLETE: NEEDS ADDITIONAL IMAGING EVALUATION The 7 mm oval equal density nodule in the right breast is indeterminate. An ultrasound is recommended. The false-negative rate of mammography is approximately 10%. Management of a palpable abnormality must be based upon clinical grounds. Deborah Alejandro M.D. ear/:06/23/2020 12:25:00 Jet Handler: Rosalia Landry, RT(R)(M), [facility] BI-RADS: 0 Additional Imaging Evaluation Needed Reported By: DEBORAH ALEJANDRO M.D. Signed By: DEBORAH ALEJANDRO M.D. Normal [facility] US BREAST TARGETED RIGHTon 0 06-23-2020 US BREAST TARGETED RIGHT ULTRASOUND OF RIGHT BREAST: 06/23/2020 Ordering Physician: Daiana Grimes D.O. CLINICAL: UNSPEC LUMP RT BREAST UNSPEC QUADRANT. Comparison is made to exams dated: 06/23/2020 mammogram, 02/07/2020 mammogram, 01/06/2019 mammogram, 06/28/2018 ultrasound, 06/28/2018 mammogram, and 12/12/2017 ultrasound - [facility]. Color flow and real-time ultrasound of the right breast were performed on the areas of interest. Dimas scale images of the real-time examination were reviewed. There is an 8 mm oval nodule with a circumscribed margin in the right breast central to the nipple in the retroareolar region. This oval nodule is hypoechoic. This correlates as palpated and with mammography findings. Color flow imaging demonstrates that there is no increase in vascularity. IMPRESSION: PROBABLY BENIGN - FOLLOW-UP RECOMMENDED The 8 mm oval nodule in the right breast most likely is a sebaceous cyst and is probably benign. A follow-up right mammogram and an ultrasound in 6 months is recommended to demonstrate stability. Deborah Alejandro M.D. ear/:06/23/2020 12:26:37 Jet Handler: Mayra Horton, [facility] letter sent: Followup Recommended Ultrasound BI-RADS: 3 Probably benign Reported By: DEBORAH ALEJANDRO M.D. Signed By: DEBORAH ALEJANDRO M.D. Normal [facility] CDLECHOon 02-26-2020 [facility] [id number] CLI ECHOCARD ECHOCARDIOGRAM [facility] [address] [facility] [address] [place] [address] Noninvasive Cardiac Diagnostics Adult Echocardiogram Report Name: BRIONNA ROBLES Study Date: 02/26/2020 02:11 PMBP: 125/80 mmHg [facility] 1965 Gender: Female Height: 72 in Age: 54 yrs Ethnicity: [place] Weight: 152 lb Accession No. [id number] No. [id number] Reason For Study: THORACIC AORTIC ANEURYSM BSA: 1.9 m2 History: Palpitations,FAMILY HX OF MARFAN'S Interpretation Summary The left ventricular size, thickness and function are normal Ejection Fraction = 57. Mild aortic regurgitation. Mildly dilated ascending aorta. Diameter 4.0 cm Left Ventricle: The left ventricular size, thickness and function are normal. Ejection Fraction = 57. No diastolic dysfunction parameters to suggest elevated left atrial pressure or congestive heart failure. The left ventricular wall motion is normal. There is no thrombus. Left Atrium/Atrial Septum: The left atrial size is normal. The interatrial septum is intact with no evidence for an atrial septal defect. Right Atrium: Right atrial size is normal. [facility] PATIENT NAME: BRIONNA ROBLES [address] [place], [place] [address]Madonna Mccoy MEDICAL REC #: [id number] [place] [address] ADMIT DATE: DISCHARGE DATE: ATTENDING PHY: Dk Schuster CNP ECHOCARDIOGRAM REPORT Right Ventricle: The right ventricle is normal in size and function. Aortic Valve: There is mild aortic sclerosis.;. Mild aortic regurgitation. Mitral Valve: The mitral valve is normal in structure and function. Tricuspid Valve: The tricuspid valve is normal in structure and function. Pulmonic Valve: The pulmonic valve is normal in structure and function. Arteries: Diameter 4.0 cm. Mildly dilated ascending aorta. Pericardium/Pleura: There is no pericardial effusion. MMode/2D Measurements and Calculations IVSd: 1.1 cm LVIDd: IVS/LVPW: EDV(cubed): IVSs: 1.5 cm 5.8 cm 1.0 198.1 ml LVIDs: FS: 30.2 % ESV(cubed): 4.1 cm EF(Teich): 67.4 ml LVPWd: 56.7 % EF(cubed): 1.0 cm 66.0 % LVPWs: % IVS thick: 1.4 cm 44.8 % % LVPW thick: 35.7 % __ LV mass(C)d: SV(Teich): MV Ao root 249.0 grams 95.6 ml excursion: diam: 3.6 cm LV mass(C)dI: SI(Teich): 2.9 cm Ao root area: 131.4 grams/m2 50.4 ml/m2 LV mass(C)s: SV(cubed): 10.4 cm2 230.3 grams 130.7 ml ACS: 2.3 cm LV mass(C)sI: SI(cubed): LA 121.5 grams/m2 68.9 ml/m2 dimension: 3.4 cm __ [facility] PATIENT NAME: BRIONNA ROBLES [address] [facility] [address] M[place] MEDICAL REC #: [id number] [place] [address] ADMIT DATE: DISCHARGE DATE: ATTENDING PHY: Dk Schuster CNP ECHOCARDIOGRAM REPORT LA/Ao: 0.93 LVOT diam: 2.2 cm Time Measurements Aortic R-R: 0.98 sec Aortic HR: 61.0 BPM Doppler Measurements and Calculations MV E max mimi: MV max PG: MV P1/2t: Ao V2 max: 57.8 cm/sec 2.1 mmHg 80.8 msec 130.3 cm/sec MV A max mimi: MV mean PG: MVA(P1/2t): Ao max P.7 cm/sec 0.93 mmHg 2.7 cm2 6.8 mmHg MV E/A: 0.89 MVA(VTI): MV dec time: Ao max PG 4.1 cm2 0.25 sec (full): 1.8 mmHg Ao mean P.2 mmHg Ao mean PG (full): 1.4 mmHg Ao V2 VTI: 27.1 cm LLUVIA(I,A): 3.5 cm2 LLUVIA(I,D): 3.5 cm2 LLUVIA(V,A): 3.4 cm2 LLUVIA(V,D): 3.4 cm2 __ AI max mimi: LV V1 max: CO(Ao): PA max P.0 cm/sec 111.6 cm/sec 17.1 l/min 1.6 mmHg AI max PG: LV V1 mean: CI(Ao): 93.0 mmHg 79.7 cm/sec 9.0 l/min/m2 AI dec slope: LV V1 VTI: SV(Ao): 226.2 cm/sec2 24.1 cm 280.5 ml AI P1/2t: SI(Ao): 624.0 msec 148.0 ml/m2 CO(LVOT): 5.8 l/min CI(LVOT): 3.0 l/min/m2 SI(LVOT): 49.9 ml/m2 [facility] PATIENT NAME: BRIONNA ROBLES [address] [facility] [address] Mcc[place] MEDICAL REC #: [id number] [place] [address] ADMIT DATE: DISCHARGE DATE: ATTENDING PHY: Dk Schuster VULCANIZER ECHOCARDIOGRAM REPORT __ TR max mimi: RAP systole: AV P1/2t- MV P1/2t- 216.0 cm/sec 10.0 mmHg pr_phl: pr_phl: TR max P.5 msec 80.8 msec 18.7 mmHg RVSP(TR): 28.7 mmHg __ Lateral E/E': Medial E/E': 7.3 6.4 Pediatric Measurements and Calculations Lat Peak E' Mimi: 7.9 cm/sec Med Peak E' Mimi: 9.0 cm/sec __ Reviewed/Verified By: Abena Hadley MD 02/26/2020 05:41 PM Ordering Physician: Dk Schuster Referring Physician: DAIANA GRIMES Performed By: 13 CC: Dk Schuster [facility] PATIENT NAME: BRIONNA ROBLES [address] [facility] [address] Mccoy MEDICAL REC #: [id number] [place] [address] ADMIT DATE: DISCHARGE DATE: ATTENDING PH (more content not included)... Normal [facility] ECHOCARDIOGRAM REPORT Normal [facility] [place] MAMMO SCREENINGon 02-06 [place] MAMMO SCREENING BILATERAL DIGITAL S CREENING MAMMOGRAM TOMOSYNTHESIS WITH CAD: 02/07/2020 Ordering Physician: Daiana Grimes D.O. CLINICAL: Routine screening. Comparison is made to exams dated: 01/06/2019 mammogram, 06/28/2018 mammogram, and 11/29/2017 mammogram - [facility]. The tissue of both breasts is heterogeneously dense. This may lower the sensitivity of mammography. Digital Breast Tomosynthesis was performed. Current study was also evaluated with a Computer Aided Detection (CAD) system. There are benign calcifications both breasts. There also are benign densities right breast. No significant masses, calcifications, or other findings are seen in either breast. There has been no significant interval change. IMPRESSION: BENIGN There is no mammographic evidence of malignancy. A 1 year screening mammogram is recommended. The false-negative rate of mammography is approximately 10%. Management of a palpable abnormality must be based upon clinical grounds. Sharifa Upton M.D. tlv/arsenio:02/09/2020 07:34:46 Jet Handler: Zuleika Nuñez) ( M), [facility] letter sent: Mammography Normal BI-RADS: 2 Benign Reported By: SHARIFA UPTON M.D. Signed By: SHARIFA UPTON M.D. Normal [facility] Bronchoalveolar lavage cultu re with Gram stain Respiratory Culture Haemophilus influenzae [facility] Work Phone: Gram stain for investigation of transfusion reaction Microscopic observation Gram stain Nom (Unsp spec) [facility] Work Phone: No Panel Information Enteric Bacteriology [facility] Work Phone: Vital Signs Date Time Vital Sign Value Performing Clinician Faci lity 10-21-2024 08:14-0400 Body mass index (BMI) [Ratio] 21.4 kg/m2 Dr. Daiana Grimes DO Work Phone: [facility] 10-21-2024 08:14-0400 Body temperature 97.2 [degF] Dr. Daiana Grimes DO Work Phone: [facility] 10-21-2024 08:14-0400 Body weight 71.[address] Daiana Grimes DO Work Phone: [facility] 10-21-2024 08:14-0400 Diastolic blood pressure 72 mm[Hg] Dr. Daiana Grimes DO Work Phone: [facility] 10-21-2024 08:14-0400 Heart rate 57 /min Dr. Daiana Grimes DO Work Phone: [facility] 10-21-2024 08:14-0400 Respiratory rate 20 /min Dr. Daiana Grimes DO Work Phone: [facility] 10-21-2024 08:14-0400 SaO2% (BldA) [Mass fraction] 97 % Dr. Daiana Grimes DO Work Phone: [facility] 10-21-2024 08:14-0400 Systolic blood pressure 121 mm[Hg] Dr. Daiana Grimes DO Work Phone: [facility] 10-01-2024 11:31-0400 Body mass index (BMI) [Ratio] 21.2 kg/m2 Dr. Daiana Grimes DO Work Phone: [facility] 10-01-2024 11:31-0400 Body weight 71.[address] Daiana Grimes DO Work Phone: [facility] 10-01-2024 11:31-0400 Diastolic blood pressure 70 mm[Hg] Dr. Daiana Grimes DO Work Phone: 0(491)796-898666 [place] [address] 10-01-2024 11:31-0400 Heart rate 60 /min Dr. Daiana Grimes DO Work Phone: 7(785)195-469066 [place] [address] 10-01-2024 11:31-0400 Respiratory rate 16 /min Dr. Daiana Grimes DO Work Phone: 7(582)872-612766 [place] [address] 10-01-2024 11:31-0400 Systolic blood pressure 119 mm[Hg] Dr. Daiana Grimes DO Work Phone: [facility] 09-26-2024 13:31-0400 Body height 182.[address] Daiana Grimes DO Work Phone: [facility] 09-26-2024 13:28-0400 Body mass index (BMI) [Ratio] 20.9 kg/m2 Dr. Daiana Grimes DO Work Phone: [facility] 09-26-2024 13:28-0400 Body weight 69.[address] Daiana Grimes DO Work Phone: [facility] 09-26-2024 13:28-0400 Diastolic blood pressure 81 mm[Hg] Dr. Daiana Grimes DO Work Phone: [facility] 09-26-2024 13:28-0400 Systolic blood pressure 142 mm[Hg] Dr. Daiana Grimes DO Work Phone: [facility] 05-02-2024 14:22-0500 Body height 182.9 cm Adam Peiffer DO Work Phone: [facility] 05-02-2024 14:22-0500 Body mass index (BMI) [Ratio] 20.07 kg/m2 Adam Peiffer DO Work Phone: [facility] 05-02-2024 14:22-0500 Body weight 67.13 kg Adam Peiffer DO Work Phone: [facility] 05-02-2024 14:22-0500 Respiratory rate 16 /min Adam Peiffer DO Work Phone: [facility] 04-29-2024 10:19-0500 Body height 182.9 cm Israel Dawit DPM Work Phone: [facility] 04-29-2024 10:19-0500 Body mass index (BMI) [Ratio] 20.07 kg/m2 Israel Dawit DPM Work Phone: [facility] 04-29-2024 10:19-0500 Body weight 67.13 kg Israel Dawit DPM Work Phone: [facility] 04-29-2024 10:19-0500 Respiratory rate 17 /min Israel Dawit DPM Work Phone: [facility] 09-18-2023 13:15-0400 Body height 182.[address] Daiana Grimes Work Phone: [facility] 09-18-2023 13:15-0400 Body mass index (BMI) [Ratio] 20.2 kg/m2 Dr. Daiana Grimes Work Phone: [facility] 09-18-2023 13:15-0400 Body weight 67.[address] Daiana Grimes Work Phone: [facility] 09-18-2023 13:15-0400 Diastolic blood pressure 72 mm[Hg] Dr. Daiana Grimes Work Phone: [facility] 09-18-2023 13:15-0400 Systolic blood pressure 114 mm[Hg] Dr. Daiana Grimes Work Phone: 1(693)142-002666 [place] [address] 03-21-2023 12:05-0400 Diastolic blood pressure 68 mm[Hg] Dr. Daiana Grimes Work Phone: 5(987)519-938966 [place] [address] 03-21-2023 12:05-0400 Systolic blood pressure 124 mm[Hg] Dr. Daiana Grimes Work Phone: 0(001)541-743166 [place] [address] 03-21-2023 11:37-0400 Body mass index (BMI) [Ratio] 22.9 kg/m2 Dr. Daiana Grimes Work Phone: 1(311)591-963566 [place] [address] 03-21-2023 11:37-0400 Body weight 76.[address] Daiana Grimes Work Phone: 1(361)728-535466 [place] [address] 03-21-2023 11:37-0400 Heart rate 57 /min Dr. Daiana Grimes Work Phone: 8(044)854-101966 [place] [address] 03-21-2023 11:37-0400 Respiratory rate 18 /min Dr. Daiana Grimes Work Phone: 5(571)477-907566 [place] [address] 03-21-2023 11:37-0400 SaO2% (BldA) [Mass fraction] 97 % Dr. Daiana Grimes Work Phone: [facility] 12-14-2022 13:06-0400 Body height 182.9 cm Akil Quach MD Work Phone: [facility] 12-14-2022 13:06-0400 Body weight 75.3 kg Akil Quach MD Work Phone: [facility] 12-14-2022 13:06-0400 Respiratory rate 16 /min Akil Quach MD Work Phone: [facility] 08-31-2022 14:23-0400 Body height 182.[address] Daiana Grimes Work Phone: [facility] 08-31-2022 14:18-0400 Body mass index (BMI) [Ratio] 22.1 kg/m2 Dr. Daiana Grimes Work Phone: [facility] 08-31-2022 14:18-0400 Body weight 74.[address] Daiana Grimes Work Phone: [facility] 08-31-2022 14:18-0400 Diastolic blood pressure 67 mm[Hg] Dr. Daiana Grimes Work Phone: [facility] 08-31-2022 14:18-0400 Systolic blood pressure 116 mm[Hg] Dr. Daiana Grimes Work Phone: [facility] 04-05-2022 09:23-0500 Body height 182.[address] Daiana Grimes Work Phone: [facility] Work Phone: 04-05-2022 09:23-0500 Body mass index (BMI) [Ratio] 21.2 kg/m2 Dr. Daiana Grimes Work Phone: [facility] Work Phone: 04-05-2022 09:23-0500 Body temperature 97.8 [degF] Dr. Daiana Grimes Work Phone: [facility] Work Phone: 04-05-2022 09:23-0500 Body weight 71.[address] Daiana Grimes Work Phone: [facility] Work Phone: 04-05-2022 09:23-0500 Diastolic blood pressure 76 mm[Hg] Dr. Daiana Grimes Work Phone: [facility] Work Phone: 04-05-2022 09:23-0500 Heart rate 69 /min Dr. Daiana Grimes Work Phone: [facility] Work Phone: 04-05-2022 09:23-0500 Respiratory rate 17 /min Dr. Daiana Grimes Work Phone: [facility] Work Phone: 04-05-2022 09:23-0500 SaO2% (BldA) [Mass fraction] 96 % Dr. Daiana Grimes Work Phone: [facility] Work Phone: 04-05-2022 09:23-0500 Systolic blood pressure 112 mm[Hg] Dr. Daiana Grimes Work Phone: [facility] Work Phone: 03-02-2022 07:34-0400 Body height 182.88 cm No Primary Care Physician [facility] Work Phone: 03-02-2022 07:34-0400 Body mass index (BMI) [Ratio] 21.4 kg/m2 No Primary Care Physician [facility] Work Phone: 03-02-2022 07:34-0400 Body temperature 98.6 [degF] No Primary Care Physician [facility] Work Phone: 03-02-2022 07:34-0400 Body weight 71.83 kg No Primary Care Physician [facility] Work Phone: 03-02-2022 07:34-0400 Diastolic blood pressure 74 mm[Hg] No Primary Care Physician [facility] Work Phone: 03-02-2022 07:34-0400 Heart rate 66 /min No Primary Care Physician [facility] Work Phone: 03-02-2022 07:34-0400 Respiratory rate 16 /min No Primary Care Physician [facility] Work Phone: 03-02-2022 07:34-0400 SaO2% (BldA) [Mass fraction] 98 % No Primary Care Physician [facility] Work Phone: 03-02-2022 07:34-0400 Systolic blood pressure 121 mm[Hg] No Primary Care Physician [facility] Work Phone: 12-01-2021 15:54-0400 Body height 182.[address] Zuleika Smyth Work Phone: [facility] Work Phone: 12-01-2021 15:54-0400 Body mass index (BMI) [Ratio] 20.9 kg/m2 Dr. Zuleika Smyth Work Phone: [facility] Work Phone: 12-01-2021 15:54-0400 Body weight 70.[address] Zuleika Smyth Work Phone: [facility] Work Phone: 12-01-2021 15:54-0400 Diastolic blood pressure 70 mm[Hg] Dr. Zuleika Smyth Work Phone: [facility] Work Phone: 12-01-2021 15:54-0400 Heart rate 64 /min Dr. Zuleika Smyth Work Phone: [facility] Work Phone: 12-01-2021 15:54-0400 Respiratory rate 16 /min Dr. Zuleika Smyth Work Phone: [facility] Work Phone: 12-01-2021 15:54-0400 Systolic blood pressure 114 mm[Hg] Dr. Zuleika Smyth Work Phone: [facility] Work Phone: 10-28-2021 20:51-0400 Body height 182.[address] Zuleika Smyth Work Phone: [facility] Work Phone: 10-28-2021 20:51-0400 Body mass index (BMI) [Ratio] 20.9 kg/m2 Dr. Zuleika Smyth Work Phone: [facility] Work Phone: 10-28-2021 20:51-0400 Body temperature 96.8 [degF] Dr. Zuleika Smyth Work Phone: [facility] Work Phone: 10-28-2021 20:51-0400 Body weight 70.[address] Zuleika Smyth Work Phone: [facility] Work Phone: 10-28-2021 20:51-0400 Diastolic blood pressure 73 mm[Hg] Dr. Zuleika Smyth Work Phone: [facility] Work Phone: 10-28-2021 20:51-0400 Heart rate 88 /min Dr. Zuleika Smyth Work Phone: [facility] Work Phone: 10-28-2021 20:51-0400 Respiratory rate 15 /min Dr. Zuleika Smyth Work Phone: [facility] Work Phone: 10-28-2021 20:51-0400 SaO2% (BldA) [Mass fraction] 98 % Dr. Zulekia Smyth Work Phone: [facility] Work Phone: 10-28-2021 20:51-0400 Systolic blood pressure 120 mm[Hg] Dr. Zuleika Smyth Work Phone: [facility] Work Phone: 10-27-2021 08:13-0400 Body mass index (BMI) [Ratio] 21.3 kg/m2 Dr. Zuleika Smyth Work Phone: [facility] Work Phone: 10-27-2021 08:13-0400 Body temperature 97.5 [degF] Dr. Zuleika Smyth Work Phone: [facility] Work Phone: 10-27-2021 08:13-0400 Body weight 71.[address] Zuleika Smyth Work Phone: [facility] Work Phone: 10-27-2021 08:13-0400 Diastolic blood pressure 68 mm[Hg] Dr. Zuleika Smyth Work Phone: [facility] Work Phone: 10-27-2021 08:13-0400 Heart rate 71 /min Dr. Zuleika Smyth Work Phone: [facility] Work Phone: 10-27-2021 08:13-0400 Respiratory rate 16 /min Dr. Zuleika Smyth Work Phone: [facility] Work Phone: 10-27-2021 08:13-0400 SaO2% (BldA) [Mass fraction] 98 % Dr. Zuleika Smyth Work Phone: [facility] Work Phone: 10-27-2021 08:13-0400 Systolic blood pressure 108 mm[Hg] Dr. Zuleika Smyth Work Phone: [facility] Work Phone: 10-27-2021 08:13-0400 Body mass index (BMI) [Ratio] 21.3 kg/m2 Dr. Zuleika Smyth Work Phone: [facility] Work Phone: 10-27-2021 08:13-0400 Body temperature 97.5 [degF] Dr. Zuleika Smyth Work Phone: [facility] Work Phone: 10-27-2021 08:13-0400 Body weight 71.[address] Zuleika Smyth Work Phone: [facility] Work Phone: 10-27-2021 08:13-0400 Diastolic blood pressure 68 mm[Hg] Dr. Zuleika Smyth Work Phone: [facility] Work Phone: 10-27-2021 08:13-0400 Heart rate 71 /min Dr. Zuleika Smyth Work Phone: [facility] Work Phone: 10-27-2021 08:13-0400 Respiratory rate 16 /min Dr. Zuleika Smyth Work Phone: [facility] Work Phone: 10-27-2021 08:13-0400 SaO2% (BldA) [Mass fraction] 98 % Dr. Zuleika Smyth Work Phone: [facility] Work Phone: 10-27-2021 08:13-0400 Systolic blood pressure 108 mm[Hg] Dr. Zuleika Smyth Work Phone: [facility] Work Phone: 10-06-2021 09:05-0400 Body height 182.[address] Zuleika Smyth Work Phone: [facility] Work Phone: 10-06-2021 09:05-0400 Body mass index (BMI) [Ratio] 20.9 kg/m2 Dr. Zuleika Smyth Work Phone: [facility] Work Phone: 10-06-2021 09:05-0400 Body temperature 96.8 [degF] Dr. Zuleika Smyth Work Phone: [facility] Work Phone: 10-06-2021 09:05-0400 Body weight 69.[address] Zuleika Smyth Work Phone: [facility] Work Phone: 10-06-2021 09:05-0400 Diastolic blood pressure 80 mm[Hg] Dr. Zuleika Smyth Work Phone: [facility] Work Phone: 10-06-2021 09:05-0400 Heart rate 61 /min Dr. Zuleika Smyth Work Phone: [facility] Work Phone: 10-06-2021 09:05-0400 Respiratory rate 15 /min Dr. Zuleika Smyth Work Phone: [facility] Work Phone: 10-06-2021 09:05-0400 SaO2% (BldA) [Mass fraction] 95 % Dr. Zuleika Smyth Work Phone: [facility] Work Phone: 10-06-2021 09:05-0400 Systolic blood pressure 127 mm[Hg] Dr. Zuleika Smyth Work Phone: [facility] Work Phone: 09-15-2021 07:33-0400 Body mass index (BMI) [Ratio] 21.2 kg/m2 Dr. Zuleika Smyth Work Phone: [facility] Work Phone: 09-15-2021 07:33-0400 Body temperature 96.8 [degF] Dr. Zuleika Smyth Work Phone: [facility] Work Phone: 09-15-2021 07:33-0400 Body weight 70.[address] Zuleika Smyth Work Phone: [facility] Work Phone: 09-15-2021 07:33-0400 Diastolic blood pressure 75 mm[Hg] Dr. Zuleika Smyth Work Phone: [facility] Work Phone: 09-15-2021 07:33-0400 Heart rate 62 /min Dr. Zuleika Smyth Work Phone: [facility] Work Phone: 09-15-2021 07:33-0400 Respiratory rate 16 /min Dr. Zuleika Smyth Work Phone: [facility] Work Phone: 09-15-2021 07:33-0400 SaO2% (BldA) [Mass fraction] 99 % Dr. Zuleika Smyth Work Phone: [facility] Work Phone: 09-15-2021 07:33-0400 Systolic blood pressure 122 mm[Hg] Dr. Zuleika Smyth Work Phone: [facility] Work Phone: 09-15-2021 07:33-0400 Body height 182.[address] Zuleika Smyth Work Phone: [facility] Work Phone: 09-15-2021 07:33-0400 Body mass index (BMI) [Ratio] 21.2 kg/m2 Dr. Zuleika Smyth Work Phone: [facility] Work Phone: 09-15-2021 07:33-0400 Body temperature 96.8 [degF] Dr. Zuleika Smyth Work Phone: [facility] Work Phone: 09-15-2021 07:33-0400 Body weight 70.[address] Zuleika Smyth Work Phone: [facility] Work Phone: 09-15-2021 07:33-0400 Diastolic blood pressure 75 mm[Hg] Dr. Zuleika Smyth Work Phone: [facility] Work Phone: 09-15-2021 07:33-0400 Heart rate 62 /min Dr. Zuleika Smyth Work Phone: [facility] Work Phone: 09-15-2021 07:33-0400 Respiratory rate 16 /min Dr. Zuleika Smyth Work Phone: [facility] Work Phone: 09-15-2021 07:33-0400 SaO2% (BldA) [Mass fraction] 99 % Dr. Zuleika Smyth Work Phone: [facility] Work Phone: 09-15-2021 07:33-0400 Systolic blood pressure 122 mm[Hg] Dr. Zuleika Smyth Work Phone: [facility] Work Phone: 08-25-2021 09:21-0400 Body mass index (BMI) [Ratio] 21 kg/m2 Dr. Zuleika Smyth Work Phone: [facility] Work Phone: 08-25-2021 09:21-0400 Body weight 70.[address] Zuleika Smyth Work Phone: [facility] Work Phone: 08-25-2021 09:21-0400 Diastolic blood pressure 90 mm[Hg] Dr. Zuleika Smyth Work Phone: [facility] Work Phone: 08-25-2021 09:21-0400 Systolic blood pressure 138 mm[Hg] Dr. Zuleika Smyth Work Phone: [facility] Work Phone: 08-25-2021 09:21-0400 Body height 182.[address] Zuleika Smyth Work Phone: [facility] Work Phone: 08-25-2021 09:21-0400 Body mass index (BMI) [Ratio] 21 kg/m2 Dr. Zuleika Smyth Work Phone: [facility] Work Phone: 08-25-2021 09:21-0400 Body weight 70.[address] Zuleika Smyth Work Phone: [facility] Work Phone: 08-25-2021 09:21-0400 Diastolic blood pressure 90 mm[Hg] Dr. Zuleika Smyth Work Phone: [facility] Work Phone: 08-25-2021 09:21-0400 Systolic blood pressure 138 mm[Hg] Dr. Zuleika Smyth Work Phone: [facility] Work Phone: Encounters Encounter Date Encounter Type Care Provider Facility Start: 01-07-2025 End: 01-07-2025 Telephone encounter Endo [facility] Comment on above: Appointment (HEALTH SPECIALIST) Start: 12-29-2024 End: 12-29-[address] Daiana Grimes DO Work Phone: -Ultrasound [facility] Start: 12-29-2024 End: 12-29-[address] Daiana Grimes DO -Ultrasound [facility] Work Phone: Start: 12-29-2024 End: 12-29-2024 ambulatory Daiana Grimes Facility:[facility] Start: 12-11-2024 End: 12-11-[address] Daiana Grimes DO Work Phone: -Cat Scan [facility] Start: 12-11-2024 End: 12-11-2024 Patient encounter procedure Sussy Roach PA -Cat Scan [facility] Work Phone: Start: 12-11-2024 End: 12-11-2024 ambulatory Daiana Grimes Facility:[facility] Start: 11-18-2024 Non-patient / Non-visit Dr. Jojo judge MD -[facility] Work Phone: Start: 11-14-2024 ambulatory Stefani Castillo Facility:[facility] Start: 11-14-2024 Non-patient / Non-visit Dr. Stefani oliveira MD -[facility] Start: 11-14-2024 End: 11-14-[address] Daiana Grimes DO Work Phone: -Cardiovascular Services Start: 11-14-2024 End: 11-14-[address] Stefani Castillo MD -Cardiovascular Services Work Phone: Start: 11-14-2024 End: 11-14-2024 ambulatory Stefani Castillo Facility:[facility] Start: 10-21-2024 End: 10-21-[address] Jacob Coulter DO -[facility] Start: 10-21-2024 End: 10-21-[address] Daiana Grimes DO Work Phone: [facility] Work Phone: Start: 10-20-2024 End: 10-21-[address] Daiana Grimes DO Work Phone: [facility] Work Phone: Start: 10-20-2024 End: 10-20-[address] Zuleika Smyth DO -Outpatient Breast Imaging Work Phone: Start: 10-20-2024 End: 10-20-2024 ambulatory Zuleika Smyth Facility:[facility] Start: 10-01-2024 End: 10-01-[address] Stefani Castillo MD -[facility] Work Phone: Start: 10-01-2024 End: 10-01-[address] Daiana Grimes DO Work Phone: [facility] Work Phone: Start: 09-26-2024 Encounter for gynecological examination (general) (routine) without abnormal findings Zuleika Smyth [facility] Start: 09-26-2024 End: 09-26-[address] [facility] Work Phone: Start: 09-26-2024 End: 09-26-[address] Zuleika Smyth DO [facility] Start: 09-26-2024 End: 09-26-2024 ambulatory Daiana Grimes Facility:[facility] Start: 09-23-2024 Non-patient / Non-visit Dr. Jacob hicks DO -[facility] Start: 09-23-2024 End: 09-23-[address] Daiana Grimes DO Work Phone: [facility] Work Phone: Start: 09-23-2024 End: 09-23-2024 Patient encounter procedure Sussy Roach PA -Pulmonary Services/Neurology Work Phone: Start: 09-23-2024 End: 09-23-2024 ambulatory Daiana Grimes Facility:[facility] Start: 05-06-2024 End: 05-06-2024 Telephone encounter Adam Carson DO Work Phone: [facility] Comment on above: Orders Start: 05-02-2024 End: 05-02-2024 Patient encounter procedure Adam Carson DO Work Phone: [facility] Comment on above: Chronic low back mara n, unspecified back pain laterality, unspecified whether sciatica present (Primary Dx); CMT (Nmpiyxd-Mjesf-Nyicv disease) Start: 05-02-2024 End: 05-02-2024 ambulatory ADAM CARSON Facility:[facility] Start: 04-29-2024 End: 04-29-2024 Patient encounter procedure Israel Pastor DPM Work Phone: [facility] Comment on above: Pain in right foot ( Primary Dx); Pain in left foot; CMT (Qncowal-Xfjgf-Lokmg disease); Chronic low back pain, unspecified back pain laterality, unspecified whether sciatica present Start: 04-29-2024 End: 04-29-2024 ambulatory ISRAEL PASTOR Facility:[facility] Start: 04-25-2024 End: 04-25-2024 ambulatory Daiana Grimes Facility:[facility] Start: 03-25-2024 End: 03-25-2024 ambulatory Daiana Grimes Facility:[facility] Start: 02-23-2024 ambulatory EVELYN HU Facility: [id number] Start: 02-23-2024 End: 02-23-2024 Subsequent hospital visit by physician [facility] Work Phone: [facility] Comment on above: Other symptoms and s igns involving cognitive functions and awareness [R41.89] Start: 02-15-2024 End: 02-15-2024 Telephone encounter Ag [facility] Work Phone: [facility] Start: 01-11-2024 ambulatory SELF Facility:[id number] Start: 01-11-2024 End: 01-11-2024 Subsequent hospital visit by physician [facility] Work Phone: [facility] Start: 09-27-[address] Daiana Grimes Work Phone: [facility] [place] Work Phone: Start: 09-18-2023 End: 09-18-[address] Daiana Grimes Work Phone: [facility] Work Phone: Start: 09-18-2023 End: 09-18-[address] [facility] Work [facility]: Start: 09-18-2023 End: 09-18-[address] Daiana Grimes Work Phone: [facility] Work Phone: Start: 05-02-2023 End: 05-04-2023 ambulatory [facility] Start: 04-17-2023 End: 04-17-[address] Daiana Grimes Work Phone: [facility] Work Phone: Start: 04-17-2023 End: 04-17-[address] Daiana Grimes Work Phone: [facility]-Cat Scan, [facility] Work Phone: Start: 03-21-2023 End: 03-21-[address] Daiana Grimes Work Phone: [facility] Work Phone: Start: 02-20-2023 End: 02-20-2023 Subsequent hospital visit by physician [facility] Work Phone: [facility] Comment on above: Cyst of kidney, acqu ired [N28.1] Start: 12-29-2022 End: 12-29-2022 ambulatory [facility] Work Phone: Start: 12-29-2022 End: 12-29-2022 Patient encounter procedure [facility]-Laboratory, [place] Work Phone: Start: 12-14-2022 End: 12-14-2022 Patient encounter procedure Akil Quach MD Work Phone: [facility] Comment on above: Primary osteoarthrit is of right hip (Primary Dx) Start: 12-09-2022 End: 12-10-2022 Emergency department patient visit ESTHER LAUREANO Facility:[id number] Start: 12-07-2022 End: 12-07-[address] Daiana Grimes Work Phone: [facility] Work Phone: Start: 12-07-2022 End: 12-07-[address] Daiana Grimes Work Phone: [facility]-Physical Therapy Work Phone: Start: 10-05-2022 End: 10-05-[address] Daiana Grimes Work Phone: [facility]-Radiology, [place] Work Phone: Start: 09-19-2022 End: 09-19-[address] Daiana Grimes Work Phone: [facility] Work Phone: Start: 09-19-2022 End: 09-19-[address] Daiana Grimes Work Phone: [facility]-Laboratory, [place] Start: 09-11-2022 End: 09-11-[address] Daiana Grimes Work Phone: [facility] Work Phone: Start: 09-11-2022 End: 09-11-[address] Daiana Grimes Work Phone: [facility]-Outpatient Breast Imaging Start: 08-31-2022 End: 08-31-[address] Daiana Grimes Work Phone: [facility] Start: 05-18-2022 End: 05-18-[address] Daiana Grimes Work Phone: [facility] Work Phone: Start: 05-18-2022 End: 05-18-[address] Daiana Grimes Work Phone: [facility]-Physical Therapy Start: 05-08-[address] Eva Grimes Work Phone: [facility]-Physical Therapy Start: 04-27-[address] Eva Grimes Work Phone: [facility]-Physical Therapy Start: 04-26-2022 End: 04-26-[address] Daiana Grimes Work Phone: [facility] Work Phone: Start: 04-26-2022 End: 04-26-[address] Daiana Grimes Work Phone: [facility]-Laboratory, Specimen Start: 04-26-2022 End: 04-26-[address] Daiana Grimes Work Phone: [facility] Start: 04-05-2022 End: 04-05-[address] Daiana Grimes Work Phone: [facility] Start: 03-13-2022 End: 03-13-2022 ambulatory No Primary Care Physician [facility] Work Phone: Start: 03-13-2022 End: 03-13-2022 Patient encounter procedure No Primary Care Physician [facility]-Laboratory, [facility] Start: 03-02-2022 End: 03-02-2022 Patient encounter procedure No Primary Care Physician [facility]-Pulmonary Medicine [facility] Start: 01-25-2022 End: 01-25-[address] Daiana Grimes Work Phone: [facility] Work Phone: Start: 01-25-2022 End: 01-25-[address] Daiana Grimes Work Phone: [facility]-Pulmonary Services/Neurology Start: 01-11-2022 Non-patient / Non-visit No Jacque dori Care Physician [facility] Start: 01-11-2022 End: 01-11-[address] Daiana Grimes Work Phone: [facility] Work Phone: Start: 01-11-2022 End: 01-11-2022 Patient encounter procedure No Primary Care Physician [facility]-Cardiovascula r Services Start: 01-05-2022 End: 01-05-2022 ambulatory No Primary Care Physician [facility] Work Phone: Start: 01-05-2022 End: 01-05-2022 Patient encounter procedure No Primary Care Physician [facility] Start: 12-20-2021 Registered Recurring No Primar y Care Physician [facility]-Physical Therapy Start: 12-13-[address] Neelima Smyth Work Phone: [facility]-Physical Therapy Start: 12-08-2021 End: 12-08-[address] Zuleika Smyth Work Phone: [facility] Start: 12-01-2021 End: 12-01-[address] Zuleika Smyth Work Phone: [facility] Start: 10-28-2021 End: 10-28-2021 Emergency department patient visit Dr. Zuleika Smyth Work Phone: [facility]-Emergency Department Start: 10-27-2021 End: 10-27-[address] Zuleika Smyth Work Phone: [facility]-Laboratory, Specimen Start: 10-20-2021 End: 10-20-[address] [facility] Start: 10-06-2021 End: 10-06-2021 Emergency department patient visit Dr. Zuleika Smyth Work Phone: [facility]-Emergency Department Start: 09-23-2021 Non-patient / Non-visit Dr. Marcus Smyth Work Phone: [facility] Start: 09-23-2021 End: 09-23-[address] Zuleika Smyth Work Phone: [facility]-Pulmonary Services/Neurology Start: 09-20-[address] Yeni Smyth Work Phone: [facility]-Employee Health Start: 09-19-2021 End: 09-19-[address] Zuleika Smyth Work Phone: [facility]-Laboratory, OP Pavilion Start: 09-15-2021 End: 09-15-[address] Zuleika Smyth Work Phone: [facility]-Pulmonary Medicine [facility] Start: 09-08-2021 End: 09-08-[address] Zuleika Smyth Work Phone: [facility]-Outpatient Breast Imaging Start: 08-25-2021 End: 08-25-[address] Zuleika Smyth Work Phone: [facility] Procedures Date Procedure Procedure Detail Performing Clinician Start: 12-29-2024 US scan of thyroid Dr. Daiana Grimes DO Work Phone: Start: 12-11-2024 CT angiography of ch est with contrast Dr. Daiana Grimes DO Work Phone: Start: 10-21-2024 Alternaria alternata GEM Grimes DO Work Phone: Start: 10-21-[address] Daiana Grimes DO Work Phone: Start: 10-21-2024 Box elder GEM Grimes DO Work Phone: Start: 10-21-2024 Cat dander RASJc Grimes DO Work Phone: Start: 10-21-2024 Krebs RASJc Grimes DO Work Phone: Start: 10-21-[address] Daiana Grimes DO Work Phone: Start: 10-21-2024 Common silver birch RAST Dr. Daiana Grimes DO Work Phone: Start: 10-21-2024 House dust mite (Df) RAST Dr. Daiana Grimes DO Work Phone: Start: 10-21-2024 Mouse urine proteins RAST Dr. Daiana Grimes DO Work Phone: Start: 10-21-[address] Hetla Grimes DO Work Phone: Start: 10-21-20[address] num RAST Dr. Daiana Grimes DO Work Phone: Start: 10-21-2024 Gabonese thistle RASJc Grimes DO Work Phone: Start: 10-21-[address] Jason Grimes DO Work Phone: Start: 10-21-[address] Jason Grimes DO Work Phone: Start: 10-20-2024 Screening mammography Matthew Grimes DO Work Phone: Start: 09-23-2024 Vitamin D, 25-hydrox y measurement Dr. Daiana Grimes DO Work Phone: Comment on above: Vitamin D StatusDefi ciency: <20 ng/mL (50nmol/L)Insufficiency: 20-30 ng/mL (50-75 nmol/L)Sufficiency: 30-100 ng/mL (75-250 nmol/L)Toxicity: >100 ng/mL (>250 nmol/L) Start: 09-23-2024 CT of thorax with contrast Dr. Daiana Grimes DO Work Phone: Start: 05-02-2024 Radex spine lumbosac ral 2/3 views Adam Carson DO Work Phone: Start: 04-29-2024 Radex foot complete minimum 3 views Katerin Araiza DPM Work Phone: Start: 04-29-2024 Radex foot complete minimum 3 views Katerin Araiza DPM Work Phone: Start: 02-23-2024 Mri brain brain stem w/o w/contrast material Evelyn Hu MD Work Phone: Start: 01-11-2024 Radex foot complete minimum 3 views Daiana Grimes DO Work Phone: Start: 09-18-[address] Eva Grimes Work Phone: Start: 04-17-2023 CT of thorax with contrast Dr. Daiana Grimes Work Phone: Start: 10-05-2022 Plain x-ray of pelvi s and lower extremity Dr. Daiana Grimes Work Phone: Start: 09-11-2022 Screening mammography Matthew Grimes Work Phone: Start: 06-07-2022 Colonoscopy Mri 2 Work Phone: Start: 01-05-2022 MRI of cervical spine N o Primary Care Physician Start: 01-05-2022 MRI of lumbar spine No Primary Care Physician Start: 12-08-2021 CT angiography of ch est with contrast Dr. Zuleika Smyth Work Phone: Start: 10-27-2021 Investigation of transfusion reaction Dr. Zuleika Smtyh Work Phone: Start: 10-27-2021 Respiratory microbia l culture Dr. Zuleika Smyth Work Phone: Start: 10-20-2021 End: 10-20-[address] Zuleika Smyth Work Phone: Start: 10-20-[address] Madonna Smyth Work Phone: Start: 10-20-2021 End: 10-20-[address] Zuleika Linton Work Phone: Start: 10-06-2021 Plain x-ray of humerus Dr. Zuleika Smyth Work Phone: Start: 10-06-2021 Plain X-ray of shoulder Dr. Zuleika Smyth Work Phone: Start: 09-08-2021 Screening mammography Matthew Smyth Work Phone: Start: 12-29-2020 Mammography Akil silver MD Work Phone: Start: 11-19-2020 Lipid 1996 panel - S radha or Plasma Mri 2 Work Phone: Clostridium difficil e detection Dr. Zuleika Smyth Work Phone: Enteric Bacteriology Dr. Trish Smyth Work Phone: History of operative procedure on knee History of right knee surgery Dr. Zuleika Smyth Work Phone: Comment on above: Patella fracture Investigation of transfusion reaction Dr. Zuleika Smyth Work Phone: Lactoferrin measurement Dr. Zuleika Smyth Work Phone: Respiratory microbia l culture Dr. Zuleika Smyth Work Phone: Plan of Treatment Date Care Activity Detail Author Start: 12-25-2039 RSV Vaccine (1 - 1-d ose 75+ series) RSV Vaccine (1 - 1-dose 75+ series) [facility] Start: 02-28-2029 Urine microalbumin profile DTaP,Tdap,Td Vaccine (2 - Td or Tdap) [facility] Start: 12-09-2025 DIABETES SCREEN DIABETES SCREEN [facility] Start: 12-09-2025 Diabetes Screening Diabetes Screenin g [facility] Start: 11-19-2025 Lipid 1996 panel - S radha or Plasma Lipid Screening [facility] Start: 11-19-2025 Lipid panel Lipid Screening [facility] Start: 11-19-2025 LIPID SCREEN LIPID SCREEN [facility] Start: 01-19-2025 Influenza vaccination Influenza Vacc ine (#1) [facility] Start: 10-21-2024 [facility] Start: 04-10-2024 End: 04-10-2024 Patient encounter procedure 04/10/2024 1:00 PM EST Office Visit [facility] [address] [place] [address] Maria Del Carmen Perdomo DPM [address] [place] [address] ingrown toenail/ok per SF/tlb [facility] Comment on above: ingrown toenail/ok p er SF/tlb Start: 02-28-2024 End: 02-28-2024 Patient encounter procedure 02/28/2024 2:00 PM EDT Office Visit [facility] [address] [place] [address] Israel Pastor, DPJazmyne [address] [place] [address] b/l foot, toe pain (mostly L toes) [facility] Comment on above: b/l foot, toe pain ( mostly L toes) Start: 02-23-2024 End: 02-23-2024 Patient encounter procedure 02/23/2024 10:30 AM EDT Appointment [facility] [address] [place] [address] MRI BRAIN WWO CONTRAST,[R41.89],Order ing Physician Dr Evelyn Hu MD, order faxed 12/2023 [facility] Comment on above: MRI BRAIN WWO CONTRA ST,[R41.89],Ordering Physician Dr Evelyn Hu MD, order faxed 12/2023 Start: 01-20-2024 Covid-19 Vaccine ( season) Covid-19 Vaccine ( season) [facility] Start: 01-20-2024 Covid-19 Vaccine ( season) Covid-19 Vaccine ( season) [facility] Start: 01-20-2024 Influenza vaccination Influenza Vacc ine (#1) [facility] Start: 06-07-2023 Colonoscopy Colonoscopy [facility] Start: 06-07-2023 Colorectal Cancer Screening Colorectal Cancer Screening [facility] Start: 01-19-2023 Influenza vaccination C [facility] Start: 12-29-2022 Procedure [facility] Start: 09-21-2022 Pneumococcal Vaccine : 50+ (2 of 2 - PCV) Pneumococcal Vaccine: 50+ (2 of 2 - PCV) [facility] Start: 05-21-2022 DEPRESSION ASSESSMENT DEPRESSION ASS ESSMENT [facility] Start: 03-13-2022 Methylmalonate measurement [facility] Work Phone: Start: 03-13-2022 Procedure [facility] Work Phone: Start: 12-29-2021 Mammography [facility] Start: 12-29-2021 Screening for malign ant neoplasm of breast Mammogram Screening [facility] Start: 10-27-2021 Respiratory microbia l culture Respiratory Culture [facility] Work Phone: Start: 09-08-2021 Screening mammography SCRN MICKIE M (CAD)W/LORETTA BILAT [facility] Work Phone: Start: 08-11-2020 COVID-19 VACCINE (3 - Moderna series) COVID-19 VACCINE (3 - Moderna series) [facility] Start: 2014 SHINGRIX VACCINE (1 of 2) COTTO GRIX VACCINE (1 of 2) [facility] Start: 2009 COLOGUARD (FIT-DNA) COLOGUARD (FIT-D NA) [facility] Start: 2009 Colonoscopy COLONOSCOPY [facility] Start: 2009 COLORECTAL CANCER SCREENING COLORECTAL CANCER SCREENING [facility] Start: [address] COLONOGRAPHY [facility] Start: 2009 FECAL OCCULT BLOOD FECAL OCCULT BLOO D [facility] Start: 2009 Screening for malign ant neoplasm of colon [facility] Start: 2009 SIGMOIDOSCOPY SIGMOIDOSCOPY [facility] Start: 1994 HPV TESTING HPV TESTING [facility] Start: 1985 PAP TESTING PAP TESTING [facility] Start: 1985 Screening for malign ant neoplasm of cervix Cervical Cancer Screening [facility] Start: 12-25-1983 Hepatitis B Vaccine (1 of 3 - 19+ 3-dose series) Hepatitis B Vaccine (1 of 3 - 19+ 3-dose series) [facility] Start: 12-25-1983 Urine microalbumin profile [facility] Start: 1982 Anxiety Screening Anxiety Screening [facility] Start: 1982 Depression Screening Depression Scre ening [facility] Start: 1982 HEPATITIS C SCREENING HEPATITIS C [facility] Start: 1982 Hepatitis C screening Hepatitis C [facility] Start: 1982 HIV SCREENING HIV SCREENING [facility] Start: 1982 HIV screening HIV Screening [facility] Start: 1964 HEPATITIS B (1 of 3 - 3-dose series) HEPATITIS B (1 of 3 - 3-dose series) [facility] Start: 1964 Hepatitis B Vaccine (1 of 3 - 3-dose series) Hepatitis B Vaccine (1 of 3 - 3-dose series) [facility] Alternaria alternata IgE Ab [Units/volume] in Serum [facility] Paraguayan Cockroach I gE Ab [Units/volume] in Serum [facility] Aspergillus fumigatu s RAST [facility] Bermuda grass IgE Ab [Units/volume] in Serum [facility] Box elder RAST [facility] Cat dander [facility] Cladosporium herbaru m IgE Ab [Units/volume] in Serum [facility] Common Pigweed IgE A b [Units/volume] in Serum [facility] Common Ragweed IgE A b [Units/volume] in Serum [facility] Common silver birch RAST [facility] Dog epithelium IgE A b [Units/volume] in Serum [facility] Doppler ultrasonogra phy of aorta [facility] Work Phone: house dust mite IgE Ab [Units/volume] in Serum [facility] House dust mite (Df) RAST [facility] Immunoglobulin E measurement [facility] Methylmalonate measurement [facility] Work Phone: MG Breast - bilatera l Screening [facility] Mountain Juniper IgE Ab [Units/volume] in Serum [facility] Mouse urine proteins RAST [facility] Patient Education [facility] Work Phone: Patient referral [facility] Work Phone: Pecan nut RAST [facility] Penicillium chrysoge num RAST [facility] Procedure [facility] Work Phone: Radex hip unilateral with pelvis 1 view XR HIP 1V UNIL W PELVIS WHEN PERFORMED (AG) Radiology Routine Primary osteoarthritis of right hip Ordered: 12/14/2022 [facility] Work Phone: Comment on above: Ordered: 12/14/2022 Saltwort IgE Ab [Units/volume] in Serum [facility] Sheep [place] IgE Ab [Units/volume] in Serum [facility] Eleni IgE Ab [Units/volume] in Serum [facility] Tree pollen [facility] Work Phone: [facility] White Asya IgE Ab [Units/volume] in Serum [facility] White Elm IgE Ab [Units/volume] in Serum [facility] White mulberry IgE A b [Units/volume] in Serum [facility] Immunizations Immunization Date Immunization Notes Care Provider Lindsay voss 02-22-2024 influenza virus vaccine, unspecified formulation Daiana Grimes DO Work Phone: [facility] 04-24-2023 influenza, injectabl e, quadrivalent, preservative free Dr. Daiana Grimes Work Phone: [facility] 04-24-2023 influenza virus vaccine, unspecified formulation Xr [place] Work Phone: [facility] 02-20-2022 influenza, injectabl e, quadrivalent, preservative free Dr. Daiana Grimes Work Phone: [facility] 02-20-2022 influenza, seasonal, injectable No Primary Care Physician [facility] 02-20-2022 influenza virus vaccine, unspecified formulation Mri 2 Work Phone: [facility] 03-16-2021 influenza virus vaccine, unspecified formulation Akil Quach MD Work Phone: [facility] Payers Date Payer Category Payer Self-pay [id number] 2022 Private Health Insurance [facility] [id number] 2022 Unknown KAUR LEON [id number] 2022-Present [phone] [address] [place] [address] Indemnity [id number] 2022 Unknown [id number] 2022 Unknown [id number] 1965 Unknown [id number]. 1245 Unknown [id number] Unknown [id number] Unknown [id number]. 462 Unknown [id number] [id number]. 462 Unknown [id number]. 462 Unknown [id number] 2.840.1.838075.3.579.2. 462 Unknown [id number] 2.840.1.072482.3.579.2. 462 Unknown [id number] 2.16840.1.528366.3.579.2. 462 Unknown [id number] 2.16840.1.478459.3.579.2. 462 Unknown [id number] 2.16840.1.689085.3.579.2. 462 Unknown [id number] 2.16840.1.930845.3.579.2. 462 Unknown [id number] [id number]. 462 Unknown [id number] 2.16.840.1.003469.3.579.2. 462 Unknown [id number] [id number]. 462 Unknown [id number] 2.16840.1.927522.3.579.2. 462 Unknown [id number] [id number]. 462 Unknown [id number] [id number]. 462 Social History Date Type Detail Facility Start: 08-25-2021 End: 09-18-2023 Tobacco smoking status [facility] Unknown if ever smoked [facility] Start: 1965 Sex Assigned At Female [facility] Start: 12-14-2022 End: 04-29-2024 Tobacco smoking status GAIS Ex-smoker [facility] End: 11-19-2019 History of tobacco use Current smoker [facility] End: 11-19-2019 History of tobacco use Cigarette Smoker [facility] Start: 12-10-2022 End: 12-14-2022 Cigarettes smoked current (pack per day) - Reported 0.3 [facility] Start: 12-14-2022 End: 05-02-2024 Alcohol intake Current drinker of alcohol (finding) [facility] Start: 12-10-2022 End: 12-14-2022 Tobacco use panel [facility] Start: 04-29-2012 National Score (1-10 0), lower number is lower risk 56 [facility] Start: 1965 Sex Assigned At Not on file C [facility] Start: 02-13-2023 Gender identity Identifies as female gender (finding) [facility] Start: 04-29-2024 Tobacco use and exposure Smokeless tobacco non-user [facility] Medical Equipment Procedure Code Equipment Code Equipment Origin al Text Equipment Identifier Dates USE DIRECTED [id number], [id number] Start: 06-22-2017 Comment on above: USE DIRECTED Clinical Notes 08-17-2022 to 01-07-2025 Telephone Encounter - Katia Salguero PSS - 01/07/2025 2:50 PM EDTTelephone Encounter - Katia Salguero PSS - 01/07/2025 2:50 PM EDT Note Date & Type Note Facility 01-07-2025 Telephone encounter Note Faxed Referral I spoke to patient and she prefers [place] I gave her Endo main # to schdule,and she voiced understanding. Referred by: Daiana Grimes DX: thyroid nodules Referred to: Looking for [place].Referral uploaded to chart JAVAN Aguirre [facility] 01-07-2025 Miscellaneous Notes Faxed Referral I spoke to patient and she prefers [place] I gave her Endo main # to schdule,and she voiced understanding. Referred by: Daiana Grimes DX: thyroid nodules Referred to: Looking for [place].Referral uploaded to chart JAVAN Aguirre documented in this encounter [facility] 12-30-2024 Radiology Diagnostic study note [facility] Imaging Services [address] [place] [address] [id number] Thyroid MR#: [id number] Acct: [id number] Name: BRIONNA ROBLES Rep #: [id number] : 1965 F 59 From: Mert Andrews MD PCP: Dr. Daiana Grimes, Status: NEHA C CLAIRE Study:Thyroid Date of Exam: 12/29/24 Exam# [id number] Ordering Dr: Jason Grimes DO PROCEDURE: THYROID 12/29/2024 REASON FOR EXAM: NONTOXIC THYROID NODULE TECHNIQUE: THYROID COMPARISON: None FINDINGS: Right thyroid lobe size: 4.2 cm x 1.7 cm 1.5 cm Left thyroid lobe size: 4.5 cm x 1.4 cm x 1 cm Isthmus: 0.1 cm Background parenchymal echotexture is homogeneous. Nodules: . Lobe: Right, Location: Midpole, Size: 2 cm x 1.4 cm x 1.1 cm, Stability: N/A Composition: Mixed cystic and solid (+1) Echogenicity: Hypoechoic (+2) Margin: Smooth (+0) Shape: Wider than tall (+0) Echogenic Foci: None (+0) TI-RADS: 3 . Lobe: Left, Location: Midpole, Size: 0.4 cm x 0.5 cm x 0.3 cm, Stability: N/A Composition: Mixed cystic and solid (+1) Echogenicity: Hypoechoic (+2) Margin: Smooth (+0) Shape: Wider than tall (+0) Echogenic Foci: None (+0) TI-RADS: 3 US/Thyroid IMPRESSION: Dominant complex nodule in the right lobe of the thyroid as described. Biopsy recommended. RECOMMENDATION: Based on most suspicious nodule. Nodule size = largest diameter Only evaluate nodule if =>5 mm. Growth > 20% in 2 dimensions = worsening. Follow up to 4 nodules. Recommend biopsy for no more than 2 nodules. Reading Location: [place] [address] CC: Dr. Daiana Grimes DO ~ Bag Printer: Signed [facility] 12-11-2024 Radiology Diagnostic study note [facility] Imaging Services [address] [place] [id number] CTA Chest W/WO Contrast MR#: [id number] Acct: [id number] Name: BRIONNA ROBLES Rep #: [id number] : 1965 F 58 From: Lakisha Wang MD PCP: Dr. Daiana Grimes DO Status: REG C CLAIRE Study:CTA Chest W/WO Contrast Date of Exam: 12/11/24 Exam# [id number] Ordering Dr: Sussy Villatoro PROCEDURE: CTA CHEST W/WO CONTRAST 12/11/2024 REASON FOR EXAM: TAA TECHNIQUE: CTA CHEST W/WO CONTRAST Multiplanar Sagittal and Coronal images were obtained. CONTRAST: Isovue 370 VOLUME: 95 mL One or more dose reduction techniques were used (e.g., Automated exposure control, adjustment of the mA and/or kV according to patient size, use of iterative reconstruction technique). RADIATION DOSE SUMMARY: CTDlvol: 18 mGy DLP: 242 mGycm COMPARISON: 09/27/2024 FINDINGS: 1.5 cm right thyroid lobe lesion, recommend thyroid ultrasound to further characterize. Thoracic spine scoliosis and degeneration. Normal esophagus. Normal heart size. No aortic dissection. Mildly tortuous thoracic aorta. Dilated ascending aorta, maximum cross-section 4.1 x 4.1 cm. Previously measured up to 4.2 cm. Afew calcified plaque. No pulmonary embolism. No acute chest wall findings. Status post cholecystectomy. Multiple liver hypodensities favoring cysts. No acute upper abdominal findings. Central airways are patent. Under aerated lungs. Mild emphysema. No consolidation, effusion, pneumothorax, or suspicious lung nodule. CT/CTA Chest W/WO Contrast IMPRESSION: Stable dilatation of the ascending aorta. No acute chest findings. Reading Location: [place] [address] CC: Dr. Daiana Grimes DO; ZOEY Cooper ~ Bag Printer: Signed [facility] 09-27-2024 Radiology Diagnostic study note [facility] Imaging Services [address] [place] [address] [id number] Chest WITH Contrast MR#: [id number] Acct: [id number] Name: BRIONNA ROBLES Rep #: [id number] : 1965 F 58 From: Gabriela Roland MD PCP: Dr. Daaina Grimes DO Status: REG C LI Study:Chest WITH Contrast Date of Exam: 09/23/24 Exam# [id number] Ordering Dr: Sussy Villatoro EXAM: CT Chest With Intravenous Contrast CLINICAL INDICATION: TAA TECHNIQUE: Axial computed tomography images of the chest with intravenous contrast. This CT exam was performed using one or more of the following dose reduction techniques: automated exposure control, adjustment of the mA and/or kV according to patient size, and/or use of iterative reconstruction technique. COMPARISON: CT Chest dated 10/04/2023 FINDINGS: LUNGS AND PLEURAL SPACES: Lung emphysema/COPD with right apical scarring. No suspicious pulmonary nodules. No consolidation. No pneumothorax. No significant effusion. HEART: Unremarkable. No cardiomegaly. No significant pericardial effusion. No significant coronary artery calcifications. BONES/JOINTS: Unremarkable. No acute fracture. No dislocation. SOFT TISSUES: Unremarkable. VASCULATURE: The ascending thoracic aorta is ectatic measuring 4.2 cm in maximum diameter. Scattered calcified atherosclerotic disease of aorta. No thoracic aortic aneurysm. LYMPH NODES: Unremarkable. No enlarged lymph nodes. LIVER: Fatty infiltration of the liver. Hepatic cysts. KIDNEYS AND URETERS: Left renal cyst. CT/Chest WITH Contrast IMPRESSION: 1. The ascending thoracic aorta is ectatic measuring 4.2 cm in maximum diameter. 2. Lung emphysema/COPD with right apical scarring. No suspicious pulmonary nodules. 3. Continue low-dose CT scan of the chest in 12 months is recommended. Reading Location: [id number] CC: Dr. Daiana Grimes DO; ZOEY Cooper ~ Bag Printer: Signed [facility] 09-26-2024 Evaluation note Diagnosis Onset Date Resolution Encounter for routine gynecological examination noneactive September 26, 2024 1: 24pm [facility] Work Phone: 1(864) 933-670805-09-2025 Evaluation note* Diagnosis Onset Date Resolution Status Admit Date Encounter for routine gynecological examination noneactive September 1:24pm Family history of Marfan syndrome chronic October 01, 2024 1 2:52pm Marfanoid habitus chronic September 12:52pm Mitral regurgitation chronic October 01, 2024 12:52pm Thoracic aortic aneurysm chronic October 01, 2024 12:52pm [facility] Work Phone: [phone]) 694-861705-09-2025 Evaluation note* Diagnosis Onset Date Resolution Status Admit Date Encounter for routine gynecological examination noneactive September 1:24pm Family history of Marfan syndrome chronic October 01, 2024 1 2:52pm Marfanoid habitus chronic September 12:52pm Mitral regurgitation chronic October 01, 2024 12:52pm Thoracic aortic aneurysm chronic October 01, 2024 12:52pm Asthma chronic October 21, 2024 10:47am [facility] Work Phone: [phone] Telephone encounter Note* Telephone Encounter - Yissel Sheehan - 05/06/2024 2:03 PM EST Afshin ye faxed to [facility]. PC to patient and informed her. Yissel Sheehan May 06, 2024 2:03 PM [facility]12-17-2024 Miscellaneous Notes* Telephone Encounter - Yissel Sheehan - 05/06/2024 2:03 PM EST Afshin ye faxed to [facility]. PC to patient and informed her. Yissel Sheehan May 06, 2024 2:03 PM * Telephone Encounter - Yissel Sheehan - 05/06/2024 11:41 AM EST PC to patient who wants to go for land therapy instead of aqua therapy, at [phone]. Call patient when order is in the chart. Assuming patient's request is ok with Dr. Carson. Creating a new order for PT for Dr. Carson's review. Patient will see how PT goes before deciding if she wants to begin pain management. Yissel Sheehan May 06, 2024 11:44 AM * Telephone Encounter - Yissel Sheehan - 05/06/2024 11:09 AM EST PC to [phone],left msg asking if she will still be going for aqua therapy, or if this will be land therapy, also asked for fax number of PT facility. Yissel Sheehan May 06, 2024 11:10 AM documented [facility] Telephone encounter Note * Telephone Encounter - Yissel Sheehan - 05/06/2024 11:41 AM EST PC to patient who wants to go for land therapy instead of aqua therapy, at [phone]. Call patient when order is in the chart. Assuming patient's request is ok with Dr. Carson. Creating a new order for PT for Dr. Carson's review. Patient will see how PT goes before deciding if she wants to begin pain management. Yissel Sheehan May 06, 2024 11:44 AM [facility]12-17-2024 Telephone encounter Note* Telephone Encounter - Yissel Sheehan - 05/06/2024 11:09 AM EST PC to [phone],left msg asking if she will still be going for aqua therapy, or if this will be land therapy, also asked for fax number of PT facility. Yissel Sheehan May 06, 2024 11:10 AM [facility]12-13-2024 NoteHNO ID: [id number] Author: ADAM CARSON, DO Service: ? Author Type: Physician Type: Progress Notes Filed: 05/02/2024 16:10 Note Text: HPI: Brionna Robles is a 58 year old female who presents today with low back pain. Papin for 20 years. 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 Pain in feet and back. Usually better when sitting and rest. Pain has been consistent since 2019 when last had MRI. Has to take stool with her when might have to weight in line. Standing on padded surface helps slightly. Leaning on shopping cart doesn't provide much relief. Forced to use electric cart when going to the store. Does acupuncture for CMT pain which helps but doesn't help the back pain when standing. Pain when standing starts seconds after standing. Works with chiropractor monthly which helps. Has worked with pain management in the past without great success. Has seen a neurologist at who did not believe her back pain was associated with her CMT nor did neurologist think that the cysts in the sacrum were a big problem. Also did not think that the CMT was responsible for her chronic constipation. PAST MEDICAL HISTORY Diagnosis Date Trqjwxx-Cdnwz-Ksvie disease PAST SURGICAL HISTORY Procedure Laterality Date PAST SURGICAL HISTORY OF repair right patella VAGINAL HYSTERECTOMY UTERUS 250 GM/< Hysterectomy, vaginal Social History Tobacco Use Smoking status: Former Current packs/day: 0.00 Types: Cigarettes Quit date: 11/19/2019 Years since quittin.4 Smokeless tobacco: Never Substance Use Topics Alcohol use: Yes Comment: social Drug use: Never Current Outpatient Medications Medication Sig omalizumab (XOLAIR) 150 mg/mL syringe Inject 375 mg subcutaneously. cholecalciferol (VITAMIN D-3) 5,000 unit tab Take 2,000 Units by mouth once daily. vit C/zinc citrate/elderberry (SAMBUCUS ELDERBERRY ORAL) Take 2 teaspoonsful by mouth. mv-mn/folic acid/vit [id number] (ALIVE ONCE DAILY WOMEN 50 PLUS ORAL) Take by mouth. pregabalin (LYRICA) 100 mg capsule Take 100 mg by mouth once daily. metoprolol tartrate, short acting, (LOPRESSOR) 25 mg tablet Take 25 mg by mouth once daily. montelukast (SINGULAIR) 10 mg tablet Take 10 mg by mouth daily at bedtime. Syringe, Disposable, 3 mL syrg USE DIRECTED BD DISPOSABLE NEEDLES 18 gauge x 1 ndle USE DIRECTED STERILE WATER FOR INJECTION injection USE DIRECTED WITH XOLAIR BD DISPOSABLE NEEDLES 25 gauge x 5/8 ndle USE DIRECTED fluticasone-salmeterol (ADVAIR DISKUS) 250-50 mcg/dose dsdv Inhale 1 Puff as instructed twice daily. Rinse and gargle mouth with water after each use. albuterol (PROVENTIL) 2.5 mg /3 mL (0.083 %) nebulizer solution Use 3 mL via nebulizer every 4 hours as needed for Wheezing/Shortness of Breath. Inhale over 5-15 minutes Ascorbic Acid (VITAMIN C) 100 mg tablet Take 100 mg by mouth once daily. ALBUTEROL SULFATE (VENTOLIN INHALATION) Inhale as instructed. mometasone (NASONEX) 50 mcg/actuation nasal spray Use 2 Sprays in each nostril once daily. mirabegron (MYRBETRIQ) 25 mg Tb24 Take 25 mg by mouth once daily. Pregabalin (LYRICA) 200 mg capsule TAKE ONE CAPSULE BY MOUTH 2 TIMES A DAY amoxicillin (POLYMOX, AMOXIL) 500 mg capsule Take 1 capsule by mouth three times daily. (Patient not taking: Reported on 12/14/2022) predniSONE (DELTASONE) 10 mg tablet 4 tablets po daily for 2 days then 3 tablets po daily for 2 days then 2 tablets po daily for 2 days then 1 tablet po daily for 2 days (Patient not taking: Reported on 12/14/2022) gabapentin 100 mg capsule Take 100 mg by mouth twice daily. BACLOFEN ORAL Take by mouth. (Patient not taking: Reported on 12/14/2022) estradiol (VIVELLE) 0.075 mg/24 hr Apply 1 Patch as directed. (Patient not taking: Reported on 12/14/2022) No current facility-administered medications for this visit. ALLERGIES Allergen Reactions Tamsulosin Rash Resp 16 Ht 6' 0 (1.83m) Wt 148 lb (67.1kg) BMI 20.07 kg/(m2). EXAM: Examination of the lumbar spine reveals no tenderness to palpation. There is no major back pain with straight leg raise or slump testing. Globalized weakness but intact strength with active hip flexion and abduction. Tolerates hip rotational movements well. Minimal tenderness over the greater trochanters. Analysis of gait reveals a slower stride with core weakness/instability. Does not walk flexed over. Assumed foot drop but did not have her take off her foot drop braces today. Normal sensation, reflexes, and pulses ASSESSMENT: (M54.50, G89.29) Chronic low back pain, unspecified back pain laterality, unspecified whether sciatica present (primary encounter diagnosis) (G60.0) CMT (Lpcqwnl-Kmelo-Xxnit disease) PLAN: Johana has a very difficult and long-term low back pain issue. After reviewing her orthopedic exam, previous imaging, and previous treatments that have been unsuccessful including physical therapy, progressive care unit registered nurse, injections, and med (more content not included)...[facility] 05-02-2024 History of Present illness Narrative* Adam Carson, - 05/02/2024 2:25 PM EST HPI: Brionna Robles is a 58 year old female who presents today with low back pain. Papin for 20 years. 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 Pain in feet and back. Usually better when sitting and rest. Pain has been consistent since 2019 when last had MRI. Has to take stool with her when might have to weight in line. Standing on padded surface helps slightly. Leaning on shopping cart doesn't provide much relief. Forced to use electric cart when going to the store. Does acupuncture for CMTpain which helps but doesn't help the back pain when standing. Pain when standing starts seconds after standing. Works with chiropractor monthly which helps. Has worked with pain management in the past without great success. Has seen a neurologist at whodid not believe her back pain was associated with her CMT nor did neurologist think that the cysts in the sacrum were a big problem. Also did not think that the CMT was responsible for her chronic constipation. PAST MEDICAL HISTORY Diagnosis Date Ryvryzo-Albij-Kggrr disease PAST SURGICAL HISTORY Procedure Laterality Date PAST SURGICAL HISTORY OF repair right patella VAGINAL HYSTERECTOMY UTERUS 250 GM/< Hysterectomy, vaginal Social History Tobacco Use Smoking status: Former Current packs/day: 0.00 Types: Cigarettes Quit date: 11/19/2019 Years since quittin.4 Smokeless tobacco: Never Substance Use Topics Alcohol use: Yes Comment: social Drug use: Never Current Outpatient Medications Medication Sig omalizumab (XOLAIR) 150 mg/mL syringe Inject 375 mg subcutaneously. cholecalciferol (VITAMIN D-3) 5,000 unit tab Take 2,000 Units by mouth once daily. vit C/zinc citrate/elderberry (SAMBUCUS ELDERBERRY ORAL) Take 2 teaspoonsful by mouth. mv-mn/folic acid/vit [id number] (ALIVE ONCE DAILY WOMEN 50 PLUS ORAL) Take by mouth. pregabalin (LYRICA) 100 mg capsule Take 100 mg by mouth once daily. metoprolol tartrate, short acting, (LOPRESSOR) 25 mg tablet Take 25 mg by mouth once daily. montelukast (SINGULAIR) 10 mg tablet Take 10 mg by mouth daily at bedtime. Syringe, Disposable, 3 mL syrg USE DIRECTED BD DISPOSABLE NEEDLES 18 gauge x 1 ndle USE DIRECTED STERILE WATER FOR INJECTION injection USE DIRECTED WITH XOLAIR BD DISPOSABLE NEEDLES 25 gauge x 5/8 ndle USE DIRECTED fluticasone-salmeterol (ADVAIR DISKUS) 250-50 mcg/dose dsdv Inhale 1 Puff as instructed twice daily. Rinse and gargle mouth with water after each use. albuterol (PROVENTIL) 2.5 mg /3 mL (0.083 %) nebulizer solution Use 3 mL via nebulizer every 4 hours as needed for Wheezing/Shortness of Breath. Inhale over 5-15 minutes Ascorbic Acid (VITAMIN C) 100 mg tablet Take 100 mg by mouth once daily. ALBUTEROL SULFATE (VENTOLIN INHALATION) Inhale as instructed. mometasone (NASONEX) 50 mcg/actuation nasal spray Use 2 Sprays in each nostril once daily. mirabegron (MYRBETRIQ) 25 mg Tb24 Take 25 mg by mouth once daily. Pregabalin (LYRICA) 200 mg capsule TAKE ONE CAPSULE BY MOUTH 2 TIMES A DAY amoxicillin (POLYMOX, AMOXIL) 500 mg capsule Take 1 capsule by mouth three times daily. (Patient not taking: Reported on 12/14/2022) predniSONE (DELTASONE) 10 mg tablet 4 tablets po daily for 2 days then 3 tablets po daily for 2 days then 2 tablets po daily for 2 days then 1 tablet po daily for 2 days (Patient not taking: Reportedon 12/14/2022) gabapentin 100 mg capsule Take 100 mg by mouth twice daily. BACLOFEN ORAL Take by mouth. (Patient not taking: Reported on 12/14/2022) estradiol (VIVELLE) 0.075 mg/24 hr Apply 1 Patch as directed. (Patient not taking: Reported on 12/14/2022) No current facility-administered medications for this visit. ALLERGIES Allergen Reactions Tamsulosin Rash Resp 16 Ht 6' 0 (1.83m) Wt 148 lb (67.1kg) BMI 20.07 kg/(m^2). EXAM: Examination of the lumbar spine reveals no tenderness to palpation. There is no major back pain with straight leg raise or slump testing. Globalized weakness but intact strength with active hipflexion and abduction. Tolerates hip rotational movements well. Minimal tenderness over the greatertrochanters. Analysis of gait reveals a slower stride with core weakness/instability. Does not walkflexed over. Assumed foot drop but did not have her take off her foot drop braces today. Normal sensation, reflexes, and pulses ASSESSMENT: (M54.50, G89.29) Chronic low back pain, unspecified back pain laterality, unspecified whether sciatica present (primary encounter diagnosis) (G60.0) CMT (Jcnlwea-Pslxo-Cmdfg disease) PLAN: Johana has a very difficult and long-term low back pain issue. After reviewing her orthopedic exam, previous imaging, and previous treatments that have been unsuccessful including physical therapy, progressive care unit registered nurse, injections, and medications, I am uncertain if there is any true orthopedic issues in play. I do believe this is mostly a neurologic problem. I do worry she has atrophy and weakness of her core as well as her foot and hand muscles associated with her CMT. Her CMT is not classified and may be different than classic CMT issues. I do not have any major recommendations other than to work with a water therapy routine to see if this can strengthen the core to reduce her back pain and make her more stable with her gait. Consultation with a cotton gin yard supervisor at our [facility] is also recommended. I am happy to see her back anytime. Adam Carson DO documented in this encounterProm[facility]12-10-[facility] Instructions* Patient Instructions* Katerin Araiza DPM - 04/29/2024 11:03 AM EST Recommend buying larger shoes with wider toe box to increase room and accommodate toes. Primary wayto accommodate CMT is appropriate shoe gear. May need to purchase wider and larger sizes. Continue use of AFOs Can continue with big toe sleeve if you feel it has improved pain Consult placed for you to orthopedic provider for back- Dr. Umanzor. documented in this encounterPromedica [facility]12-10-2024 NoteHNO ID: [id number] Author: ISRAEL PASTOR DPM Service: ? Author Type: Physician Type: Progress Notes Filed: 05/09/2024 08:19 Note Text: Chief Complaint: hammertoe pain HPI: This 58 year old female with PMH indicated below presents complaining of hammertoe pain 1-5 b/l. Patient states she has CMT, diagnosed 20 years ago, and has been dealing with this pain for many years. Has used toe covers and sleeves which increased her pain. She has stopped wearing them at night and pain went away but baseline CMT pain remains. Has b/l AFO from [employer] made by michael that she states has been helping CMT symptoms. Admits to nerve pain for which other providers have prescribed Lyrica. Admits to lower back pain for which she's had MRIs and workup by neurology without any answers per her. Admits to neuropathy diagnosed from a neurologist. Denies any other pedal complaints. PCP: Daiana Grimes DO: PAST MEDICAL HISTORY Diagnosis Date Pyohuax-Xrggq-Yrbhf disease : Current Outpatient Medications Medication Sig omalizumab (XOLAIR) 150 mg/mL syringe Inject 375 mg subcutaneously. cholecalciferol (VITAMIN D-3) 5,000 unit tab Take 2,000 Units by mouth once daily. vit C/zinc citrate/elderberry (SAMBUCUS ELDERBERRY ORAL) Take 2 teaspoonsful by mouth. mv-mn/folic acid/vit [id number] (ALIVE ONCE DAILY WOMEN 50 PLUS ORAL) Take by mouth. pregabalin (LYRICA) 100 mg capsule Take 100 mg by mouth once daily. metoprolol tartrate, short acting, (LOPRESSOR) 25 mg tablet Take 25 mg by mouth once daily. montelukast (SINGULAIR) 10 mg tablet Take 10 mg by mouth daily at bedtime. Syringe, Disposable, 3 mL syrg USE DIRECTED BD DISPOSABLE NEEDLES 18 gauge x 1 ndle USE DIRECTED STERILE WATER FOR INJECTION injection USE DIRECTED WITH XOLAIR BD DISPOSABLE NEEDLES 25 gauge x 5/8 ndle USE DIRECTED fluticasone-salmeterol (ADVAIR DISKUS) 250-50 mcg/dose dsdv Inhale 1 Puff as instructed twice daily. Rinse and gargle mouth with water after each use. Ascorbic Acid (VITAMIN C) 100 mg tablet Take 100 mg by mouth once daily. mirabegron (MYRBETRIQ) 25 mg Tb24 Take 25 mg by mouth once daily. Pregabalin (LYRICA) 200 mg capsule TAKE ONE CAPSULE BY MOUTH 2 TIMES A DAY amoxicillin (POLYMOX, AMOXIL) 500 mg capsule Take 1 capsule by mouth three times daily. (Patient not taking: Reported on 12/14/2022) albuterol (PROVENTIL) 2.5 mg /3 mL (0.083 %) nebulizer solution Use 3 mL via nebulizer every 4 hours as needed for Wheezing/Shortness of Breath. Inhale over 5-15 minutes (Patient not taking: Reported on 12/14/2022) predniSONE (DELTASONE) 10 mg tablet 4 tablets po daily for 2 days then 3 tablets po daily for 2 days then 2 tablets po daily for 2 days then 1 tablet po daily for 2 days (Patient not taking: Reported on 12/14/2022) gabapentin 100 mg capsule Take 100 mg by mouth twice daily. BACLOFEN ORAL Take by mouth. (Patient not taking: Reported on 12/14/2022) estradiol (VIVELLE) 0.075 mg/24 hr Apply 1 Patch as directed. (Patient not taking: Reported on 12/14/2022) ALBUTEROL SULFATE (VENTOLIN INHALATION) Inhale as instructed. (Patient not taking: Reported on 12/14/2022) mometasone (NASONEX) 50 mcg/actuation nasal spray Use 2 Sprays in each nostril once daily. (Patient not taking: Reported on 12/14/2022) No current facility-administered medications for this visit. : ALLERGIES Allergen Reactions Tamsulosin Rash : PAST SURGICAL HISTORY Procedure Laterality Date PAST SURGICAL HISTORY OF repair right patella VAGINAL HYSTERECTOMY UTERUS 250 GM/< Hysterectomy, vaginal History reviewed. No pertinent family history.: Social History Tobacco Use Smoking status: Former Current packs/day: 0.00 Types: Cigarettes Quit date: 11/19/2019 Years since quittin.4 Smokeless tobacco: Never Substance Use Topics Alcohol use: Yes Comment: social Drug use: Never REVIEW OF SYSTEMS As per MA note MSK: + as noted in HPI. Physical Exam: Patient is alert and oriented x 3 in NADPatient is a 58 year old female who appears well developed, well nourished and with good attention to hygiene and body habitus. Resp 17 Ht 182.9 cm (6') Wt 67.1 kg (148 lb) BMI 20.07 kg/m? Vascular: DP and PT pulses are palpable. CFT less than 3 seconds to all digits bilateral. Skin temperature is warm to warm from proximal to distal bilateral. Hair growth is noted. No edema noted. Diffuse varicosities noted. Neuro: Light touch intact bilateral. Derm: Skin texture and turgor within normal limits. Toenails normal in appearance. Webspaces 1-4 clean, dry, intact b/l. No rashes, subcutaneous nodules, or open lesions noted. No hyperkeratotic tissue. Musculoskeletal/Orthopaedic: General foot morphology: high medial longitudinal arch +5/5 muscle strength Plantarflexion, Inversion, b/l. 4/5 for DF and Eversion bilateral ROM of the 1st MTPJ is diminished without pain or crepitus b/l. ROM of the MTJ/STJ is diminished without pa (more content not included)...[facility]12-[facility] History of Present illness Narrative* Israel Pastor, PAN - 04/29/2024 10:58 AM EST Chief Complaint: hammertoe pain HPI: This 58 year old female with PMH indicated below presents complaining of hammertoe pain 1-5 b/l. Patient states she has CMT, diagnosed 20 years ago, and has been dealing with this pain for many years. Has used toe covers and sleeves which increased her pain. She has stopped wearing them at night and pain went away but baseline CMT pain remains. Has b/l AFO from [employer] made by micahel that she states has been helping CMT symptoms. Admits to nerve pain for which other providers have prescribed Lyrica. Admits to lower back pain for which she's had MRIs and workup by neurology without any answers per her. Admits to neuropathy diagnosed from a neurologist. Denies any other pedal complaints. PCP: Daiana Grimes, DO: PAST MEDICAL HISTORY Diagnosis Date Mczkobj-Yvtwu-Yogsl disease : Current Outpatient Medications Medication Sig omalizumab (XOLAIR) 150 mg/mL syringe Inject 375 mg subcutaneously. cholecalciferol (VITAMIN D-3) 5,000 unit tab Take 2,000 Units by mouth once daily. vit C/zinc citrate/elderberry (SAMBUCUS ELDERBERRY ORAL) Take 2 teaspoonsful by mouth. mv-mn/folic acid/vit [id number] (ALIVE ONCE DAILY WOMEN 50 PLUS ORAL) Take by mouth. pregabalin (LYRICA) 100 mg capsule Take 100 mg by mouth once daily. metoprolol tartrate, short acting, (LOPRESSOR) 25 mg tablet Take 25 mg by mouth once daily. montelukast (SINGULAIR) 10 mg tablet Take 10 mg by mouth daily at bedtime. Syringe, Disposable, 3 mL syrg USE DIRECTED BD DISPOSABLE NEEDLES 18 gauge x 1 ndle USE DIRECTED STERILE WATER FOR INJECTION injection USE DIRECTED WITH XOLAIR BD DISPOSABLE NEEDLES 25 gauge x 5/8 ndle USE DIRECTED fluticasone-salmeterol (ADVAIR DISKUS) 250-50 mcg/dose dsdv Inhale 1 Puff as instructed twice daily. Rinse and gargle mouth with water after each use. Ascorbic Acid (VITAMIN C) 100 mg tablet Take 100 mg by mouth once daily. mirabegron (MYRBETRIQ) 25 mg Tb24 Take 25 mg by mouth once daily. Pregabalin (LYRICA) 200 mg capsule TAKE ONE CAPSULE BY MOUTH 2 TIMES A DAY amoxicillin (POLYMOX, AMOXIL) 500 mg capsule Take 1 capsule by mouth three times daily. (Patient not taking: Reported on 12/14/2022) albuterol (PROVENTIL) 2.5 mg /3 mL (0.083 %) nebulizer solution Use 3 mL via nebulizer every 4 hours as needed for Wheezing/Shortness of Breath. Inhale over 5-15 minutes (Patient not taking: Reportedon 12/14/2022) predniSONE (DELTASONE) 10 mg tablet 4 tablets po daily for 2 days then 3 tablets po daily for 2 days then 2 tablets po daily for 2 days then 1 tablet po daily for 2 days (Patient not taking: Reportedon 12/14/2022) gabapentin 100 mg capsule Take 100 mg by mouth twice daily. BACLOFEN ORAL Take by mouth. (Patient not taking: Reported on 12/14/2022) estradiol (VIVELLE) 0.075 mg/24 hr Apply 1 Patch as directed. (Patient not taking: Reported on 12/14/2022) ALBUTEROL SULFATE (VENTOLIN INHALATION) Inhale as instructed. (Patient not taking: Reported on 12/14/2022) mometasone (NASONEX) 50 mcg/actuation nasal spray Use 2 Sprays in each nostril once daily. (Patientnot taking: Reported on 12/14/2022) No current facility-administered medications for this visit. : ALLERGIES Allergen Reactions Tamsulosin Rash : PAST SURGICAL HISTORY Procedure Laterality Date PAST SURGICAL HISTORY OF repair right patella VAGINAL HYSTERECTOMY UTERUS 250 GM/< Hysterectomy, vaginal History reviewed. No pertinent family history.: Social History Tobacco Use Smoking status: Former Current packs/day: 0.00 Types: Cigarettes Quit date: 11/19/2019 Years since quittin.4 Smokeless tobacco: Never Substance Use Topics Alcohol use: Yes Comment: social Drug use: Never REVIEW OF SYSTEMS As per MA note MSK: + as noted in HPI. Physical Exam: Patient is alert and oriented x 3 in NADPatient is a 58 year old female who appears well developed,well nourished and with good attention to hygiene and body habitus. Resp 17 Ht 182.9 cm (6') Wt 67.1 kg (148 lb) BMI 20.07 kg/m Vascular: DP and PT pulses are palpable. CFT less than 3 seconds to all digits bilateral. Skin temperature is warm to warm from proximal to distal bilateral. Hair growth is noted. No edema noted. Diffuse varicosities noted. Neuro: Light touch intact bilateral. Derm: Skin texture and turgor within normal limits. Toenails normal in appearance. Webspaces 1-4 clean, dry, intact b/l. No rashes, subcutaneous nodules, or open lesions noted. No hyperkeratotic tissue. Musculoskeletal/Orthopaedic: General foot morphology: high medial longitudinal arch +5/5 muscle strength Plantarflexion, Inversion, b/l. 4/5 for DF and Eversion bilateral ROM of the 1st MTPJ is diminished without pain or crepitus b/l. ROM of the MTJ/STJ is diminished without pain or crepitus b/l. Ankle joint ROM is decreased B/L. Hammertoes noted 1-5 b/l with flexion contracture at the PIPJ of lesser digits and IPJ of hallux. POP to dorsal aspect of all digits- 1st at IPJ and 2-5 at PIPJ d/l most notably. No pain to midfoot. No POP to sinus tarsi or Achilles b/l. Radiographs: 3 views of the bilateral foot were taken today 04/29/24. Radiographic impression: Digital contractures noted 2-5 b/l with flexion at PIPJ and extension at MPJ. Flexion contracture at IPJ of hallux b/l. Diffuse joint space narrowing at midfoot and 1st MPJ b/l. All cortices are intact. No acute fxs or dislocations noted. No bony cyst or tumors noted. ASSESSMENT: This 58 year old female patient presents today with CMT Hammertoes b/l Foot pain b/l Plan: - A comprehensive history and physical examination were preformed. The patient was educated on clinical and radiographic findings, diagnosis and treatment plans. Patient state that she understands all that has been explained and all questions were answered to her apparent satisfaction. - Etiology and treatment options were discussed with the patient. - New XR obtained and evaluated - Discussed padding and accommodative shoe gear with her CMT and HT deformity. - Continue use of AFOs b/l - Follow up with Dr. James for routine foot care - Consult to orthopedic - Erna for chronic back pain - She has exhausted conservative care from toe covers, bracing, and accommodative shoe gear and we stated if she feels she cannot complete her daily activities then we can have a surgical discussion.States delaying surgical intervention until she feels necessary will not alter procedure or post opcare. Pt elects to proceed with conservative treatment at this time and will re-visit this next time. RTC as needed Katerin Araiza DPM PGY-3 I personally saw and evaluated the patient. I reviewed the resident's note. I agree with the resident's assessment and plan unless otherwise noted. Israel Pastor DPM, FACFAS * Johana Celis MA - 04/29/2024 10:18 AM EST REVIEW OF SYSTEMS: GENERAL: Well developed, well nourished. No acute distress PAIN: Negative for pain, history of chronic pain or current treatment for chronic pain conditions CARDIOVASCULAR: Negative for chest pain, leg swelling and palpations. MSK: Negative for joint swelling SKIN: Negative for lesions, rash, itching, metal sensitivity NEURO: Negative for seizure, trauma, numbness/tingling of extremities. and Numbness/tingling of extremties ENDOCRINE: Negative for diabetic associated symptoms HEMATOLOGY: Negative for excessive bleeding, clots, bleeding disorders. Johana Celis MA documented in this encounterPromed[facility]12-10-2024 NoteHNO ID: [id number] Author: JOHANA CELIS MA Service: ? Author Type: Scientific Publications Editor Type: Progress Notes Filed: 05/09/2024 08:19 Note Text: REVIEW OF SYSTEMS: GENERAL: Well developed, well nourished. No acute distress PAIN: Negative for pain, history of chronic pain or current treatment for chronic pain conditions CARDIOVASCULAR: Negative for chest pain, leg swelling and palpations. MSK: Negative for joint swelling SKIN: Negative for lesions, rash, itching, metal sensitivity NEURO: Negative for seizure, trauma, numbness/tingling of extremities. and Numbness/tingling of extremties ENDOCRINE: Negative for diabetic associated symptoms HEMATOLOGY: Negative for excessive bleeding, clots, bleeding disorders. Johana Celis [facility]10-05-2024 History of Present illness Narrative* Enma Raya RT(R) - 02/23/2024 10:30 AM EDTSummary: MRI Radiology Service Progress Note DATE OF SERVICE: February 23, 2024 TIME: 10:55 AM PATIENT IDENTITY VERIFICATION COMPLETED USING TWO (2) STANDARD IDENTIFIERS: Name and Date of confirmed by patient verbally and Name and Date of confirmed by identification band. FALL SCREENING: Has the patient had 2 falls in the last year or 1 fall with injury or currently using an Ambulatory Assistive Device (Walker, Cane, Wheelchair, Crutches, etc.)? No PATIENT GENDER DATA: Female. status: : No status: NO. PATIENT RELEVANT IMPLANT DATA REVIEWED: Yes PATIENT PRESENTS WITH AN IMPLANTABLE OR ATTACHED NATURAL RESOURCES EXTENSION EDUCATOR: No ALLERGIES: Reviewed and unchanged CONTRAST ALLERGY: NO. EXAM: MRI - CONTRAST TYPE: GROUP II PERIPHERAL IV DATA: Ambulatory: A peripheral IV was started in the Right antecubital site with a Angio cath: 22 gauge. RADIOLOGY DEPARTMENT: MR; Exam(s) Completed: Head: Routine Brain SIGNATURE: RT Ksenia(R) PATIENT NAME: Brionna Robles DATE: February 23, 2024 TIME: 10:55 AM documented in this encounterPromedica Bay Park [facility]10-05-2024 NoteHNO ID: [id number] Author: ENMA RAYA RT(R) Service: ? Author Type: Technologist Type: Progress Notes Filed: 02/23/2024 10:55 Note Text: Summary: MRI Radiology Service Progress Note DATE OF SERVICE: February 23, 2024 TIME: 10:55 AM PATIENT IDENTITY VERIFICATION COMPLETED USING TWO (2) STANDARD IDENTIFIERS: Name and Date of confirmed by patient verbally and Name and Date of confirmed by identification band. FALL SCREENING: Has the patient had 2 falls in the last year or 1 fall with injury or currently using an Ambulatory Assistive Device (Walker, Cane, Wheelchair, Crutches, etc.)? No PATIENT GENDER DATA: Female. status: : No status: NO. PATIENT RELEVANT IMPLANT DATA REVIEWED: Yes PATIENT PRESENTS WITH AN IMPLANTABLE OR ATTACHED NATURAL RESOURCES EXTENSION EDUCATOR: No ALLERGIES: Reviewed and unchanged CONTRAST ALLERGY: NO. EXAM: MRI - CONTRAST TYPE: GROUP II PERIPHERAL IV DATA: Ambulatory: A peripheral IV was started in the Right antecubital site with a Angio cath: 22 gauge. RADIOLOGY DEPARTMENT: MR; Exam(s) Completed: Head: Routine Brain SIGNATURE: RT Ksenia(R) PATIENT NAME: Brionna Robles DATE: February 23, 2024 TIME: 10:55 AMGood [facility]09-27-[facility]24 Telephone encounter Note* Telephone Encounter - Nellie Ribera - 02/15/2024 4:54 PM EDT I spoke with the patient and scheduled an appointment. Nellie Ribera [facility]09-27-2024 Miscellaneous Notes* Telephone Encounter - Nellie Ribera - 02/15/2024 4:54 PM EDT I spoke with the patient and scheduled an appointment. Nellie Ribera * Telephone Encounter - Nellie Ribera - 02/15/2024 3:28 PM EDT ----- Message from Chel Stanford sent at 02/15/2024 2:58 PM EDT ----- Regarding: Orthopedics / Open Foot: Ingrown Toenail / Scheduling Question Contact: Orthopedics / Open Foot: Ingrown Toenail / Scheduling Question Patient has been identified by name and Date of (Y/N): y Patient: Brionna Robles Date of : 1965 Previous Provider Seen: Dr Quach Body Part(s) Identified: b/l feet Diagnosis/Reason For Visit: patient has appt w/ Dr Pastor 02/28/24 for foot pain. Wanted to see him for ingrown toenails as well. Advised patient that Dr Pastor does not see for ingrown toenails and she would need to schedule separate appointment. She was hoping to schedule that appt for the same day, and further advised her that I cannot schedule two ortho appts on the same day. Patient saidshe needs to travel a great distance and if there was any way someone could look at her nails when she's there to see Dr Rodriguez, she would be most grateful Reason for the call/escalation: see above If reason for call/escalation is discharge from ED/ER or Hospital, which facility was the patient seen at: n/a Was an appointment scheduled (Y/N): y Person calling if other than patient: n/a Return call to if other than patient: n/a Best contact number: [phone] Thank you, Chel Salas February 15, 2024 3:00 PM documented in this encounterPromedica Bay [facility] Hospital09-27-2024 Telephone encounter Note * Telephone Encounter - Nellie Ribera - 02/15/2024 3:28 PM EDT ----- Message from Chel Stanford sent at 02/15/2024 2:58 PM EDT ----- Regarding: Orthopedics / Open Foot: Ingrown Toenail / Scheduling Question Contact: Orthopedics / Open Foot: Ingrown Toenail / Scheduling Question Patient has been identified by name and Date of (Y/N): y Patient: Brionna Robles Date of : 1965 Previous Provider Seen: Dr Quach Body Part(s) Identified: b/l feet Diagnosis/Reason For Visit: patient has appt w/ Dr Pastor 02/28/24 for foot pain. Wanted to see him for ingrown toenails as well. Advised patient that Dr Pastor does not see for ingrown toenails and she would need to schedule separate appointment. She was hoping to schedule that appt for the same day, and further advised her that I cannot schedule two ortho appts on the same day. Patient saidshe needs to travel a great distance and if there was any way someone could look at her nails when she's there to see Dr Rodriguez, she would be most grateful Reason for the call/escalation: see above If reason for call/escalation is discharge from ED/ER or Hospital, which facility was the patient seen at: n/a Was an appointment scheduled (Y/N): y Person calling if other than patient: n/a Return call to if other than patient: n/a Best contact number: [phone] Thank you, Chel Maritza February 15, 2024 3:00 PM [facility]08-23-[facility] History of Present illness Narrative* Juan C Pineda, RT(R) - 01/11/2024 1:20 PM EDT Radiology Service Progress Note PATIENT NAME: Brionna Robles DATE OF SERVICE: January 11, 2024 TIME: 1:30 PM PATIENT IDENTITY VERIFICATION COMPLETED USING TWO (2) IDENTIFIERS: Name and Date of confirmedby patient verbally. FALL SCREENING: Has the patient had 2 falls in the last year or 1 fall with injury or currently using an Ambulatory Assistive Device (Walker, Cane, Wheelchair, Crutches, etc.)? No PATIENT GENDER DATA: Female. status: : No status: NO. PATIENT RELEVANT IMPLANT DATA REVIEWED: Not Applicable PATIENT PRESENTS WITH AN IMPLANTABLE OR ATTACHED NATURAL RESOURCES EXTENSION EDUCATOR: No RADIOLOGY DEPARTMENT: General X-ray: Exam(s) Completed: Lower Extremity X- Ray(s): Foot, Left PERIPHERAL IV DATA: Not applicable SIGNED BY: RT Scarlet(Joaquin) January 11, 2024 1:30 PM documented in this encounterPromedica Bay [facility]08-23-2024 NoteHNO ID: [id number] Author: JUAN C PINEDA RT(Joaquin) Service: ? Author Type: Technologist Type: Progress Notes Filed: 01/11/2024 13:31 Note Text: Radiology Service Progress Note PATIENT NAME: Brionna Robles DATE OF SERVICE: January 11, 2024 TIME: 1:30 PM PATIENT IDENTITY VERIFICATION COMPLETED USING TWO (2) IDENTIFIERS: Name and Date of confirmed by patient verbally. FALL SCREENING: Has the patient had 2 falls in the last year or 1 fall with injury or currently using an Ambulatory Assistive Device (Walker, Cane, Wheelchair, Crutches, etc.)? No PATIENT GENDER DATA: Female. status: : No status: NO. PATIENT RELEVANT IMPLANT DATA REVIEWED: Not Applicable PATIENT PRESENTS WITH AN IMPLANTABLE OR ATTACHED NATURAL RESOURCES EXTENSION EDUCATOR: No RADIOLOGY DEPARTMENT: General X-ray: Exam(s) Completed: Lower Extremity X-Ray(s): Foot, Left PERIPHERAL IV DATA: Not applicable SIGNED BY: RT Scarlet(Joaquin) January 11, 2024 1:30 PMGood [facility]10-03-2023 History of Present illness Narrative* Heather Angeles RT(R) - 02/20/2023 10:30 AM EDT Radiology Service Progress Note DATE OF SERVICE: February 20, 2023 TIME: 10:48 AM PATIENT IDENTITY VERIFICATION COMPLETED USING TWO (2) STANDARD IDENTIFIERS: Name and Date of confirmed by patient verbally. FALL SCREENING: Has the patient had 2 falls in the last year or 1 fall with injury or currently using an Ambulatory Assistive Device (Walker, Cane, Wheelchair, Crutches, etc.)? No PATIENT GENDER DATA: Female. status: : No status: NO. PATIENT RELEVANT IMPLANT DATA REVIEWED: Yes ALLERGIES: Reviewed and unchanged CONTRAST ALLERGY: NO. EXAM: MRI - CONTRAST TYPE: GROUP II PERIPHERAL IV DATA: Ambulatory: A peripheral IV was started in the Right forearm with a Angio cath:22 gauge. RADIOLOGY DEPARTMENT: MR; Exam(s) Completed: Body: Renal SIGNATURE: RT Wilbert(Joaquin) PATIENT NAME: Brionna Robles DATE: February 20, 2023 TIME: 10:48 AM documented in this encounterPromedica Bay Park Hospital07-27-2023 History of Present illness Narrative* Akil Quach MD - 12/14/2022 1:28 PM EDT Patient Visit Note Brionna Robles is a 56 year old female who presents with complaint of Primary osteoarthritis of right hip (primary encounter diagnosis) Has had right hip lateral and anterior pain for several months. Relieved with therapy. Has history of CMT. Current or previous treatment regimens: physical therapy and occupational therapy Medications: Current Outpatient Medications Medication Sig omalizumab (XOLAIR) 150 mg/mL syringe Inject 375 mg subcutaneously. cholecalciferol (VITAMIN D-3) 5,000 unit tab Take 2,000 Units by mouth once daily. vit C/zinc citrate/elderberry (SAMBUCUS ELDERBERRY ORAL) Take 2 teaspoonsful by mouth. mv-mn/folic acid/vit [id number]/[id number] (ALIVE ONCE DAILY WOMEN 50 PLUS ORAL) Take by mouth. pregabalin (LYRICA) 100 mg capsule Take 100 mg by mouth once daily. metoprolol tartrate, short acting, (LOPRESSOR) 25 mg tablet Take 25 mg by mouth once daily. mirabegron (MYRBETRIQ) 25 mg Tb24 Take 25 mg by mouth once daily. montelukast (SINGULAIR) 10 mg tablet Take 10 mg by mouth daily at bedtime. Syringe, Disposable, 3 mL syrg USE DIRECTED BD DISPOSABLE NEEDLES 18 gauge x 1 ndle USE DIRECTED STERILE WATER FOR INJECTION injection USE DIRECTED WITH XOLAIR BD DISPOSABLE NEEDLES 25 gauge x 5/8 ndle USE DIRECTED fluticasone-salmeterol (ADVAIR DISKUS) 250-50 mcg/dose dsdv Inhale 1 Puff as instructed twice daily. Rinse and gargle mouth with water after each use. Ascorbic Acid (VITAMIN C) 100 mg tablet Take 100 mg by mouth once daily. nitrofurantoin monohydrate and macrocrystal (MACROBID) 100 mg capsule Take 1 capsule by mouth twicedaily for 7 days. (Patient not taking: Reported on 12/14/2022) Pregabalin (LYRICA) 200 mg capsule TAKE ONE CAPSULE BY MOUTH 2 TIMES A DAY amoxicillin (POLYMOX, AMOXIL) 500 mg capsule Take 1 capsule by mouth three times daily. (Patient not taking: Reported on 12/14/2022) albuterol (PROVENTIL) 2.5 mg /3 mL (0.083 %) nebulizer solution Use 3 mL via nebulizer every 4 hours as needed for Wheezing/Shortness of Breath. Inhale over 5-15 minutes (Patient not taking: Reportedon 12/14/2022) predniSONE (DELTASONE) 10 mg tablet 4 tablets po daily for 2 days then 3 tablets po daily for 2 days then 2 tablets po daily for 2 days then 1 tablet po daily for 2 days (Patient not taking: Reportedon 12/14/2022) gabapentin 100 mg capsule Take 100 mg by mouth twice daily. BACLOFEN ORAL Take by mouth. (Patient not taking: Reported on 12/14/2022) estradiol (VIVELLE) 0.075 mg/24 hr Apply 1 Patch as directed. (Patient not taking: Reported on 12/14/2022) ALBUTEROL SULFATE (VENTOLIN INHALATION) Inhale as instructed. (Patient not taking: Reported on 12/14/2022) mometasone (NASONEX) 50 mcg/actuation nasal spray Use 2 Sprays in each nostril once daily. (Patientnot taking: Reported on 12/14/2022) No current facility-administered medications for this visit. Allergies: ALLERGIES Allergen Reactions Tamsulosin Rash Physical Examination: Resp 16 Ht 6' 0 (1.83m) Wt 166 lb (75.3kg) BMI 22.51 kg/(m^2). Ortho Exam Ambulates with use of bilateral AFO Has some slight anterior groin pain with hip flexion and internal rotation Images: AP pelvis and lateral of the right hip taken today and reviewed by myself shows mild joint space narrowing centrally Procedures Assessment and Plan: 1. Primary osteoarthritis of right hip - ICD9: 715.15, ICD10: M16.11 Continue with HEP and outpatient PT For pain management purposes they may take OTC NSAIDs such as Advil or Aleve, and Tylenol if tolerated and if the patient knows of no allergies or contraindications. The risks and complications of these medications were discussed. The patient understands that if they are currently taking a NSAIDs or are prescribed one in the future they should not take Advil, Aleve, ibuprofen, naproxen or other OTC NSAIDs. They were also told that if any unusual symptoms develop, that the medication should be stopped immediately and that their primary care physician as well as our office should be notified. If they take this medication watermaster, they understand the need for medication monitoring through their primary care physician. They are aware of the potential risks and side effects of this medication as well as the expected benefits, and wishes to proceed with its use. FU with me as needed Akil Quach MD documented in this encounterPromedica Bay [facility]07-21-2023 Discharge summary Author Jr Carrasquillo [facility] December 08, 2022 8:36am Note Date/Time December 08, 2022 8:36 am [facility] Physical Therapy [facility] [address] [place] [address]. [address] [place] [address] / REHABILITATION SERVICES DISCHARGE SUMMARY MR#: [id number] Acct: [id number] Name: BRIONNA ROBLESN Rep #: [id number] : 1965 56 From: Jr NELSON T Referring Dr.: Dr. Daiana Grimes, DO Status: REG RCR Insurance: [facility] JUST FOR ME SELF PAY INSURANCE Discharge Summary D/C summary: It has been my pleasure to treat BRIONNA ROBLES referred by Dr. Daiana Grimes, DO, with the diagnosis of B hip OA for a total of 7 visit(s). Discharge Date: 12/07/22 Please see the following information for a summary of their discharge status. Subjective Subjective: Pt. reports no issues today. Pt. pleased. No pain currently. Pt. reports being 60% better overall. Pt. reports being compliant and I with all HEP. No pain in hip currently. Pain R lateral hip: Pain Intensity (Out of 10): 0 Overall Improvement % Improvement: 60 Objective Objective/Function: Pt. is overall doing much better. Pt. is going to complete all of her exercises on her own now. Pt. has no pain with palpation of her R hipflexor currently. Pt. is I with HEP for LE strengthening. Pt. is tolerating exercises much better. Pt. educated on attempting manage loading pending on tolerance. Pt. reports understanding. I also encouraged her to increase a walking routine to increase endurance and strength. Pt. consents. I encouraged brionna to continue with working glute strengthening and hip flexor stretching. Pt. consents and is okay with DC from PT this date. Goals Goal 1:: LTG: Pt. to be I with HEP for both land and aquatic exercises for her RLE strengthening/stretching. Goal Progress: Goal Met Goal 2:: LTG: Pt. to ambulate unlimited distances without increase in R hip pain. Goal Progress: Progressing Goal 3:: LTG: Pt. to have increased IT band and hip flexor length to normal as seen in negative kane's and Sharifa testing. Goal Progress: Progressing Goal 4:: LTG: pt. to have increased R glute strength to 5/5 throughout. Goal Progress: Progressing Plan Plan: Pt. to be DC from PT this date. D/C Information Discharge Comments: Pt. was treated for her R hip pain. Pt. was treated with hipflexor stretching and glute medius/max strengthening. Pt. is independent her HEPand consents to completing on her own at this point in time. d/c sentence: If there are questions or concerns regarding this patient's physical therapy, please feel free to call me at [phone]. Thank you for the referral of thispatient. Sincerely, Jr Carrasquillo, DPT Balance/Gait/Functional tests Balance/Special Test Scores Lower Extremity Functional Score: 31 <Electronically signed by Jr Carrasquillo DPT> 12/08/22 0836 CC: Dr. Daiana Grimes, DO ~ CLS Signed [facility] Work Phone: 1(265) 178-714903-30-2023 Discharge summary Author Rebecca Galvez [facility] August 17, 2022 11:14am Note Date/Time August 17, 2022 11: 14am [facility] Physical Therapy [facility] [address] [place] [address] / REHABILITATION SERVICES DISCHARGE SUMMARY MR#: [id number] Acct: [id number] Name: BRIONNA ROBLES Rep #: [id number] : 1965 56 From: Rebecca Galvez PT, Cert. MDT Referring Dr.: Dr. Jojo Keen MD Status: REG [facility] Insurance: [facility] JUST FOR ME SELF PAY INSURANCE BRIONNA ROBLES was seen in my office for initial evaluation on 04/19/22. The following Plan of Care was established for this patient: Initial Frequency: 1x/Week Initial Duration: 8-12 WKS Patient/Client Instruction: Educate patient on: Condition, Plan of Care, Risk Factors For the Purpose of:: To improve self management Therapeutic Exercise to Include: Strength training, Endurance training, Flexibilty training, Neuromotor development For the Purpose of:: To improve muscle performance and motor function, To increase tolerance to activity/condition/position, To improve ability of physical actions for home/community/work/leisure Manual Therapy Techniques to Include: Soft tissue mobilization For the Purpose of:: To decrease soft tissue restriction This patient was last seen in our office 05/18/22. Pertinent comments regardingtheir Physical therapy will appear below: This patient has not returned to Physical Therapy and is appropriate to return to MD for further follow-up as needed. At this point I will be discontinuing this patient from physical therapy. I would be happy to see this patient again in the future if found appropriate by the physician. Thank you! Rebecca Galvez, PT, Cert MDT <Electronically signed by Rebecca Galvez PT Cert. MDT> 08/17/22 1114 CC: Dr. Jojo Keen MD; Dr. Daiana Grimes, DO ~ LAWANDA Signed [facility] Work Phone: Evaluation noteNo assessment information available [facility] Work Phone: Evaluation note* Diagnosis Onset Date Resolution Status Asthma acute [facility] Work Phone: evaluation note* Diagnosis Onset Date Resolution Status Asthma acute Allergies acute Asthma acute [facility] Work Phone: Evaluation note* Diagnosis Onset Date Resolution Status Allergies acute [facility] Work Phone: Evaluation note* Diagnosis Onset Date Resolution Status Encounter for routine gynecological examination noneactive Asthma acute Allergies acute Asthma acute Aortic valve insufficiency a cute Family history of Marfan syndrome acute Thoracoabdominal aortic aneu rysm (TAAA) without rupture acute [facility] Work Phone: Evaluation note* Diagnosis Onset Date Resolution Status Asthma acute Allergies acute Asthma acute Aortic valve insufficiency a cute Family history of Marfan syndrome acute Thoracoabdominal aortic aneurysm (TAAA) without ruptur e acute [facility] Work Phone: Evaluation note* Diagnosis Onset Date Resolution Status Allergies acute Asthma acute Aortic valve insufficiency a cute Family history of Marfan syndrome acute Thoracoabdominal aortic aneurysm (TAAA) without ruptur e acute [facility] Work Phone: Evaluation note* Diagnosis Onset Date Resolution Status Aortic valve insufficiency a cute Family history of Marfan syndrome acute Thoracoabdominal aortic aneurysm (TAAA) without ruptur e acute Asthma acute [facility] Work Phone: Evaluation note* Diagnosis Onset Date Resolution Status Asthma acute Lipoma of lower back acute Pain in right lumbar region of back acute Lipoma of lower back acute Pain in right lumbar region of back acute [facility] Work Phone: Evaluation note* Diagnosis Onset Date Resolution Status Lipoma of lower back acute Pain in right lumbar region of back acute [facility] Work Phone: Evaluation note* Diagnosis Onset Date Resolution Status Encounter for routine gynecological examination noneactive [facility] Work Phone: Evaluation note* Diagnosis Primary osteoarthritis of right hip- Primary Primary localized osteoarthrosis, pelvic region and thigh [facility]* Diagnosis Onset Date Resolution Status Aortic valve insufficiency a cute Family history of Marfan syndrome acute Thoracoabdominal aortic aneurysm (TAAA) without ruptur e acute [facility] Work Phone: Evaluation note* Diagnosis Onset Date Resolution Status Incontinence in female acute Well woman exam with routine gynecological exam acute [facility] Work Phone: Evaluation note* Diagnosis Chronic low back pain, unspecified back pain laterality, unspecified whether sciatica present- Primary CMT (Notdbji-Gwgae-Jvvqp disease) Peroneal muscular atrophy documented [facility] this encounter [facility] [place] note* Diagnosis Chronic low back pain, unspecified back pain laterality, unspecified whether sciatica present- Primary CMT (Efkzgyg-Ygwwe-Sqfyg disease) Peroneal muscular atrophy documented in this encounter [facility] note* Diagnosis Pain in right foot- Primary Pain in limb Pain in left foot Pain in limb CMT (Frajbxw-Csnyx-Anitv disease) Peroneal muscular atrophy Chronic low back pain, unspecified back pain laterality, unspecified whether sciatica present documented in this encounter [facility] for referral (narrative)No reason for referral information availableWDunlap [facility] Work Phone: Summary Purpose Family History No Family History Records Found Relationship Condition Age at Onset Recorded Date/T britt grandmother Malignant neoplasm of throat Unknown mother Hypertension Unknown Relationship Condition Age at Onset Recorded Date/T britt grandmother Malignant neoplasm of throat Unknown mother Hypertension Unknown sister Marfan's syndrome Unknown Advance Directives No Advanced Directives Records Found Advance Directive Response Recorded Date/ Time Living Will Yes October 06, 2021 9 :47am Power of Log Deckman Yes October 06, 2021 9:47am Advance Directive Response Recorded Date/ Time Name of Medical Power of Log Deckman Luis Robles- October 06, 2021 9:47am Living Will Yes October 28, 2021 9:08pm Power of Log Deckman Yes October 28 9:08pm Advance Directive Response Recorded Date/ Time Name of Medical Power of Log Deckman Luis Robles- October 06, 2021 9:47am Name of Medical Power of Log Deckman recalled October 28, 2021 9:08pm Living Will Yes October 28, 2021 9:08pm Power of Log Deckman Yes October 28 9:08pm Advance Directive Response Recorded Date/ Time Living Will Yes October 28, 2021 9:08pm Power of Log Deckman Yes October 28 9:08pm Advance Directive Response Recorded Date/ Time Living Will Yes October 28, 2021 8:08pm Power of Log Deckman Yes October 28 8:08pm Chief Complaint and Reason for Visit Chief Complaint Annual (DIE FINISHER) SCREENING Chief Complaint Annual (DIE FINISHER) SCREENING EST CARE. Reason for Visit Asthma Chief Complaint Annual (DIE FINISHER) SCREENING EST CARE. UNSPECIFIED ASTHMA UNSPECIFIED ASTHMA Reason for Visit Asthma Chief Complaint Annual (DIE FINISHER) SCREENING EST CARE. UNSPECIFIED ASTHMA UNSPECIFIED ASTHMA RIGHT SHOULDER PAIN LABSPEC Reason for Visit Asthma Chief Complaint Annual (DIE FINISHER) SCREENING EST CARE. UNSPECIFIED ASTHMA UNSPECIFIED ASTHMA RIGHT SHOULDER PAIN LABSPEC 6 wk FU EYE DISCHARGE Reason for Visit Asthma Allergies Asthma Chief Complaint Annual (DIE FINISHER) SCREENING EST CARE. UNSPECIFIED ASTHMA UNSPECIFIED ASTHMA RIGHT SHOULDER PAIN LABSPEC 6 wk FU EYE DISCHARGE Reason for Visit Allergies Chief Complaint Annual (DIE FINISHER) SCREENING EST CARE. UNSPECIFIED ASTHMA UNSPECIFIED ASTHMA RIGHT SHOULDER PAIN LABSPEC 6 wk FU EYE DISCHARGE EST CARE TAA MUSCLE WEAKNESS/RX HERE Reason for Visit Encounter for routin e gynecological examination Asthma Allergies Asthma Aortic valve insufficiency Family history of Marfan syndrome Thoracoabdominal aortic aneurysm (TAAA) without rupture Chief Complaint EST CARE. UNSPECIFIED ASTHMA UNSPECIFIED ASTHMA RIGHT SHOULDER PAIN LABSPEC 6 wk FU EYE DISCHARGE EST CARE TAA MUSCLE WEAKNESS/RX HERE MUSCLE WEAKNESS TAA Reason for Visit Asthma Allergies Asthma Aortic valve insufficiency Family history of Marfan syndrome Thoracoabdominal aortic aneurysm (TAAA) without rupture Chief Complaint UNSPECIFIED ASTHMA UNSPECIFIED ASTHMA RIGHT SHOULDER PAIN LABSPEC 6 wk FU EYE DISCHARGE EST CARE TAA MUSCLE WEAKNESS/RX HERE MUSCLE WEAKNESS TAA Reason for Visit Allergies Asthma Aortic valve insufficiency Family history of Marfan syndrome Thoracoabdominal aortic aneurysm (TAAA) without rupture Chief Complaint RIGHT SHOULDER PAIN LABSPEC 6 wk FU EYE DISCHARGE EST CARE TAA MUSCLE WEAKNESS/RX HERE MUSCLE WEAKNESS TAA Critical illness polyneuropathy Reason for Visit Allergies Asthma Aortic valve insufficiency Family history of Marfan syndrome Thoracoabdominal aortic aneurysm (TAAA) without rupture Chief Complaint EST CARE TAA MUSCLE WEAKNESS/RX HERE MUSCLE WEAKNESS TAA Critical illness polyneuropathy 4 M FU Reason for Visit Aortic valve insuffi ciency Family history of Marfan syndrome Thoracoabdominal aortic aneurysm (TAAA) without rupture Asthma Chief Complaint MUSCLE WEAKNESS TAA Critical illness polyneuropathy 4 M FU Lipoma on back ok per AG EXCISION OF LESION ON BACK LESION ON BACK OVERACTIVE BLADDER,PROLAPSE RX HERE Reason for Visit Asthma Lipoma of lower back Pain in right lumbar region of back Lipoma of lower back Pain in right lumbar region of back Chief Complaint Critical illness anastasiia yneuropathy 4 M FU Lipoma on back ok per AG EXCISION OF LESION ON BACK LESION ON BACK OVERACTIVE BLADDER,PROLAPSE RX HERE Reason for Visit Asthma Lipoma of lower back Pain in right lumbar region of back Lipoma of lower back Pain in right lumbar region of back Chief Complaint EXCISION OF LESION O N BACK LESION ON BACK OVERACTIVE BLADDER,PROLAPSE RX HERE Reason for Visit Lipoma of lower back Pain in right lumbar region of back Chief Complaint OVERACTIVE BLADDER,P ROLAPSE RX HERE Annual (DIE FINISHER) SCREENING Reason for Visit Encounter for routin e gynecological examination Chief Complaint Annual (DIE FINISHER) SCREENING Reason for Visit Encounter for routin e gynecological examination Chief Complaint Annual (DIE FINISHER) SCREENING BOTH HIPS OA BOTH HIPS RX HERE Reason for Visit Encounter for routin e gynecological examination Chief Complaint SCREENING BOTH HIPS OA BOTH HIPS RX HERE Chief Complaint 1 Y FU PREV PFM Thoracoabdominal aortic aneurysm, without rupture, Reason for Visit Aortic valve insuffi ciency Family history of Marfan syndrome Thoracoabdominal aortic aneurysm (TAAA) without rupture Chief Complaint Annual (DIE FINISHER) r/s fro m 09/05 Reason for Visit Incontinence in fema le Well woman exam with routine gynecological exam Chief Complaint Admit Date J45.50 - Severe persistent asthma, uncom plicated September 23, 2024 12:33pm Annual (DIE FINISHER) September 26, 2024 1:24pm Reason for Visit Admit Date Encounter for routine gynecological exam ination September 26, 2024 1:24pm Chief Complaint Admit Date J45.50 - Severe persistent asthma, uncom plicated September 23, 2024 12:33pm Annual (DIE FINISHER) September 26, 2024 1:24pm 6 M FU October 01, 2024 12:52 pm Reason for Visit Admit Date Encounter for routine gynecological exam ination September 26, 2024 1:24pm Family history of Marfan syndrome October 012024 12:52pm Marfanoid habitus October 01, 2024 12:52 pm Mitral regurgitation October 01, 2024 12:5 2pm Thoracic aortic aneurysm October 01, 2024 12:52pm Chief Complaint Admit Date J45.50 - Severe persistent asthma, uncom plicated September 23, 2024 12:33pm Annual (DIE FINISHER) September 26, 2024 1:24pm 6 M FU October 01, 2024 12:52 pm SCREENING October 20, 2024 12:45 pm 6 M FU October 21, 2024 10:47 am Reason for Visit Admit Date Encounter for routine gynecological exam ination September 26, 2024 1:24pm Family history of Marfan syndrome October 012024 12:52pm Marfanoid habitus October 01, 2024 12:52 pm Mitral regurgitation October 01, 2024 12:5 2pm Thoracic aortic aneurysm October 01, 2024 12:52pm Asthma October 21, 2024 10:47 am Chief Complaint Admit Date J45.50 - Severe persistent asthma, uncom plicated September 23, 2024 12:33pm J45.50 - Severe persistent asthma, uncom plicated September 23, 2024 1:00pm Annual (DIE FINISHER) September 26, 2024 1:24pm 6 M FU October 01, 2024 12:52 pm SCREENING October 20, 2024 12:45 pm 6 M FU October 21, 2024 10:47 am TAAA November 14, 2024 8:41 am Chief Complaint Admit Date J45.50 - Severe persistent asthma, uncom plicated September 23, 2024 12:33pm J45.50 - Severe persistent asthma, uncom plicated September 23, 2024 1:00pm Annual (DIE FINISHER) September 26, 2024 1:24pm 6 M FU October 01, 2024 12:52 pm SCREENING October 20, 2024 12:45 pm 6 M FU October 21, 2024 10:47 am TAAA November 14, 2024 8:41 am TAA December 11, 2024 2:07 pm Chief Complaint Admit Date J45.50 - Severe persistent asthma, uncom plicated September 23, 2024 12:33pm J45.50 - Severe persistent asthma, uncom plicated September 23, 2024 1:00pm Annual (DIE FINISHER) September 26, 2024 1:24pm 6 M FU October 01, 2024 12:52 pm SCREENING October 20, 2024 12:45 pm 6 M FU October 21, 2024 10:47 am TAAA November 14, 2024 8:41 am TAA December 11, 2024 2:07 pm THYROID NODULE December 29, 2024 1: 58pm Reason for Referral Specialty Diagnoses / Procedures Referred By Stefan marques Referred To Contact Pain Management Diagnoses Chronic low back pain, unspecified back pain laterality, unspecified whether sciatica present CMT (Hcimsgq-Bnrou-Pxbzf disease) Procedures CONSULT TO PAIN MGT OFFICE/OUTPATIENT [facility] MDM 60 MINUTES Adam Carson, DO [address] [address] Linh Browning MD [address] [place] [address] Referral ID Status Reason Start Date Expiration Date Visits Requested Visits Authorized [id number] Pending Review PCP Requested Referral 4 07/31/2024 1 1 Specialty Diagnoses / Procedures Referred By Stefan marques Referred To Contact [facility] Diagnoses Chronic low back pain, unspecified back pain laterality, unspecified whether sciatica present CMT (Cxgdfzf-Pewqs-Utrpa disease) Procedures CONSULT TO PHYSICAL THERAPY PHYSICAL THERAPY EVALUATION HIGH COMPLEX 45 MINS Adam Carson DO [address] [address] [facility] [place] [address] [place] [id number] Referral ID Status Reason Start Date Expiration Date Visits Requested Visits Authorized [id number] Pending Review Auto-Generat ed Referral 4 05/02/2025 1 1 Specialty Diagnoses / Procedures Referred By Contac t Referred To Contact XR IMAGING Diagnoses Chronic low back pain, unspecified back pain laterality, unspecified whether sciatica present CMT (Rkugunb-Cgccn-Nifuj disease) Procedures XR LUMBAR LIMITED 2V FLEX/EXT RADEX SPINE LUMBOSACRAL 2/3 VIEWS Adam Carson, DO [address] [place] [id number] [place] [address] Referral ID Status Reason Start Date Expiration Date Visits Requested Visits Authorized [id number] New Request Auto-Generat ed Referral 4 06/01/2025 1 1 Referral ID Status Reason Start Date Expiration Date Visits Requested Visits Authorized [id number] Pending Review Auto-Generat ed Referral OON/Self Pay Override 4 05/06/2025 1 1 Specialty Diagnoses / Procedures Referred By Contac t Referred To Contact Sports Medicine Diagnoses Chronic low back pain, unspecified back pain laterality, unspecified whether sciatica present Procedures CONSULT TO ORTHOPAEDICS OFFICE/OUTPATIENT NEW [facility] MDM 60 MINUTES Israel Pastor, PAN [address] [place] [id number] Adam Carson, DO [address] [place] [id number] Referral ID Status Reason Start Date Expiration Date Visits Requested Visits Authorized [id number] Pending Review PCP Requested Referral 4 07/28/2024 1 1 Specialty Diagnoses / Procedures Referred By Contac t Referred To Contact XR IMAGING Diagnoses Pain in left foot Procedures XR FOOT GENERAL 3V AP/LAT/OBL LEFT RADEX FOOT COMPLETE MINIMUM 3 VIEWS Israel Pastor, DPM [address] [place] [address] [place] [address] Referral ID Status Reason Start Date Expiration Date Visits Requested Visits Authorized [id number] New Request Auto-Generat ed Referral 4 05/29/2025 1 1 Specialty Diagnoses / Procedures Referred By Contac t Referred To Contact XR IMAGING Diagnoses Pain in right foot Procedures XR FOOT GENERAL 3V AP/LAT/OBL RIGHT RADEX FOOT COMPLETE MINIMUM 3 VIEWS Israel Pastor, PAN [address] [place] [address] [place] [address] Referral ID Status Reason Start Date Expiration Date Visits Requested Visits Authorized [id number] New Request Auto-Generat ed Referral 4 05/29/2025 1 1 Additional Source Comments INFORMATION SOURCE (unrecogn ized section and content) DATE CREATED AUTHOR 01/06/2021 [facility] [place] DATE CREATED AUTHOR AUTHOR'S ORGANIZ ATION 12/11/[address] [facility] DATE CREATED AUTHOR AUTHOR'S ORGANIZ ATION 05/05/2023 [facility] DATE CREATED AUTHOR AUTHOR'S ORGANIZ ATION 12/25/2023 [facility] DATE CREATED AUTHOR AUTHOR'S ORGANIZ ATION 02/25/2024 [employer] [facility] DATE CREATED AUTHOR AUTHOR'S ORGANIZ ATION 01/04/[address] [facility] DATE CREATED AUTHOR AUTHOR'S ORGANIZ ATION 01/09/2025 [facility] Goals (unrecognized section and content) Goals may be documented in a n alternate sectionGoals may be documented in an alternate sectionGoals may be documented in an alternate sectionGoals may be documented in an alternate sectionGoals may be documented in an alternate sectionGoals may be documented in an alternate sectionGoals may be documented in an alternate sectionGoals may be documented in an alternate sectionGoals may be documented in an alternate sectionGoals may be documented in an alternate sectionGoals may be documented in an alternate sectionGoals may be documented in an alternate sectionGoals may be documented in an alternate sectionGoals may be documented in an alternate sectionGoals may be documented in an alternate sectionGoals may be documented in an alternate sectionGoals may be documented in an alternate sectionGoals may be documented in an alternate sectionGoals may be documented in an alternate sectionGoals may be documented in an alternate sectionGoals may be documented in an alternate sectionGoals may be documented in an alternate sectionGoals may be documented in an alternate sectionGoals may be documented in an alternate sectionGoals may be documented in an alternate sectionGoals may be documented in an alternate sectionGoals may be documented in an alternate sectionGoals may be documented in an alternate section Care Teams (unrecognized sec tion and content) Team Status: Active Member Role Status Dates Dr. Daiana Grimes , DO Primary Care Provider Active Team Status: Inactive Member Role Status Dates Dr. Daiana rGimes , DO Primary Care Provider, Referring Provider Active Dr. Cristian Watt MD Attending Provider Active Team Status: Inactive Member Role Status Dates Dr. Daiana Grimes , DO Primary Care Provider Active Dr. Jojo Keen MD Attending Provider, Referring P fernanda Active Team Status: Inactive Member Role Status Dates Dr. Daiana Grimes , DO Primary Care Provider Active Dr. Cristian Watt MD Attending Provider Active Team Status: Inactive Member Role Status Dates Dr. Daiana Grimes , DO Primary Care Provider, Referring Provider Active Dr. Zuleika Smyth , DO Attending Provider Activ e Team Status: Inactive Member Role Status Dates Dr. Daiana Grimes , DO Primary Care Provider Active Dr. Zuleika Smyth , DO Attending Provider, Refe rring Provider Active Team Status: Inactive Member Role Status Dates Dr. Daiana Grimes , DO Primary Care Provi yfn, Attending Provider, Referring Provider Active Boat Deckhand Relationship Specialty Start Date End Date Esther Laureano MD [address] [place] [address] PCP - General Internal Medicine 01/15/17 Team Status: Inactive Member Role Status Dates Dr. Daiana Grimes DO Primary Care Provider Active Dr. Evelyn Hu MD Attending Provider, Referring Pro vider Active Boat Deckhand Relationship Specialty Start Date End Date Esther Laureano MD [address] [place] [address] PCP - General Internal Medicine 01/15/17 Team Status: Inactive Member Role Status Dates Dr. Daiana Grimes , DO Primary Care Provider, Referring Provider Active Dr. Akil Reagan MD Active Sussy Roach PA, PA Attending Provider Active Team Status: Inactive Member Role Status Dates Dr. Daiana Grimes , DO Primary Care Provider Active Sussy oRach PA, PA Attending Provider Active Team Status: Active Member Role Status Dates Dr. Daiana Grimes DO Primary Care Provi yfn, Attending Provider, Referring Provider Active Boat Deckhand Relationship Specialty Start Date End Date Daiana Grimes DO [address] [place] [address] PCP - General Internal Medicine 10/29/23 Boat Deckhand Relationship Specialty Start Date End Date Daiana Grimes DO [address] [place] [address] PCP - General Internal Medicine 10/29/23 Boat Deckhand Relationship Specialty Start Date End Date Daiana Grimes DO [address] [place] [address] PCP - General Internal Medicine 10/29/23 Boat Deckhand Relationship Specialty Start Date End Date Daiana Grimes DO [address] [place] [address] PCP - General Internal Medicine 10/29/23 Boat Deckhand Relationship Specialty Start Date End Date Daiana Grimes DO [address] [place] [address] PCP - General Internal Medicine 10/29/23 Boat Deckhand Relationship Specialty Start Date End Date Daiana Grimes DO [address] [place] [address] PCP - General Internal Medicine 10/29/23 Team Status: Inactive Member Role Status Dates Dr. Daiana Grimes DO Primary Care Provider Active Start: September 23, 2024 End: September 23, 2024 Sussy GREER, PA Attending Provider Active Start: September 23, 2024 End: September 23, 2024 Sussy Roach PA, PA Referring Provider Active Start: September 23, 2024 End: September 23, 2024 Team Status: Inactive Member Role Status Dates Dr. Daiana Grimes DO Primary Care Provider Active Start: September 26, 2024 End: September 26, 2024 Dr. Daiana Grimes DO Referring Provider Active Start: September 26, 2024 End: September 26, 2024 Dr. Zuleika Smyth DO Attending Provider Activ e Start: September 26, 2024 End: September 26, 2024 Team Status: Inactive Member Role Status Dates Dr. Daiana Grimes DO Primary Care Provider Active Start: October 01, 2024 End: October 01, 2024 Dr. Daiana Grimes DO Referring Provider Active Start: October 01, 2024 End: October 01, 2024 Dr. Stefani Castillo MD Attending Provider Active Start: October 01, 2024 End: October 01, 2024 Team Status: Inactive Member Role Status Dates Dr. Daiana Grimes DO Primary Care Provider Active Start: October 20, 2024 End: October 20, 2024 Dr. Zuleika Smyth DO Attending Provider Activ e Start: October 20, 2024 End: October 20, 2024 Dr. Zuleika Smyth DO Referring Provider Activ e Start: October 20, 2024 End: October 20, 2024 Team Status: Inactive Member Role Status Dates Dr. Daiana Grimes DO Primary Care Provider Active Start: October 21, 2024 End: October 21, 2024 Dr. Daiana Grimes DO Referring Provider Active Start: October 21, 2024 End: October 21, 2024 Dr. Jacob Coulter DO Attending Provider Active S tart: October 21, 2024 End: October 21, 2024 Team Status: Active Member Role Status Dates Dr. Daiana Grimes DO Primary Care Provider Active Start: October 21, 2024 Dr. Jacob Coulter , Attending Provider Active S tart: October 21, 2024 Dr. Jacob Coulter , Referring Provider Active S tart: October 21, 2024 Team Status: Inactive Member Role Status Dates Dr. Daiana Grimes DO Primary Care Provider Active Start: October 21, 2024 End: October 21, 2024 Dr. Jacob Coulter DO Attending Provider Active S tart: October 21, 2024 End: October 21, 2024 Dr. Jacob Coulter , DO Referring Provider Active S tart: October 21, 2024 End: October 21, 2024 Team Status: Active Member Role Status Dates Dr. Daiana Grimes DO Primary Care Provider Active Start: October 20, 2024 Dr. Zuleika Smyth DO Attending Provider Activ e Start: October 20, 2024 Dr. Zuleika Smyth DO Referring Provider Activ e Start: October 20, 2024 Team Status: Active Member Role/Relationship Status Dates Dr. Daiana Grimse DO Primary Care Provider Active Team Status: Inactive Member Role/Relationship Status Dates Dr. Daiana Grimes DO Primary Care Provider Active Start: September 23, 2024 End: September 23, 2024 Sussy Roach PA, PA Attending Provider Active Start: September 23, 2024 End: September 23, 2024 Sussy Roach PA, PA Referring Provider Active Start: September 23, 2024 End: September 23, 2024 Team Status: Active Member Role/Relationship Status Dates Dr. Daiana Grimes DO Primary Care Provider Active Start: September 23, 2024 Dr. Jacob Coulter DO Attending Provider Active S tart: September 23, 2024 Sussy Roach PA, PA Referring Provider Active Start: September 23, 2024 Team Status: Inactive Member Role/Relationship Status Dates Dr. Daiana Grimes DO Primary Care Provider Active Start: September 26, 2024 End: September 26, 2024 Dr. Daiana Grimse DO Referring Provider Active Start: September 26, 2024 End: September 26, 2024 Dr. Zuleika Smyth DO Attending Provider Activ e Start: September 26, 2024 End: September 26, 2024 Team Status: Inactive Member Role/Relationship Status Dates Dr. Daiana Grimes DO Primary Care Provider Active Start: October 01, 2024 End: October 01, 2024 Dr. Daiana Grimes DO Referring Provider Active Start: October 01, 2024 End: October 01, 2024 Dr. Stefani Castillo MD Attending Provider Active Start: October 01, 2024 End: October 01, 2024 Team Status: Inactive Member Role/Relationship Status Dates Dr. Daiana Grimes DO Primary Care Provider Active Start: October 20, 2024 End: October 20, 2024 Dr. Zuleika Smyth DO Attending Provider Activ e Start: October 20, 2024 End: October 20, 2024 Dr. Zuleika Smyth DO Referring Provider Activ e Start: October 20, 2024 End: October 20, 2024 Team Status: Inactive Member Role/Relationship Status Dates Dr. Daiana Grimes DO Primary Care Provider Active Start: October 21, 2024 End: October 21, 2024 Dr. Daiana Grimes DO Referring Provider Active Start: October 21, 2024 End: October 21, 2024 Dr. Jacob Coulter DO Attending Provider Active S tart: October 21, 2024 End: October 21, 2024 Team Status: Inactive Member Role/Relationship Status Dates Dr. Daiana Grimes DO Primary Care Provider Active Start: October 21, 2024 End: October 21, 2024 Dr. Jacob Coulter DO Attending Provider Active S tart: October 21, 2024 End: October 21, 2024 Dr. Jacob Coulter DO Referring Provider Active S tart: October 21, 2024 End: October 21, 2024 Team Status: Inactive Member Role/Relationship Status Dates Dr. Daiana Grimes DO Primary Care Provider Active Start: November 14, 2024 End: November 14, 2024 Dr. Stefani Castillo MD Attending Provider Active Start: November 14, 2024 End: November 14, 2024 Dr. Stefani Castillo MD Referring Provider Active Start: November 14, 2024 End: November 14, 2024 Team Status: Active Member Role/Relationship Status Dates Dr. Daiana Grimes DO Primary Care Provider Active Start: November 14, 2024 Dr. Earle Bhakta MD Attending Provider Active S tart: November 14, 2024 Team Status: Active Member Role/Relationship Status Dates Dr. Daiana Grimes DO Primary Care Provider Active Start: November 14, 2024 Dr. Stefani Castillo MD Attending Provider Active Start: November 14, 2024 Team Status: Active Member Role/Relationship Status Dates Dr. Daiana Grimes DO Primary Care Provider Active Start: November 14, 2024 Dr. Earle Bhakta MD Attending Provider Active S tart: November 14, 2024 Dr. Stefani Castillo MD Referring Provider Active Start: November 14, 2024 Team Status: Inactive Member Role/Relationship Status Dates Dr. Daiana Grimes DO Primary Care Provider Active Start: November 18, 2024 Dr. Jojo Keen MD Attending Provider Active Start: November 18, 2024 Team Status: Inactive Member Role/Relationship Status Dates Dr. Daiana Grimes DO Primary Care Provider Active Start: December 11, 2024 End: December 11, 2024 ZOEY Abraham Attending Provider Active Start: December 11, 2024 End: December 11, 2024 ZOEY Abraham Referring Provider Active Start: December 11, 2024 End: December 11, 2024 Team Status: Inactive Member Role/Relationship Status Dates Dr. Daiana Grimes DO Primary Care Provider Active Start: December 29, 2024 End: December 29, 2024 Dr. Daiana Grimes DO Attending Provider Active Start: December 29, 2024 End: December 29, 2024 Dr. Daiana Grimes DO Referring Provider Active Start: December 29, 2024 End: December 29, 2024 Boat Deckhand Relationship Specialty Start Date End Date Daiana Grimes DO [address] [place] [address] PCP - General Internal Medicine 10/29/23 Source Comments (unrecognize d section and content) In the event this informatio n is protected by the Federal Confidentiality of Alcohol and Drug Abuse Patient Records regulations: The Federal rules restrict any use of the information to criminally investigate or prosecute any alcohol or drug abuse patient.[facility] the event this information is protected by the Federal Confidentiality of Alcohol and Drug Abuse Patient Records regulations: The Federal rules restrict any use of the information to criminally investigate or prosecute any alcohol or drug abuse patient.[facility] the event this information is protected by the Federal Confidentiality of Alcohol and Drug Abuse Patient Records regulations: The Federal rules restrict any use of the information to criminally investigate or prosecute any alcohol or drug abuse patient.[facility] the event this information is protected by the Federal Confidentiality of Alcohol and Drug Abuse Patient Records regulations: The Federal rules restrict any use of the information to criminally investigate or prosecute any alcohol or drug abuse patient.[facility] the event this information is protected by the Federal Confidentiality of Alcohol and Drug Abuse Patient Records regulations: The Federal rules restrict any use of the information to criminally investigate or prosecute any alcohol or drug abuse patient.[facility] the event this information is protected by the Federal Confidentiality of Alcohol and Drug Abuse Patient Records regulations: The Federal rules restrict any use of the information to criminally investigate or prosecute any alcohol or drug abuse patient.[facility] the event this information is protected by the Federal Confidentiality of Alcohol and Drug Abuse Patient Records regulations: The Federal rules restrict any use of the information to criminally investigate or prosecute any alcohol or drug abuse patient.[facility] the event this information is protected by the Federal Confidentiality of Alcohol and Drug Abuse Patient Records regulations: The Federal rules restrict any use of the information to criminally investigate or prosecute any alcohol or drug abuse patient.[facility] the event this information is protected by the Federal Confidentiality of Alcohol and Drug Abuse Patient Records regulations: The Federal rules restrict any use of the information to criminally investigate or prosecute any alcohol or drug abuse patient.[facility] Reason for Visit (unrecogniz ed section and content) Reason Comments New Specialty Diagnoses / Procedures Referred By Contac t Referred To Contact Diagnoses toe pain Procedures new pt Self [facility] [address] [place] [address] Referral ID Status Reason Start Date Expiration Date Visits Requested Visits Authorized [id number] Pending Review OON/Self Pay Override 02/25/2024 06/04/2025 1 1 Reason Comments New Pain Specialty Diagnoses / Procedures Referred By Contac t Referred To Contact ORTHOPAEDIC SURGERY Diagnoses New /Right Hip Pain Procedures New Patient Self [facility] [address] [place] [address] Referral ID Status Reason Start Date Expiration Date Visits Requested Visits Authorized [id number] Outside PCP OON/Self Pay Override 10/31/2022 04/29/2023 1 1 Specialty Diagnoses / Procedures Referred By Contac t Referred To Contact MR IMAGING Diagnoses Cyst of kidney, acquired Procedures MRI ABDOMEN W/O & W/CONTRAST MATERIAL Daiana Grimes, DO [address] [place] [address] Mr Imaging [facility] Referral ID Status Reason Start Date Expiration Date V isits Requested Visits Authorized [id number] Closed OON/Self Pay Override 01/29/2023 03/30/2023 1 1 Specialty Diagnoses / Procedures Referred By Contac t Referred To Contact MR IMAGING Diagnoses Other symptoms and signs involving cognitive functions and awareness Hereditary motor and sensory neuropathy Peripheral vascular disease, unspecified Procedures MRI BRAIN BRAIN STEM W/O W/CONTRAST MATERIAL Evelyn Hu MD [address] [facility] [address] [place] [address] [place] [id number] Referral ID Status Reason Start Date Expiration Date Visits Requested Visits Authorized [id number] Closed OON/Self Pay Override Clearance Not Met - Admin/Guest Relations Agent/D irector Advise to Postpone/Resched ule or Not Proceed OON Notification Letter Financial Clearance Required - OON Payor 01/04/2024 07/06/2024 1 1 Specialty Diagnoses / Procedures Referred By Contac t Referred To Contact Diagnoses back pain Procedures new pt Self [facility] [address] [place] [address] Referral ID Status Reason Start Date Expiration Date Visits Requested Visits Authorized [id number] Pending Review OON/Self Pay Override 4 08/08/2025 1 1 Reason Comments Orders Reason Comments Appointment HEALTH SPECIALIST FOR RECORDS PERTAINING TO PATIENTS WHO ARE OR HAVE BEEN ENROLLED IN A CHEMICAL DEPENDENCY/SUBSTANCEABUSE PROGRAM, SOME INFORMATION MAY BE OMITTED. This clinical summary was aggregated from multiple sources. Caution should be exercised in using it in the provision of clinical care. This summary normalizes information from multiple sources, and as a consequence, information in this document may materially change the coding, format and clinical context of patient data. In addition, data may be omitted in some cases. CLINICAL DECISIONS SHOULD BE BASED ON THE PRIMARY CLINICAL RECORDS. [facility]. provides no warranty or guarantee of the accuracy or completeness of information in this document.
[2025-04-11 04:23] VITALS: BP 108/81; PULSE 70; RESP 16; TEMP 36.7; O2SAT 98
[2025-04-11 06:00] VITALS: BP 128/74; PULSE 67
--- NOTE | 2025-04-11 06:28 | EDS_ITS ---
HPI History of Present Illness Chief Complaint: Diarrhea Informant: patient Narrative Narrative: Patient is a 59-year-old female with past medical history of Sdklacb-Baxvr-Nufoe disease as well as GERD and IBS-C. She states she takes MiraLAX daily in order to help with bowel movements. She reports she was recently taking care of her mother who was diagnosed with C. difficile. She states that today she has had increased episodes of loose stool and increased fatigue and shaking chills. She denies any blood or discoloration to the stool. Other than exposure to her mother she denies any known sick contact. She denies any recent antibiotic use or travel outside the country. However because of the increase in her stooling and her exposure she is concerned she may have developed C. difficile and comes in for evaluation [facility] Medical History Thoracoabdominal aortic aneurysm (TAAA) without rupture Family history of Marfan syndrome GERD (gastroesophageal reflux disease) Right patella fracture Aortic aneurysm CMT (Cfhlagz-Xhyqo-Eiukk disease) Asthma Home Medications ?Medication ?Instructions ?Recorded ?Last Taken ?Type pregabalin 200 mg capsule (Lyrica) 200 mg PO BID 08/25 Unknown History omalizumab 150 mg subcutaneous 300 mg subcut Q2W #2 ea 06/08/23 Unknown Rx solution (Xolair) epinephrine 0.3 mg/0.3 mL 0.3 mg (0.3 mL) IM ONCE #2 e a 02/12/24 Unknown Rx injection, auto-injector (EpiPen) ascorbic acid (vitamin C) 1,000 mg 1 g PO QDAY 4 Unknown History tablet omalizumab 75 mg/0.5 mL 75 mg subcut Q2W 03/25/24 Un known History subcutaneous syringe (Xolair) fluticasone 500 mcg-salmeterol 50 1 inh inhalation BID #3 device 07/21/24 Unknown Rx mcg/dose blistr powdr for inhalation (Advair Diskus) estradiol 4 mcg vaginal insert, in See Rx Instructions vaginal 09/26/24 Unknown Rx a starter dose pack (Imvexxy .COMPLEX #18 ea Starter Pack) polyethylene glycol 3350 17 4 g PO ONCE 09/26/24 Unkno wn History gram/dose oral powder (Miralax) venlafaxine 75 mg capsule,extended 75 mg PO QDAY 10/01 Unknown History release 24 hr fluticasone propionate 50 2 spray intranasal DAILY PRN nasal 10/21/24 Unknown Rx mcg/actuation nasal congestion #3 ea spray,suspension montelukast 10 mg tablet 10 mg PO DAILY #90 tabs 08/12 Unknown Rx (Singulair) metoprolol succinate 25 mg 25 mg PO DAILY #90 tabs Unknown Rx tablet,extended release 24 hr Allergy/AdvReac Type Severity Reaction Status Date / Time egg Allergy Headache, Verified 04/11/25 02:29 increased sinus drainage Family History Grandmother Throat cancer Mother Hypertension Sister Marfan syndrome Surgical History History of umbilical hernia repair History of sinus surgery History of right knee surgery History of hysterectomy History of cholecystectomy Social History Smoking Status: Former smoker alcohol intake: current details: occasionally substance use type: does not use caffeine: Yes what type of physical activity do you participate in: none seatbelt use: always do you feel safe at home: Yes additional social history: - Luis Patient on disability [facility] ED Constitutional Constitutional ED: Reports chills, subjective and other Details: Positive fatigue ; Denies fever(s) Eyes Eyes: Denies change in vision ENT ENT ED: Denies sore throat Cardiovascular Cardiovascular: Denies chest pain Respiratory/Chest Respiratory/Chest: Denies cough or dyspnea Gastrointestinal Gastrointestinal: Reports diarrhea; Denies abdominal pain, nausea or vomiting Genitourinary Genitourinary ED: Denies dysuria Musculoskeletal Musculoskeletal: Reports myalgias Integumentary Denies rash Neurologic Neurologic: Denies headache(s) Hematologic/Lymphatic Hematologic/Lymphatic: Denies easy bleeding or easy bruising EXAM Physical Exam Const Vital Signs: 04/11/25 02:25 04/11/25 04:23 04/11/25 06:00 Temperature 97.1 F L 98.1 F Temperature Source Oral Oral Pulse Rate 77 70 67 Respiratory Rate 16 16 Blood Pressure 140/100 H 108/81 H 128/74 H Blood Pressure Mean 113 90 92 Pulse Ox 97 98 Oxygen Delivery Method Room Air 04/11/25 07:07 Temperature 98.1 F Temperature Source Pulse Rate 71 Respiratory Rate 16 Blood Pressure 124/61 H Blood Pressure Mean 82 Pulse Ox 98 Oxygen Delivery Method Positive well nourished and well developed General Appearance ED: well developed; Negative for pallor HEENT Reports dry mucous membranes HEENT Narrative: Normocephalic atraumatic No tongue or lip swelling no oral lesions no airway edema or compromise; no secondary findings in the posterior pharynx to suggest infection Mucous membranes are mildly dry and tacky Mouth ED: Yes dry mucous membranes Mouth: dry mucous membranes Eyes PERRL and EOMs intact bilaterally General Eye ED: Negative for scleral icterus Neck supple Resp normal respiratory effort and clear to auscultation bilaterally Cardio regular rate and regular rhythm Rate: other Other Details: Radial and carotid pulses are equal and symmetric GI non-tender, non-distended and no masses GI Narrative: Abdomen is soft nontender nondistended with normal active bowel sounds. No voluntary guarding or rigidity or pulsatile mass. No peritoneal signs Auscultation: normoactive bowel sounds Palpation: soft Extremity normal to inspection Neuro oriented x3 and CN's II-XII intact bilaterally Sensorium / Orientation: alert Psych mental status grossly normal Skin no rashes or lesions noted General Skin Exam: Negative for jaundice or pallor MDM MDM MDM Narrative Medical decision making narrative: Patient reports a longstanding history of IBS-C and takes MiraLAX daily to help with bowel movement. Secondary to this she reports her stools are typically loose in nature. However today she has had a increased frequency of her loose stools. With her recent exposure to her mother there is concern she may have C. difficile. Patient could also have viral infection such as norovirus or rotavirus. Physical exam does show mild dehydration and there is concern she may have acute kidney injury or clinically significant electrolyte abnormality. Also in order to rule out pancreatitis a lipase will be added. Labs revealed no clinically significant findings. Stool sample was negative for Clostridium difficile toxin going against acute infection. On reevaluation patient's abdomen remains soft and nonsurgical and she reports feeling better after IV fluid. Therefore she does not have ANA or electrolyte abnormality and her C. difficile test is negative I do not feel the need for further intervention in the ER she is otherwise safe for discharge History & Record Review Discussion w/independent historian: Patient Lab Data Attestation: I reviewed the patient's lab results. Labs: Laboratory Results - last 24 hr 04/11/25 02:32 WBC 7.8 RBC 4.62 Hgb 13.8 Hct 42.0 MCV 90.9 MCH 29.9 MCHC 32.9 RDW Std Deviation 41.5 RDW Coeff of Gayathri 12.6 Plt Count 199 MPV 10.3 Immature Gran % (Auto) 0.400 Neut % (Auto) 46.3 L Lymph % (Auto) 40.9 Amador % (Auto) 10.1 H Eos % (Auto) 1.3 Baso % (Auto) 1.0 Absolute Neuts (auto) 3.6 Absolute Lymphs (auto) 3.17 Nucleated RBC % 0 Sodium 143 Potassium 3.4 Chloride 106 Carbon Dioxide 24.6 Anion Gap 12 BUN 21 H Creatinine 0.74 Estim Creat Clear Calc 93.17 Est GFR (MDRD) Non-Af 92 BUN/Creatinine Ratio 27.7 H Glucose 99 Calcium 10.0 Magnesium 2.2 Total Bilirubin 0.31 Direct Bilirubin 0.15 AST 25 ALT 24 Alkaline Phosphatase 88 Total Protein 7.2 Albumin 4.3 Globulin 2.9 Lipase 15 Discharge Plan Triage Chief Complaint: Diarrhea ED Provider: Jose G Chaney Dx/Rx/DC Orders Clinical Impression: Diarrhea, CMT (Jtaqnlp-Wrzsf-Jvwrv disease), Irritable bowel syndrome, GERD (gastroesophageal reflux disease) Instructions: ED Diarrhea, Unknown Cause Prescriptions: No Action pregabalin [Lyrica] 200 mg capsule 200 mg PO BID ascorbic acid (vitamin C) 1,000 mg tablet 1 g PO QDAY Xolair 75 mg/0.5 mL syringe 75 mg subcut Q2W polyethylene glycol 3350 [Miralax] 17 gram/dose powder 4 g PO ONCE Imvexxy Starter Pack 4 mcg insert, dose pack See Rx Instructions vaginal .COMPLEX Qty: 18 0RF Rx Instructions: insert 1 - 4 mcg insert vaginally once daily for 2 weeks; then 1 - 4 mcg insert vaginally twice WEEKLY (every 3-4 days/same days each week) vaginal fluticasone propionate 50 mcg/actuation spray,suspension 2 spray intranasal DAILY PRN (Reason: nasal congestion) Qty: 3 3RF Rx Instructions: administer into each nostril montelukast [Singulair] 10 mg tablet 10 mg PO DAILY Qty: 90 3RF venlafaxine 75 mg capsule,extended release 24hr 75 mg PO QDAY Xolair 150 mg recon soln 300 mg subcut Q2W Qty: 2 12RF Rx Instructions: requires multiple injection sites; do not exceed 150 mg per injection site epinephrine [EpiPen] 0.3 mg/0.3 mL auto-injector 0.3 mg IM ONCE Qty: 2 3RF Rx Instructions: as a single dose; may repeat once fluticasone propion-salmeterol [Advair Diskus] 500-50 mcg/dose blister with device 1 inh inhalation BID Qty: 3 3RF metoprolol succinate 25 mg tablet extended release 24 hr 25 mg PO DAILY Qty: 90 3RF Primary Care Provider: Daiana Romo Referrals: Daiana Romo DO [Primary Care Provider, Internal Medicine] Activity Restrictions/Additional Instructions: Your test for C. difficile was negative. Your history and exam would indicate that you most likely have a viral stomach infection leading to your chills and increased stooling. This should resolve spontaneously over the next 3 to 7 days. Keep yourself well-hydrated and return to the ER should you have any further concerns Print Language: Cypriot Disposition Disposition: Home, Self Care Discharge Date/Time: 04/11/25 07:13
[2025-04-11 07:07] VITALS: BP 124/61; PULSE 71; RESP 16; TEMP 36.7; O2SAT 98
== END 2025-04-11 07:13 | disposition home or self-care (01) ==
PROVIDERS: Emergency Provider Emergency Medicine; PCP Internal Medicine; Visit Provider Emergency Medicine
DX: R19.7 Diarrhea, unspecified (principal); K58.1 Irritable bowel syndrome with constipation; K21.9 Gastro-esophageal reflux disease without esophagitis; G60.0 Hereditary motor and sensory neuropathy; Z79.899 Other long term (current) drug therapy; Z87.891 Personal history of nicotine dependence
CPT/HCPCS: 80048; 80076; 83630; 83690; 83735; 85025; 87177; 87209; 87493; 87506; 96360; 99283; A4216